=== PATIENT | male | born 1965 | race Caucasian/White ===

== ENCOUNTER 2020-05-01 07:24 | Outpatient (REF) | payer BC, SELFPAY ==
--- NOTE | 2020-05-01 07:31 | XR_ITS ---
EXAMINATION: XR LUMBOSACRAL SPINE CLINICAL INFORMATION: Low back pain. COMPARISON: None TECHNIQUE: Three views of the lumbosacral spine. FINDINGS: There is normal lumbar lordosis. The vertebral heights and alignment is normal. There is loss of L3-L4, L4-L5 and L5-S1 disc heights with moderate ventral spondylosis. No lytic process seen. The soft tissues are normal. The paravertebral soft tissues are normal. The SI joints are symmetrical and normal. XR/XR lumbar spine 2-3V IMPRESSION: Degenerative disc changes L3-L4, L4-L5 and L5-S1 disc levels with ventral spondylosis. No visible acute fracture, lytic or sclerotic process seen.
== END 2020-05-01 07:25 | disposition home or self-care (01) ==
LOC: HO.XRAY 07:24
PROVIDERS: PCP Internal Medicine; Visit Provider Internal Medicine
DX: M51.36 Other intervertebral disc degeneration, lumbar region (principal)
CPT/HCPCS: 72100

== ENCOUNTER → 2020-05-20 10:00 | Outpatient (BNVA) | payer BC, SELFPAY | PROVIDERS: PCP Internal Medicine; Visit Provider Surgery | DX: Z76.89 Persons encountering health services in other specified circumstances (principal) ==

== ENCOUNTER 2020-05-25 06:39 | Outpatient (REF) | payer BC, SELFPAY | END 2020-05-25 06:40 | disposition home or self-care (01) | LOC: HO.LAB 06:39 | PROVIDERS: PCP Internal Medicine; Visit Provider Internal Medicine | DX: Z20.828 Contact with and (suspected) exposure to other viral communicable diseases (principal) | CPT/HCPCS: 36415; C9803; U0003 ==

== ENCOUNTER 2020-06-08 06:08 | Day surgery (SDC) | payer OTHER, BC, SELFPAY ==
--- NOTE | 2020-06-07 09:39 | HO.ANESPROP2 ---
Documented by User: Ama Day 06/07/20 09:43 HPI - Anesthesia Eval Consult details Narrative: 54yo M for Repair of Inguinal Hernias, Bilateral Family Hx MH (sister, nephew), pt never received GA, never tested [facility] Past Medical History Medical History DDD (degenerative disc disease), lumbar Family history of malignant hyperthermia Fatty liver Hypercholesterolemia Hypertension Impaired glucose tolerance Nocturnal hypoxemia Obesity (BMI 30-39.9) Obstructive sleep apnea Vitamin D deficiency Family History Family History Father Lung cancer Mother Lung cancer Maternal Grandmother No problems noted. Maternal Grandfather Lung cancer Paternal Grandmother No problems noted. Paternal Grandfather No problems noted. Daughter Bipolar disorder Maternal Aunt Bipolar disorder Surgical History Surgical History (Updated 06/08/20 @ 08:15 by Cecilia Souza) H/O colonoscopy History of ear surgery History of selective injection of anesthetic agent around lumbar nerve root Social History Social History Alcohol intake: current Smoking Status: Former smoker Years Smoked: 1987 Second Hand Smoke Exposure: No Use of substances other than those prescribed or required for medical reasons: No Advance Directives: No Advance Directives Information Provided: No Advance Directives on File: No Meds Allergies Allergy/AdvReac Type Severity Reaction Status Date / Time chlorthalidone AdvReac Intermediate gout, Verified 05/31/20 10:49 hypokalemia ezetimibe [Zetia] AdvReac Intermediate ^ LFTS Verified 05/31/20 10:49 lisinopril AdvReac Intermediate cough Verified 05/31/20 10:49 Home Medications Medication Instructions Recorded Confirmed Type CPAP #1 ea 04/29/20 04/29/20 History fenofibrate nanocrystallized 145 145 mg PO DAILY 04/29/20 05/31/20 History mg tablet losartan 50 mg tablet 50 mg PO DAILY 04/29/20 05/31/20 History amlodipine 1 tab PO DAILY 05/31/20 05/31/20 History Exam Exam Date and Time: June 07, 2020 0939 Height,Weight and Vital Signs: Height 5 ft 10 in Weight 95 kg Pertinent Lab Results Pertinent Lab Results: Laboratory Tests 02/02/20 02/02/20 06:41 06:41 WBC 6.8 Hgb 14.3 Hct 40.9 L Plt Count 369 Sodium 140 Potassium 4.1 Chloride 107 BUN 25 H Creatinine 1.14 Assessment and Plan Assessment Anesthesia Assessment: Chart Reviewed Documented by User: Cecilia Souza 06/08/20 08:19 [facility] Past Medical History Medical History DDD (degenerative disc disease), lumbar Family history of malignant hyperthermia Fatty liver Hypercholesterolemia Hypertension Impaired glucose tolerance Nocturnal hypoxemia Obesity (BMI 30-39.9) Obstructive sleep apnea Vitamin D deficiency Family History Family History Father Lung cancer Mother Lung cancer Maternal Grandmother No problems noted. Maternal Grandfather Lung cancer Paternal Grandmother No problems noted. Paternal Grandfather No problems noted. Daughter Bipolar disorder Maternal Aunt Bipolar disorder Family history of problems with anesthesia: Yes (Malignant hypertension history in sister and nephew) Surgical History Surgical History (Updated 06/08/20 @ 08:15 by Cecilia Souza) H/O colonoscopy History of ear surgery History of selective injection of anesthetic agent around lumbar nerve root History of Problems with Anesthesia: No (No history of problems with anesthesia in patient but FH of MH. Patient never tested.) Social History Social History Alcohol intake: current Smoking Status: Former smoker Years Smoked: 1987 Second Hand Smoke Exposure: No Use of substances other than those prescribed or required for medical reasons: No Advance Directives: No Advance Directives Information Provided: No Advance Directives on File: No Meds Allergies Allergy/AdvReac Type Severity Reaction Status Date / Time chlorthalidone AdvReac Intermediate gout, Verified 05/31/20 10:49 hypokalemia ezetimibe [Zetia] AdvReac Intermediate ^ LFTS Verified 05/31/20 10:49 lisinopril AdvReac Intermediate cough Verified 05/31/20 10:49 Home Medications Medication Instructions Recorded Confirmed Type CPAP #1 ea 04/29/20 04/29/20 History fenofibrate nanocrystallized 145 145 mg PO DAILY 04/29/20 05/31/20 History mg tablet losartan 50 mg tablet 50 mg PO DAILY 04/29/20 05/31/20 History amlodipine 1 tab PO DAILY 05/31/20 05/31/20 History Exam Height,Weight and Vital Signs: Vital Signs Temp Pulse Resp BP Pulse Ox 06/08/20 06:23 97 F 64 18 165/95 H 98 Airway Mallampati Class: III TM Dist: >3cm Neck ROM: Full Loose/Missing/Broken Teeth: No Heart: RRR Lungs: CTAB Assessment and Plan Assessment Anesthesia Assessment: Anesthesia Plan Discussed and Chart Reviewed Final Anesthetic Review NPO: Yes ASA Class: III Final Preanesthetic Review: No Changes in Pt Med Stat, Meds/Allgs Chart Reviewed, Consent Obtained/Reviewed and Anes Risks/Benef Reviewed Patient Risk: Intermediate Procedure Risk: Low Assessment/Block/Sedation in SS: Assess/Block/Sedation-SS Anesthetic Plan Anesthetic Plan: GA (TIVA) Disposition: Extended PACU
[2020-06-08] VITALS (10 sets, daily range): BP systolic 103–165; BP diastolic 62–95; PULSE 60–79; RESP 11–18; TEMP 36.1–36.6; O2SAT 94–98
[2020-06-08] MEDS: ceFAZolin Sodium/Dextrose,Iso 2 GM/50 ML PIGGYBACK IV (07:11)
[2020-06-08] MEDS: Lactated Ringers 1,000 ML 100 ML IVCONT (07:11)
--- NOTE | 2020-06-08 07:25 | MHC.SHP ---
Pre-Procedural Eval Section B Chief Complaint: Bilateral Inguinal Hernias Allergies: Allergies Allergy/AdvReac Type Severity Reaction Status Date / Time chlorthalidone AdvReac Intermediate gout, Verified 05/31/20 10:49 hypokalemia ezetimibe [Zetia] AdvReac Intermediate ^ LFTS Verified 05/31/20 10:49 lisinopril AdvReac Intermediate cough Verified 05/31/20 10:49 Plan I have reviewed the history and physical and performed a pertinent physical examination on my patient. No changes have occurred unless specified.
--- NOTE | 2020-06-08 08:58 | P.BOP_ITS ---
Brief Operative Note Date of Service: 06/08/20 Pre-op diagnosis: bilateral inguinal hernias Post-op diagnosis: same Procedure: Repair of bilateral inguinal hernias with mesh Implants: BARD mesh PERfix plug, medium (bilateral) Surgeon: Leoal BANEGAS MD Anesthesia: GLMA Pressure Test Operator: Jaja Seay Estimated blood loss (mL): 10 Pathology: none sent Condition: stable Disposition: PACU
[2020-06-08] MEDS: Ketorolac Tromethamine 15 MG/ML VIAL IVPUSH (09:27)
[2020-06-08] MEDS: ondansetron HCL 4 MG/2 ML VIAL IVPUSH (09:55)
[2020-06-08] MEDS: oxyCODONE HCl Immed Release 5 MG TABLET PO (09:57)
--- NOTE | 2020-06-08 10:36 | OP_ITS ---
SURGEON: Yfn Arnold MD INDICATIONS: The patient is a 54-year-old male, who was seen in the office because of bilateral inguinal hernias, both reducible. In view of symptoms, he wanted to proceed with repair. He understood the technique of repair with mesh. He was aware of the risks, benefits, and alternatives. PREOPERATIVE DIAGNOSIS: Bilateral inguinal hernia. POSTOPERATIVE DIAGNOSIS: Bilateral inguinal hernia, both direct. PROCEDURE PERFORMED: Repair of bilateral inguinal hernia with mesh. ESTIMATED BLOOD LOSS: COMPLICATIONS: ANESTHESIA: ASSISTANTS: SPECIMENS: STAMPING PRESS OPERATOR: Jaja Seay PA-C DESCRIPTION OF PROCEDURE: He was brought to the operating room and placed supine on the table under general anesthesia via laryngeal mask airway. The both inguinal areas were prepped and draped in usual sterile fashion . A surgical time-out was done. The patient received cefazolin. It was also mentioned that the patient had a family history of malignant hyperthermia. Precautions were therefore taken in view of this history. I marked the planned line of incision on the left groin. I then infiltrated this area with lidocaine 1%. I made a short incision using blade #15 along an imaginary line from the anterior superior iliac spine to the pubic ramus. This was carried down through full-thickness skin and subcutaneous fat until the external oblique aponeurosis was exposed. We bluntly dissected the external oblique aponeurosis to define the external ring. The external oblique aponeurosis overlying this canal was incised using electrocautery. Hemostats were applied on both edges. I bluntly dissected the underside of the external oblique aponeurosis to create a pocket for the mesh. I then proceeded to gently dissect the spermatic cord and its contents using index finger until I was able to pass a Phi drain around this. I was able to identify the vas deferens along with its accompanying vessels. By doing so, I was able to identify direct hernia. We gently dissected this off the rest of the cord. We defined the defect on the floor of the canal. This was completely reduce and I positioned a medium-sized plug on the floor to reinforce the direct hernia. I secured this plug with Prolene 2-0 suture using the inner leaves of the plug to the shelving edge of the inguinal ligament laterally and the internal oblique superiorly and medially. I then reinforced the floor of the canal with keyhole mesh. The tails of the mesh were passed around the cord at the level of internal ring. I secured the mesh with Prolene 2-0 suture to shelving edge of the inguinal ligament laterally, and internal oblique superiorly and medially as well as the pubic ramus inferomedially. The above was irrigated. We observed for hemostasis. Once hemostasis was ensured, proceeded to remove the [place] drain. I closed the external oblique aponeurosis in a running Dexon 2-0 stitch to re-create the external ring. At this point, we proceeded to do the contralateral hernia on the right. Again, I marked the planned incision. I infiltrated this area with lidocaine 1%. I made a short incision using blade #15. I carried down the incision to the full-thickness skin and subcutaneous fat down to the external oblique aponeurosis using electrocautery and blunt dissection. We defined the external oblique aponeurosis bluntly to identify the external ring. I opened the external ring by dividing the external oblique aponeurosis overlying the canal. I grasped with hemostats on the edges of the divided external oblique aponeurosis and did blunt dissection of the underside to create a pocket for the mesh. I then did blunt dissection of the spermatic cord using my index finger until I was able to pass a Phi drain around this, and then I was able to identify the vas deferens and accompanying vessels. By doing so, I was able to identify the direct hernia. We proceeded to dissect the sac off the rest of the cord contents and this was reduced to the floor of the canal. I reinforced this direct hernia with a medium-sized plug, and the plug was secured with Prolene 2-0 sutures using its inner leaves to the internal oblique medially and superiorly as well as the shelving edge of the inguinal ligament laterally. I reinforced the floor of the canal with keyhole mesh. The tails of the mesh were passed around the cord at the level of internal ring and was secured together with prolene 2-0 sutures. The mesh was flattened on the floor of the canal and was secured with Prolene 2-0 suture to shelving edge of the inguinal and laterally and the internal oblique superiorly medially, and the pubic ramus inferomedially. The above was irrigated. We observed for hemostasis. Once hemostasis was ensured, we proceeded to then remove the Phi drain and closed the external oblique aponeurosis in a running Dexon 2-0 stitch to re-create the external ring. We then proceeded to close both incisions by re-apposing the subcutaneous layer with Dexon 3-0 sutures. Skin closure achieved on both incisions using Dexon 4-0 subcuticular runningstitch. We infiltrated the area with Marcaine 0.5% for postoperative analgesia. Dressings were applied. The patient tolerated the procedure well, and there were no complications noted. Initial and final counts of sponge and instruments were correct. Estimated blood loss about 5 mL. The patient was extubated without difficulty and transferred to recovery room with stable vital signs. MD LYUDMILA Sprague/ROSHNI / [id number] MTDD
--- NOTE | 2020-06-08 11:47 | HO.POSTANES ---
Post Anesthesia Evaluation Post Anesthesia Evaluation Vital Signs: Vital Signs Temp Pulse Resp BP Pulse Ox 06/08/20 10:55 96.9 F 60 18 131/81 97 06/08/20 10:30 96.9 F 61 18 141/87 H 96 06/08/20 10:00 97.1 F 60 16 133/81 96 06/08/20 09:45 97.2 F 74 14 126/76 97 06/08/20 09:30 97.7 F 68 16 128/83 96 06/08/20 09:15 97.9 F 79 12 110/70 94 06/08/20 09:10 64 11 L 103/63 97 06/08/20 09:05 63 12 106/62 97 06/08/20 09:00 97.0 F 76 14 105/64 95 06/08/20 06:23 97 F 64 18 165/95 H 98 Anesthesia: General Mental Status: Awake Pain Control: Satisfactory Nausea/Vomiting: None Hydration: Adequate Anesthesia-Related Issues: No Anes. Related Issues
== END 2020-06-08 11:40 | disposition home or self-care (01) ==
PROVIDERS: PCP Internal Medicine; Visit Provider Surgery
PROC: (CPT 49505; principal; 2020-06-08 07:30)
DX: K40.20 Bilateral inguinal hernia, without obstruction or gangrene, not specified as recurrent (principal); I10 Essential (primary) hypertension; G47.33 Obstructive sleep apnea (adult) (pediatric); Z79.899 Other long term (current) drug therapy; Z88.8 Allergy status to other drugs, medicaments and biological substances; Z84.89 Family history of other specified conditions; Z87.891 Personal history of nicotine dependence
CPT/HCPCS: 49505; J0690; J1170; J1885; J2250; J2405; J3010

== ENCOUNTER → 2020-06-21 13:48 | Outpatient (BNVA) | payer BC, SELFPAY | PROVIDERS: PCP Internal Medicine; Visit Provider Surgery | DX: K40.20 Bilateral inguinal hernia, without obstruction or gangrene, not specified as recurrent (principal) | CPT/HCPCS: 99212 ==

== ENCOUNTER → 2020-08-09 13:02 | Outpatient (BNVA) | payer BC, OTHER, SELFPAY | PROVIDERS: PCP Internal Medicine; Visit Provider Anesthesiology ==

== ENCOUNTER 2020-08-18 06:11 | Outpatient (REF) | payer BC, SELFPAY ==
[2020-08-18 07:34] LABS: Alanine Aminotransferase 47 U/L (0-40); Albumin Level 4.5 g/dL (3.5-5.0); Alkaline Phosphatase 38 U/L (39-117); Anion Gap 15 (12-20); Aspartate Amino Transferase 23 U/L (5-37); Bilirubin Total 0.3 mg/dL (0.0-1.0); Blood Urea Nitrogen 22 mg/dL (9-16); Calcium 8.5 mg/dL (8.4-10.2); Carbon Dioxide 23 mmol/L (22-29); Chloride 107 mmol/L (96-108); Cholesterol 191 mg/dL; Estimated Glomerular Filt Rate > 60; Glucose Random 115 mg/dL (60-115); HDL Cholesterol 37 mg/dL; LDL Cholesterol Calculated 133 mg/dl; Potassium 4.2 mmol/L (3.3-5.1); Sodium 141 mmol/L (135-145); Total Protein 6.7 g/dL (6.5-8.0); Triglycerides 106 mg/dL
[2020-08-18 08:05] LABS: Estimated Average Glucose 114 mg/dL; Hemoglobin A1C 130.2655 umol/L; Hemoglobin A1c % 5.6 %
== END 2020-08-18 06:12 | disposition home or self-care (01) ==
LOC: HO.LAB 06:11
PROVIDERS: PCP Internal Medicine; Visit Provider Internal Medicine
DX: I10 Essential (primary) hypertension (principal); E78.00 Pure hypercholesterolemia, unspecified; R73.02 Impaired glucose tolerance (oral)
CPT/HCPCS: 36415; 80053; 80061; 83036

== ENCOUNTER 2020-09-28 06:21 | Outpatient (REF) | payer BC, OTHER, SELFPAY ==
--- NOTE | ~2020-09-28 | FL_ITS ---
EXAMINATION: XR FLUOROSCOPY WITH IMAGES CLINICAL INFORMATION: M51.37 - Other intervertebral disc degeneration, lumbosacral COMPARISON: Lumbar radiographs 05/01/2020. TECHNIQUE: Fluoroscopy performed by Lu Patriica NP. Fluoroscopy time: 0.7 minutes DAP: 9.4 Gycm2 Images: 4 FINDINGS: There is spinal needle overlying the outer right L5 neural foramen with contrast in the nerve sheath and some transforaminal epidural extension. There is also a left-sided spinal needle near the lumbosacral junction with contrast overlying the L5-S1 disc space. There are degenerative changes lumbar spine with variable disc narrowing and vertebral spurring as noted on prior imaging. FL/FL guidance in treatment room IMPRESSION: Fluoroscopy for pain management procedures.
== END 2020-09-28 06:22 | disposition home or self-care (01) ==
LOC: HO.RADIR 06:21
PROVIDERS: Visit Provider Anesthesiology
DX: M51.37 Other intervertebral disc degeneration, lumbosacral region (principal); M51.36 Other intervertebral disc degeneration, lumbar region
CPT/HCPCS: 64483; J3300; Q9967

== ENCOUNTER → 2020-11-03 11:01 | Outpatient (BNVA) | payer BC, OTHER, SELFPAY | PROVIDERS: PCP Internal Medicine; Visit Provider Anesthesiology ==

== ENCOUNTER 2021-10-27 05:59 | Outpatient (REF) | payer BC, SELFPAY ==
[2021-10-27 06:09] LABS: MANUAL DIFF FLAG NO
[2021-10-27 07:23] LABS: Basophils Percent Auto 0.5 % (0-2); Eosinophils Absolute Auto 0.4 X10*3/uL (0.0-0.4); Eosinophils Percent Auto 4.8 % (0-4); Hematocrit 40.9 % (42.0-52.0); Hemoglobin 13.8 g/dl (14.0-18.0); Imm Gran Abs Auto 0.03 X10*3/uL (0.00-0.03); Imm Gran Pct Auto 0.4 % (0.0-0.4); Lymphocytes Absolute Auto 2.2 X10*3/uL (1.2-4.9); Lymphocytes Percent Auto 29.6 % (20-40); Mean Corpuscular HGB Conc 33.7 g/dl (31.0-36.0); Mean Corpuscular Hemoglobin 29.8 pg (27.0-33.0); Mean Corpuscular Volume 88.3 fL (80.0-98.0); Mean Platelet Volume 9.8 fL (9.4-12.4); Monocytes Absolute Auto 0.8 X10*3/uL (0.1-1.2); Monocytes Percent Auto 10.6 % (2-11); Neutrophils Percent Auto 54.1 % (45-73); Platelet Count 363 X10*3/uL (160-400); Red Blood Count 4.63 X10*6/uL (4.60-5.80); Red Cell Distribution Width 12.5 % (11.0-16.0); White Blood Count 7.4 X10*3/uL (4.8-10.8)
[2021-10-27 07:32] LABS: Estimated Average Glucose 120 mg/dL; Hemoglobin A1c % 5.8 %
[2021-10-27 07:47] LABS: Alanine Aminotransferase 44 U/L (0-40); Albumin Level 4.6 g/dL (3.5-5.0); Alkaline Phosphatase 36 U/L (39-117); Anion Gap 12 (12-20); Aspartate Amino Transferase 20 U/L (5-37); Bilirubin Total 0.5 mg/dL (0.0-1.0); Blood Urea Nitrogen 30 mg/dL (9-16); Calcium 9.2 mg/dL (8.4-10.2); Carbon Dioxide 25 mmol/L (22-29); Chloride 107 mmol/L (96-108); Cholesterol 217 mg/dL; Estimated Glomerular Filt Rate 56; Glucose Random 113 mg/dL (60-115); HDL Cholesterol 32 mg/dL; LDL Cholesterol Calculated 154 mg/dl; Potassium 4.1 mmol/L (3.3-5.1); Sodium 140 mmol/L (135-145); Triglycerides 156 mg/dL
[2021-10-27 08:09] LABS: Free T4 (Free Thyroxine) 0.92 ng/dL (0.71-1.85); Prostate Specific Antigen Scr 2.15 ng/mL (<0.05-4.0); Thyroid Stimulating Hormone 1.53 uIU/mL (0.32-4.0)
[2021-10-27 08:37] LABS: Folate 11.5 ng/mL (> or = 4.0); Vitamin B12 348 pg/mL (200-900)
== END 2021-10-27 06:00 | disposition home or self-care (01) ==
LOC: HO.LAB 05:59
PROVIDERS: PCP Internal Medicine; Visit Provider Internal Medicine
DX: Z12.5 Encounter for screening for malignant neoplasm of prostate (principal); E78.00 Pure hypercholesterolemia, unspecified; R73.02 Impaired glucose tolerance (oral)
CPT/HCPCS: 36415; 80053; 80061; 82607; 82746; 83036; 84153; 84439; 84443; 85025

== ENCOUNTER 2022-02-09 06:07 | Outpatient (REF) | payer BC, SELFPAY ==
[2022-02-09 06:13] LABS: MANUAL DIFF FLAG NO
[2022-02-09 07:51] LABS: Basophils Absolute Auto 0.1 X10*3/uL (0.0-0.2); Basophils Percent Auto 0.6 % (0-2); Eosinophils Absolute Auto 0.4 X10*3/uL (0.0-0.4); Eosinophils Percent Auto 4.8 % (0-4); Hematocrit 40.9 % (42.0-52.0); Hemoglobin 13.7 g/dl (14.0-18.0); Imm Gran Abs Auto 0.03 X10*3/uL (0.00-0.03); Imm Gran Pct Auto 0.4 % (0.0-0.4); Immature Retic Fraction 13.2 % (2.3-13.4); Lymphocytes Absolute Auto 2.3 X10*3/uL (1.2-4.9); Lymphocytes Percent Auto 28.3 % (20-40); Mean Corpuscular HGB Conc 33.5 g/dl (31.0-36.0); Mean Corpuscular Hemoglobin 29.5 pg (27.0-33.0); Mean Corpuscular Volume 88.1 fL (80.0-98.0); Mean Platelet Volume 9.7 fL (9.4-12.4); Monocytes Absolute Auto 0.9 X10*3/uL (0.1-1.2); Neutrophils Absolute Auto 4.4 x10*3/uL (2.0-8.3); Neutrophils Percent Auto 54.9 % (45-73); Platelet Count 362 X10*3/uL (160-400); Red Blood Count 4.64 X10*6/uL (4.60-5.80); Red Cell Distribution Width 12.8 % (11.0-16.0); Retic HGB Equivalent 35.9 pg (30.0-35.0); Reticulocyte Percent 2.4 % (0.5-1.8); Reticulocytes Absolute 0.112 X10*6/uL (0.026-0.095)
[2022-02-09 08:00] LABS: Estimated Average Glucose 117 mg/dL; Hemoglobin A1c % 5.7 %
[2022-02-09 08:26] LABS: Alanine Aminotransferase 46 U/L (0-40); Albumin Level 4.4 g/dL (3.5-5.0); Alkaline Phosphatase 39 U/L (39-117); Anion Gap 16 (12-20); Aspartate Amino Transferase 23 U/L (5-37); Bilirubin Total 0.5 mg/dL (0.0-1.0); Blood Urea Nitrogen 23 mg/dL (9-16); Calcium 8.9 mg/dL (8.4-10.2); Carbon Dioxide 24 mmol/L (22-29); Chloride 107 mmol/L (96-108); Cholesterol 223 mg/dL; Estimated Glomerular Filt Rate > 60; Glucose Random 99 mg/dL (60-115); HDL Cholesterol 38 mg/dL; Iron 94 mcg/dL (45-160); LDL Cholesterol Calculated 153 mg/dl; Percent Iron Saturation 23 % (15-50); Potassium 4.2 mmol/L (3.3-5.1); Sodium 143 mmol/L (135-145); Total Iron Binding Capacity 402 mcg/dL (228-428); Total Protein 6.8 g/dL (6.5-8.0); Triglycerides 164 mg/dL; Unsaturated Iron Binding 308 ug/dL
[2022-02-09 08:48] LABS: Ferritin 232 ng/mL (20-250)
== END 2022-02-09 06:08 | disposition home or self-care (01) ==
LOC: HO.LAB 06:07
PROVIDERS: PCP Internal Medicine; Visit Provider Internal Medicine
DX: R73.02 Impaired glucose tolerance (oral) (principal); E78.00 Pure hypercholesterolemia, unspecified
CPT/HCPCS: 36415; 80053; 80061; 82728; 83036; 83540; 85025; 85045

== ENCOUNTER 2022-05-30 06:05 | Outpatient (REF) | payer BC, SELFPAY ==
[2022-05-30 06:09] LABS: MANUAL DIFF FLAG NO
[2022-05-30 07:35] LABS: Basophils Percent Auto 0.5 % (0-2); Eosinophils Absolute Auto 0.3 X10*3/uL (0.0-0.4); Eosinophils Percent Auto 3.8 % (0-4); Hematocrit 43.9 % (42.0-52.0); Hemoglobin 14.6 g/dl (14.0-18.0); Imm Gran Abs Auto 0.02 X10*3/uL (0.00-0.03); Imm Gran Pct Auto 0.3 % (0.0-0.4); Lymphocytes Percent Auto 26.9 % (20-40); Mean Corpuscular HGB Conc 33.3 g/dl (31.0-36.0); Mean Corpuscular Hemoglobin 29.6 pg (27.0-33.0); Monocytes Absolute Auto 0.8 X10*3/uL (0.1-1.2); Monocytes Percent Auto 10.1 % (2-11); Neutrophils Absolute Auto 4.4 x10*3/uL (2.0-8.3); Neutrophils Percent Auto 58.4 % (45-73); Platelet Count 401 X10*3/uL (160-400); Red Blood Count 4.93 X10*6/uL (4.60-5.80); Red Cell Distribution Width 12.7 % (11.0-16.0); White Blood Count 7.6 X10*3/uL (4.8-10.8)
[2022-05-30 08:01] LABS: Estimated Average Glucose 123 mg/dL; Hemoglobin A1c % 5.9 %
[2022-05-30 08:08] LABS: Alanine Aminotransferase 43 U/L (0-40); Albumin Level 4.6 g/dL (3.5-5.0); Alkaline Phosphatase 41 U/L (39-117); Anion Gap 14 (12-20); Aspartate Amino Transferase 24 U/L (5-37); Bilirubin Total 0.6 mg/dL (0.0-1.0); Blood Urea Nitrogen 25 mg/dL (9-16); Calcium 9.2 mg/dL (8.4-10.2); Carbon Dioxide 24 mmol/L (22-29); Chloride 109 mmol/L (96-108); Cholesterol 217 mg/dL; Estimated Glomerular Filt Rate > 60; Glucose Random 111 mg/dL (60-115); HDL Cholesterol 41 mg/dL; LDL Cholesterol Calculated 154 mg/dl; Potassium 4.1 mmol/L (3.3-5.1); Sodium 143 mmol/L (135-145); Total Protein 6.9 g/dL (6.5-8.0); Triglycerides 112 mg/dL
[2022-05-30 08:27] LABS: Free T4 (Free Thyroxine) 1.09 ng/dL (0.71-1.85); Prostate Specific Antigen Scr 2.11 ng/mL (<0.05-4.0); Thyroid Stimulating Hormone 1.48 uIU/mL (0.32-4.0)
[2022-05-30 08:40] LABS: Folate 11.6 ng/mL (> or = 4.0); Vitamin B12 378 pg/mL (200-900)
== END 2022-05-30 06:06 | disposition home or self-care (01) ==
LOC: HO.LAB 06:05
PROVIDERS: PCP Internal Medicine; Visit Provider Internal Medicine
DX: Z12.5 Encounter for screening for malignant neoplasm of prostate (principal); I10 Essential (primary) hypertension; E78.00 Pure hypercholesterolemia, unspecified
CPT/HCPCS: 36415; 80053; 80061; 82607; 82746; 83036; 84153; 84439; 84443; 85025

== ENCOUNTER 2022-09-08 06:25 | Outpatient (REF) | payer BC, SELFPAY ==
[2022-09-08 08:56] LABS: Alanine Aminotransferase 44 U/L (0-40); Albumin Level 4.6 g/dL (3.5-5.0); Alkaline Phosphatase 45 U/L (39-117); Anion Gap 15 (12-20); Aspartate Amino Transferase 22 U/L (5-37); Bilirubin Total 0.6 mg/dL (0.0-1.0); Blood Urea Nitrogen 25 mg/dL (9-16); Calcium 9.3 mg/dL (8.4-10.2); Carbon Dioxide 25 mmol/L (22-29); Chloride 108 mmol/L (96-108); Cholesterol 233 mg/dL; Estimated Glomerular Filt Rate 55; Glucose Random 112 mg/dL (60-115); HDL Cholesterol 36 mg/dL; LDL Cholesterol Calculated 169 mg/dl; Potassium 3.9 mmol/L (3.3-5.1); Sodium 144 mmol/L (135-145); Total Protein 6.8 g/dL (6.5-8.0); Triglycerides 142 mg/dL
[2022-09-08 09:14] LABS: Estimated Average Glucose 120 mg/dL; Hemoglobin A1c % 5.8 %
== END 2022-09-08 06:26 | disposition home or self-care (01) ==
LOC: HO.LAB 06:25
PROVIDERS: PCP Internal Medicine; Visit Provider Internal Medicine
DX: R73.02 Impaired glucose tolerance (oral) (principal); E78.00 Pure hypercholesterolemia, unspecified
CPT/HCPCS: 36415; 80053; 80061; 83036

== ENCOUNTER 2022-12-18 06:02 | Outpatient (REF) | payer BC, SELFPAY ==
[2022-12-18 07:22] LABS: Estimated Average Glucose 114 mg/dL; Hemoglobin A1c % 5.6 %
[2022-12-18 07:43] LABS: Alanine Aminotransferase 46 U/L (0-40); Albumin Level 4.5 g/dL (3.5-5.0); Alkaline Phosphatase 33 U/L (39-117); Anion Gap 18 (12-20); Aspartate Amino Transferase 24 U/L (5-37); Bilirubin Total 0.4 mg/dL (0.0-1.0); Blood Urea Nitrogen 30 mg/dL (9-16); Calcium 9.3 mg/dL (8.4-10.2); Carbon Dioxide 22 mmol/L (22-29); Chloride 108 mmol/L (96-108); Cholesterol 180 mg/dL; Estimated Glomerular Filt Rate 59; Glucose Random 116 mg/dL (60-115); HDL Cholesterol 36 mg/dL; LDL Cholesterol Calculated 116 mg/dl; Potassium 3.6 mmol/L (3.3-5.1); Sodium 144 mmol/L (135-145); Total Protein 7.1 g/dL (6.5-8.0); Triglycerides 144 mg/dL
== END 2022-12-18 06:03 | disposition home or self-care (01) ==
LOC: HO.LAB 06:02
PROVIDERS: PCP Internal Medicine; Visit Provider Internal Medicine
DX: E78.00 Pure hypercholesterolemia, unspecified (principal); R73.02 Impaired glucose tolerance (oral)
CPT/HCPCS: 36415; 80053; 80061; 83036

== ENCOUNTER 2022-12-21 09:45 | Outpatient (AMB) | payer BC, SELFPAY ==
--- NOTE | 2022-12-21 10:11 | A.OFFPC_ITS ---
Vital Signs 12/21/22 10:13 Height 5 ft 10 in Weight 215 lb BMI 30.8 BP 130/68 Blood Pressure Location Lt brachial Position Sitting Pulse 58 Pulse Source Pulse Oximeter Pulse Oximetry (%) 94 Oxygen Delivery Method Room Air Intake Visit Reasons: hypercholesterol , HTN Allergies amlodipine Adverse Reaction (Intermediate, Verified 12/21/22 10:14) leg swelling chlorthalidone Adverse Reaction (Intermediate, Verified 12/21/22 10:14) gout, hypokalemia ezetimibe [Zetia] Adverse Reaction (Intermediate, Verified 12/21/22 10:14) ^ LFTS lisinopril Adverse Reaction (Intermediate, Verified 12/21/22 10:14) cough Tobacco use date assessed: 06/01/22 Dental Screening Dental Screen Date: 12/21/22 Did you have a dental visit in the last 12 months?: No Did you have a dental problem in the last 6 months where you did not have access to dental care?: No Was dental information given to patient?: Patient has dentist HPI hypercholesterol , HTN HPI Details 57-year-old obese male with hypertension hypercholesterolemia impaired glucose tolerance obstructive sleep apnea coming in for follow-up. Last seen in August. Blood work recently done patient brought in a paper from the [place] diagnosis of asthma and chronic sinusitis patient states has been told of nasal polyps. Because of cost of Flonase patient is asking for alternative/prescription. Discussed about Nasonex which we can prescribe which helps the nasal polyps also. Patient complains also of right para thoracic back pain deny any fall or trauma and denies any radiation to the abdomen. Denies any dysuria or bowel bladder symptoms this has been going on for about 6 months . As for the sleep apnea patient does use the CPAP regularly every night but with him having problems of tiredness and takes afternoon naps patient was advised to follow-up with sleep management clinic [facility] Medical History (Updated 12/21/22 @ 11:13 by Lorraine Fields MD) DDD (degenerative disc disease), lumbar Disc degeneration, lumbosacral Family history of malignant hyperthermia Fatty liver Hypercholesterolemia Hypertension Impaired glucose tolerance Nocturnal hypoxemia Obesity (BMI 30-39.9) Obstructive sleep apnea Vitamin D deficiency Surgical History H/O colonoscopy History of ear surgery History of selective injection of anesthetic agent around lumbar nerve root S/P bilateral inguinal hernia repair Family History (Updated 09/12/22 @ 09:50 by Jasmyn Burch CMA) Father Lung cancer Mother Lung cancer Maternal Grandmother No problems noted. Maternal Grandfather Lung cancer Paternal Grandmother No problems noted. Paternal Grandfather No problems noted. Daughter Bipolar disorder Maternal Aunt Bipolar disorder Other Mental health disorder Social History (Updated 06/01/22 @ 09:54 by Lorraine Fields MD) Housing: House Alcohol intake: current Patient Tobacco Use Status: Former Tobacco user Tobacco use type: Cigarette Years Smoked: 1987 e-Cigarette/Vaping Use: Never Used Second Hand Smoke Exposure: No service: Yes Current occupational status: employed Current occupational exposures/hazards: No Cognitive needs: No Hearing needs: No Vision needs: Yes Questionnaire PHQ-9 Over the last 2 weeks, how often have you been bothered by any of the following problems? 1. Little interest or pleasure in doing things: not at all 2. Feeling down, depressed, or hopeless: not at all 3. Trouble falling or staying asleep, or sleeping too much: not at all 4. Feeling tired or having little energy: not at all 5. Poor appetite or overeating: not at all 6. Feeling bad about yourself - or that you are a failure or have let yourself or your family down: not at all 7. Trouble concentrating on things, such as reading the newspaper or watching television: not at all 8. Moving or speaking so slowly that other people could have noticed. Or the opposite - being so fidgety or restless that you have been moving around a lot more than usual: not at all 9. Thoughts that you would be better off or of hurting yourself in some way: not at all Total score: 0 Depression Screening Interpretation: Negative Source: Developed by Drs. Tuan Schwarz, Claudia Burdick, Fabricio Salinas and colleagues, with an educational piper from [employer]. Thrive Questionnaire Date Thrive assessed: 06/01/22 AUDIT C Alcohol Use Questionnaire (AUDIT-C) 1. How often do you have a drink containing alcohol?: 2-3 times a week 2. How many drinks containing alcohol do you have on a typical day when you are drinking?: 3 or 4 3. How often do you have six or more drinks on one occasion?: Never Total Score: 4 AVIVA-7 AMB Questionnaire AVIVA-7 Date AVIVA - 7 assessed: 06/01/22 Source: Developed by Drs. Tuan Schwarz, Claudia Burdick, Fabricio Salinas and colleagues, with an educational piper from [employer]. Physical exam (Primary Care) Vital Signs: Last Vital Signs Pulse 58 12/21/22 10:13 BP 130/68 12/21/22 10:13 Pulse Ox 94 12/21/22 10:13 Oxygen Delivery Method Room Air 12/21/22 10:13 BMI result Body Mass Index 30.8 Tobacco/Smoking Status: Tobacco use Status Tobacco use date assessed 06/01/22 12/21/22 10:11 Patient Tobacco Use Status Former Tobacco user 12/21/22 10:11 Tobacco use type Cigarette 12/21/22 10:11 e-Cigarette/Vaping Use Never Used 12/21/22 10:11 PHQ-9: PHQ-9 Score PHQ-9: Total score 0 12/21/22 11:05 Depression Screening Interpretation: Negative Thrive Assessment: Date of Thrive Assessment Date Thrive assessed 06/01/22 12/21/22 10:11 Results AMB Urinalysis, Automated UA Leukoctes 0 [place]/uL Last Edit by Jasmyn Burch CMA on 12/21/22 11:13 UA Nitrite Negative Last Edit by Jasmyn Burch CMA on 12/21/22 11:13 UA Urobilinogen 0.2 mg/dL Last Edit by Jasmyn Burch CMA on 12/21/22 11:13 UA Protein 0 mg/dL Last Edit by Jasmyn Burhc CMA on 12/21/22 11:13 UA pH 6.0 Last Edit by Jasmyn Burch CMA on 12/21/22 11:13 UA Blood 0 [place]/uL Last Edit by Jasmyn Burch CMA on 12/21/22 11:13 UA Specific [place] 1.025 Last Edit by Jasmyn Burch CMA on 12/21/22 11:13 UA Ketone Negative Last Edit by Jasmyn Burch CMA on 12/21/22 11:13 UA Bilirubin 0 mg/dL Last Edit by Jasmyn Burch CMA on 12/21/22 11:13 UA Glucose 0 mg/dL Last Edit by Jasmyn Burch CMA on 12/21/22 11:13 Assessment and Plan Assessment & Plan (1) Vision changes: Code(s): H53.9 - Unspecified visual disturbance Plan: Referral to Ophthalmology (2) Hypertension: Code(s): I10 - Essential (primary) hypertension Qualifiers: Hypertension type: essential hypertension Qualified Code(s): I10 - Essential (primary) hypertension Plan: Continue with blood pressure medication. Decrease salt intake and exercise continue with losartan hydrochlorothiazide and metoprolol 100 mg once a day. Discussed about taking out the hydrochlorothiazide due to the dehydration/elevated BUN and blood work patient would like to hold off (3) Hypercholesterolemia: Code(s): E78.00 - Pure hypercholesterolemia, unspecified Plan: Avoid fried foods, chicken skin, eggs, butter margarine, pastries and meat. Be it pork or beef they have a lot of cholesterol LDL goal of less than 130 on simvastatin 5 mg once a day blood work this November at goal (4) Impaired glucose tolerance: Code(s): R73.02 - Impaired glucose tolerance (oral) Plan: Decrease the amount of carbohydrate intake, pasta, bread, rice and potatoes are all sugar and that is aside from all the sweet stuff, remember that fruits are good but they are Sweet also. This has gotten better also (5) Obstructive sleep apnea: Comment: Sleep study February 2018 on CPAP Code(s): G47.33 - Obstructive sleep apnea (adult) (pediatric) Plan: Continue with the CPAP more than 4 hours a night and patient this time states has not been feeling better. Patient is advised referral to sleep medicine Clinic (6) Obesity (BMI 30-39.9): Code(s): E66.9 - Obesity, unspecified Plan: Diet and exercise (7) Pain of left heel: Code(s): M79.672 - Pain in left foot Plan: Resolved (8) Allergic rhinitis: Code(s): J30.9 - Allergic rhinitis, unspecified Plan: Sent in Nasonex to help with nasal polyps also (9) Thoracic back pain: Code(s): M54.6 - Pain in thoracic spine Plan: Discussed that this most likely is more musculoskeletal pain. Urinalysis is negative Orders: Orders XR thoracic spine 2V Today M54.6 - Pain in thoracic spine AMB Urinalysis Automated Today Z13.9 - Encounter for screening, unspecified Referrals Ophthalmology Referral H53.9 - Unspecified visual disturbance Sleep Medicine Referral G47.33 - Obstructive sleep apnea (adult) (pediatric) Medications: New mometasone 50 mcg/actuation (Nasonex 24hr Allergy) administer into each nostril 2 sprays intranasal DAILY 17 grams 3RF J30.9 - Allergic rhinitis, unspecified Coding Level of Care Code Est Pt Level 4 (99891) Diagnoses Vision changes H53.9 Hypertension I10 Hypertension type: essential hypertension Hypercholesterolemia E78.00 Impaired glucose tolerance R73.02 Obstructive sleep apnea G47.33 Obesity (BMI 30-39.9) E66.9 Pain of left heel M79.672 Allergic rhinitis J30.9 Thoracic back pain M54.6
[2022-12-21 10:13] VITALS: BP 130/68; PULSE 58; O2SAT 94; BMI 30.8
== END 2022-12-21 11:19 | disposition home or self-care (01) ==
PROVIDERS: PCP Internal Medicine; Visit Provider Internal Medicine
DX: H53.9 Unspecified visual disturbance (principal); I10 Essential (primary) hypertension; E78.00 Pure hypercholesterolemia, unspecified; R73.02 Impaired glucose tolerance (oral); G47.33 Obstructive sleep apnea (adult) (pediatric); E66.9 Obesity, unspecified; M79.672 Pain in left foot; J30.9 Allergic rhinitis, unspecified; M54.6 Pain in thoracic spine; Z13.9 Encounter for screening, unspecified
CPT/HCPCS: 81003; 99214

== ENCOUNTER 2022-12-29 10:40 | Outpatient (REF) | payer BC, SELFPAY ==
--- NOTE | ~2022-12-29 | XR_ITS ---
EXAMINATION: XR THORACOLUMBAR SPINE CLINICAL INFORMATION: Thoracic spine pain COMPARISON: None available. TECHNIQUE: 3 views of the right FINDINGS: There are mild multilevel degenerative changes of thoracic spine with marginal spurring but no evidence of compression deformities or significant narrowing of the is unremarkable. XR/XR thoracic spine 2V IMPRESSION: Mild degenerative changes of thoracic spine
== END 2022-12-29 10:41 | disposition home or self-care (01) ==
LOC: HO.HMGCX 10:40
PROVIDERS: PCP Internal Medicine; Visit Provider Internal Medicine
DX: M54.6 Pain in thoracic spine (principal)
CPT/HCPCS: 72070

== ENCOUNTER 2023-02-27 10:59 | Outpatient (AMB) | payer BC, SELFPAY ==
--- NOTE | 2023-02-27 11:02 | MHC.OFFVIS ---
Intake Vital Signs 02/27/23 11:05 Height 5 ft 10 in Weight 212 lb BMI 30.4 BP 138/92 H Blood Pressure Location Rt brachial Position Sitting Pulse 64 Pulse Source Pulse Oximeter Pulse Oximetry (%) 95 Oxygen Delivery Method Room Air Intake Visit Reasons: INP- WAI-Confirmed Intake Note: Patient presents for WAI. Patient states in have a machine at home but im always feeling tired and fatigue, i dont believe I go into a solid deep sleep. Allergies amlodipine Adverse Reaction (Intermediate, Verified 12/21/22 10:14) leg swelling chlorthalidone Adverse Reaction (Intermediate, Verified 12/21/22 10:14) gout, hypokalemia ezetimibe [Zetia] Adverse Reaction (Intermediate, Verified 12/21/22 10:14) ^ LFTS lisinopril Adverse Reaction (Intermediate, Verified 12/21/22 10:14) cough HPI HPI Comments History of Present Illness Details 57 y/o male patient presents for new in-person visit for WAI on CPAP and fatigue. Pt reports was diagnosed with WAI in 2019, has been using CPAP since then. He feels whole a lot better after using CPAP, but still feels fatigue and sleepy during daytime. The CPAP compliance and therapy response (01/29/23-02/27/23) reviewed. He is on APAP [id number]. The usage days 100% and the average usage hours 7 hrs and 30 min. The max pressure was 14.3 and the AHI was 1.9/hr. He gets tired and fall asleep easily in the late afternoon, and tries not to sit down to stay awake. Pt usually can sleep 7-8 hrs at night. Sleep questionnaire: Have you ever been diagnosed with a sleep disorder? Yes. WAI. Have you ever had a sleep study in the past? Yes. Have you ever been treated for a sleep disorder? Yes, CPAP. Do you take medications for a sleep disorder? No. Do you snore? Yes. Do you wake up gasping at night? No. Do you have episodes of apneas? Yes. If yes, are they witnessed? Yes. Do you have episodes of nocturnal chest pain or dyspnea? No. Do you have difficulty initiating sleep? No. Do you have difficulty maintaining sleep? Yes, sometimes. Do you wake up tired? sometimes. Do you have headaches upon awakening? sometimes. Do you wake up with dry mouth or throat? sometimes. Do you have GERD? Sometimes. Do you have nocturia? No. Do you have nocturnal leg cramps? Yes. Do you have symptoms of restless legs? Yes. Do you act out your dreams? No. Sleep hygiene questionnaire: What is your usual sleep routine? Usual bedtime is at 8 pm; Usual wake up time is at 5 am. Do you take naps? Yes, try not to. but easily fall asleep in the last afternoon. Is your sleep environment cool, dark, and quiet? Yes. Do you exercise? walking all day. Do you take caffeine or other stimulants? coffee up until 10 am Do you use electronics in bed? Yes, using TV sound to compensate tinnitus. 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 Hypersomnolence questionnaire: Do you have daytime tiredness or fatigue? Yes. Do you easily fall asleep when inactive? Yes. Have you ever had episodes of sudden weakness? No. Have you ever had episodes of sudden weakness associated with strong emotions? No. [facility] Medical History (Updated 02/28/23 @ 09:30 by Betsy Sandra CNP) Disc degeneration, lumbosacral Family history of malignant hyperthermia DDD (degenerative disc disease), lumbar Obesity (BMI 30-39.9) Nocturnal hypoxemia Obstructive sleep apnea Vitamin D deficiency Impaired glucose tolerance Fatty liver Hypercholesterolemia Hypertension Surgical History H/O colonoscopy History of ear surgery History of selective injection of anesthetic agent around lumbar nerve root S/P bilateral inguinal hernia repair Family History Father Lung cancer Mother Lung cancer Maternal Grandmother No problems noted. Maternal Grandfather Lung cancer Paternal Grandmother No problems noted. Paternal Grandfather No problems noted. Daughter Bipolar disorder Maternal Aunt Bipolar disorder Other Mental health disorder Social History Housing: House Alcohol intake: current Patient Tobacco Use Status: Former Tobacco user Tobacco use type: Cigarette Years Smoked: 1987 e-Cigarette/Vaping Use: Never Used Second Hand Smoke Exposure: No service: Yes Current occupational status: employed Current occupational exposures/hazards: No Cognitive needs: No Hearing needs: No Vision needs: Yes Questionnaire [place] Sleepiness Scale Questions Sitting and reading: high chance of dozing Watching TV: moderate chance of dozing Sitting inactive in a theater, movie etc.: slight chance of dozing As a passenger in a car for an hour without break: moderate chance of dozing Lying down in the afternoon when circumstances permit: high chance of dozing Sitting and talking to someone: would never doze Sitting quietly after lunch without alcohol: moderate chance of dozing In a car, while stopped for a few minutes in the traffic: would never doze ESS < 10: normal, ESS > 12: pathologic: 13 Review of Systems ENT Reports Normal hearing present Neuro Reports Normal hearing present Physical Exam Vital Signs: Last Vital Signs Pulse 64 02/27/23 11:05 BP 138/92 H 02/27/23 11:05 Pulse Ox 95 02/27/23 11:05 Oxygen Delivery Method Room Air 02/27/23 11:05 BMI result Body Mass Index 30.4 Const General: cooperative and tired appearing Nutritional Appearance: obese Orientation/consciousness: patient oriented x3 Neck Neck: Yes full ROM and Yes supple Resp Effort & Inspection: normal respiratory effort and able to speak in complete sentences Neuro General: patient oriented x3, gait normal and moves all extremities Cranial nerves: Yes Bilaterally intact EOM present, Yes Normal facial strength present, Yes Midline tongue present, Yes Normal hearing present, Yes Ability to bilaterally rotate head present and Yes Ability to bilaterally elevate shoulders present Cognition (Neuro): normal cognition Gait exam (Neuro): Normal gait present Motor exam (neuro): 5/5 motor strength present throughout, Pronator motor function not present and no tremor noted Psych Appearance: grossly normal Mental Status: mental status grossly normal Speech and movement: Normal speech and movement present Affect: normal affect Attitude: cooperative Assessment & Plan Assessment & Plan (1) Obstructive sleep apnea: Comment: Sleep study February 2018 on CPAP Code(s): G47.33 - Obstructive sleep apnea (adult) (pediatric) (2) Daytime sleepiness: Comment: ESS score 13 today Code(s): R40.0 - Somnolence (3) Fatigue: Code(s): R53.83 - Other fatigue Plan Advised patient to continue to use APAP [id number] as patient experiences good clinical effects. Stressed compliance, use CPAP nightly and more than 4hrs. Advised patient to try modafinil 100 mg daily. Encouraged patient to gentle daily exercise, 30 min walking daily. Medications: New modafinil 100 mg PO DAILY 30 days 30 tabs 3RF Coding Level of Care Code New Pt Level 4 (94002) Diagnoses Obstructive sleep apnea G47.33 Daytime sleepiness R40.0 Fatigue R53.83
[2023-02-27 11:05] VITALS: BP 138/92; PULSE 64; O2SAT 95; BMI 30.4
== END 2023-02-27 11:51 | disposition home or self-care (01) ==
PROVIDERS: PCP Internal Medicine; Visit Provider Nurse Practitioner Family
DX: G47.33 Obstructive sleep apnea (adult) (pediatric) (principal); R40.0 Somnolence; R53.83 Other fatigue
CPT/HCPCS: 99204

== ENCOUNTER → 2023-02-27 10:59 | Outpatient (BNVA) | payer BC, SELFPAY | PROVIDERS: PCP Internal Medicine; Visit Provider Nurse Practitioner Family ==

== ENCOUNTER 2023-05-04 11:02 | Outpatient (AMB) | payer BC, SELFPAY ==
--- NOTE | 2023-05-04 11:05 | MHC.OFFVIS ---
Intake Vital Signs 05/04/23 11:09 Height 5 ft 10 in Weight 218 lb 6 oz BMI 31.3 BP 106/72 Blood Pressure Location Lt brachial Position Sitting Respiration 16 Pulse 68 Pulse Source Pulse Oximeter Pulse Oximetry (%) 96 Oxygen Delivery Method Room Air Intake Visit Reasons: 2 mo f/u -WAI - Confirmed Intake Note: Pt presents for a 2 month follow up for WAI. [place] Required: No Allergies amlodipine Adverse Reaction (Intermediate, Verified 05/04/23 11:08) leg swelling chlorthalidone Adverse Reaction (Intermediate, Verified 05/04/23 11:08) gout, hypokalemia ezetimibe [Zetia] Adverse Reaction (Intermediate, Verified 05/04/23 11:08) ^ LFTS lisinopril Adverse Reaction (Intermediate, Verified 05/04/23 11:08) cough HPI HPI Comments History of Present Illness Details 57 y/o male patient presents for follow up of WAI on CPAP and hypersomnia. The CPAP compliance and therapy response (04/04/23-05/03/23) reviewed. He is on APAP [id number]. The usage days 100% and the average usage hours 7 hrs. The max pressure was 15.2 and the AHI was 1.1/hr. Pt reports he sleeps well, 7-8 hrs. He started modafinil 100 mg qAM for hypersomnia. Pt states that he is more alert and can focus on work, not falling asleep during work hours. Denies side effects. [facility] Medical History (Updated 02/28/23 @ 09:30 by Betsy Sandra CNP) Disc degeneration, lumbosacral Family history of malignant hyperthermia DDD (degenerative disc disease), lumbar Obesity (BMI 30-39.9) Nocturnal hypoxemia Obstructive sleep apnea Vitamin D deficiency Impaired glucose tolerance Fatty liver Hypercholesterolemia Hypertension Surgical History S/P bilateral inguinal hernia repair History of ear surgery H/O colonoscopy History of selective injection of anesthetic agent around lumbar nerve root Family History Father Lung cancer Mother Lung cancer Maternal Grandmother No problems noted. Maternal Grandfather Lung cancer Paternal Grandmother No problems noted. Paternal Grandfather No problems noted. Daughter Bipolar disorder Maternal Aunt Bipolar disorder Other Mental health disorder Social History Housing: House Alcohol intake: current Patient Tobacco Use Status: Former Tobacco user Tobacco use type: Cigarette Years Smoked: 1987 e-Cigarette/Vaping Use: Never Used Second Hand Smoke Exposure: No service: Yes Current occupational status: employed Current occupational exposures/hazards: No Cognitive needs: No Hearing needs: No Vision needs: Yes Review of Systems Const All systems reviewed & are unremarkable except as noted in HPI and below ENT Reports Normal hearing present Neuro Reports Normal hearing present Physical Exam Vital Signs: Last Vital Signs Pulse 68 05/04/23 11:09 Resp 16 05/04/23 11:09 BP 106/72 05/04/23 11:09 Pulse Ox 96 05/04/23 11:09 Oxygen Delivery Method Room Air 05/04/23 11:09 BMI result Body Mass Index 31.3 Const General: cooperative Nutritional Appearance: obese Orientation/consciousness: patient oriented x3 Neck Neck: Yes full ROM and Yes supple Resp Effort & Inspection: normal respiratory effort and able to speak in complete sentences Neuro General: patient oriented x3, gait normal and moves all extremities Cranial nerves: Yes Bilaterally intact EOM present, Yes Normal facial strength present, Yes Midline tongue present, Yes Normal hearing present, Yes Ability to bilaterally rotate head present and Yes Ability to bilaterally elevate shoulders present Cognition (Neuro): normal cognition Gait exam (Neuro): Normal gait present Motor exam (neuro): 5/5 motor strength present throughout, Pronator motor function not present and no tremor noted Psych Appearance: grossly normal Mental Status: mental status grossly normal Speech and movement: Normal speech and movement present Affect: normal affect Attitude: cooperative Assessment & Plan Assessment & Plan (1) Obstructive sleep apnea: Comment: Sleep study February 2018 on CPAP Code(s): G47.33 - Obstructive sleep apnea (adult) (pediatric) (2) Daytime sleepiness: Comment: ESS score 13 today Code(s): R40.0 - Somnolence (3) Fatigue: Code(s): R53.83 - Other fatigue Plan Advised patient to continue to use APAP [id number] as patient experiences good clinical effects. Stressed compliance, use CPAP nightly and more than 4hrs. Advised patient to continue to take modafinil 100 mg daily. Encouraged patient to gentle daily exercise, 30 min walking daily. Coding Level of Care Code Est Pt Level 3 (21651) Diagnoses Obstructive sleep apnea G47.33 Daytime sleepiness R40.0 Fatigue R53.83
[2023-05-04 11:09] VITALS: BP 106/72; PULSE 68; RESP 16; O2SAT 96; BMI 31.3
== END 2023-05-04 11:30 | disposition home or self-care (01) ==
PROVIDERS: PCP Internal Medicine; Referring Provider Internal Medicine; Visit Provider Nurse Practitioner Family
DX: G47.33 Obstructive sleep apnea (adult) (pediatric) (principal); R40.0 Somnolence; R53.83 Other fatigue
CPT/HCPCS: 99213

== ENCOUNTER → 2023-05-04 11:02 | Outpatient (BNVA) | payer BC, SELFPAY | PROVIDERS: PCP Internal Medicine; Visit Provider Nurse Practitioner Family ==

== ENCOUNTER 2023-06-08 10:04 | Outpatient (AMB) | payer BC, SELFPAY ==
[2023-06-08 10:27] VITALS: BP 118/86; PULSE 55; O2SAT 99; BMI 31.2
--- NOTE | 2023-06-08 10:27 | MHC.PC.OV ---
Vital Signs 06/08/23 10:27 Height 5 ft 10 in Weight 217 lb 8 oz BMI 31.2 BP 118/86 Blood Pressure Location Lt brachial Position Sitting Pulse 55 Pulse Source Pulse Oximeter Pulse Oximetry (%) 99 Oxygen Delivery Method Room Air Intake Visit Reasons: Annual Exam Intake Note: Patient is here today for a physical. 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 Required: No Accompanied by: Self / Same As Patient Allergies amlodipine Adverse Reaction (Intermediate, Verified 06/08/23 10:28) leg swelling chlorthalidone Adverse Reaction (Intermediate, Verified 06/08/23 10:28) gout, hypokalemia ezetimibe [Zetia] Adverse Reaction (Intermediate, Verified 06/08/23 10:28) ^ LFTS lisinopril Adverse Reaction (Intermediate, Verified 06/08/23 10:28) cough Medication List - Last Reconciled 06/08/23 by Lorraine Fields MD cholecalciferol (vitamin D3) 50 mcg PO DAILY [CPAP ] fenofibrate nanocrystallized 145 mg PO DAILY losartan-hydrochlorothiazide 100-25 mg 1 tab PO DAILY 30 days metoprolol succinate ER 100 mg PO DAILY 90 days modafinil 100 mg PO DAILY 30 days mometasone 50 mcg/actuation (Nasonex 24hr Allergy) 2 sprays intranasal DAILY simvastatin 5 mg PO BEDTIME Tobacco use date assessed: 06/08/23 Dental Screening Dental Screen Date: 06/08/23 Did you have a dental visit in the last 12 months?: Yes Did you have a dental problem in the last 6 months where you did not have access to dental care?: No Was dental information given to patient?: Patient has dentist HPI Annual Exam HPI Details 57-year-old obese male with hypertension hypercholesterolemia impaired glucose tolerance and obstructive sleep apnea coming in for physical exam last seen in December 2022. Patient's colonoscopy was done in November 2016. Review of the notes has seen Neurology for the obstructive sleep apnea diagnosed in 2018. CPAP use stress compliance more than 4 hours and benefits from this. 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 [facility] Medical History (Updated 06/08/23 @ 11:25 by Lorraine Fields MD) Disc degeneration, lumbosacral Family history of malignant hyperthermia DDD (degenerative disc disease), lumbar Obesity (BMI 30-39.9) Nocturnal hypoxemia Obstructive sleep apnea Vitamin D deficiency Impaired glucose tolerance Fatty liver Hypercholesterolemia Hypertension Surgical History S/P bilateral inguinal hernia repair History of ear surgery H/O colonoscopy History of selective injection of anesthetic agent around lumbar nerve root Family History Father Lung cancer Mother Lung cancer Maternal Grandmother No problems noted. Maternal Grandfather Lung cancer Paternal Grandmother No problems noted. Paternal Grandfather No problems noted. Daughter Bipolar disorder Maternal Aunt Bipolar disorder Other Mental health disorder Social History (Updated 06/08/23 @ 11:08 by Lorraine Fields MD) Housing: House Alcohol intake: current Comment: 2 a month 4 beers Patient Tobacco Use Status: Former Tobacco user Tobacco use type: Cigarette Years Smoked: 1987 e-Cigarette/Vaping Use: Never Used Second Hand Smoke Exposure: No service: Yes Current occupational status: employed Current occupational exposures/hazards: No Cognitive needs: No Hearing needs: No Vision needs: Yes Questionnaire PHQ-9 Over the last 2 weeks, how often have you been bothered by any of the following problems? 1. Little interest or pleasure in doing things: not at all 2. Feeling down, depressed, or hopeless: not at all 3. Trouble falling or staying asleep, or sleeping too much: not at all 4. Feeling tired or having little energy: not at all 5. Poor appetite or overeating: not at all 6. Feeling bad about yourself - or that you are a failure or have let yourself or your family down: not at all 7. Trouble concentrating on things, such as reading the newspaper or watching television: not at all 8. Moving or speaking so slowly that other people could have noticed. Or the opposite - being so fidgety or restless that you have been moving around a lot more than usual: not at all 9. Thoughts that you would be better off or of hurting yourself in some way: not at all Total score: 0 Depression Screening Interpretation: Negative Depression Screening Done: Yes 11633 - PHQ-9 Billing: Yes Source: Developed by Drs. Tuan Schwarz, Claudia Burdick, Fabricio Salinas and colleagues, with an educational piper from [employer]. Thrive Questionnaire Date Thrive assessed: 06/08/23 I am a: Patient What is your living situation today?: I have a steady place to live Within the past 12 months, did the food you bought not last and you didn't have the money to get more?: Never true Within the past 12 months, did you worry whether your food would run out before you got money to buy more?: Never true Do you have trouble paying for medicines?: No Do you have trouble getting transportation to medical appointments?: No Do you have trouble paying your heating and electricity bill?: No Do you have trouble taking care of your child, family member or friend?: No Do you have trouble with day-to-day activities such as bathing, preparing meals, shopping, managing finances, etc.?: No Are you currently unemployed and looking for a job?: No Are you interested in more education?: No Please select the resources that you would like help with: None Currently or been in a relationship where the following occur: no concerns reported THRIVE Score: 0 AUDIT C Alcohol Use Questionnaire (AUDIT-C) 1. How often do you have a drink containing alcohol?: 2-3 times a week 2. How many drinks containing alcohol do you have on a typical day when you are drinking?: 1 or 2 3. How often do you have six or more drinks on one occasion?: Never Total Score: 3 AVIVA-7 AMB Questionnaire AVIVA-7 Date AVIVA - 7 assessed: 06/08/23 Feeling nervous, anxious, or on edge: 0 = Not at all Not being able to stop or control worryin = Not at all Worrying too much about different things: 0 = Not at all Trouble relaxin = Not at all Being so restless that it is hard to sit still: 0 = Not at all Becoming easily annoyed or irritable: 0 = Not at all Feeling afraid as if something awful might happen: 0 = Not at all Total AVIVA-7 score (0-4 normal; 5-9 mild; 10-14 moderate; 15-21 severe): 0 Source: Developed by Drs. Tuan Schwarz, Claudia Burdick, Fabricio Salinas and colleagues, with an educational piper from [employer]. AVIVA-7 Assessment Billing AVIVA-7 Assessment Tool: AVIVA-7 Assessment 20609 Review of Systems Const Denies poor appetite and Denies weakness Eyes Denies no additional complaints ENT Reports Normal hearing present, Denies dizziness, Denies nasal congestion, Denies tinnitus and Denies sore throat Card Denies chest pain, Denies syncope, Denies rapid heart rate and Denies dyspnea Resp Denies cough and Denies dyspnea GI Denies change in stool character, Reports constipation, Denies diarrhea, Denies nausea and Denies vomiting Denies dysuria and Denies urinary frequency Neuro Reports Normal hearing present, Denies confusion, Denies dizziness, Denies syncope and Denies weakness Psych Denies confusion Physical exam (Primary Care) Vital Signs: Last Vital Signs Pulse 55 06/08/23 10:27 BP 118/86 06/08/23 10:27 Pulse Ox 99 06/08/23 10:27 Oxygen Delivery Method Room Air 06/08/23 10:27 BMI result Body Mass Index 31.2 Tobacco/Smoking Status: Tobacco use Status Tobacco use date assessed 06/08/23 06/08/23 10:32 Patient Tobacco Use Status Former Tobacco user 06/08/23 11:08 Tobacco use type Cigarette 06/08/23 11:08 e-Cigarette/Vaping Use Never Used 06/08/23 11:08 PHQ-9: PHQ-9 Score PHQ-9: Total score 0 06/08/23 11:04 Depression Screening Interpretation: Negative Thrive Assessment: Date of Thrive Assessment Date Thrive assessed 06/08/23 06/08/23 10:35 Currently or been in a relationship where the following occur: no concerns reported Const General: No confusion Orientation/consciousness: No confusion HENMT Head: Yes normocephalic Ears: external ears normal and TM's normal bilaterally Face and sinus: Yes normal facial exam Mouth: moist mucous membranes Throat: Yes tonsils normal Eyes Conjunctivae: conjunctivae normal Pupils: Equal, round and reactive pupils present and Pupil accommodation reflex normal Direct Ophthalmoscopy: normal light reflex Neck Neck: No lymphadenopathy Thyroid: Thyroid normal Chest Chest palpation & inspection: normal inspection of the chest Resp Effort & Inspection: normal respiratory effort and no audible wheezes Auscultation: clear to auscultation bilaterally, no crackles, no wheezes and lung sounds not diminished Cardio Rate: regular rate Rhythm: regular rhythm Peripheral pulses: radial pulses present and dorsalis pedis present GI Other: guaiac negative prostate N, tender on the R parathoracic vertebral area, no swelling Palpation (GI): no masses Auscultation: normal bowel sounds and normoactive bowel sounds Rectal Exam - Male: Yes deferred Skin General skin exam: no rashes or lesions noted Rashes: no rashes Neuro General: No confusion Cranial nerves: Yes Equal, round and reactive pupils present and Yes Normal hearing present Cognition (Neuro): normal cognition Gait exam (Neuro): Normal gait present Motor exam (neuro): 5/5 motor strength present throughout Deep tendon reflexes (DTR's): Right brachioradialis reflex intensity grade: 2+, Left brachioradialis reflex intensity grade: 2+, Right patellar reflex intensity grade: 2+ and Left patellar reflex intensity grade: 2+ Extrem General: No edema Assessment and Plan Assessment & Plan (1) Annual physical exam: Code(s): Z00.00 - Encounter for general adult medical examination without abnormal findings (2) Obstructive sleep apnea: Comment: Sleep study February 2018 on CPAP Code(s): G47.33 - Obstructive sleep apnea (adult) (pediatric) Plan: Patient follows up with Neurology and continue to use the CPAP more than 4 hours a night and benefits from this (3) Impaired glucose tolerance: Code(s): R73.02 - Impaired glucose tolerance (oral) Plan: Decrease the amount of carbohydrate intake, pasta, bread, rice and potatoes are all sugar and that is aside from all the sweet stuff, remember that fruits are good but they are Sweet also. (4) Hypertension: Code(s): I10 - Essential (primary) hypertension Qualifiers: Hypertension type: essential hypertension Qualified Code(s): I10 - Essential (primary) hypertension Plan: Continue with blood pressure medication. Decrease salt intake and exercise takes losartan hydrochlorothiazide 100/25, metoprolol 100 mg once a day (5) Hypercholesterolemia: Code(s): E78.00 - Pure hypercholesterolemia, unspecified Plan: Avoid fried foods, chicken skin, eggs, butter margarine, pastries and meat. Be it pork or beef they have a lot of cholesterol LDL goal of less than 130 and triglyceride of less than 150 on simvastatin 5 mg once (6) DDD (degenerative disc disease), lumbar: Comment: MRI done in 2018 showing multiple degenerative disc problems with spinal stenosis and mass effect on the exiting nerve right more than the left Code(s): M51.36 - Other intervertebral disc degeneration, lumbar region (7) Foot pain, bilateral: Code(s): M79.671 - Pain in right foot; M79.672 - Pain in left foot Orders: Orders Complete Blood Count Auto Diff 6 Months E78.00 - Pure hypercholesterolemia, unspecified Free T4 (Free Thyroxine) 6 Months E78.00 - Pure hypercholesterolemia, unspecified Vitamin B12 and Folate 6 Months E78.00 - Pure hypercholesterolemia, unspecified Comprehensive Met. Panel 6 Months E78.00 - Pure hypercholesterolemia, unspecified Thyroid Stimulating Hormone 6 Months E78.00 - Pure hypercholesterolemia, unspecified Lipid Panel 6 Months E78.00 - Pure hypercholesterolemia, unspecified Prostate Specific Antigen Scr 6 Months E78.00 - Pure hypercholesterolemia, unspecified Hemoglobin A1c 6 Months R73.02 - Impaired glucose tolerance (oral) XR chest 2V Today M54.6 - Pain in thoracic spine Referrals Podiatry Referral M79.671 - Pain in right foot, M79.672 - Pain in left foot Coding Level of Care Code Est Pt Prev Care 40-64y(89561) Diagnoses Annual physical exam Z00.00 Obstructive sleep apnea G47.33 Impaired glucose tolerance R73.02 Essential hypertension I10 Hypertension type: essential hypertension Hypercholesterolemia E78.00 DDD (degenerative disc disease), lumbar M51.36 Foot pain, bilateral M79.671; M79.672 Additional Codes AVIVA-7 Assessment Billing - AVIVA-7 Assessment Tool: AVIVA-7 Assessment [id number] ([id number])
== END 2023-06-08 11:31 | disposition home or self-care (01) ==
PROVIDERS: Visit Provider Internal Medicine
DX: Z00.00 Encounter for general adult medical examination without abnormal findings (principal); G47.33 Obstructive sleep apnea (adult) (pediatric); R73.02 Impaired glucose tolerance (oral); I10 Essential (primary) hypertension; E78.00 Pure hypercholesterolemia, unspecified; M51.36 Other intervertebral disc degeneration, lumbar region; M79.671 Pain in right foot; M79.672 Pain in left foot
CPT/HCPCS: 99396

== ENCOUNTER 2023-09-18 09:50 | Outpatient (AMB) | payer BC, SELFPAY ==
[2023-09-18 09:51] VITALS: BMI 31.1
--- NOTE | 2023-09-18 09:51 | MHC.OFFVIS ---
Vital Signs 09/18/23 09:51 Height 5 ft 10 in Weight 217 lb BMI 31.1 Intake Visit Reasons: 4 mo f/u- [facility] - [facility] [place] address Intake Note: Patient presents for 4 month follow up [facility]. Allergies amlodipine Adverse Reaction (Intermediate, Verified 09/18/23 09:53) leg swelling chlorthalidone Adverse Reaction (Intermediate, Verified 09/18/23 09:53) gout, hypokalemia ezetimibe [Zetia] Adverse Reaction (Intermediate, Verified 09/18/23 09:53) ^ LFTS lisinopril Adverse Reaction (Intermediate, Verified 09/18/23 09:53) cough HPI Comments Details: 57 y/o male patient presents for follow up of [facility] on CPAP and hypersomnia. The CPAP compliance and therapy response (06/20/23-09/17/23) reviewed. He is on APAP [id number]. The usage days 100% and the average usage hours 7 hrs 30 min. The max pressure was 15.2 and the AHI was 1.4/hr. Pt reports he sleeps well, 7-8 hrs. He is on modafinil 100 mg qAM for hypersomnia. Pt states that he is more alert and can focus on work, not falling asleep during work hours. He does not need to take modafinil on weekends. Denies side effects. [facility], LAT[facility] Medical History (Updated 06/11/23 @ 18:48 by Lorraine Fields MD) Disc degeneration, lumbosacral Family history of malignant hyperthermia DDD (degenerative disc disease), lumbar Obesity (BMI 30-39.9) Nocturnal hypoxemia Obstructive sleep apnea Vitamin D deficiency Impaired glucose tolerance Fatty liver Hypercholesterolemia Hypertension Surgical History S/P bilateral inguinal hernia repair History of ear surgery H/O colonoscopy History of selective injection of anesthetic agent around lumbar nerve root Family History Father Lung cancer Mother Lung cancer Maternal Grandmother No problems noted. Maternal Grandfather Lung cancer Paternal Grandmother No problems noted. Paternal Grandfather No problems noted. Daughter Bipolar disorder Maternal Aunt Bipolar disorder Other Mental health disorder Social History (Updated 06/08/23 @ 11:08 by Lorraine Fields MD) Housing: House Alcohol intake: current Comment: 2 a month 4 beers Patient Tobacco Use Status: Former Tobacco user Tobacco use type: Cigarette Years Smoked: 1987 e-Cigarette/Vaping Use: Never Used Second Hand Smoke Exposure: No service: Yes Current occupational status: employed Current occupational exposures/hazards: No Cognitive needs: No Hearing needs: No Vision needs: Yes Review of Systems Const All systems reviewed & are unremarkable except as noted in HPI and below ENT Reports Normal hearing present Neuro Reports Normal hearing present Physical Exam Const General: cooperative Nutritional Appearance: obese Orientation/consciousness: patient oriented x3 Neck Neck: Yes full ROM and Yes supple Resp Effort & Inspection: normal respiratory effort and able to speak in complete sentences Neuro General: patient oriented x3, gait normal and moves all extremities Cranial nerves: Yes Bilaterally intact EOM present, Yes Normal facial strength present, Yes Midline tongue present, Yes Normal hearing present, Yes Ability to bilaterally rotate head present and Yes Ability to bilaterally elevate shoulders present Cognition (Neuro): normal cognition Gait exam (Neuro): Normal gait present Motor exam (neuro): 5/5 motor strength present throughout, Pronator motor function not present and no tremor noted Psych Appearance: grossly normal Mental Status: mental status grossly normal Speech and movement: Normal speech and movement present Affect: normal affect Attitude: cooperative Assessment & Plan Assessment & Plan (1) Obstructive sleep apnea: Comment: Sleep study February 2018 on CPAP Code(s): G47.33 - Obstructive sleep apnea (adult) (pediatric) Category: Medical (2) Daytime sleepiness: Comment: ESS score 13 today Code(s): R40.0 - Somnolence Category: Medical (3) Fatigue: Code(s): R53.83 - Other fatigue Category: Medical Plan Advised patient to continue to use APAP [id number] as patient experiences good clinical effects. Stressed compliance, use CPAP nightly and more than 4hrs. Advised patient to continue to take modafinil 100 mg daily. Encouraged patient to gentle daily exercise, 30 min walking daily. His CPAP is 5 years old, he will call [facility] to check if he is eligible for new CPAP. Medications: Refilled modafinil 100 mg PO DAILY 30 days 30 tabs 3RF Coding Level of Care Code Est Pt Level 3 (53848) Diagnoses Obstructive sleep apnea G47.33 Daytime sleepiness R40.0 Fatigue R53.83
== END 2023-09-18 10:00 | disposition home or self-care (01) ==
PROVIDERS: PCP Internal Medicine; Visit Provider Nurse Practitioner Family
DX: G47.33 Obstructive sleep apnea (adult) (pediatric) (principal); R40.0 Somnolence; R53.83 Other fatigue
CPT/HCPCS: 99213

== ENCOUNTER → 2023-09-18 09:50 | Outpatient (BNVA) | payer BC, SELFPAY | PROVIDERS: PCP Internal Medicine; Visit Provider Nurse Practitioner Family ==

== ENCOUNTER 2023-11-10 07:03 | Outpatient (REF) | payer OTHER, BC, SELFPAY ==
[2023-11-10 07:12] LABS: MANUAL DIFF FLAG NO
[2023-11-10 07:50] LABS: Basophils Absolute Auto 0.1 X10*3/uL (0.0-0.2); Basophils Percent Auto 0.8 % (0-2); Eosinophils Absolute Auto 0.3 X10*3/uL (0.0-0.4); Eosinophils Percent Auto 4.2 % (0-4); Hematocrit 42.2 % (42.0-52.0); Hemoglobin 14.6 g/dl (14.0-18.0); Imm Gran Abs Auto 0.02 X10*3/uL (0.00-0.03); Imm Gran Pct Auto 0.3 % (0.0-0.4); Lymphocytes Absolute Auto 2.1 X10*3/uL (1.2-4.9); Lymphocytes Percent Auto 26.6 % (20-40); Mean Corpuscular HGB Conc 34.6 g/dl (31.0-36.0); Mean Corpuscular Hemoglobin 30.5 pg (27.0-33.0); Mean Corpuscular Volume 88.3 fL (80.0-98.0); Mean Platelet Volume 10.2 fL (9.4-12.4); Monocytes Absolute Auto 0.8 X10*3/uL (0.1-1.2); Neutrophils Absolute Auto 4.6 x10*3/uL (2.0-8.3); Neutrophils Percent Auto 58.1 % (45-73); Platelet Count 342 X10*3/uL (160-400); Red Blood Count 4.78 X10*6/uL (4.60-5.80); Red Cell Distribution Width 12.8 % (11.0-16.0); White Blood Count 7.9 X10*3/uL (4.8-10.8)
[2023-11-10 08:00] LABS: Estimated Average Glucose 126 mg/dL
[2023-11-10 08:27] LABS: Alanine Aminotransferase 44 U/L (0-40); Albumin Level 4.6 g/dL (3.5-5.0); Alkaline Phosphatase 36 U/L (39-117); Anion Gap 14 (12-20); Aspartate Amino Transferase 25 U/L (5-37); Bilirubin Total 0.5 mg/dL (0.0-1.0); Blood Urea Nitrogen 32 mg/dL (9-16); Calcium 9.3 mg/dL (8.4-10.2); Carbon Dioxide 25 mmol/L (22-29); Chloride 107 mmol/L (96-108); Cholesterol 175 mg/dL (<200); Estimated Glomerular Filt Rate 49; Glucose Random 114 mg/dL (60-115); HDL Cholesterol 35 mg/dL (>40); LDL Cholesterol Calculated 107 mg/dL (<100); Potassium 3.8 mmol/L (3.3-5.1); Sodium 142 mmol/L (135-145); Total Protein 7.2 g/dL (6.5-8.0); Triglycerides 167 mg/dL (<150)
[2023-11-10 08:45] LABS: Free T4 (Free Thyroxine) 0.83 ng/dL (0.71-1.85)
[2023-11-10 08:58] LABS: Folate 8.2 ng/mL (> or = 4.0); Prostate Specific Antigen Scr 2.73 ng/mL (<0.05-4.0); Vitamin B12 411 pg/mL (200-900)
== END 2023-11-10 07:04 | disposition home or self-care (01) ==
LOC: HO.LAB 07:03
PROVIDERS: PCP Internal Medicine; Visit Provider Internal Medicine
DX: E78.00 Pure hypercholesterolemia, unspecified (principal); R73.02 Impaired glucose tolerance (oral); Z12.5 Encounter for screening for malignant neoplasm of prostate
CPT/HCPCS: 36415; 80053; 80061; 82607; 82746; 83036; 84153; 84439; 84443; 85025

== ENCOUNTER 2023-11-28 11:22 | Outpatient (REF) | payer OTHER, SELFPAY ==
--- NOTE | ~2023-11-28 | XR_ITS ---
EXAMINATION: XR CHEST CLINICAL INFORMATION: Reason for Exam M54.6 - Pain in thoracic spine COMPARISON: Chest radiograph 08/05/2013 TECHNIQUE: 2 views of the chest FINDINGS: Lines and tubes: None. Clear lungs. No pleural effusion. No pneumothorax. Normal cardiomediastinal silhouette. Mild multilevel degenerative disc disease in the thoracic spine. XR/XR chest 2V IMPRESSION: 1. Clear lungs. 2. Mild multilevel degenerative disc disease in the thoracic spine.
== END 2023-11-28 11:23 | disposition home or self-care (01) ==
LOC: HO.HMGCX 11:22
PROVIDERS: PCP Internal Medicine; Visit Provider Internal Medicine
DX: M54.6 Pain in thoracic spine (principal)
CPT/HCPCS: 71046

== ENCOUNTER 2023-12-07 09:41 | Outpatient (AMB) | payer OTHER, SELFPAY ==
[2023-12-07 09:44] VITALS: BP 136/82; PULSE 56; O2SAT 98; BMI 31.6
--- NOTE | 2023-12-07 09:44 | A.OFFPC_ITS ---
Vital Signs 12/07/23 09:44 Height 5 ft 10 in Weight 220 lb BMI 31.6 BP 136/82 Blood Pressure Location Lt brachial Position Sitting Pulse 56 Pulse Source Pulse Oximeter Pulse Oximetry (%) 98 Oxygen Delivery Method Room Air Intake Visit Reasons: Hypertension Allergies amlodipine Adverse Reaction (Intermediate, Verified 12/07/23 09:44) leg swelling chlorthalidone Adverse Reaction (Intermediate, Verified 12/07/23 09:44) gout, hypokalemia ezetimibe [Zetia] Adverse Reaction (Intermediate, Verified 12/07/23 09:44) ^ LFTS lisinopril Adverse Reaction (Intermediate, Verified 12/07/23 09:44) cough Medication List - Last Reconciled 12/07/23 by Lorraine Fields MD cholecalciferol (vitamin D3) 50 mcg PO DAILY [CPAP ] fenofibrate nanocrystallized 145 mg PO DAILY losartan-hydrochlorothiazide 100-25 mg 1 tab PO DAILY 30 days metoprolol succinate ER 100 mg PO DAILY 90 days modafinil 100 mg PO DAILY 30 days mometasone 50 mcg/actuation (Nasonex 24hr Allergy) 2 sprays intranasal DAILY semaglutide (weight loss) (Wegovy) 0.25 mg (0.5 mL) subcut QWEEK simvastatin 5 mg PO BEDTIME Tobacco use date assessed: 06/08/23 Dental Screening Dental Screen Date: 06/08/23 HPI Hypertension HPI Details 58-year-old obese male with obstructive sleep apnea impaired glucose tolerance hypertension hypercholesterolemia with lumbar degenerative disc disease last seen in 06/09/2023. Patient's colonoscopy last done in November 2016. Review of the notes has been follow-up with the Neurology for the obstructive sleep apnea continue to use the APAP 6-16 cm water with benefit. [facility] Medical History (Updated 12/07/23 @ 10:10 by Lorraine Fields MD) Daytime sleepiness Disc degeneration, lumbosacral Family history of malignant hyperthermia DDD (degenerative disc disease), lumbar Obesity (BMI 30-39.9) Nocturnal hypoxemia Obstructive sleep apnea Vitamin D deficiency Impaired glucose tolerance Fatty liver Hypercholesterolemia Hypertension Surgical History S/P bilateral inguinal hernia repair History of ear surgery H/O colonoscopy History of selective injection of anesthetic agent around lumbar nerve root Family History Father Lung cancer Mother Lung cancer Maternal Grandmother No problems noted. Maternal Grandfather Lung cancer Paternal Grandmother No problems noted. Paternal Grandfather No problems noted. Daughter Bipolar disorder Maternal Aunt Bipolar disorder Other Mental health disorder Social History Housing: House Alcohol intake: current Comment: 2 a month 4 beers Patient Tobacco Use Status: Former Tobacco user Tobacco use type: Cigarette Years Smoked: 1987 e-Cigarette/Vaping Use: Never Used Second Hand Smoke Exposure: No service: Yes Current occupational status: employed Current occupational exposures/hazards: No Cognitive needs: No Hearing needs: No Vision needs: Yes Questionnaire Thrive Questionnaire Date Thrive assessed: 06/08/23 AUDIT C Alcohol Use Questionnaire (AUDIT-C) 1. How often do you have a drink containing alcohol?: 2-3 times a week 2. How many drinks containing alcohol do you have on a typical day when you are drinking?: 1 or 2 3. How often do you have six or more drinks on one occasion?: Never Total Score: 3 AVIVA-7 AMB Questionnaire AVIVA-7 Date AVIVA - 7 assessed: 06/08/23 Source: Developed by Drs. Tuan Schwarz, Claudia Burdick, Fabricio Salinas and colleagues, with an educational piper from [employer]. Physical exam (Primary Care) Vital Signs: Last Vital Signs Pulse 56 12/07/23 09:44 BP 136/82 12/07/23 09:44 Pulse Ox 98 12/07/23 09:44 Oxygen Delivery Method Room Air 12/07/23 09:44 BMI result Body Mass Index 31.6 Tobacco/Smoking Status: Tobacco use Status Tobacco use date assessed 06/08/23 12/07/23 09:45 Patient Tobacco Use Status Former Tobacco user 12/07/23 09:45 Tobacco use type Cigarette 12/07/23 09:45 e-Cigarette/Vaping Use Never Used 12/07/23 09:45 Thrive Assessment: Date of Thrive Assessment Date Thrive assessed 06/08/23 12/07/23 09:45 Const General: alert; No acute distress Eyes Conjunctivae: conjunctivae normal Resp Auscultation: clear to auscultation bilaterally Cardio Rate: regular rate Rhythm: regular rhythm GI Inspection: Yes normal to inspection Extrem General: Yes normal to inspection and No edema Assessment and Plan Assessment & Plan (1) Obstructive sleep apnea: Comment: Sleep study February 2018 on CPAP Code(s): G47.33 - Obstructive sleep apnea (adult) (pediatric) Plan: Patient follows up with Neurology and has been using the APAP with good results (2) Impaired glucose tolerance: Code(s): R73.02 - Impaired glucose tolerance (oral) Plan: Decrease the amount of carbohydrate intake, pasta, bread, rice and potatoes are all sugar and that is aside from all the sweet stuff, remember that fruits are good but they are Sweet also. (3) Hypercholesterolemia: Code(s): E78.00 - Pure hypercholesterolemia, unspecified Plan: Avoid fried foods, chicken skin, eggs, butter margarine, pastries and meat. Be it pork or beef they have a lot of cholesterol LDL goal of less than 130 and triglyceride of less than 150. 11/08/2023 107 on simvastatin 5 mg once a (4) Hypertension: Code(s): I10 - Essential (primary) hypertension Qualifiers: Hypertension type: essential hypertension Qualified Code(s): I10 - Essential (primary) hypertension Plan: Continue with blood pressure medication. Decrease salt intake and exercise on metoprolol 100 mg once a day losartan/hydrochlorothiazide 100/25 mg once a day (5) Fatty liver: Comment: Ultrasound done in 2016 Code(s): K76.0 - Fatty (change of) liver, not elsewhere classified (6) Renal insufficiency: Code(s): N28.9 - Disorder of kidney and ureter, unspecified Orders: Orders Basic Metabolic Panel 2 Weeks N28.9 - Disorder of kidney and ureter, unspecified Medications: New semaglutide (weight loss) (Wegovy) administer weeks 1 through 4 of therapy 0.25 mg (0.5 mL) subcut QWEEK 2 mL 1RF E66.9 - Obesity, unspecified Discontinued nirmatrelvir-ritonavir 150-100 mg (Paxlovid) Discontinued Reason: Doctor's Order PO PER PKG DIR nirmatrelvit 150 mg with Ritonavir 100 mg BID 5 days 20 tabs 0RF U07.1 - COVID-19 Coding Level of Care Code Est Pt Level 4 (39279) Diagnoses Obstructive sleep apnea G47.33 Impaired glucose tolerance R73.02 Hypercholesterolemia E78.00 Essential hypertension I10 Hypertension type: essential hypertension Fatty liver K76.0 Renal insufficiency N28.9
== END 2023-12-07 10:21 | disposition home or self-care (01) ==
PROVIDERS: PCP Internal Medicine; Visit Provider Internal Medicine
DX: G47.33 Obstructive sleep apnea (adult) (pediatric) (principal); R73.02 Impaired glucose tolerance (oral); E78.00 Pure hypercholesterolemia, unspecified; I10 Essential (primary) hypertension; K76.0 Fatty (change of) liver, not elsewhere classified; N28.9 Disorder of kidney and ureter, unspecified
CPT/HCPCS: 99214

== ENCOUNTER 2024-01-02 07:58 | Outpatient (REF) | payer OTHER, SELFPAY ==
[2024-01-02 10:57] LABS: Anion Gap 18 (12-20); Blood Urea Nitrogen 21 mg/dL (9-16); Calcium 9.7 mg/dL (8.4-10.2); Carbon Dioxide 21 mmol/L (22-29); Chloride 105 mmol/L (96-108); Estimated Glomerular Filt Rate > 60; Glucose Random 135 mg/dL (60-115); Potassium 3.7 mmol/L (3.3-5.1); Sodium 140 mmol/L (135-145)
== END 2024-01-02 07:59 | disposition home or self-care (01) ==
LOC: HO.HMGCLDS 07:58
PROVIDERS: PCP Internal Medicine; Visit Provider Internal Medicine
DX: N28.9 Disorder of kidney and ureter, unspecified (principal)
CPT/HCPCS: 36415; 80048

== ENCOUNTER 2024-04-08 09:15 | Outpatient (AMB) | payer OTHER, SELFPAY ==
[2024-04-08 09:23] VITALS: BP 122/88; BMI 30.1
--- NOTE | 2024-04-08 09:23 | MHC.OFFVIS ---
Vital Signs 04/08/24 09:23 Height 5 ft 10 in Weight 210 lb BMI 30.1 BP 122/88 Blood Pressure Location Rt brachial Position Sitting Intake Visit Reasons: 6 mnts f/u appt Intake Note: Patient presents for 6 month follow up. Allergies amlodipine Adverse Reaction (Intermediate, Verified 04/08/24 09:26) leg swelling chlorthalidone Adverse Reaction (Intermediate, Verified 04/08/24 09:26) gout, hypokalemia ezetimibe [Zetia] Adverse Reaction (Intermediate, Verified 04/08/24 09:26) ^ LFTS lisinopril Adverse Reaction (Intermediate, Verified 04/08/24 09:26) cough Medication List - Last Reconciled 04/08/24 by Holger Sharma PA-C cholecalciferol (vitamin D3) 50 mcg PO DAILY [CPAP ] fenofibrate nanocrystallized 145 mg PO DAILY losartan-hydrochlorothiazide 100-25 mg 1 tab PO DAILY 30 days magnesium oxide 400 mg PO DAILY metoprolol succinate ER 100 mg PO DAILY 90 days modafinil 100 mg PO DAILY 30 days mometasone 50 mcg/actuation (Nasonex 24hr Allergy) 2 sprays intranasal DAILY semaglutide (weight loss) (Wegovy) 0.25 mg (0.5 mL) subcut QWEEK simvastatin 5 mg PO BEDTIME topiramate (Topamax) 50 mg PO DAILY HPI Comments Details: 57 y/o male patient presents for follow up of [facility] on CPAP and hypersomnia. The CPAP compliance and therapy response (12/20/23-04/04/24) reviewed. He is on APAP [id number]. The usage days 100% and the average usage hours 7 hrs 30 min. The max pressure was 15.2 and the AHI was 0.69/hr. Pt reports he sleeps well, 7-8 hrs. He is on modafinil 100 mg qAM for hypersomnia. Pt states that he is more alert and can focus on work, not falling asleep during work hours. He does not need to take modafinil on weekends. Denies side effects. He does move his legs at night and wiggles his toes, because he gets painful cramps in feet bilaterally. Pt feels he needs a new prescription for a new CPAP machine, as his machine is starting to make some noise and he is worried it may stop working. . [facility] Medical History Daytime sleepiness Disc degeneration, lumbosacral Family history of malignant hyperthermia DDD (degenerative disc disease), lumbar Obesity (BMI 30-39.9) Nocturnal hypoxemia Obstructive sleep apnea Vitamin D deficiency Impaired glucose tolerance Fatty liver Hypercholesterolemia Hypertension Surgical History S/P bilateral inguinal hernia repair History of ear surgery H/O colonoscopy History of selective injection of anesthetic agent around lumbar nerve root Family History Father Lung cancer Mother Lung cancer Maternal Grandmother No problems noted. Maternal Grandfather Lung cancer Paternal Grandmother No problems noted. Paternal Grandfather No problems noted. Daughter Bipolar disorder Maternal Aunt Bipolar disorder Other Mental health disorder Social History Housing: House Alcohol intake: current Comment: 2 a month 4 beers Patient Tobacco Use Status: Former Tobacco user Tobacco use type: Cigarette Years Smoked: 1987 e-Cigarette/Vaping Use: Never Used Second Hand Smoke Exposure: No service: Yes Current occupational status: employed Current occupational exposures/hazards: No Cognitive needs: No Hearing needs: No Vision needs: Yes Review of Systems Const All systems reviewed & are unremarkable except as noted in HPI and below Physical Exam Vital Signs: Last Vital Signs BP 122/88 04/08/24 09:23 BMI result Body Mass Index 30.1 Const General: cooperative, comfortable and no acute distress Nutritional Appearance: average body habitus Orientation/consciousness: patient oriented x3 HEENT Head: Yes normal to inspection Face and sinus: Yes normal facial exam and Yes face symmetric Mouth: tongue normal Eyes Pupils: Equal, round and reactive pupils present Neck Neck: Yes full ROM and Yes supple Resp Effort & Inspection: normal respiratory effort and able to speak in complete sentences Neuro General: patient oriented x3 and moves all extremities Cranial nerves: Yes CN's II-XII intact bilaterally, Yes Facial sensation intact/muscles of mastication intact, Yes Equal, round and reactive pupils present, Yes Normal accommodation reflex present, Yes Normal facial strength present, Yes Midline tongue present, Yes Symmetric palate elevation present, Yes Ability to bilaterally rotate head present and Yes Ability to bilaterally elevate shoulders present Gait exam (Neuro): Normal gait present Motor exam (neuro): 5/5 motor strength present throughout and Normal motor muscle tone present throughout Deep tendon reflexes (DTR's): Right triceps reflex intensity grade: 2+, Left triceps reflex intensity grade: 2+, Rt Biceps (C5, C6): 2+, Left biceps reflex intensity grade: 2+, Right brachioradialis reflex intensity grade: 2+, Left brachioradialis reflex intensity grade: 2+, Right patellar reflex intensity grade: 2+, Left patellar reflex intensity grade: 2+, Right ankle reflex intensity grade: 2+ and Left ankle reflex intensity grade: 2+ Coordination: [id number] test normal Results Reviewed Results Reviewed: CPAP Compliance on Demar Assessment & Plan Assessment & Plan (1) Obstructive sleep apnea: Comment: Sleep study February 2018 on CPAP Code(s): G47.33 - Obstructive sleep apnea (adult) (pediatric) Category: Medical (2) Hypersomnia with sleep apnea: Code(s): G47.10 - Hypersomnia, unspecified; G47.30 - Sleep apnea, unspecified Category: Medical (3) Leg cramps: Code(s): R25.2 - Cramp and spasm Category: Medical Plan Continue to use APAP [id number] nightly > 4 hrs, as patient is experiencing good clinical effects. Prescription written for new CPAP machine and equipment, patient is concerned his old one will stop working soon, making some noises. Clean and change PAP supplies routinely Continue on Modafinil 100mg po daily for hypersomnia. Start Magnesium 400mg at bedtime for BLE foot cramps. Pt seen by Holger ROMO in coordination w/ myself CORNELIUS Don-, I agree with the above documentation and plan. Pt to follow-up in 6 months or sooner prn. Medications: New magnesium oxide 400 mg PO DAILY 60 tabs 1RF CLARISSA Shepherd-C M79.671 - Pain in right foot, M79.672 - Pain in left foot modafinil 100 mg PO QAM 30 days 30 tabs 4RF CORNELIUS Don Coding Level of Care Code Est Pt Level 4 (90058) Diagnoses Obstructive sleep apnea G47.33 Hypersomnia with sleep apnea G47.10; G47.30 Leg cramps R25.2
== END 2024-04-08 10:07 | disposition home or self-care (01) ==
PROVIDERS: PCP Internal Medicine; Visit Provider Nurse Practitioner Family
DX: G47.33 Obstructive sleep apnea (adult) (pediatric) (principal); G47.10 Hypersomnia, unspecified; G47.30 Sleep apnea, unspecified; R25.2 Cramp and spasm
CPT/HCPCS: 99214

== ENCOUNTER → 2024-04-08 09:15 | Outpatient (BNVA) | payer OTHER, SELFPAY | PROVIDERS: PCP Internal Medicine; Visit Provider Nurse Practitioner Family | DX: G47.33 Obstructive sleep apnea (adult) (pediatric) (principal); G47.10 Hypersomnia, unspecified; G47.30 Sleep apnea, unspecified; R25.2 Cramp and spasm | CPT/HCPCS: 99212 ==

== ENCOUNTER 2024-04-12 07:24 | Outpatient (REF) | payer OTHER, SELFPAY ==
[2024-04-12 07:35] LABS: MANUAL DIFF FLAG NO
[2024-04-12 07:43] LABS: Basophils Absolute Auto 0.1 X10*3/uL (0.0-0.2); Basophils Percent Auto 0.7 % (0-2); Eosinophils Absolute Auto 0.3 X10*3/uL (0.0-0.4); Eosinophils Percent Auto 4.4 % (0-4); Hematocrit 40.1 % (42.0-52.0); Hemoglobin 13.7 g/dl (14.0-18.0); Imm Gran Abs Auto 0.04 X10*3/uL (0.00-0.03); Imm Gran Pct Auto 0.5 % (0.0-0.4); Lymphocytes Absolute Auto 1.7 X10*3/uL (1.2-4.9); Lymphocytes Percent Auto 22.1 % (20-40); Mean Corpuscular HGB Conc 34.2 g/dl (31.0-36.0); Mean Corpuscular Hemoglobin 30.1 pg (27.0-33.0); Mean Corpuscular Volume 88.1 fL (80.0-98.0); Mean Platelet Volume 9.2 fL (9.4-12.4); Monocytes Absolute Auto 0.8 X10*3/uL (0.1-1.2); Monocytes Percent Auto 10.1 % (2-11); Neutrophils Absolute Auto 4.8 x10*3/uL (2.0-8.3); Neutrophils Percent Auto 62.2 % (45-73); Platelet Count 340 X10*3/uL (160-400); Red Blood Count 4.55 X10*6/uL (4.60-5.80); White Blood Count 7.7 X10*3/uL (4.8-10.8)
[2024-04-12 07:54] LABS: Estimated Average Glucose 120 mg/dL; Hemoglobin A1C 140.4446 umol/L; Hemoglobin A1c % 5.8 % (<6.0); Total Hemoglobin (HGBA1C) 3500.5043 umol/L
[2024-04-12 08:35] LABS: Alanine Aminotransferase 57 U/L (0-40); Albumin Level 4.4 g/dL (3.5-5.0); Alkaline Phosphatase 37 U/L (39-117); Anion Gap 15 (12-20); Aspartate Amino Transferase 30 U/L (5-37); Bilirubin Total 0.4 mg/dL (0.0-1.0); Blood Urea Nitrogen 26 mg/dL (9-16); Calcium 9.3 mg/dL (8.4-10.2); Carbon Dioxide 22 mmol/L (22-29); Chloride 110 mmol/L (96-108); Cholesterol 181 mg/dL (<200); Estimated Glomerular Filt Rate 57; Glucose Random 114 mg/dL (60-115); HDL Cholesterol 37 mg/dL (>40); LDL Cholesterol Calculated 118 mg/dL (<100); Sodium 143 mmol/L (135-145); Total Protein 6.8 g/dL (6.5-8.0); Triglycerides 130 mg/dL (<150)
[2024-04-12 08:46] LABS: Free T4 (Free Thyroxine) 0.95 ng/dL (0.71-1.85); Thyroid Stimulating Hormone 1.64 uIU/mL (0.32-4.0)
== END 2024-04-12 07:25 | disposition home or self-care (01) ==
LOC: HO.LAB 07:24
PROVIDERS: PCP Internal Medicine; Visit Provider Internal Medicine
DX: E78.00 Pure hypercholesterolemia, unspecified (principal); Z13.1 Encounter for screening for diabetes mellitus
CPT/HCPCS: 36415; 80053; 80061; 83036; 84439; 84443; 85025

== ENCOUNTER 2024-04-14 14:47 | Outpatient (AMB) | payer OTHER, SELFPAY ==
[2024-04-14 15:09] VITALS: BP 110/74; PULSE 59; O2SAT 95; BMI 30.1
--- NOTE | 2024-04-14 15:09 | A.OFFPC_ITS ---
Vital Signs 04/14/24 15:09 Height 5 ft 10 in Weight 210 lb BMI 30.1 BP 110/74 Blood Pressure Location Lt brachial Position Sitting Pulse 59 Pulse Source Pulse Oximeter Pulse Oximetry (%) 95 Oxygen Delivery Method Room Air Intake Visit Reasons: renal insuf, WAI, IGT, HTN Day Treatment Clinician/Art Therapist Required: No Accompanied by: Self / Same As Patient Allergies amlodipine Adverse Reaction (Intermediate, Verified 04/14/24 15:10) leg swelling chlorthalidone Adverse Reaction (Intermediate, Verified 04/14/24 15:10) gout, hypokalemia ezetimibe [Zetia] Adverse Reaction (Intermediate, Verified 04/14/24 15:10) ^ LFTS lisinopril Adverse Reaction (Intermediate, Verified 04/14/24 15:10) cough topiramate [From Topamax] Adverse Reaction (Intermediate, Unverified 04/14/24 15:43) agitation Tobacco use date assessed: 04/14/24 Dental Screening Dental Screen Date: 04/14/24 Did you have a dental visit in the last 12 months?: No Did you have a dental problem in the last 6 months where you did not have access to dental care?: No Was dental information given to patient?: Patient has dentist HPI renal insuf, WAI, IGT, HTN HPI Details 58-year-old obese male with obstructive sleep apnea impaired glucose tolerance hypercholesterolemia hypertension fatty liver coming in for follow-up. Last seen in November. Patient's last colon test was in 2016. Patient is being followed up by Neurology April 08 for the CPAP. Advised to take magnesium and also on modafinil. complains of dizzy vertigo, benign positional vertigo- states changes in position [facility] Medical History Daytime sleepiness Disc degeneration, lumbosacral Family history of malignant hyperthermia DDD (degenerative disc disease), lumbar Obesity (BMI 30-39.9) Nocturnal hypoxemia Obstructive sleep apnea Vitamin D deficiency Impaired glucose tolerance Fatty liver Hypercholesterolemia Hypertension Surgical History S/P bilateral inguinal hernia repair History of ear surgery H/O colonoscopy History of selective injection of anesthetic agent around lumbar nerve root Family History Father Lung cancer Mother Lung cancer Maternal Grandmother No problems noted. Maternal Grandfather Lung cancer Paternal Grandmother No problems noted. Paternal Grandfather No problems noted. Daughter Bipolar disorder Maternal Aunt Bipolar disorder Other Mental health disorder Social History Housing: House Alcohol intake: current Comment: 2 a month 4 beers Patient Tobacco Use Status: Former Tobacco user Tobacco use type: Cigarette Years Smoked: 1987 e-Cigarette/Vaping Use: Never Used Second Hand Smoke Exposure: No service: Yes Current occupational status: employed Current occupational exposures/hazards: No Cognitive needs: No Hearing needs: No Vision needs: Yes Questionnaire PHQ-9 Over the last 2 weeks, how often have you been bothered by any of the following problems? 1. Little interest or pleasure in doing things: not at all 2. Feeling down, depressed, or hopeless: not at all 3. Trouble falling or staying asleep, or sleeping too much: not at all 4. Feeling tired or having little energy: not at all 5. Poor appetite or overeating: not at all 6. Feeling bad about yourself - or that you are a failure or have let yourself or your family down: not at all 7. Trouble concentrating on things, such as reading the newspaper or watching television: not at all 8. Moving or speaking so slowly that other people could have noticed. Or the opposite - being so fidgety or restless that you have been moving around a lot more than usual: not at all 9. Thoughts that you would be better off or of hurting yourself in some way: not at all Total score: 0 Depression Screening Interpretation: Negative Depression Screening Done: Yes 39629 - PHQ-9 Billing: Yes Source: Developed by Drs. Tuan Schwarz, Claudia Burdick, Fabricio Salinas and colleagues, with an educational ppier from [employer]. Thrive Questionnaire Date Thrive assessed: 04/14/24 I am a: Patient What is your living situation today?: I have a steady place to live Within the past 12 months, did the food you bought not last and you didn't have the money to get more?: Never true Within the past 12 months, did you worry whether your food would run out before you got money to buy more?: Never true Do you have trouble paying for medicines?: No Do you have trouble getting transportation to medical appointments?: No Do you have trouble paying your heating and electricity bill?: No Do you have trouble taking care of your child, family member or friend?: No Do you have trouble with day-to-day activities such as bathing, preparing meals, shopping, managing finances, etc.?: No Are you currently unemployed and looking for a job?: No Are you interested in more education?: No Please select the resources that you would like help with: None Currently or been in a relationship where the following occur: No concerns reported THRIVE Score: 0 AUDIT C Alcohol Use Questionnaire (AUDIT-C) 2. How many drinks containing alcohol do you have on a typical day when you are drinking?: 3 or 4 3. How often do you have six or more drinks on one occasion?: Less than monthly Total Score: 2 AVIVA-7 AMB Questionnaire AVIVA-7 Date AVIVA - 7 assessed: 04/14/24 Feeling nervous, anxious, or on edge: 0 = Not at all Not being able to stop or control worryin = Not at all Worrying too much about different things: 0 = Not at all Trouble relaxin = Not at all Being so restless that it is hard to sit still: 0 = Not at all Becoming easily annoyed or irritable: 0 = Not at all Feeling afraid as if something awful might happen: 0 = Not at all Total AVIVA-7 score (0-4 normal; 5-9 mild; 10-14 moderate; 15-21 severe): 0 Source: Developed by Drs. Tuan Schwarz, Claudia Burdick, Fabricio Salinas and colleagues, with an educational piper from [employer]. Physical exam (Primary Care) Vital Signs: Last Vital Signs Pulse 59 04/14/24 15:09 BP 110/74 04/14/24 15:09 Pulse Ox 95 04/14/24 15:09 Oxygen Delivery Method Room Air 04/14/24 15:09 BMI result Body Mass Index 30.1 Tobacco/Smoking Status: Tobacco use Status Tobacco use date assessed 04/14/24 04/14/24 15:11 Patient Tobacco Use Status Former Tobacco user 04/14/24 15:11 Tobacco use type Cigarette 04/14/24 15:11 e-Cigarette/Vaping Use Never Used 04/14/24 15:11 PHQ-9: PHQ-9 Score PHQ-9: Total score 0 04/14/24 15:37 Depression Screening Interpretation: Negative Thrive Assessment: Date of Thrive Assessment Date Thrive assessed 04/14/24 04/14/24 15:11 Currently or been in a relationship where the following occur: No concerns reported Coding Level of Care Code Est Pt Level 4 (36090) Diagnoses Obstructive sleep apnea G47.33 Essential hypertension I10 Hypertension type: essential hypertension Hypercholesterolemia E78.00 Impaired glucose tolerance R73.02 Degeneration of intervertebral disc of lumbar region with discogenic back pain M51.360 Disc-related pain type: discogenic back pain only Renal insufficiency N28.9 Gastroesophageal reflux disease without esophagitis K21.9 Esophagitis presence: without esophagitis Mild intermittent asthma without complication J45.20 Asthma severity: mild Asthma persistence: intermittent Asthma complication type: uncomplicated Benign paroxysmal positional vertigo due to bilateral vestibular disorder H81.13 Laterality: bilateral Additional Codes PHQ-9 - 64279 - PHQ-9 Billing: Yes ([id number]) Assessment & Plan Assessment & Plan (1) Obstructive sleep apnea: Comment: Sleep study February 2018 on CPAP Code(s): G47.33 - Obstructive sleep apnea (adult) (pediatric) Category: Medical Plan: Continue to use the CPAP more than 4 hours a night and benefits from this . patient follows up in Neurology (2) Hypertension: Code(s): I10 - Essential (primary) hypertension Category: Medical Qualifiers: Hypertension type: essential hypertension Qualified Code(s): I10 - Essential (primary) hypertension Plan: Continue with blood pressure medication. Decrease salt intake and exercise on losartan hydrochlorothiazide 100 last 25, metoprolol 100 mg once a day (3) Hypercholesterolemia: Code(s): E78.00 - Pure hypercholesterolemia, unspecified Category: Medical Plan: Avoid fried foods, chicken skin, eggs, butter margarine, pastries and meat. Be it pork or beef they have a lot of cholesterol LDL goal of less than 130 and triglyceride of less than 150 (4) Impaired glucose tolerance: Code(s): R73.02 - Impaired glucose tolerance (oral) Category: Medical Plan: Decrease the amount of carbohydrate intake, pasta, bread, rice and potatoes are all sugar and that is aside from all the sweet stuff, remember that fruits are good but they are Sweet also. (5) DDD (degenerative disc disease), lumbar: Comment: MRI done in 2018 showing multiple degenerative disc problems with spinal stenosis and mass effect on the exiting nerve right more than the left Code(s): M51.36 - Other intervertebral disc degeneration, lumbar region Category: Medical Qualifiers: Disc-related pain type: discogenic back pain only Qualified Code(s): M51.360 - Other intervertebral disc degeneration, lumbar region with discogenic back pain only Plan: Continue to lose the weight and keep active (6) Renal insufficiency: Code(s): N28.9 - Disorder of kidney and ureter, unspecified Category: Medical Plan: Continuing to monitor. Avoid NSAIDs keep well hydrated (7) GERD (gastroesophageal reflux disease): Code(s): K21.9 - Gastro-esophageal reflux disease without esophagitis Category: Medical Qualifiers: Esophagitis presence: without esophagitis Qualified Code(s): K21.9 - Gastro-esophageal reflux disease without esophagitis Plan: Avoid the foods that causes that usually spicy foods, tomato products, juices, coffee, soda and foods that your sensitive to. After eating do not lie down, allow 3-4 hours before in lie down. And keep the head of bed above 30 degrees to avoid the acid from going up. (8) Asthma: Comment: OK 2021 Code(s): J45.909 - Unspecified asthma, uncomplicated Category: Medical Qualifiers: Asthma severity: mild Asthma persistence: intermittent Asthma complication type: uncomplicated Qualified Code(s): J45.20 - Mild intermittent asthma, uncomplicated Plan: Continue with albuterol inhaler (9) Benign positional vertigo: Code(s): H81.10 - Benign paroxysmal vertigo, unspecified ear Category: Medical Qualifiers: Laterality: bilateral Qualified Code(s): H81.13 - Benign paroxysmal vertigo, bilateral Plan: keep well hydrated, slow down on standing. And to call if it persist. Orders: Orders PFT pulmonary function test Today J45.909 - Unspecified asthma, uncomplicated Ferritin 3 Months K21.9 - Gastro-esophageal reflux disease without esophagitis IRON PROFILE 3 Months K21.9 - Gastro-esophageal reflux disease without esophagitis Free T4 (Free Thyroxine) 3 Months K21.9 - Gastro-esophageal reflux disease without esophagitis Vitamin B12 and Folate 3 Months K21.9 - Gastro-esophageal reflux disease without esophagitis Prostate Specific Antigen Scr 3 Months K21.9 - Gastro-esophageal reflux disease without esophagitis Lipid Panel 3 Months E78.00 - Pure hypercholesterolemia, unspecified, K21.9 - Gastro-esophageal reflux disease without esophagitis Comprehensive Met. Panel 3 Months K21.9 - Gastro-esophageal reflux disease without esophagitis Complete Blood Count Auto Diff 3 Months K21.9 - Gastro-esophageal reflux disease without esophagitis Reticulocyte Count 3 Months K21.9 - Gastro-esophageal reflux disease without esophagitis Thyroid Stimulating Hormone 3 Months K21.9 - Gastro-esophageal reflux disease without esophagitis Hemoglobin A1c 3 Months K21.9 - Gastro-esophageal reflux disease without esophagitis Medications: New albuterol sulfate 90 mcg/actuation (Ventolin HFA) 2 puffs inhalation Q6H PRN 8.5 grams 0RF shortness of breath or wheezing J45.909 - Unspecified asthma, uncomplicated Refilled semaglutide (weight loss) (Corin) administer weeks 1 through 4 of therapy 0.25 mg (0.5 mL) subcut QWEEK 2 mL 1RF E66.9 - Obesity, unspecified Discontinued topiramate (Topamax) Discontinued Reason: Patient Refused 50 mg PO DAILY 30 tabs 0RF
== END 2024-04-14 16:03 | disposition home or self-care (01) ==
PROVIDERS: PCP Internal Medicine; Visit Provider Internal Medicine
DX: G47.33 Obstructive sleep apnea (adult) (pediatric) (principal); I10 Essential (primary) hypertension; E78.00 Pure hypercholesterolemia, unspecified; R73.02 Impaired glucose tolerance (oral); M51.360 Other intervertebral disc degeneration, lumbar region with discogenic back pain only; N28.9 Disorder of kidney and ureter, unspecified; K21.9 Gastro-esophageal reflux disease without esophagitis; J45.20 Mild intermittent asthma, uncomplicated; H81.13 Benign paroxysmal vertigo, bilateral

== ENCOUNTER → 2024-04-14 14:47 | Outpatient (BNVA) | payer OTHER, SELFPAY | PROVIDERS: PCP Internal Medicine; Visit Provider Internal Medicine | DX: G47.33 Obstructive sleep apnea (adult) (pediatric) (principal); I10 Essential (primary) hypertension; E78.00 Pure hypercholesterolemia, unspecified; R73.02 Impaired glucose tolerance (oral); M51.360 Other intervertebral disc degeneration, lumbar region with discogenic back pain only; N28.9 Disorder of kidney and ureter, unspecified; K21.9 Gastro-esophageal reflux disease without esophagitis; J45.20 Mild intermittent asthma, uncomplicated; H81.13 Benign paroxysmal vertigo, bilateral | CPT/HCPCS: 96127; 99212 ==

== ENCOUNTER 2024-05-29 10:39 | Outpatient (REF) | payer OTHER, SELFPAY ==
--- NOTE | 2024-05-29 10:42 | PFT_ITS ---
Flows: FEV1: 90 % of predicted at 3.19 L FVC: 84 % of predicted at 3.85 L FEV1/FVC: 83 % Bronchodilator response: Absent Volumes: Total lung capacity: 70 % of predicted at 5.07 L Residual volume: 61 % of predicted at 1.35 L Slow vital capacity: 74 % of predicted at 3.72 L Expiratory reserve volume: 28 % of predicted at 0.37 L Diffusion capacity: Mildly decreased, corrects to normal after adjustment for alveolar ventilation. Impression: Mild restrictive ventilatory defect with no bronchodilator response. Decreased expiratory reserve volume suggests extrathoracic restriction likely secondary to abdominal obesity. MTDD
--- OUTSIDE RECORDS SUMMARY | 2024-05-29 11:19 | XMS_ITS ---
Author Name [facility] [place] [facility] [place] Organization [facility] [place] Address [address] [place] [address] Care Team Providers Care Double Surface Operator Name Role Phone NENA CORTEZ Primary Care Provider Unavail able Selected Encounter This section includes the information on record at [place] for the Encounter. Date/Time Encounter Type Encounter Description Reason Provider Source Aug 20, 2023 08:30 AM OFFICE O/P EST LOW 20 MIN PRIMARY CARE/MEDICINE ICD-10-CM H91.90 Unspecified hearing loss, unspecified ear RICCARDO CORTEZ KEDAR F IHE Encounter Template Text not used by [place] Assessments - Encounter Diagnoses This section includes the primary and secondary diagnoses documented for the Encounter. Date/Time Primary/Secondary Diagnosis Diagnosis Name Provider Source Aug 20, 2023 09:05 AM PRIMARY Unspecified hearing loss, unspecified ear [facility] [place] [facility] Aug 20, 2023 09:05 AM SECONDARY Encounter for immunization [facility]AT MEADOWS [facility] [place] [facility] Aug 20, 2023 09:05 AM SECONDARY Essential (primary) hypertension [facility] Plan of Treatment: Future Appointments (+ 6 months) and Future Tests (+/- 45 days) The Plan of Treatment section includes future care activities for the patient from all [place] treatmentfacilities. This section includes future appointments and future orders which are active, pending or scheduled. Future Appointments This section includes appointments that were scheduled to occur 6 months from the date of the Encounter, up to a maximum of 20 appointments. The data comes from all [place] treatment facilities. Appointment Date/Time Appointment Type Appointme nt Facility Name October 16, 2023 08:30 AM AMBULATORY - MEDICINE [facility] Lab Results: +/- 30 days of the encounter This section includes the Chemistry and Hematology Lab Results on record with [place] for the patient. Radiology Reports and Pathology Reports are provided separately, in subsequent sections. Lab Results This section contains the Chemistry/Hematology Results that were resulted 30 days before or 30 daysafter the date of the Encounter. Date/Time Source Result Type Result - Unit Interpretation Reference Range Comment Aug 20, 2023 09:22 AM [facility] CBC Specimen Type: BLOOD No comment entered. Ordering Provider: EUGENE CORTEZ Report Released Date/Time: Aug 20, 2023 08:52 AM Reporting Lab: [address] [address] Performing Lab: [address] [address] WBC 7.39 10*3/uL 4.50-11.00 RBC 4.65 10*6/uL 4.23-5.66 HGB 13.9 g/dL 12.8-17 HCT 40.7 39.2-50.4 MCV 87.5 fL 82-99 MCHC 34.2 g/dL 30.8-35.1 PLT 341 10*3/uL 140-360 RDW-CV 12.4 12.0-16.0 MCH 29.9 pg 26.2-32.6 Aug 20, 2023 09:22 AM [facility] BASIC METABOLIC PANEL (fasting) Specimen Type: SERUM No comment entered. Ordering Provider: EUGENE CORTEZ Report Released Date/Time: Aug 20, 2023 08:52 AM Reporting Lab: [address] [address] Performing Lab: [address] [address] UREA NITROGEN 23 mg/dL 7-25 GLUCOSE 110 mg/dL H 65-100 SODIUM 139 mmol/L 135-145 POTASSIUM 3.9 mmol/L 3.5-5.0 CHLORIDE 106 mmol/L 100-110 CO2 22 meq/L 20-30 CREATININE, Serum 1.07 mg/dL 0.50-1.40 eGFR(CKD-EPI 2020) 79 mL/min >60 Aug 20, 2023 09:22 AM [facility] LIVER FUNCTION Specimen Type: SERUM No comment entered. Ordering Provider: EUGENE CORTEZ Report Released Date/Time: Aug 20, 2023 08:52 AM Reporting Lab: [address] [address] Performing Lab: [address] [address] PROTEIN,TOTAL 6.9 g/dL 6.0-8.3 ALBUMIN 4.4 g/dL 3.5-5.0 ALKALINE PHOSPHATASE 37 U/L L 40-150 AST 30 U/L 5-34 ALT 58 U/L H BILIRUBIN, TOTAL 0.5 mg/dL 0.2-1.2 Aug 20, 2023 09:22 AM [facility] LIPID PANEL FASTING Specimen Type: SERUM No comment entered. Ordering Provider: EUGENE CORTEZ Report Released Date/Time: Aug 20, 2023 08:52 AM Reporting Lab: [address] [address] Performing Lab: [address] [address] CHOLESTEROL 200 mg/dL H TRIGLYCERIDE 191 mg/dL H 0-150 LDL calculated 121 mg/dL 0-129 CHOL/HDL 4.9 HDL CHOLESTEROL 41 mg/dL 40-60 Aug 20, 2023 09:22 AM [facility] TSH Specimen Type: SERUM No comment entered. Ordering Provider: EUGENE CORTEZ Report Released Date/Time: Aug 20, 2023 08:52 AM Reporting Lab: [address] [address] Performing Lab: [address] [address] TSH 1.59 u[IU]/mL 0.35-5.00 Aug 20, 2023 09:22 AM [facility] URINALYSIS Specimen Type: URINE Comment: If Glucose = >500 and Ketones are positive, please alert the Physician. Ordering Provider: EUGENE CORTEZ Report Released Date/Time: Aug 20, 2023 08:52 AM Reporting Lab: [address] [address] Performing Lab: [address] [address] UA COLOR Light-Yellow Yellow UA APPEARANCE Clear Clear UA GLUCOSE NEGATIVE mg/dL Negative UA KETONES NEGATIVE mg/dL Negative UA BLOOD NEGATIVE mg/dL Negative UA PROTEIN NEGATIVE mg/dL Negative UA NITRITE NEGATIVE mg/dL Negative UA BILIRUBIN NEGATIVE mg/dL Negative UA SPECIFIC GRAVITY 1.012 L 1.016-1.022 UA pH 6.0 5.0-9.0 UA UROBILINOGEN <2.0 mg/dL <2.0 UA LEUKOCYTE NEGATIVE Negative Aug 20, 2023 09:22 AM [facility] VITAMIN D (25-OH) Specimen Type: SERUM No comment entered. Ordering Provider: EUGENE CORTEZ Report Released Date/Time: Aug 20, 2023 08:52 AM Reporting Lab: [address] [address] Performing Lab: [address] [address] VITAMIN D (25-OH) 29 ng/mL 20-50 Aug 20, 2023 09:22 AM [facility] HIV 1&2 Ag/Ab SCREEN Specimen Type: SERUM No comment entered. Ordering Provider: EUGENE CORTEZ Report Released Date/Time: Aug 20, 2023 08:52 AM Reporting Lab: [address] [address] Performing Lab: [address] [address] HIV 1&2 Ag/Ab SCREEN NON-REACTIVE Nonreactive Aug 20, 2023 09:22 AM [facility] HEPATITIS C ANTIBODY (HCV)-ARC Specimen Type: SERUM Comment: Hep C Ab: No HCV antibody detected. If recent infection is suspected or other evidence suggests HCV infection, consider HCV nucleic acid testing Ordering Provider: EUGENE CORTEZ Report Released Date/Time: Aug 20, 2023 08:52 AM Reporting Lab: [facility] [address] [facility] [address] Performing Lab: [facility] [address] [facility] [address] HEPATITIS C ANTIBODY NON-REACTIVE NON-REACTIVE Vital Signs: All taken on the encounter date This section contains inpatient and outpatient Vital Signs collected on the date of the Encounter. Date/Time Temperature Pulse Blood Pressure Respiratory Rate SP02 Pain Height Weight Body Mass Index Source Aug 20, 2023 08:55 AM 71 [facility] Aug 20, 2023 08:28 AM 98.2 63 120/80 16 94 0 221 [facility] Immunizations: All administered on the encounter date This section contains immunizations associated to the Encounter. Immunization Series Date Issued Reaction Comments PNEUMOCOCCAL CONJUGATE PCV20 , POLYSACCHARIDE [id number] CONJUGATE, ADJUVANT, PF Aug 20, 2023 ZOSTER RECOMBINANT Aug 20, 2023 Social History: Smoking Status (Most current) and Tobacco Use (All prior to encounter date) This section includes the most current, and the historical, smoking and tobacco- related health factors from the [place] facility where the Encounter took place. Current Smoking Status This section includes the most current smoking, or tobacco-related health factor, from the [place] facility where the Encounter took place. Date/Time Current Smoking Status Comment Pina villar Aug 20, 2023 08:30 AM VA-TOBACCO FORMER USER [facility] Tobacco Use History This section includes a history of the smoking, or tobacco-related health factors, that were collected on or before the date of the Encounter. The data comes from the [place] facility where the Encounter took place. Date/Time Smoking Status/Tobacco Use Comment F fabián Aug 20, 2023 08:30 AM VA-TOBACCO QUIT 15 YRS OR MORE [facility] Aug 18, 2022 09:00 AM VA-TOBACCO FORMER USER [facility] Aug 18, 2022 09:00 AM VA-TOBACCO QUIT 15 YRS OR MORE [facility] [place] [facility] Jul 28, 2022 08:00 AM AH-BPR SMOKING DEPLOYMENT NO [facility] [place] [facility] Jul 28, 2022 08:00 AM PREVIOUS SMOKER [facility] [place] [facility] Feb 10, 2020 03:00 PM VA-TOBACCO FORMER USER [facility] [place] [facility] Feb 10, 2020 03:00 PM VA-TOBACCO QUIT 15 YRS OR MORE [facility] [place] [facility] Encounter Notes: All associated encounter notes This section contains the clinical notes associated to the Encounter. Date/Time Encounter Note(s) Provider Source Aug 20, 2023 01:12 PM LETTERS: LOCAL TITLE: PATIENT LETTER (B) STANDARD TITLE: LETTERS DATE OF NOTE: AUG 20, 2023@13:12 ENTRY DATE: AUG 20, 2023@13:12:41 AUTHOR: NENA CORTEZ EXP COSIGNER: URGENCY: STATUS: COMPLETED The following letter was mailed to RAGHAV FITZPATRICK on AUG 20, 2023 RAGHAV FITZPATRICK [address], [place] [address] AUG 20, 2023 Dear RAGHAV FITZPATRICK, : Jul Your recent labs find your lipids a bit elevated. A low fat diet, some exercise daily and maintaining a healthy body weight can improve this. Other labs were fine. Please share with any NONVA providers. [facility]. Below are your pending appointments at the [facility]: 09/18/2023 08:30 CWM/NO/PACT 3 NURSE 08/18/2024 08:30 CWM/NO/PACT 3 If you have questions, please contact me through our Telephone Advice Program at: [phone] extension [phone] or [phone] extension [phone] (toll free in this region only). Sincerely, Nena Cortez PA-C [facility] [address] [place] [address] Ex NENA CORTEZ [place] [facility] [place] [facility] Aug 20, 2023 08:42 AM PHYSICIAN AUTO TOP MECHANIC NOTE: LOCAL TITLE: PA NOTE STANDARD TITLE: PHYSICIAN AUTO TOP MECHANIC NOTE DATE OF NOTE: AUG 20, 2023@08:42 ENTRY DATE: AUG 20, 2023@08:43 AUTHOR: NENA CORTEZ EXP COSIGNER: URGENCY: STATUS: COMPLETED CC/HPI/A/P: 58 year old MALE here in follow-up for; Can I get the weight loss pill We discuss availability, Doubtful at this time, but we plan labs. hearing loss, to audio. consider eye exam and glasses as well. Review of systems: Patient reports no changes from [place]ual [place] [facility] Health/[place], in meds or any admissions. Active problems - Computerized Problem List is the source for the followin. Exposure to potentially hazardous substance 2. Obstructive Sleep Apnea of Adult ([facility] [id number]) 3. HTN - Hypertension ([facility] [id number]) 4. Hypercholesterolemia ([facility] [id number]) 5. Hearing Loss ([facility] [id number]) 6. Low Back Pain ([facility] [id number]) SERVICE CONNECTED % - 50 VA and Non VA meds were reconciled with the patient who left with a corrected copy. See medication page for details. Active and Recently Outpatient Medications (excluding Supplies): Active Non-VA Medications Status 1) Non-VA CHOLECALCIF 50MCG (D3-2,000UNIT) TAB 50MCG BY ACTIVE MOUTH ONCE DAILY 2) Non-VA FENOFIBRATE 145MG TAB 145MG BY MOUTH ONCE ACTIVE DAILY 3) Non-VA HYDROCHLOROTHIAZIDE/LOSARTAN TAB BY MOUTH ACTIVE 4) Non-VA METOPROLOL SUCCINATE 100MG SA TAB 100MG BY ACTIVE MOUTH ONCE DAILY 98.2 F [36.8 C] (08/20/2023 08:28) 63 (08/20/2023 08:28) 16 (08/20/2023 08:28) 120/80 (08/20/2023 08:28) 0 (08/20/2023 08:28) 221 lb [100.24 kg] (08/20/2023 08:28) BMI: Neuro: Alert and oriented times three, grossly nonfocal, nasolabial folds intact. Pfizer covid April 02, 2023. Crc: NO FH of CRC, one colonoscopy at [facility] 4-5 years ago, he thinks a 10 year recall. BMI>30/>24.99 High Risk: At this visit, the health risks of obesity were reviewed and discussed with the [facility], and the benefits of a weight management treatment program, such as [facility]! was discussed and offered to the . After discussing the health risks of being overweight or obese and providing information about available weight management treatment, and offering a referral to [facility] or another weight management treatment program outside the [facility], the patient DECLINES REFERRAL to [facility] or any other weight management treatment program at this time. RHS Screen: RHS Screen Environmental Check Upon inquiry, the individual reports that the environment is safe to proceed. Informed Consent to Screen and Document The individual consents to proceed with screening. The individual consents to documentation of responses. PRIMARY SCREEN: In the past 12 months, how often did a current or former intimate partner (e.g., boyfriend, girlfriend, , , sexual partner): 1. Scream or curse at you Never 2. Insult or talk down to you Never 3. Threaten you with harm Never 4. Physically hurt you Never 5. Force or pressure you to have sexual contact against your will, or when you were unable to say no Never ?? The HITS tool (items 1-4 above) is [place] copyright protected by Dionisio Hernandez MD, and the user has full rights to use it throughout the [place] system. PRIMARY SCREEN RESULT: The Primary Screen is NEGATIVE. The individual answered never to all forms of IPV above (i.e., answered never to all 5 items) The individual accepts education and/or resources: Other: EDUCATION: Other: Pfizer covid April 02, 2023. please enter thru reminder. Crc: NO FH of CRC, one colonoscopy at [facility] 4-5 years ago, he thinks a 10 year recall. Please obtain. /es/ Nena Cortez PA-C STAFF PHYSICIAN AUTO TOP MECHANIC Signed: 08/20/2023 09:05 Receipt Acknowledged By: 08/20/2023 15:30 /es/ MICHELLE MEADOWS ENGINE LATHE SET UP OPERATORNENA LEYVA [place] [facility] [place] [facility] Aug 20, 2023 08:30 AM PREVENTIVE MEDICINE NURSING NOTE: LOCAL TITLE: CLINICAL REMINDERS/NURSING STANDARD TITLE: PREVENTIVE MEDICINE NURSING NOTE DATE OF NOTE: AUG 20, 2023@08:30 ENTRY DATE: AUG 20, 2023@08:31:01 AUTHOR: MICHELLE MEADOWS EXP COSIGNER: URGENCY: STATUS: COMPLETED CLINICAL REMINDERS/NURSING Has ADDENDA Suicide Screen: C-SSRS Screening [place] Suicide Severity Rating Scale (C-SSRS) screener 1. Over the past month, have you wished you were or wished you could go to sleep and not wake up? No 2. Over the past month, have you had any actual thoughts of killing yourself? No 3. Over the past month, have you been thinking about how you might do this? Response not required due to responses to other questions. 4. Over the past month, have you had these thoughts and had some intention of acting on them? Response not required due to responses to other questions. 5. Over the past month, have you started to work out or worked out the details of how to kill yourself? Response not required due to responses to other questions. 6. If yes, at any time in the past month did you intend to carry out this plan? Response not required due to responses to other questions. 7. In your lifetime, have you ever done anything, started to do anything, or prepared to do anything to end your life (for example, collected pills, obtained a gun, gave away valuables, went to the roof but didn't jump)? No 8. If YES, was this within the past 3 months? Response not required due to responses to other questions. Homelessness/Food Insecurity Screen: In the past 2 months, have you been living in stable housing that you own, rent, or stay in as part of a household? Yes - Living in stable housing. Are you worried or concerned that in the next 2 months you may NOT have stable housing that you own, rent, or stay in as part of a household? No - Not worried about housing near future [facility] reports the following: Within the past 12 months, you worried whether your food would run out before you got money to buy more. Never true Within the past 12 months, the food you bought just didn't last and you didn't have money to get more. Never true Depression Screening: Perform PHQ-2 A PHQ-2 screen was performed. The score was 0 which is a negative screen for depression. Over the past two weeks, how often have you been bothered by the following problems? 1. Little interest or pleasure in doing things Not at all 2. Feeling down, depressed, or hopeless Not at all Tobacco Use Screening: The patient is a former tobacco user. The patient quit fifteen or more years ago. Alcohol Use Screen (AUDIT-C): Alcohol Screen: SCREEN FOR ALCOHOL (AUDIT-C) An alcohol screening test (AUDIT-C) was negative (score=3). 1. How often did you have a drink containing alcohol in the past year? Consider a drink to be a 12 ounce can or bottle of regular beer, 8 ounces of malt liquor, a 5 ounce glass of table wine, or a 1.5 ounce shot of liquor (like scotch, gin, or vodka). Two to three times per week 2. How many drinks containing alcohol did you have on a typical day when you were drinking in the past year? One or two drinks 3. How often did you have six or more drinks on one occasion in the past year? Never /es/ MICHELLE MEADOWS LPN Signed: 08/20/2023 08:34 08/20/2023 ADDENDUM STATUS: COMPLETED Pneumococcal Conjugate Vaccine (PCV15/PCV20): PCV20 (Prevnar 20) Administered: PNEUMOCOCCAL CONJUGATE PCV20, POLYSACCHARIDE [id number] CONJUGATE, ADJUVANT, PF Date Administered: Aug 20, 2023 08:30 Series: Booster Digital Archivist: [employer] Lot: [id number] Exp Date: Sep 17, 2024 ND: [id number] Admin Route/Site: INTRAMUSCULAR/LEFT DELTOID Dosage: 0.5mL Vaccine Information Statement(s): PNEUMOCOCCAL CONJUGATE ([id number]) VIS September 29, 2022 (ROMANIAN) Order By: Policy Administered By: Michelle Meadows Vaccine Information Sheet (VIS) was given to the patient/caregiver, education regarding adverse reactions was discussed, as well as barriers to learning, if any, were acknowledged. Herpes Zoster (Shingles) Vaccine: Administered: ZOSTER RECOMBINANT Date Administered: Aug 20, 2023 08:30 Series: Booster Digital Archivist: [employer] Lot: [id number] Exp Date: Feb 02, 2025 [facility]: [phone] Admin Route/Site: INTRAMUSCULAR/LEFT DELTOID Dosage: 0.5mL Vaccine Information Statement(s): RECOMBINANT ZOSTER VACCINE VIS Jun 24, 2021 (ROMANIAN) Order By: Policy Administered By: Michelle Meadows Vaccine Information Sheet (VIS) was given to the patient/caregiver, education regarding adverse reactions was discussed, as well as barriers to learning, if any, were acknowledged. /alka/ MICHELLE MEADOWS LPN Signed: 08/20/2023 09:08 [facility]
--- OUTSIDE RECORDS SUMMARY | 2024-05-29 11:20 | XMS_ITS | Encounter Summary ---
Author Name [facility] Organization [facility] ([place]) Address [address] [place] [address] Care Team Providers Care Taker Out Name Role Phone NENA INMAN Primary Care Provider Unavail able Selected Encounter This section includes the information on record at [place] for the Encounter. Date/Time Encounter Type Encounter Description Reason Provider Source Feb 07, 2024 09:07 AM Outpatient Encounter PRIMARY CARE/MEDICINE HEATHER SANCHEZ Michelle Encounter Template Text not used by [place] Plan of Treatment: Future Appointments (+ 6 months) and Future Tests (+/- 45 days) The Plan of Treatment section includes future care activities for the patient from all [place] treatmentfacilities. This section includes future appointments and future orders which are active, pending or scheduled. Future Appointments This section includes appointments that were scheduled to occur 6 months from the date of the Encounter, up to a maximum of 20 appointments. The data comes from all [place] treatment facilities. Appointment Date/Time Appointment Type Appointme nt Facility Name Apr 21, 2024 09:00 AM AMBULATORY - MEDICINE [facility] Social History: Smoking Status (Most current) and Tobacco Use (All prior to encounter date) This section includes the most current, and the historical, smoking and tobacco- related health factors from the [place] facility where the [place]counter took place. Current Smoking Status This section includes the most current smoking, or tobacco-related health factor, from the [place] facility where the Encounter took place. Date/Time Current Smoking Status Comment Pina villar Aug 20, 2023 08:30 AM VA-TOBACCO FORMER USER [facility] Tobacco Use History This section includes a history of the smoking, or tobacco-related health factors, that were collected on or before the date of the Encounter. The data comes from the [place] facility where the Encounter took place. Date/Time Smoking Status/Tobacco Use Comment F acility Aug 20, 2023 08:30 AM VA-TOBACCO QUIT 15 YRS OR MORE [facility] [place] [facility] Aug 18, 2022 09:00 AM VA-TOBACCO FORMER USER [facility] [place] [facility] Aug 18, 2022 09:00 AM VA-TOBACCO QUIT 15 YRS OR MORE [facility] [place] [facility] Jul 28, 2022 08:00 AM AH-BPR SMOKING DEPLOYMENT NO [facility] [place] [facility] Jul 28, 2022 08:00 AM PREVIOUS SMOKER [facility] [place] [facility] Feb 10, 2020 03:00 PM VA-TOBACCO FORMER USER [facility] [place] [facility] Feb 10, 2020 03:00 PM VA-TOBACCO QUIT 15 YRS OR MORE [place] [facility] [place] [facility] Encounter Notes: All associated encounter notes This section contains the clinical notes associated to the Encounter. Date/Time Encounter Note(s) Provider Source Feb 07, 2024 09:07 AM PRIMARY CARE [employer] E MESSAGING: LOCAL TITLE: PRIMARY CARE SECURE MESSAGING STANDARD TITLE: PRIMARY CARE SECURE MESSAGING DATE OF NOTE: FEB 07, 2024@09:07 ENTRY DATE: FEB 07, 2024@09:07:20 AUTHOR: HEATHER SANCHEZ EXP COSIGNER: URGENCY: STATUS: COMPLETED ------Original Message -------- Sent: 02/07/2024 08:39 AM ET From: RAGHAV FITZPATRICK To: Rei INMAN_PRIMARY CARE_[facility] Subject: General:shots covid 19 and flu shots Hi Do I need to make an appointment to get my covid 19 and flu shots. Vitor ------Original Message -------- Sent: 02/07/2024 09:07 AM ET From: HEATHER SANCHEZ To: RAGHAV FITZPATRICK Subject: General:shots covid 19 and flu shots Good morning, Currently these are the list of walk-in clinics: [place]: walk-in clinic Sunday and [phone] [place] : Walk in clinic [id number] [place]: Walk in clinic clinic [id number] and [phone] [place]: Walk in clinic Sunday-1130 and [phone] If none of these location and times work for you we can set you up with a RN appointment. Respectfully, Haether Sanchez RN /alka/ HEATHER SANCHEZ REGISTERED NURSE Signed: 02/07/2024 09:07 HEATHER SANCHEZ [facility]
--- OUTSIDE RECORDS SUMMARY | 2024-05-29 11:20 | XMS_ITS | Encounter Summary ---
Author Name [facility] Address [address] [place] [address] Care Team Providers Care Retail Planner Name Role Phone NENA INMAN Primary Care Provider Unavail able Selected Encounter This section includes the information on record at [place] for the Encounter. Date/Time Encounter Type Encounter Description Reason Pro vider Source October 01, 2023 12:08 PM Outpatient Encounter PRIMARY CARE/MEDICINE I[facility] Encounter Template Text not used by [place] Plan of Treatment: Future Appointments (+ 6 months) and Future Tests (+/- 45 days) The Plan of Treatment section includes future care activities for the patient from all [place] treatmentfacilities. This section includes future appointments and future orders which are active, pending or scheduled. Future Appointments This section includes appointments that were scheduled to occur 6 months from the date of the Encounter, up to a maximum of 20 appointments. The data comes from all [place] treatment facilities. Appointment Date/Time Appointment Type Appointme nt Facility Name October 16, 2023 08:30 AM AMBULATORY - MEDICINE [facility] Social History: Smoking Status (Most current) and Tobacco Use (All prior to encounter date) This section includes the most current, and the historical, smoking and tobacco- related health factors from the [facility] facility where the Encounter took place. Current Smoking Status This section includes the most current smoking, or tobacco-related health factor, from the [facility] facility where the Encounter took place. Date/Time Current Smoking Status Comment Pina villar Aug 20, 2023 08:30 AM VA-TOBACCO FORMER USER [facility] Tobacco Use History This section includes a history of the smoking, or tobacco-related health factors, that were collected on or before the date of the Encounter. The data comes from the [place] facility where the Encounter took place. Date/Time Smoking Status/Tobacco Use Comment F acility Aug 20, 2023 08:30 AM VA-TOBACCO QUIT 15 YRS OR MORE [facility] [place] [facility] Aug 18, 2022 09:00 AM VA-TOBACCO FORMER USER [facility] [place] [facility] Aug 18, 2022 09:00 AM VA-TOBACCO QUIT 15 YRS OR MORE [facility] [place] [facility] Jul 28, 2022 08:00 AM AH-BPR SMOKING DEPLOYMENT NO ID [facility] [place] [facility] Jul 28, 2022 08:00 AM PREVIOUS SMOKER [facility] [place] [facility] Feb 10, 2020 03:00 PM VA-TOBACCO FORMER USER [facility] [place] [facility] Feb 10, 2020 03:00 PM VA-TOBACCO QUIT 15 YRS OR MORE [facility] [place] [facility] Encounter Notes: All associated encounter notes This section contains the clinical notes associated to the Encounter. Date/Time Encounter Note(s) Provider Source October 01, 2023 12:08 PM PRIMARY CARE TELEP DONAL ENCOUNTER NOTE: LOCAL TITLE: TELEPHONE NOTE/PRIMARY CARE STANDARD TITLE: PRIMARY CARE TELEPHONE ENCOUNTER NOTE DATE OF NOTE: OCTOBER 01, 2023@12:08 ENTRY DATE: OCTOBER 01, 2023@12:08:31 AUTHOR: MICHELLE MEADOWS EXP COSIGNER: URGENCY: STATUS: COMPLETED Call placed to for Colonoscopy reminder, left voice mail /alka/ MICHELLE MEADOWS LPN Signed: 10/01/2023 12:09 Receipt Acknowledged By: 10/01/2023 13:05 /alka/ PRASANTH MALDONADO, RN REGISTERED NURSE MICHELLE MEADOWS [facility]
--- OUTSIDE RECORDS SUMMARY | 2024-05-29 11:20 | XMS_ITS | Encounter Summary ---
Author Name [facility] [facility] Address [address] [place] [address] Care Team Providers Care Manager Laboratory Name Role Phone NENA INMAN Primary Care Provider Unavail able Selected Encounter This section includes the information on record at [place] for the Encounter. Date/Time Encounter Type Encounter Description Reason Provider Source October 16, 2023 08:30 AM OFF/OP EST SEPTEMBER X REQ Y/Q PRIMARY CARE/MEDICINE ICD-10-CM Z23 Encounter for immunization ETHAN CALVERT E Encounter Template Text not used by [place] Assessments - Encounter Diagnoses This section includes the primary and secondary diagnoses documented for the Encounter. Date/Time Primary/Secondary Diagnosis Diagnosis Name Provider Source October 16, 2023 08:28 AM PRIMARY Encounter for immunization ETHAN CALVERT [facility] Immunizations: All administered on the encounter date This section contains immunizations associated to the Encounter. Immunization Series Date Issued Reaction Comments TDAP October 16, 2023 ZOSTER RECOMBINANT 2 October 16, 2023 Social History: Smoking Status (Most current) and Tobacco Use (All prior to encounter date) This section includes the most current, and the historical, smoking and tobacco- related health factors from the [place] facility where the Encounter took place. Current Smoking Status This section includes the most current smoking, or tobacco-related health factor, from the [place] facility where the Encounter took place. Date/Time Current Smoking Status Comment Facil ity Aug 20, 2023 08:30 AM VA-TOBACCO FORMER USER [facility] Tobacco Use History This section includes a history of the smoking, or tobacco-related health factors, that were collected on or before the date of the Encounter. The data comes from the [place] facility where the Encounter took place. Date/Time Smoking Status/Tobacco Use Comment F acility Aug 20, 2023 08:30 AM VA-TOBACCO QUIT 15 YRS OR MORE [facility] [place] [facility] Aug 18, 2022 09:00 AM VA-TOBACCO FORMER USER [facility] [place] [facility] Aug 18, 2022 09:00 AM VA-TOBACCO QUIT 15 YRS OR MORE [facility] [place] [facility] Jul 28, 2022 08:00 AM AH-BPR SMOKING DEPLOYMENT NO [facility] [place] [facility] Jul 28, 2022 08:00 AM PREVIOUS SMOKER [facility] [place] [facility] Feb 10, 2020 03:00 PM VA-TOBACCO FORMER USER [facility] [place] [facility] Feb 10, 2020 03:00 PM VA-TOBACCO QUIT 15 YRS OR MORE [place] [facility] [place] [facility] Encounter Notes: All associated encounter notes This section contains the clinical notes associated to the Encounter. Date/Time Encounter Note(s) Provider Source October 16, 2023 08:26 AM PREVENTIVE MEDICINE NURSING NOTE: LOCAL TITLE: CLINICAL REMINDERS/NURSING STANDARD TITLE: PREVENTIVE MEDICINE NURSING NOTE DATE OF NOTE: OCTOBER 16, 2023@08:26 ENTRY DATE: OCTOBER 16, 2023@08:26:57 AUTHOR: PRASANTH CALVERT EXP COSIGNER: URGENCY: STATUS: COMPLETED Tdap Immunization: Administered: TDAP Date Administered: October 16, 2023 08:27 Edi Manager: ROBAUTO Lot: [id number] Exp Date: Dec 26, 2025 ND: [id number] Admin Route/Site: INTRAMUSCULAR/RIGHT DELTOID Dosage: 0.5mL Vaccine Information Statement(s): TDAP (TETANUS, DIPHTHERIA, PERTUSSIS) VACCINE VIS Dec 24, 2020 ([place]) Order By: Policy Administered By: Prasanth Calvert Vaccine Information Sheet (VIS) was given to the patient/caregiver, education regarding adverse reactions was discussed, as well as barriers to learning, if any, were acknowledged. Herpes Zoster (Shingles) Vaccine: Administered: ZOSTER RECOMBINANT Date Administered: October 16, 2023 08:27 Series: Series 2 Edi Manager: ROBAUTO Lot: [id number] Exp Date: Jun 14, 2025 NDC: [phone] Admin Route/Site: INTRAMUSCULAR/LEFT DELTOID Dosage: 0.5mL Vaccine Information Statement(s): RECOMBINANT ZOSTER VACCINE VIS Jun 24, 2021 ([place]) Order By: Policy Administered By: Prasanth Calvert Vaccine Information Sheet (VIS) was given to the patient/caregiver, education regarding adverse reactions was discussed, as well as barriers to learning, if any, were acknowledged. /alka/ PRASANTH CALVERT RN REGISTERED NURSE Signed: 10/16/2023 08:28 PRASANTH CALEVRT [facility]
--- OUTSIDE RECORDS SUMMARY | 2024-05-29 11:20 | XMS_ITS | Encounter Summary ---
Author Name [facility] ([place] Address [address] [place] [address] Care Team Providers Care Appeals Analyst Name Role Phone NENA INMAN Primary Care Provider Unavail able Selected Encounter This section includes the information on record at OR for the Encounter. Date/Time Encounter Type Encounter Description Reason Provider Source Apr 21, 2024 09:00 AM Outpatient Encounter GENERAL INTERNAL MEDICINE ICD-10-CM Z02.89 Encounter for other administrative examinations ANGELINA GOMEZ [facility] Encounter Template Text not used by [place] Assessments - Encounter Diagnoses This section includes the primary and secondary diagnoses documented for the Encounter. Date/Time Primary/Secondary Diagnosis Diagnosis Name Provider Source Apr 21, 2024 04:27 PM PRIMARY Encounter for other administrative examinations ANGELINA GOMEZ [facility] Plan of Treatment: Future Appointments (+ 6 months) and Future Tests (+/- 45 days) The Plan of Treatment section includes future care activities for the patient from all [place] treatmentfacilities. This section includes future appointments and future orders which are active, pending or scheduled. Future Appointments This section includes appointments that were scheduled to occur 6 months from the date of the Encounter, up to a maximum of 20 appointments. The data comes from all [place] treatment facilities. Appointment Date/Time Appointment Type Appointme nt Facility Name Aug 18, 2024 08:30 AM AMBULATORY - MEDICINE [facility] Social History: Smoking Status (Most current) and Tobacco Use (All prior to encounter date) This section includes the most current, and the historical, smoking and tobacco- related health factors from the [place] facility where the Encounter took place. Current Smoking Status This section includes the most current smoking, or tobacco-related health factor, from the [place] facility where the Encounter took place. Date/Time Current Smoking Status Comment Pina ity Aug 20, 2023 08:30 AM [facility] Tobacco Use History This section includes a history of the smoking, or tobacco-related health factors, that were collected on or before the date of the Encounter. The data comes from the [place] facility where the Encounter took place. Date/Time Smoking Status/Tobacco Use Comment F acility Aug 20, 2023 08:30 AM VA-TOBACCO QUIT 15 YRS OR MORE OR [facility] [place] [facility] Aug 18, 2022 09:00 AM VA-TOBACCO FORMER USER [place] [facility] [place] [facility] Aug 18, 2022 09:00 AM VA-TOBACCO QUIT 15 YRS OR MORE OR [facility] [place] [facility] Jul 28, 2022 08:00 AM AH-BPR SMOKING DEPLOYMENT NO [facility] Jul 28, 2022 08:00 AM PREVIOUS SMOKER OR [facility] [place] [facility] Feb 10, 2020 03:00 PM VA-TOBACCO FORMER USER [place] [facility] [place] [facility] Feb 10, 2020 03:00 PM VA-TOBACCO QUIT 15 YRS OR MORE [facility] Encounter Notes: All associated encounter notes This section contains the clinical notes associated to the Encounter. Date/Time Encounter Note(s) Provider Source Apr 21, 2024 09:00 AM C & P EXAMINATION NOTE: LOCAL TITLE: COMPENSATION AND PENSION EXAM STANDARD TITLE: C & P EXAMINATION NOTE DATE OF NOTE: APR 21, 2024@09:00 ENTRY DATE: APR 21, 2024@16:26:25 AUTHOR: BHAVNA GOMEZ EXP COSIGNER: URGENCY: STATUS: COMPLETED Sleep Apnea Disability Benefits Questionnaire Name of patient/: RAGHAV FITZPATRICK ([id number]) Is this DBQ being completed in conjunction with a OR [id number], C&P Examination Request? [X] Yes [ ] No How was the examination completed? (check all that apply) [ ] In-person examination [X] Records reviewed [ ] Examination via approved video telehealth [ ] Other, please specify in comments box Comments: * 01/03/2024 'S CLAIM: SLEEP APNEA JOAN and Evidence Review Indicate method used to obtain medical information to complete this document: [X] Review of available records (without in-person or video telehealth examination) using the Acceptable Clinical Evidence (JOAN) process because the existing medical evidence provided sufficient information on which to prepare the questionnaire and such an examination will likely provide no additional relevant evidence. Evidence Review Evidence reviewed (check all that apply): [X] [facility] e-folder [X] [place] electronic health record [X] Other, please identify other evidence reviewed. VBMS, JLV, VISTAIMAGING, CPRS Evidence Comments: * 07/16/2023 VBA RATING DECISION: Service connection for sleep apnea is denied. * 04/27/2021 VBA RATING DECISION: - Service connection for intervertebral disc syndrome with degenerative disc disease is granted. - The previous denial of service connection for sleep apnea is confirmed and continued. 1. Diagnosis Does the have or has he/she ever had sleep apnea? [X] Yes [ ] No [X] Obstructive Date of diagnosis: 02/21/2018 per private records 2. Medical history a. Describe the history (including onset and course) of the [place]'s sleep disorder condition (brief summary): LAST C&P EXAM 03/02/2022 BY THIS INSTRUMENTAL MUSICIAN: REVIEW OF AVAILABLE MEDICAL EVIDENCE: DD214 ACTIVE DUTY: - 04/22/1990 - 12/18/1990 - 01/08/1984 - 08/02/1987 * 08/20/2023 PRIMARY CARE NOTE: WEIGHT = 221 LBS. * 08/18/2022 PRIMARY CARE NOTE: sleep apnea, managed outside. Its great wnen I ask about effectiveness of his machine. WEIGHT = 215 LBS * 11/03/2020 PRIMARY CARE NOTE: weight 214 lbs. obese male with ...obstructive sleep apnea. Patient does use CPAP every night more than 4 hours and benefits from this. Sleep study 02/2018 moderate-severe WAI patient should be started on CPAP therapy . * 02/18/2019 Primary Care Note: weight 209.6 * 03/21/2018 Diagnosed with degenerative disc disease via MRI. * 02/27/2018 DIAGNOSED WITH OBSTRUCTIVE SLEEP APNEA * 2011 weight 189 lbs. * 2010 weight 183 lbs. * 2008 weight 188 lbs * 07/23/1999 STR Report of Medical Examination: height 71 inches, weight 177 lbs. * 08/06/1995 STR Occupational Physical Exam: height 5'11 , weight 178 lbs. * 10/21/1994 STR: Periodic Non Flying Medical Examination: Medical: normal mouth and throat. Weight 168 lbs, height 70 1/ . Self Assessment: NO frequent trouble sleeping. * 09/03/1990 STR Self Assessment: No frequent trouble sleeping. * 02/23/1990 STR: Non Flying Report of Medical Examination: Medical: normal mouth and throad. weight 150 lbs, height 70 . Self Assessment: no frequent trouble sleeping. * 07/05/1983 ENLISTMENT: Medical: normal mouth and throat. Weight 126 lbs, height 68 05/24 Self Assessment: NO frequent trouble sleeping. b. Is continuous medication required for control of a sleep disorder condition? [ ] Yes [X] No c. Does the [place] require the use of a breathing assistance device? [ ] Yes [X] No d. Does the require the use of a continuous positive airway pressure (CPAP) machine? [X] Yes [ ] No 3. Findings, signs and symptoms ------ Does the [place] currently have any findings, signs or symptoms attributable to sleep apnea? [ ] Yes [X] No 4. Other pertinent physical findings, complications, conditions, signs, symptoms and scars a. Does the have any other pertinent physical findings, complications, conditions, signs or symptoms related to any conditions listed in the Diagnosis Section above? [X] Yes [ ] No If yes, describe (brief summary): BMI GREATER THAN 30 b. Does the [place] have any scars (surgical or otherwise) related to any conditions or to the treatment of any conditions listed in the Diagnosis Section above? [ ] Yes [X] No c. Comments, if any: n/a 5. Diagnostic testing a. Has a sleep study been performed? [X] Yes [ ] No If yes, does the [place] have documented sleep disorder breathing? [X] Yes [ ] No Date of sleep study: 02/21/2018 Facility where sleep study performed, if known: ambulatory polysomnogram Results: moderately severe obstructive sleep apnea/hypopnea with AHI of 35. b. Are there any other significant diagnostic test findings and/or results? [ ] Yes [X] No 6. Functional impact Does the 's sleep apnea impact his or her ability to work? [ ] Yes [X] No 7. Remarks, if any: NO ADDITIONAL COMMENTS * Medical Opinion Disability Benefits Questionnaire Name of patient/[place]: RAGHAV RIGO AMARI ([id number]) JOAN and Evidence Review Indicate method used to obtain medical information to complete this document: [X] Review of available records (without in-person or video telehealth examination) using the Acceptable Clinical Evidence (JOAN) process because the existing medical evidence provided sufficient information on which to prepare the questionnaire and such an examination will likely provide no additional relevant evidence. Evidence Review Evidence reviewed (check all that apply): [X] VA e-folder [X] VA electronic health record [X] Other (please identify other evidence reviewed): ADELA, BENSON, MARGY[place]FEDER[place], CPRS Evidence Comments: * 07/16/2023 VBA RATING DECISION: Service connection for sleep apnea is denied. * 04/27/2021 VBA RATING DECISION: - Service connection for intervertebral disc syndrome with degenerative disc disease is granted. - The previous denial of service connection for sleep apnea is confirmed and continued. MEDICAL OPINION SUMMARY RESTATEMENT OF REQUESTED OPINION: a. Opinion from general remarks: THE 2507 DATED APRIL 15, 2024 ASKS THE FOLLOWING SECONDARY SERVICE CONNECTION MEDICAL OPINION: IS THE 'S OBSTRUCTIVE SLEEP APNEA AT LEAST LIKELY NOT (LIKELIHOOD IS AT LEAST APPROXIMATELY BALANCED OR NEARLY EQUAL, IF NOT HIGHER) PROXIMATELY DUE TO OR THE RESULT OF HIS SC LUMBAR SPINE CONDITION (INTERVERTEBRAL DISC SYNDROME WITH DEGENERATIVE DISC DISEASE)? b. Indicate type of exam for which opinion has been requested: OBSTRUCTIVE SLEEP APNEA TYPE OF MEDICAL OPINION PROVIDED: [ SECONDARY SERVICE CONNECTION ] The claimed condition is less likely than not (likelihood is less than approximately balanced or nearly equal) proximately due to or the result of the [place]'s service connected condition. c. Rationale: REVIEW OF AVAILABLE MEDICAL EVIDENCE: DD214 ACTIVE DUTY: - 04/22/1990 - 12/18/1990 - 01/08/1984 - 08/02/1987 * 08/20/2023 PRIMARY CARE NOTE: WEIGHT = 221 LBS. * 08/18/2022 PRIMARY CARE NOTE: sleep apnea, managed outside. Its great wnen I ask about effectiveness of his machine. WEIGHT = 215 LBS * 11/03/2020 PRIMARY CARE NOTE: weight 214 lbs. obese male with ...obstructive sleep apnea. Patient does use CPAP every night more than 4 hours and benefits from this. Sleep study 02/2018 moderate-severe WAI patient should be started on CPAP therapy . * 02/18/2019 Primary Care Note: weight 209.6 * 03/21/2018 Diagnosed with degenerative disc disease via MRI. * 02/21/2018 DIAGNOSED WITH OBSTRUCTIVE SLEEP APNEA Private records. Grossly obese lois with history of poor sleep at night and hypersomnia during the daytime. * 2011 weight 189 lbs. * 2010 weight 183 lbs. * 2008 weight 188 lbs * 07/23/1999 STR Report of Medical Examination: height 71 inches, weight 177 lbs. * 08/06/1995 STR Occupational Physical Exam: height 5'11 , weight 178 lbs. * 10/21/1994 STR: Periodic Non Flying Medical Examination: Medical: normal mouth and throat. Weight 168 lbs, height 70 1/2 . Self Assessment: NO frequent trouble sleeping. * 12/18/1990 DATE ACTIVE DUTY PER DD214 * 09/03/1990 STR Self Assessment: No frequent trouble sleeping. * 04/22/1990 DATE ENTERED ACTIVE DUTY PER DD214 * 02/23/1990 STR: Non Flying Report of Medical Examination: Medical: normal mouth and throad. weight 150 lbs, height 70 . Self Assessment: no frequent trouble sleeping. * 08/02/1987 DATE ACTIVE DUTY PER DD214 * 01/08/1984 DATE ENTERED ACTIVE DUTY PER DD214 * 07/05/1983 ENLISTMENT: Medical: normal mouth and throat. Weight 126 lbs, height 68 1/4 Self Assessment: NO frequent trouble sleeping. NOTE: THIS SECONDARY SERVICE MEDICAL OPINION WAS COMPLETED ON 03/02/2022 AND SEPTEMBER 17, 2022 AND IS RECOPIED BELOW FOR REFERENCE. MY MEDICAL OPINION HAS NOT CHANGED - DATE APRIL 21, 2024. SECONDARY SERVICE MEDICAL OPINION: The 's enlistment exam showed a weight of 126 pounds with a height of 68 1/4 . Ensuing records showed an increase in height. The diagnosis of degenerative disc disease was made via MRI MARCH 2018. His WAI diagnosis was made February 2018. Over a period of about 300 plus years, the 's bodyhabitus increased by 30+ pounds. The medical literature notes that the predominant reason for Obstructive Sleep Apnea is a physical factor (obesity). Additional risk factors are other physical reasons such as craniofacial anatomy, etc. The medical literature does not link or list the diagnosis of lumbar spine condition of degenerative disc disease with intervertebral disc syndrome as a risk factor for obstructive sleep apnea. The conditions of Obstructive Sleep Apnea and DDD with intervertebral disc syndrome are not medically related. The Obstructive Sleep Apnea is a separate entity entirely from the DDD with intervertebral disc syndrome and unrelated to it. A thorough review of medical literature failed to demonstrate a causal relationship. A nexus has not been established. Peer reviewed, objective, medical literature does not support a lumbar spine condition as a physiologic cause for Obstructive Sleep Apnea. Some studies have suggested an association between WAI and intervertebral disc syndrome with degenerative disc disease. However, they are cohort studies, not peer reviewed and do not show causality. Obesity is the best documented, CREDIBLE risk factor for obstructive sleep apnea. SECONDARY SERVICE CONNECTION (LUMBAR SPINE CONDITION): It is my medical opinion that the [place]'s current diagnosis of Obstructive Sleep Apnea (WAI) is less likely than not (likelihood is less than approximately or nearly equal) proximately due to or the result, or related to his service connected intervertebral disc syndrome with degenerative disc disease and bilateral lower extremity radiculopathy. OBESITY QUESTIONS ANSWERED ON 09/07/2022: The 's increasing BMI occurred PRIOR to his diagnosed back condition. It is my medical opinion that the [place]'s obesity is less likely than not (likelihood is less than approximately or nearly equal) proximately due to, caused by or the result, or related to his service connected intervertebral disc syndrome with degenerative disc disease and bilateral lower extremity radiculopathy. ADDITIONAL QUESTIONS VIA THE 5705 DATED 2023: 1. WHETHER THE SERVICE CONNECTED BACK DISABILITY CAUSED THE TO BECOME OBESE? 2. IF SO, WHETHER THE OBESITY A RESULT OF THE SERVICE CONNECTED BACK CONDITION DISABILITY WAS A SUBSTANTIAL FACTOR CAUSING SLEEP APNEA AND WHETHER SLEEP APNEA WOULD NOT HAVE OCCURRED BUT FOR OBESITY CAUSE (SIC) BY THE SERVICE CONNECTED BACK DISABILITY? ANSWER: REVIEW OF PEER-REVIEWED MEDICAL LITERATURE: [employer] and [employer] accessed April 2024 The main causation of obesity is excessive caloric intake. Certain health behaviors can contribute to excess weight gain and are risk factors for obesity: o Lack of physical activity. o Unhealthy eating patterns such as: o Too many highly processed foods or added sugars, including too many sugar-sweetened beverages. o Too little fiber and fruits and vegetables. o Too much TV, computer, video games, and other screen time. Medical conditions may lead to excess weight gain, obesity, or insulin resistance. These conditions include [place] syndrome, polycystic ovary syndrome, or underactive thyroid. Some medications may also cause weight gain by disrupting the brain's signals for hunger or through other mechanisms. These medications can include: Psychiatric medications, such as antipsychotics and antidepressants. Steroids. Certain types of hormonal control, such as progestins. Anti-seizure or mood-stabilizing drugs. Certain blood pressure and diabetes medications. In specific, rare, single-gene disorders, genes can directly cause obesity. Examples of these disorders are Bardet-Biedl syndrome and Prader-Willi syndrome. It is more common for multiple genes to be responsible for a person's feelings of hunger, sense of fullness, and metabolism. MEDICAL OPINION REGARDING OBESITY: Obesity is a complex and costly chronic disease influenced by many factors. These factors include health behaviors, stress, health conditions and medications, genes, along with a persons environment. Primarily, increasing sedentary behavior and excess caloric intake in the context of permissive genetics favor the development of ?besity. The main causation of obesity is excessive caloric intake, and while the has a SC lumbar condition that may eliminate some exercise options, there are alternative means by which to exercise available (example water sports, hand cycle etc.) As evidenced by literature review, for example, not all amputees'/disabled individuals are obese. Due to the SC lumbar spine condition, a patient no longer needs to consume as many calories as when younger/more active. Options of alternative means of exercise/fitness combined with a healthier diet will effectively decrease the obesity outcome. Additionally, there are newer medications along with non-invasive and invasive treatments of obesity. IT REMAINS MY MEDICAL OPINION: There is no nexus linking the SC back condition to obesity. It is less likely than not (likelihood is less than approximately or nearly equal) that the 's SC back condition caused the to become obese, nor was a substantial factor in causing his sleep apnea. /alka/ ANGELINA GOMEZ NURSE PRACTITIONER Signed: 04/21/2024 16:26 BHAVNA GOMEZ [facility]
--- OUTSIDE RECORDS SUMMARY | 2024-05-29 11:20 | XMS_ITS | Encounter Summary ---
Author Name [facility] ([place]) Organization [facility] Address [address] [place] [address] Care Team Providers Care Cleaner And Polisher Name Role Phone NENA INMAN Primary Care Provider Unavail able Selected Encounter This section includes the information on record at [place] for the Encounter. Date/Time Encounter Type Encounter Description Reason Pro vider Source October 11, 2023 09:01 AM Outpatient Encounter PRIMARY CARE/MEDICINE [facility] Encounter Template Text not used by [place] Plan of Treatment: Future Appointments (+ 6 months) and Future Tests (+/- 45 days) The Plan of Treatment section includes future care activities for the patient from all [place] treatmentfacilities. This section includes future appointments and future orders which are active, pending or scheduled. Future Appointments This section includes appointments that were scheduled to occur 6 months from the date of the Encounter, up to a maximum of 20 appointments. The data comes from all [place] treatment facilities. Appointment Date/Time Appointment Type Appointme nt Facility Name October 16, 2023 08:30 AM [facility]BULATORY - MEDICINE [facility] Social History: Smoking Status (Most current) [...] place. Date/Time Current Smoking Status Comment Facil [place] Aug 20, 2023 08:30 AM VA-TOBACCO FORMER USER [facility] Tobacco Use History This section includes a history of the smoking, or tobacco-related health factors, that were collected on or before the date of the Encounter. The data comes from the [place] facility where the Encounter took place. Date/Time Smoking Status/Tobacco Use Comment F acility Aug 20, 2023 08:30 AM VA-TOBACCO QUIT 15 YRS OR MORE IN [facility] [place] [facility] Aug 18, 2022 09:00 AM VA-TOBACCO FORMER USER [place] [facility] [place] [facility] Aug 18, 2022 09:00 AM VA-TOBACCO QUIT 15 YRS OR MORE [place] [facility] [place] [facility] Jul 28, 2022 08:00 AM AH-BPR SMOKING DEPLOYMENT NO [place] [facility] [place] [facility] Jul 28, 2022 08:00 AM PREVIOUS SMOKER IN [facility] [place] [facility] Feb 10, 2020 03:00 PM VA-TOBACCO FORMER USER [place] [facility] [place] [facility] Feb 10, 2020 03:00 PM VA-TOBACCO QUIT 15 YRS OR MORE IN [facility] [place] [facility] Encounter Notes: All associated encounter notes This section contains the clinical notes associated to the Encounter. Date/Time Encounter Note(s) Provider Source October 11, 2023 09:01 AM PREVENTIVE MEDICINE NURSING NOTE: LOCAL TITLE: CLINICAL REMINDERS/NURSING STANDARD TITLE: PREVENTIVE MEDICINE NURSING NOTE DATE OF NOTE: OCTOBER 11, 2023@09:01 ENTRY DATE: OCTOBER 11, 2023@09:01:27 AUTHOR: MICHELLE MEADOWS EXP COSIGNER: URGENCY: STATUS: COMPLETED Avg Risk Colorectal Cancer Screen: AVERAGE RISK colorectal cancer screening is due based on information available to this clinical reminder Patient has arranged or is choosing to arrange this care independent of and without assistance from this [place]. Comment: [place] gets colonoscopies through civilian provider, states is due next year, no fam HX of CRC, lorenza send copies of procedure as requested by PACT team /alka/ MICHELLE MEADOWS LPN Signed: 10/11/2023 09:03 MICHELLE MEADOWS [facility]
--- OUTSIDE RECORDS SUMMARY | 2024-05-29 11:20 | XMS_ITS | Encounter Summary ---
Author Name [facility] Organization [facility] ([place]) Address [address] [place] [address] Care Team Providers Care Freight Separator Name Role Phone NENA INMAN Primary Care Provider Unavail able Selected Encounter This section includes the information on record at [place] for the Encounter. Date/Time Encounter Type Encounter Description Reason Provider Source Apr 10, 2024 09:24 AM Outpatient Encounter PRIMARY CARE/MEDICINE GIO MEADOWS Michelle Encounter Template Text not used by [place] Plan of Treatment: Future Appointments (+ 6 months) and Future Tests (+/- 45 days) The Plan of Treatment section includes future care activities for the patient from all [place] treatmentfacilities. This section includes future appointments and future orders which are active, pending or scheduled. Future Appointments This section includes appointments that were scheduled to occur 6 months from the date of the Encounter, up to a maximum of 20 appointments. The data comes from all [place] treatment facilities. Appointment Date/Time Appointment Type Appointme nt Facility Name Apr 21, 2024 09:00 AM AMBULATORY - MEDICINE [facility] Aug 18, 2024 08:30 AM AMBULATORY MEDICINE [facility] Social History: Smoking Status (Most current) and Tobacco Use (All prior to encounter date) This section includes the most current, and the historical, smoking and tobacco- related health factors from the [facility] facility where the [facility] place. Current Smoking Status This section includes the most current smoking, or tobacco-related health factor, from the [place] facility where the Encounter took place. Date/Time Current Smoking Status Sarah villar Aug 20, 2023 08:30 AM VA-TOBACCO FORMER USER [facility] Tobacco Use History This section includes a history of the smoking, or tobacco-related health factors, that were collected on or before the date of the Encounter. The data comes from the [place] facility where the Encounter took place. Date/Time Smoking Status/Tobacco Use Comment F acility Aug 20, 2023 08:30 AM VA-TOBACCO QUIT 15 YRS OR MORE [place] [facility] [place] [facility] Aug 18, 2022 09:00 AM [place]-TOBAC[place] FORMER US[place] [facility] [place] [facility] Aug 18, 2022 09:00 AM VA-TOBACCO QUIT 15 YRS OR MORE [place] [facility] [place] [facility] Jul 28, 2022 08:00 AM AH-BPR SMOKING DEPLOYMENT NO [place] [facility] [place] [facility] Jul 28, 2022 08:00 AM PREVIOUS SMOKER [place] [facility] [place] [facility] Feb 10, 2020 03:00 PM VA-TOBACCO FORMER USER [place] [facility] [place] [facility] Feb 10, 2020 03:00 PM VA-TOBACCO QUIT 15 YRS OR MORE [place] [facility] [place] [facility] Encounter Notes: All associated encounter notes This section contains the clinical notes associated to the Encounter. Date/Time Encounter Note(s) Provider Source Apr 10, 2024 09:24 AM PRIMARY CARE [facility] MESSAGING: LOCAL TITLE: PRIMARY CARE SECURE MESSAGING STANDARD TITLE: PRIMARY CARE SECURE MESSAGING DATE OF NOTE: APR 10, 2024@09:24 ENTRY DATE: APR 10, 2024@09:24:44 AUTHOR: MICHELLE MEADOWS EXP COSIGNER: URGENCY: STATUS: COMPLETED ------Original Message -------- Sent: 04/10/2024 09:24 AM ET From: MICHELLE MEADOWS To: RAGHAV FITZPATRICK Subject: General:vaccines Dear [place]. Please let us know if you have received the seasonal Flu Vaccine, Covid vaccine, or the RSV vaccine. Flu and Covid Vaccines can be obtained through your local Pharmacy or scheduled through your Primary care provider. The RSV vaccine can be scheduled along with the flu or covid vaccines through your Primary Care provider as well. There is a Flu clinic in [place] [address] on Tuesdays and , from 1pm -3pm on a walk-in basis. If you have received any of these vaccines, please provide dates and locations if available. If you choose not to receive any of these vaccines, please be courteous and let us know as we are trying to track these vaccines. Thank you for your service! /alka/ MICHELLE MEADOWS LPN Signed: 04/10/2024 09:24 MICHELLE MEADOWS [facility]
--- OUTSIDE RECORDS SUMMARY | 2024-05-29 11:20 | XMS_ITS | Patient Health Record ---
Author Organization [facility] Address [address] [place] [address] Care Team Providers Care Biodiesel Engineering Manager Name Role Phone Lorraine Fields Primary Care Provider Unavailabl e Tirso Sunshine Unavailable [phone] Jessica Brennan Unavailable [phone] Allergies Allergen (clinical drug ingredient) Drug/Non Drug Allergy documented on EMR Reaction Allergy Type Onset Date Status amlodipine Amlodipine leg swelling Drug Allergy Ac tive chlorthalidone Chlorthalidone gout, hypokalemia Drug Allergy Active ezetimibe Ezetimibe elevated LFTs Drug Allergy Act vikram lisinopril Lisinopril cough Drug Allergy Activ e Reason For Referral Diagnosis 1 Primary osteoarthrit is, left ankle and foot (M19.072) Diagnosis 2 Pain in left ankle a nd joints of left foot (M25.572) Referring Provider First Name Lorraine Referring Provider [facility] Name [facility] Provider Tirso Sunshine Referred Address [address] [place], [place],[address], Referred Provider Specialty Podiatry Referral Priority Routine Medications Medication SIG (Take, Route, Frequency, Duration) Notes Start Date End Date Status Mometasone Furoate 50 MCG/ACT as directed Active Modafinil 100 MG 1 tablet in the morning Orally Once a day Active Simvastatin 5 MG 2 tablets in the evening Orally Once a day Active Fenofibrate 145 MG 1 tablet Orally Once a day for 30 day(s) Active Vitamin D3 Active Losartan Potassium-HCTZ 100-25 MG 1 tablet Orally Once a day Active Metoprolol Succinate ER 100 MG 1 tablet Orally Once a day for 30 day(s) Active hydroCHLOROthiazide 12.5 MG 1 tablet in the morning Orally Once a day for 30 day(s) Not-Taking Social History Tobacco Use: Social History Observation Description Date Details (start date - stop date) Former Smoker NA - NA Tobacco Use/Smoking Question Answer Notes Are you a: former smoker Additional Findings: Tobacco Non-User Current no n-smoker Alcohol Screen Question Answer Notes Did you have a drink contain ing alcohol in the past year? Yes How often did you have a dri nk containing alcohol in the past year? 2 to 4 times a month (2 points) Points 2 Interpretation Negative Tobacco use other than smoking: Question Answer Notes Are you an other tobacco user? No Problems Problem Type SNOMED Code ICD Code Onset Dates Problem Status W/U Status Risk Notes Problem Localized, primary osteoarthritis of the ankle and/or foot (126964442) Primary osteoarthritis, left ankle and foot (M19.072) Active confirmed Problem 449505983 Neuropathy (G62.9) Active confirmed Problem 287083518 Primary osteoarthritis of right ankle (M19.071) Active confirmed Vital Signs Height 5 ft 10 in in 07/17/2023 Weight 217 lbs 07/17/2023 BMI 31.13 kg/m2 07/17/2023 Encounters Encounter Location Date Provider Diagnosis [facility] [address] [address] 07/17/2023 Jessica Brennan Pain in right foot M79.671 ; Plantar fasciitis, bilateral M72.2 ; Calcaneal spur, right foot M77.31 ; Pain in left foot M79.672 ; Calcaneal spur, left foot M77.32 ; Neuropathy G62.9 ; Primary osteoarthritis, left ankle and foot M19.072 and Primary osteoarthritis of right ankle M19.071 Assessments Encounter Date Diagnosis (ICD Code) Assessment Notes Treatment Notes Treatment Clinical Notes Section Notes 07/17/2023 Pain in right foot (ICD-10 - M79.671) 07/17/2023 Calcaneal spur, right foot (ICD-10 - M77.31) 07/17/2023 Plantar fasciitis, bilateral (ICD-10 - M72.2) Patient Educated with: HEEL CORD STRETCHES.pdf (HEEL CORD STRETCHES.pdf ) Patient Educated with: RICE THERAPY.pdf (RICE THERAPY.pdf) 07/17/2023 Pain in left foot (ICD-10 - M79.672) 07/17/2023 Calcaneal spur, left foot (ICD-10 - M77.32) 07/17/2023 Neuropathy (ICD-10 - G62.9) 07/17/2023 Primary osteoarthritis, left ankle and foot (ICD-10 - M19.072) 07/17/2023 Primary osteoarthritis of right ankle (ICD-10 - M19.071) Plan Of Treatment Pending Test Test Name Order Date X ray : Ankle, left 3V 02/13/2022 X ray : Foot, left 3V 07/17/2023 X ray : Foot, right 3V 07/17/2023 Insurance Providers Payer Name Payer Address Payer Phone Subscriber Number Group Number Insured Name Patient Relationship to Insured Coverage Start Date Coverage End Date [facility] [address] [place] [address] [phone] [id number] Lou Walters Spouse - patient is the spouse of the insured Medical (General) History Medical History History ICD Code Fatty liver Vitamin D deficiency malignant hyperthermia nocturnal hypoxemia Sleep apnea Lumbar disc disease Hypercholesterolemia High blood pressure asthma Back,Hip,and Knee pain chronic sinusitis Measles Mumps Chicken pox Tinnitus Radiculopthy Degenerative Disc disease Disc degeneration, lumbosacral Surgical History Surgery Date(Month/Year) colonoscopy ear surgery inguinal hernia repair
--- OUTSIDE RECORDS SUMMARY | 2024-05-29 11:20 | XMS_ITS ---
Author Organization [facility] Address [address] [address] Care Team Providers Care Stacker Name Role Phone Lorraine Fields Primary Care Provider UnavailTirso Branch Unavailable [phone] Jessica Brennan Unavailable [phone] Allergies Allergen (clinical drug ingredient) Drug/Non Drug Allergy documented on EMR Reaction Allergy Type Onset Date Status amlodipine Amlodipine leg swelling Drug Allergy Ac tive chlorthalidone Chlorthalidone gout, hypokalemia Drug Allergy Active ezetimibe Ezetimibe elevated LFTs Drug Allergy Act vikram lisinopril Lisinopril cough Drug Allergy Activ e REASON FOR VISIT Pcp- 06/13, Heel pain Medications Medication SIG (Take, Route, Frequency, Duration) Notes Start Date End Date Status Fenofibrate 145 MG 1 tablet Orally Once a day for 30 day(s) Active Vitamin D3 Active Losartan Potassium-HCTZ 100-25 MG 1 tablet Orally Once a day Active Metoprolol Succinate ER 100 MG 1 tablet Orally Once a day for 30 day(s) Active hydroCHLOROthiazide 12.5 MG 1 tablet in the morning Orally Once a day for 30 day(s) Not-Taking Mometasone Furoate 50 MCG/ACT as directed Active Modafinil 100 MG 1 tablet in the morning Orally Once a day Active Simvastatin 5 MG 2 tablets in the evening Orally Once a day Active Social History Tobacco Use: Social History Observation [...] Problem Status W/U Status Risk Notes Problem [id number] Neuropathy (G62.9) Active confirmed Problem [id number] Primary osteoarthritis of right ankle (M19.071) Active confirmed Vital Signs Height 5 ft 10 in in 07/17/2023 Weight 217 lbs 07/17/2023 BMI 31.13 kg/m2 07/17/2023 Encounters Encounter Location Date Provider Diagnosis [facility] [address] [address] 07/17/2023 Jessica Perica Pain in right foot M79.671 ; Plantar [...] in right foot (ICD-10 - M79.671) 07/17/2023 Plantar fasciitis, bilateral (ICD-10 - M72.2) Patient Educated with: HEEL CORD STRETCHES.pdf (HEEL CORD STRETCHES.pdf ) Patient Educated with: RICE THERAPY.pdf (RICE THERAPY.pdf) 07/17/2023 Calcaneal spur, right foot (ICD-10 - M77.31) 07/17/2023 Pain in left foot (ICD-10 - M79.672) 07/17/2023 Calcaneal spur, left foot (ICD-10 - M77.32) 07/17/2023 Neuropathy (ICD-10 - G62.9) 07/17/2023 Primary osteoarthritis, left ankle and foot (ICD-10 - M19.072) 07/17/2023 Primary osteoarthritis of right ankle (ICD-10 - M19.071) Plan Of Treatment Treatment Notes Assessment Notes Plantar fasciitis, bilateral Patient Edu cated with: HEEL CORD STRETCHES.pdf (HEEL CORD STRETCHES.pdf) Patient Educated with: RICE THERAPY.pdf (RICE THERAPY.pdf) Pending Test Test Name Order Date X ray : Foot, left 3V 07/17/2023 X ray : Foot, right 3V 07/17/2023 Next Appt Details Follow Up: prn, Reason: Progress Notes * Ubaldo WALTERS PDOB: [birth year] (57 yo M)Acc No.[id number]:07/17/2023 Progress Note Patient:?Ubaldo Walters P Provider:?Jessica Brennan DPM :1965???Age:57 Y???Sex:Male Sang e:07/17/2023 Address:[address] [place] [address] [id number] Pcp:Lorraine Fields Subjective: * Chief Complaints: * ???Pcp- 01/24Heel pain * HPI: ???Heel pain:?Nature:?tenderness, sharp pain, stiffness.?Location:?Proximal plantar aspect of Heel , Arch, B/L.?Course:?worse.?Aggrevated:?standing, walking, walking first thing in the morning/after rest.?Treatments:?rest/alter normal daily activity.? * ROS:?General/Constitutional:?Nausea?denies.?Vomiting?denies.?Hunger Thirst?denies.?Loss appetite?denies.?Chills?denies.?Fatigue?denies.?Fever?denies.?Night Sweats?denies.?Unexplained weight loss?denies.?Unexplained weight gain?denies.?HEENTM:?Dentures?denies.?Dizziness?denies.?Glasses/contacts?admits.?Retinopathy?de nies.?Blurred/double vision?denies.?TMJ?denies.?Discharge/drainage?denies.?Implants?denies.?Sore throat?denies.?Dental implants?denies.?Hard of hearing ?denies.?Difficulty chewing/swallowing/speaking?denies.?Nose bleeds?denies.?Sore mouth?denies.?Respiratory:?On Oxygen?denies.?Pneumonia/pleurisy?denies.?Bronchitis?denies.?Emphysema?denies.?C oughing?denies.?Cough blood?denies.?Shortness of breath?denies.?Wheezing?denies.?Cardiovascular:?Pacemaker?denies.?MVP?denies.?WPW?denies.?CHF?denies.?Heart attack?denies.?Septal defect?denies.?Rapid beat?denies.?Chest pain ?denies.?Atrial Fib.?denies.?Murmur/Palpitations?denies.?Gastrointestinal:?Hemorrhoids?denies.?Stomach/Abdominal pain?denies.?Dark blood stool?denies.?Irritable bowel ?denies.?Constipation?denies.?Diarrhea?denies.?Hematology:?Swelling?denies.?Clots?denies.?Varicose Veins?denies.?Bruising?denies.?Bleeding problem?denies.?Genitourinary:?Blood urine?denies.?Frequent/Painfu/urination/bladder control?denies.?Kidney stones?denies.?Infection (UTI)?denies.?Nephropathy?denies.?sex trans dis (STD)?denies.?Prostate?denies.?Musculoskeletal:?Hammertoes?denies.?Bunions?denies.?Back Pain?admits.?Muscle Cramps/ Resting?admits.?Muscle cramps / walking?denies.?Generalized aches and pains?denies.?Weakness?denies.?Integ.:?[place]?denies.?Scars?denies.?Corns/calluses?denies.?Ingrown nails?denies.?Painful nails?denies.?Open Sores?denies.?Rashes?denies.?Neurologic:?Difficulty sleeping?denies.?Brain disorder?denies.?Numbness?denies.?Balance trouble?denies.?Confusion?denies.?Fainting/blackouts?denies.?Tingling?denies.?Tr emors?denies.? * Medical History:? * Surgical History:?colonoscop y ear surgery inguinal hernia repair * Hospitalization/Major Diagno stic Procedure:?Denies Past Hospitalization * Family History:?Mother: dece ased, diagnosed with Other malignant neoplasm of unspecified site.?Father: , diagnosed with Other malignant neoplasm of unspecified site.?Daughter(s): bipolar disorder.?Maternal aunt: bipolar disorder.? * Social History:?Tobacco Use:?Tobacco Use/Smoking?Are you a:?former smoker ?Additional Findings: Tobacco Non-User?Current non-smoker ?Tobacco use other than smoking?Are you an other tobacco user??No ???Drugs/Alcohol:?Drugs?Have you used drugs other than those for medical reasons in the past 12 months??No ?Alcohol Screen?Did you have a drink containing alcohol in the past year??Yes ?How often did you have a drink containing alcohol in the past year??2 to 4 times a month (2 points) ?Points?2 ?Interpretation?Negative ???Miscellaneous:?Caffeine: yes, frequency:, 2-3 cups per day. ?Children: yes. ?Exercise: yes, Caring for children. ?Marital status: . 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 * Medications:?TakingSimvastat in 5 MG Tablet 2 tablets in the evening Orally Once a dayMometasone Furoate 50 MCG/ACT Suspension as directed Modafinil 100 MG Tablet 1 tablet in the morning Orally Once a dayLosartan Potassium-HCTZ 100-25 MG Tablet 1 tablet Orally Once a dayMetoprolol Succinate ER 100 MG Tablet Extended Release 24 Hour 1 tablet Orally Once a dayFenofibrate 145 MG Tablet 1 tablet Orally Once a dayVitamin D3 Taking Simvastatin 5 MG Tablet 2 tablets in the evening Orally Once a dayTaking Mometasone Furoate 50 MCG/ACT Suspension as directed Taking Modafinil 100 MG Tablet 1 tablet in the morning Orally Once a dayTaking Losartan Potassium- HCTZ 100-25 MG Tablet 1 tablet Orally Once a dayTaking Metoprolol Succinate ER 100 MG Tablet Extended Release 24 Hour 1 tablet Orally Once a dayTaking Fenofibrate 145 MG Tablet 1 tablet Orally Once a dayTaking Vitamin D3 Not- Taking/PRNhydroCHLOROthiazide 12.5 MG Tablet 1 tablet in the morning Orally Once a dayMedication List reviewed and reconciled with the patientNot-Taking/PRN hydroCHLOROthiazide 12.5 MG Tablet 1 tablet in the morning Orally Once a dayMedication List reviewed and reconciled with the patient * Allergies:?Amlodipine: leg s wellingChlorthalidone: gout, hypokalemiaEzetimibe: elevated LFTsLisinopril: coughyes[Allergies Verified] Objective: * Vitals:?Ht:5 ft 10 in, Wt:21 7, BMI:31.13, Shoe size: 10.5, Ht-cm: 177.8 cm, Wt- k.43 kg. * Examination: ???General Examination: ?GENERAL APPEARANCE:?Reveals a pleasant, alert, well-nourished, well- developed, well hydrated individual, who demonstrates proper attention to hygiene/body habitus, and is in no acute distress, Pt serves as own?historian for office visit today.?ORIENTED:?person, place, and time.?Neurological: ?SENSORY:?Neurological exam demonstrates , reduced light touch sensation , reduced sharp/dull pin prick discrimination , reduced vibration sensation , reduced proprioception sensation , in a stocking fashion , plantar aspects , 5.07 monofilament test performed at plantar aspects of 5 varied sites per foot shows sensation , reduced , Pt relates , burning , hyperesthesia , paresthesia , B/L.?Vascular: ?DP PULSES:?3/4, B/L.?PT PULSES:?3/4, B/L.?CAPILLARY FILL TIME:?immediate, all digits, B/L.?SKIN TEMPERTURE GRADIENT OF THE LOWER EXTERMITIES:?warm to cool, proximal to distal, B/L.?HAIR GROWTH/TEXTURE/ELASTICITY/TURGOR:?normal, B/L.?PIGMENTATION:?normal, B/L.?EDEMA:?absent, B/L.?Dermatologic: ?SKIN FINDINGS:?Skin exam reveals normal texture, elasticity, and turgor. There are no masses. The interspaces are clear.?Orthopedic: ?MUSCLE STRENGTH:?5/5 all groups in a symmetrical fashion , B/L.?FOOT MORPHOLOGY:? Pes Planus structure, Decreased Ankle joint dorsiflexion ROM, knee extended.?Heel Pain: ?INSPECTION REVEALS:?Pain on Palpation to Plantar Fascia med. and central bands, intrinsic musc., infra-calcaneal bursa, and med calc tubercle, B/L, No pain: posterior/superior heel, achilles bursa/tendon, sinus tarsi, peroneals, or with lateral heel compression; no limited STJ ROM, calor, or ecchymosis , B/L.?X-Rays - IMAGING REPORT: ?Clinical Indication(s):? Evaluate for Fracture, Evaluate Biomechanical Deformity.?Views:?3 views of Foot, LAT, LO, AP?, B/L.?Findings:?normal bone and soft tissue density consistent for patients age and sex, navicular/cuneiform plantar subluxation with anterior cyma line, positive infra-calcaneal exostosis, no coalitions identified , dorsal degenerative changes of the tarsal joints , asymmetrical Ankle joint space narrowing , anteriorly.?Foot structure:?reveals excess pronation with , anterior break in cyme line , increased talar declination , decreased calcaneal inclination.?Fracture:?Negative fractures identified.? Assessment: * Assessment: 1.?Pain in right foot - M79. 671?2.?Calcaneal spur, right foot - M77.31?3.?Plantar fasciitis, bilateral - M72.2 (Primary), Acute problem, Complicated w/ Multiple Tx Options(4),Dx New problem, Prognosis Uncertain (4)?4.?Pain in left foot - M79.672?5.?Calcaneal spur, left foot - M77.32?6.?Neuropathy - G62.9?7.?Primary osteoarthritis, left ankle and foot - M19.072?8.?Primary osteoarthritis of right ankle - M19.071? Plan: * Treatment: 2.?Pain in right foot?Imaging: X ray : Foot, right 3V 3.?Pain in left foot?Imaging: X ray : Foot, left 3V * Procedure Codes:?96007 X-RAY EXAM OF RIGHT FOOT 3V, Modifiers: 26 , [id number] X- RAY EXAM OF LEFT FOOT 3V, Modifiers: 26 , LT * Preventive Medicine:? ??Counseling:?Discussion:?-14: Office or other outpatient visit for the evaluation and management of an established patient, which required a medically appropriate history and/or examination and MODERATE level of DECISION MAKING for: 1 OR MORE CHRONIC PROBLEM(S) THATS WORSENING, 2 STABLE CHRONIC PROBLEMS, A NEWLY DIAGNOSED PROBLEM WITH UNCERTAIN PROGNOSIS, AN ACUTE COMPLICATED INJURY WITH MULTIPLE TREATMENT OPTIONS, OR AN ACUTE PROBLEM WITH ACCOMPANYING SYSTEMIC SYMPTOMS, THAT POSE(S) A MODERATE RISK OF MORBIDITY. THIS CONDITION MAY ALSO INCLUDE RX DRUG MANAGEMENT, OR A DECISON FOR MINOR SURGERY. The visit on the day of the encounter encompassed interpreting the data and educating the patient as to the nature of their condition, treatment options available according to their individual PMH, meds, allergies, and overall health/living conditions, as well as any potential risks or complications that may occur from a failure to adhere to, and participate in, the recommended course of therapy. The discussion included a complete verbal, and/or written explanation of the examination results, any x-rays taken, the proposed diagnosis, and outline of the treatment plan. A schedule for future care needs was also explained. The patient verbalized an understanding of the instructions at this time and agreed to be an active participant in their treatment. If the patient should think of any questions or concerns after the visit, I have encouraged the patient to call the office.?Heel pain:?FASCIITIS: I explained to the patient the possible etiologies of Plantar Fasciitis including foot type/shoegear/activity level/exercise routine and the risks/benefits of all the different treatment options for heel pain including: No treatment at all, Rest, Ice, NSAIDs(only if well tolerated after meals), New/supportive Shoegear, Strappings and Tapings, Stretching exercises, Deep Tissue Massage, Heel cups/cushions, Arch support/shoe inserts, Custom orthoses, Topical analgesics including Aspercream/Voltaren gel, Night splint AFO for am stiffness, Cortisone injection therapy, Cast boot with crutches/cane/or walker for assisted ambulation, Physical Therapy, EPAT/ESWT, Interfil injection therapy, as well as surgical [place]/Endoscopic Fasciitomy surgical procedures if needed. Recommendations were made to limit barefoot walking, eliminate wearing nonsupportive shoegear (i.e. flip-flops or sandals, or a shoe with an easily bendable, foldable, or twistable sole) and wear shoegear with a good solid sole, a supportive arch, and plenty of room for an insert/orthotic if necessary. If wearing sandals was required by the patient, we recommended orthopedic sandals such as Orthoheel or Birkenstock even while in the home. If the patient wore heels in the past, we recommended they continue, but eliminate the use of flats. The advantages and disadvantages of each option were discussed and the patients questions re: types of shoegear, custom vs prefabricated inserts, activity level, PO vs Topical medications (and their respective potential complications/drug interactions/side effects), and consistency in home treatment regimens for optimal success were answered to their satisfaction. Literature detailing plantar fasciitis and the various treatment options were dispensed and reviewed.?Neuritis/Neuropathy:?The patient was counseled on the diagnosis, possible etiologies (including mechanical stress, injury, entrapment, chemotherapy, diabetes, vertebral disk herniation if hx), treatment options, and importance for adherence to recommendations in order to address the patients Neuritis/Neuropathy. The advantages and disadvantages re: Accomidative mechanical support/offloading, Topical vs PO analgesics including aspercream/Voltaren gel/Lidoderm patches/Neurontin/Lyrica along with their potential side effects were discussed with the patient to their satisfaction. Also discussed the use of therapeutic injectable cortisone if needed. Surgical treatment, if considered an option, was discussed as well. If surgery is warranted, we discussed the potential successful outcomes as well as the possible complications such as failure, painful scar, permanent tingling/numbness/neuralgea/or intractable pain. Patient questions re: medication use, dosage, and possible side effects and drug interactions were reviewed and the answers to each understood. If the condition worsens, the patient was instructed to contact the office for an appointment. The patient verbally confirmed a full understanding of the above.?Orthotics:?I explained to the patient the benefits of OT use. I explained that orthoses are medically necessary to decrease the foot pain through proper mechanical control, support of their foot , decrease stretch/strain on the plantar fascia; pt defers.?P.R.I.C.E.:?The patient was counseled on the use of P.R.I.C.E. and NSAIDS (if well tolerated) to aid in the recovery from their painful condition.?Shoe Gear Counseling:?The patient and I reviewed the types of shoes they should be wearing. My recommendation included obtaining a well-fitted shoe with a good supportive, non-foldable nor twistable sole, plenty of toe/room for the forefoot, and proper arch support. Based on todays examination, I recommended the patient look for new shoes, by having their feet professionally measured. We discussed that generally the best time of the day for a shoe fitting is the afternoon. Different shoes types and brands to best match the patients occupation and vocation were discussed. Specific brand selection will be up to the patient, their individual foot condition/deformities, and fit. The patient and I reviewed the standard new shoe break in period by wearing them for a few hours a day while checking for redness or sores as wear time is increased. The patient verbally confirmed to understanding the information discussed.?Stretching Exercises:?Stretching and deep tissue massage exercises for the patients injury/diagnosis were discussed and demonstrated, handouts were dispensed.?X-rays:?Discussed and reviewed the X-rays with the patient. We discussed how the findings relate to the patients symptoms/complaints. Answered any and all questions..? * Follow Up:?prn * Images: * Sign off status: Completed true * Provider:?Jessica Brennan DPM Date:? Generated for Silvia dorsey/Enriqueta/Freddy on:?05/29/2024 11:20 AM EST History and Physical Notes * HPI (History of Present Illness) Category Sub-Category Detail Notes Category Not es Heel pain Nature: tenderness, sharp pain, stif fness Location: Proximal plantar asp ect of Heel , Arch, B/L Aggravated: standing, walking, w alking first thing in the morning/after rest Course: worse Treatments: rest/alter normal da huseyin activity Examination Category Sub-Category Detail Notes Category Not es Heel Pain INSPECTION REVEALS: Pain on Palp ation to Plantar Fascia med. and central bands, intrinsic musc., infra-calcaneal bursa, and med calc tubercle, B/L, No pain: posterior/superior heel, achilles bursa/tendon, sinus tarsi, peroneals, or with lateral heel compression; no limited STJ ROM, calor, or ecchymosis , B/L Neurological SENSORY: Neurological exa m demonstrates , reduced light touch sensation , reduced sharp/dull pin prick discrimination , reduced vibration sensation , reduced proprioception sensation , in a stocking fashion , plantar aspects , 5.07 monofilament test performed at plantar aspects of 5 varied sites per foot shows sensation , reduced , Pt relates , burning , hyperesthesia , paresthesia , B/L Dermatologic SKIN FINDINGS: Skin exam reveal s normal texture, elasticity, and turgor. There are no masses. The interspaces are clear Orthopedic FOOT MORPHOLOGY: Pes Planus stru cture, Decreased Ankle joint dorsiflexion ROM, knee extended MUSCLE STRENGTH: 5/5 all groups in a symmetrical fashion , B/L General Examination GENERAL APPEARANCE: Reveals a pleasant, alert, well- nourished, well-developed, well hydrated individual, who demonstrates proper attention to hygiene/body habitus, and is in no acute distress, Pt serves as own historian for office visit today ORIENTED: person, place, and t yanely Vascular DP PULSES (B): 3/4, B/L PT PULSES (B): 3/4, B/L CAPILLARY FILL TIME: immediate, all digi ts, B/L TEMPERTURE GRADIENT (C): warm to cool, p roximal to distal, B/L TROPHIC CONDITION-TEXTURE/ELASTICITY/TURGOR/HAIR GROWTH (B): normal, B/L EDEMA (C): absent, B/L PIGMENTATION: normal, B/L X-Rays - IMAGING REPORT Findings: normal b one and soft tissue density consistent for patients age and sex, navicular/cuneiform plantar subluxation with anterior cyma line, positive infra-calcaneal exostosis, no coalitions identified , dorsal degenerative changes of the tarsal joints , asymmetrical Ankle joint space narrowing , anteriorly Fracture: Negative fractures i dentified Foot structure: reveals excess prona tion with , anterior break in cyme line , increased talar declination , decreased calcaneal inclination Views: 3 views of Foot, LAT , LO, AP , B/L Clinical Indication(s): Evaluate for Fra cture, Evaluate Biomechanical Deformity
--- OUTSIDE RECORDS SUMMARY | 2024-05-29 11:20 | XMS_ITS | Encounter Summary ---
Author Name [facility] Organization [facility] Address [address] [place] [address] Care Team Providers Care Union Contract Representative Name Role Phone NENA INMAN Primary Care Provider Unavail able Selected Encounter This section includes the information on record at [place] for the Encounter. Date/Time Encounter Type Encounter Description Reason Pro vider Source October 11, 2023 12:00 AM Outpatient Encounter EVENT (HISTORICAL) I[facility] Encounter Template Text not used by [place] Plan of Treatment: Future Appointments (+ 6 months) and Future Tests (+/- 45 days) The Plan of Treatment section includes future care activities for the patient from all [place] treatmentfacilities. This section includes future appointments and future orders which are active, pending or scheduled. Future Appointments This section includes appointments that were scheduled to occur 6 months from the date of the Encounter, up to a maximum of 20 appointments. The data comes from all [place] treatment facilities. Appointment Date/Time Appointment Type Appointme nt Facility Name October 16, 2023 08:30 AM AMBULATORY - MEDICINE [facility] Social History: Smoking Status (Most current) [...] 20, 2023 08:30 AM VA-TOBACCO FORMER USER [facility] Tobacco Use History This section includes a history of the smoking, or tobacco-related health factors, that were collected on or before the date of the Encounter. The data comes from the [place] facility where the Encounter took place. Date/Time Smoking Status/Tobacco Use Comment F acility Aug 20, 2023 08:30 AM VA-TOBACCO QUIT 15 YRS OR MORE [facility] [place] Aug 18, 2022 09:00 AM VA-TOBACCO FORMER USER [facility] [place] Aug 18, 2022 09:00 AM VA-TOBACCO QUIT 15 YRS OR MORE [facility] [place] [facility] Jul 28, 2022 08:00 AM AH-BPR SMOKING DEPLOYMENT NO [facility] [place] [facility] Jul 28, 2022 08:00 AM PREVIOUS SMOKER [facility] [place] [facility] Feb 10, 2020 03:00 PM VA-TOBACCO FORMER USER [facility] [place] [facility] Feb 10, 2020 03:00 PM VA-TOBACCO QUIT 15 YRS OR MORE [facility] [place] [facility]
== END 2024-05-29 10:40 | disposition home or self-care (01) ==
LOC: HO.RESP 10:39
PROVIDERS: PCP Internal Medicine; Visit Provider Internal Medicine
DX: J45.909 Unspecified asthma, uncomplicated (principal)
CPT/HCPCS: 94010; 94640; 94727; 94729

== ENCOUNTER → 2024-05-29 10:42 | Outpatient (BNV) | payer OTHER, SELFPAY | PROVIDERS: PCP Internal Medicine; Visit Provider Internal Medicine Pulmonary Disease | DX: J45.909 Unspecified asthma, uncomplicated (principal) | CPT/HCPCS: 94060; 94727; 94729 ==

== ENCOUNTER 2024-06-06 06:23 | Outpatient (REF) | payer OTHER, SELFPAY ==
[2024-06-06 06:41] LABS: MANUAL DIFF FLAG NO
[2024-06-06 07:20] LABS: Estimated Average Glucose 117 mg/dL; Hemoglobin A1C 137.9269 umol/L; Hemoglobin A1c % 5.7 % (<6.0); Total Hemoglobin (HGBA1C) 3606.2026 umol/L
[2024-06-06 07:25] LABS: Basophils Absolute Auto 0.1 X10*3/uL (0.0-0.2); Basophils Percent Auto 0.7 % (0-2); Eosinophils Absolute Auto 0.3 X10*3/uL (0.0-0.4); Eosinophils Percent Auto 3.8 % (0-4); Hematocrit 40.1 % (42.0-52.0); Hemoglobin 13.8 g/dl (14.0-18.0); Imm Gran Abs Auto 0.02 X10*3/uL (0.00-0.03); Imm Gran Pct Auto 0.3 % (0.0-0.4); Immature Retic Fraction 23.2 % (2.3-13.4); Lymphocytes Absolute Auto 1.6 X10*3/uL (1.2-4.9); Lymphocytes Percent Auto 22.7 % (20-40); Mean Corpuscular HGB Conc 34.4 g/dl (31.0-36.0); Mean Corpuscular Volume 90.1 fL (80.0-98.0); Mean Platelet Volume 9.8 fL (9.4-12.4); Monocytes Absolute Auto 0.7 X10*3/uL (0.1-1.2); Monocytes Percent Auto 9.7 % (2-11); Neutrophils Absolute Auto 4.5 x10*3/uL (2.0-8.3); Neutrophils Percent Auto 62.8 % (45-73); Platelet Count 353 X10*3/uL (160-400); Red Blood Count 4.45 X10*6/uL (4.60-5.80); Red Cell Distribution Width 12.5 % (11.0-16.0); Retic HGB Equivalent 34.4 pg (30.0-35.0); Reticulocyte Percent 2.8 % (0.5-1.8); Reticulocytes Absolute 0.125 X10*6/uL (0.026-0.095); White Blood Count 7.1 X10*3/uL (4.8-10.8)
[2024-06-06 07:55] LABS: Alanine Aminotransferase 60 U/L (0-40); Albumin Level 4.5 g/dL (3.5-5.0); Alkaline Phosphatase 39 U/L (39-117); Anion Gap 11 (12-20); Aspartate Amino Transferase 30 U/L (5-37); Bilirubin Total 0.4 mg/dL (0.0-1.0); Blood Urea Nitrogen 24 mg/dL (9-16); Carbon Dioxide 25 mmol/L (22-29); Chloride 110 mmol/L (96-108); Cholesterol 166 mg/dL (<200); Estimated Glomerular Filt Rate > 60; Glucose Random 107 mg/dL (60-115); HDL Cholesterol 41 mg/dL (>40); Iron 62 mcg/dL (45-160); LDL Cholesterol Calculated 103 mg/dL (<100); Percent Iron Saturation 18 % (15-50); Potassium 3.8 mmol/L (3.3-5.1); Sodium 142 mmol/L (135-145); Total Iron Binding Capacity 339 mcg/dL (228-428); Total Protein 7.3 g/dL (6.5-8.0); Triglycerides 114 mg/dL (<150); Unsaturated Iron Binding 277 ug/dL
[2024-06-06 08:15] LABS: Ferritin 416 ng/mL (20-250); Free T4 (Free Thyroxine) 0.96 ng/dL (0.71-1.85); Thyroid Stimulating Hormone 1.29 uIU/mL (0.32-4.0)
[2024-06-06 08:23] LABS: Folate 12.5 ng/mL (> or = 4.0); Prostate Specific Antigen Scr 2.42 ng/mL (<0.05-4.0); Vitamin B12 340 pg/mL (200-900)
== END 2024-06-06 06:24 | disposition home or self-care (01) ==
LOC: HO.LAB 06:23
PROVIDERS: PCP Internal Medicine; Visit Provider Internal Medicine
DX: K21.9 Gastro-esophageal reflux disease without esophagitis (principal); E78.00 Pure hypercholesterolemia, unspecified; Z12.5 Encounter for screening for malignant neoplasm of prostate; Z13.1 Encounter for screening for diabetes mellitus
CPT/HCPCS: 36415; 80053; 80061; 82607; 82728; 82746; 83036; 83540; 84153; 84439; 84443; 85025; 85045

== ENCOUNTER 2024-06-10 10:52 | Outpatient (AMB) | payer OTHER, SELFPAY ==
--- NOTE | 2024-06-10 10:59 | MHC.PC.OV ---
Vital Signs 06/10/24 11:00 Height 5 ft 10 in Weight 214 lb 8 oz BMI 30.8 BP 134/72 Blood Pressure Location Lt brachial Position Sitting Pulse 67 Pulse Source Pulse Oximeter Temp 97.1 F Temp Source Skin Pulse Oximetry (%) 98 Oxygen Delivery Method Room Air Intake Visit Reasons: Annual Exam Intake Note: Patient is here today for a physical. 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 Accompanied by: Self / Same As Patient Allergies amlodipine Adverse Reaction (Intermediate, Verified 06/10/24 11:00) leg swelling chlorthalidone Adverse Reaction (Intermediate, Verified 06/10/24 11:00) gout, hypokalemia ezetimibe [Zetia] Adverse Reaction (Intermediate, Verified 06/10/24 11:00) ^ LFTS lisinopril Adverse Reaction (Intermediate, Verified 06/10/24 11:00) cough topiramate [From Topamax] Adverse Reaction (Intermediate, Verified 06/10/24 11:00) agitation Medication List - Last Reconciled 06/10/24 by Lorraine Fields MD albuterol sulfate 90 mcg/actuation (Ventolin HFA) 2 puffs inhalation Q6H PRN cholecalciferol (vitamin D3) 50 mcg PO DAILY [CPAP ] fenofibrate nanocrystallized 145 mg PO DAILY losartan-hydrochlorothiazide 100-25 mg 1 tab PO DAILY 30 days magnesium oxide 400 mg PO DAILY metoprolol succinate ER 100 mg PO DAILY 90 days modafinil 100 mg PO QAM 30 days mometasone 50 mcg/actuation (Nasonex 24hr Allergy) 2 sprays intranasal DAILY naltrexone-bupropion 8-90 mg (Contrave) 1 tab PO QAM 30 days simvastatin 5 mg PO BEDTIME Tobacco use date assessed: 06/10/24 Dental Screening Dental Screen Date: 06/10/24 Did you have a dental visit in the last 12 months?: No Did you have a dental problem in the last 6 months where you did not have access to dental care?: No Was dental information given to patient?: No HPI Annual Exam HPI Details R knee pain hitting R knee 2 months ago and still having pain - The patient is a 58-year-old male presenting with multiple chronic health issues. The patient has a diagnosis of restrictive lung disease, with previous lung function testing showing normal results but difficulty in lung expansion due to weight. He has essential hypertension, currently well-controlled with medications, though the patient reports past medication allergies to amlodipine, chlorthalidone, and lisinopril. Hyperlipidemia is being managed with simvastatin and fenofibrate, and recent blood work shows improved cholesterol levels. The patient also has a history of obstructive sleep apnea and is compliant with CPAP use. Notably, the patient reports mild anemia, stable compared to previous results, and hyperglycemia with a fasting blood glucose of 107 mg/dL. Hemoglobin A1c has shown a slight improvement to 5.7%. A recent knee injury occurred approximately two months ago, causing persistent swelling and pressure. The patient has refrained from using ibuprofen, noting an aggravation of joint pain correlating with a lapse in blood pressure medication. 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 - Respiratory: Denies chest pain, shortness of breath, cough. - Cardiovascular: Denies chest pain, palpitations. - Gastrointestinal: Reports normal bowel movements. Denies constipation, nausea, vomiting. - Genitourinary: Denies dysuria. Reports nocturia (2-3 times per night). - Neurological: Denies dizziness, syncope, headaches. - Musculoskeletal: Reports knee pain with difficulty in bending. - Heme/Lymph: No significant changes. - Labs: Mild anemia with stable hemoglobin at 13.8 g/dL. Fasting glucose at 107 mg/dL. Hemoglobin A1c at 5.7%. Cholesterol levels at 103 mg/dL. - Tests: Recent pulmonary function tests confirmed restrictive lung disease. [facility] Medical History Daytime sleepiness Disc degeneration, lumbosacral Family history of malignant hyperthermia DDD (degenerative disc disease), lumbar Obesity (BMI 30-39.9) Nocturnal hypoxemia Obstructive sleep apnea Vitamin D deficiency Impaired glucose tolerance Fatty liver Hypercholesterolemia Hypertension Surgical History S/P bilateral inguinal hernia repair History of ear surgery H/O colonoscopy History of selective injection of anesthetic agent around lumbar nerve root Family History Father Lung cancer Mother Lung cancer Maternal Grandmother No problems noted. Maternal Grandfather Lung cancer Paternal Grandmother No problems noted. Paternal Grandfather No problems noted. Daughter Bipolar disorder Maternal Aunt Bipolar disorder Other Mental health disorder Social History Housing: House Alcohol intake: current Comment: 2 a month 4 beers Patient Tobacco Use Status: Former Tobacco user Tobacco use type: Cigarette Years Smoked: 1987 e-Cigarette/Vaping Use: Never Used Second Hand Smoke Exposure: Yes service: Yes Current occupational status: employed Current occupational exposures/hazards: No Cognitive needs: No Hearing needs: No Vision needs: Yes (Glasses) Questionnaire PHQ-9 Over the last 2 weeks, how often have you been bothered by any of the following problems? 1. Little interest or pleasure in doing things: not at all 2. Feeling down, depressed, or hopeless: not at all 3. Trouble falling or staying asleep, or sleeping too much: not at all 4. Feeling tired or having little energy: several days 5. Poor appetite or overeating: not at all 6. Feeling bad about yourself - or that you are a failure or have let yourself or your family down: not at all 7. Trouble concentrating on things, such as reading the newspaper or watching television: not at all 8. Moving or speaking so slowly that other people could have noticed. Or the opposite - being so fidgety or restless that you have been moving around a lot more than usual: not at all 9. Thoughts that you would be better off or of hurting yourself in some way: not at all Total score: 1 Depression Screening Interpretation: Positive Depression Screening Done: Yes Source: Developed by Drs. Tuan Schwarz, Claudia Burdick, Fabricio Salinas and colleagues, with an educational piper from [employer]. Thrive Questionnaire Date Thrive assessed: 06/10/24 I am a: Patient What is your living situation today?: I have a steady place to live Within the past 12 months, did the food you bought not last and you didn't have the money to get more?: Never true Within the past 12 months, did you worry whether your food would run out before you got money to buy more?: Never true Do you have trouble paying for medicines?: No Do you have trouble getting transportation to medical appointments?: No Do you have trouble paying your heating and electricity bill?: No Do you have trouble taking care of your child, family member or friend?: No Do you have trouble with day-to-day activities such as bathing, preparing meals, shopping, managing finances, etc.?: No Are you currently unemployed and looking for a job?: No Are you interested in more education?: No Please select the resources that you would like help with: None Currently or been in a relationship where the following occur: No concerns reported THRIVE Score: 0 AUDIT C Alcohol Use Questionnaire (AUDIT-C) 1. How often do you have a drink containing alcohol?: 2-3 times a week 2. How many drinks containing alcohol do you have on a typical day when you are drinking?: 1 or 2 3. How often do you have six or more drinks on one occasion?: Never Total Score: 3 AVIVA-7 AMB Questionnaire AVIVA-7 Date AVIVA - 7 assessed: 06/10/24 Feeling nervous, anxious, or on edge: 0 = Not at all Not being able to stop or control worryin = Not at all Worrying too much about different things: 0 = Not at all Trouble relaxin = Several days Being so restless that it is hard to sit still: 0 = Not at all Becoming easily annoyed or irritable: 0 = Not at all Feeling afraid as if something awful might happen: 0 = Not at all Total AVIVA-7 score (0-4 normal; 5-9 mild; 10-14 moderate; 15-21 severe): 1 Source: Developed by Drs. Tuan Schwarz, Claudia Burdick, Fabricio Salinas and colleagues, with an educational piper from [employer]. Review of Systems Const Denies poor appetite and Denies weakness Eyes Denies no additional complaints ENT Reports Normal hearing present, Denies dizziness, Denies nasal congestion, Denies tinnitus and Denies sore throat Card Denies chest pain, Denies syncope, Denies rapid heart rate and Denies dyspnea Resp Denies cough and Denies dyspnea GI Denies change in stool character, Reports constipation, Denies diarrhea, Denies nausea and Denies vomiting Denies dysuria and Denies urinary frequency Neuro Reports Normal hearing present, Denies confusion, Denies dizziness, Denies syncope and Denies weakness Psych Denies confusion Physical exam (Primary Care) Vital Signs: Last Vital Signs Temp 97.1 F 06/10/24 11:00 Pulse 67 06/10/24 11:00 BP 134/72 06/10/24 11:00 Pulse Ox 98 06/10/24 11:00 Oxygen Delivery Method Room Air 06/10/24 11:00 BMI result Body Mass Index 30.8 Tobacco/Smoking Status: Tobacco use Status Tobacco use date assessed 06/10/24 06/10/24 11:04 Patient Tobacco Use Status Former Tobacco user 06/10/24 11:04 Tobacco use type Cigarette 06/10/24 11:04 e-Cigarette/Vaping Use Never Used 06/10/24 11:04 PHQ-9: PHQ-9 Score PHQ-9: Total score 1 06/10/24 11:14 Depression Screening Interpretation: Positive Thrive Assessment: Date of Thrive Assessment Date Thrive assessed 06/10/24 06/10/24 11:04 Currently or been in a relationship where the following occur: No concerns reported Const General: No confusion Orientation/consciousness: No confusion HENMT Head: Yes normocephalic Ears: external ears normal and TM's normal bilaterally Face and sinus: Yes normal facial exam Mouth: moist mucous membranes Throat: Yes tonsils normal Eyes Conjunctivae: conjunctivae normal Pupils: Equal, round and reactive pupils present and Pupil accommodation reflex normal Direct Ophthalmoscopy: normal light reflex Neck Neck: No lymphadenopathy Thyroid: Thyroid normal Chest Chest palpation & inspection: normal inspection of the chest Resp Effort & Inspection: normal respiratory effort and no audible wheezes Auscultation: clear to auscultation bilaterally, no crackles, no wheezes and lung sounds not diminished Cardio Rate: regular rate Rhythm: regular rhythm Peripheral pulses: radial pulses present and dorsalis pedis present GI Other: guaiac neg and prostate N Palpation (GI): no masses Auscultation: normal bowel sounds and normoactive bowel sounds Male General Exam: Yes normal external exam Skin General skin exam: no rashes or lesions noted Rashes: no rashes Neuro General: No confusion Cranial nerves: Yes Equal, round and reactive pupils present and Yes Normal hearing present Cognition (Neuro): normal cognition Gait exam (Neuro): Normal gait present Motor exam (neuro): 5/5 motor strength present throughout Deep tendon reflexes (DTR's): Right brachioradialis reflex intensity grade: 2+, Left brachioradialis reflex intensity grade: 2+, Right patellar reflex intensity grade: 2+ and Left patellar reflex intensity grade: 2+ Extrem General: No edema Coding Level of Care Code Est Pt Prev Care 40-64y(64014) Diagnoses Annual physical exam Z00.00 Essential hypertension I10 Hypertension type: essential hypertension Hypercholesterolemia E78.00 Impaired glucose tolerance R73.02 Obesity (BMI 30-39.9) E66.9 Fatty liver K76.0 Mild intermittent asthma without complication J45.20 Asthma complication type: uncomplicated Asthma persistence: intermittent Asthma severity: mild Knee pain, right M25.561 Assessment & Plan Assessment & Plan (1) Annual physical exam: Code(s): Z00.00 - Encounter for general adult medical examination without abnormal findings Category: Medical (2) Hypertension: Code(s): I10 - Essential (primary) hypertension Category: Medical Qualifiers: Hypertension type: essential hypertension Qualified Code(s): I10 - Essential (primary) hypertension (3) Hypercholesterolemia: Code(s): E78.00 - Pure hypercholesterolemia, unspecified Category: Medical (4) Impaired glucose tolerance: Code(s): R73.02 - Impaired glucose tolerance (oral) Category: Medical (5) Obesity (BMI 30-39.9): Code(s): E66.9 - Obesity, unspecified Category: Medical (6) Fatty liver: Comment: Ultrasound done in 2017 Code(s): K76.0 - Fatty (change of) liver, not elsewhere classified Category: Medical (7) Asthma: Comment: OR 2021 Code(s): J45.909 - Unspecified asthma, uncomplicated Category: Medical Qualifiers: Asthma complication type: uncomplicated Asthma persistence: intermittent Asthma severity: mild Qualified Code(s): J45.20 - Mild intermittent asthma, uncomplicated (8) Knee pain, right: Code(s): M25.561 - Pain in right knee Category: Medical Plan - Continue current antihypertensive and lipid-lowering regimens. - Referral for knee x-ray to assess injury from recent trauma. - Reinforce CPAP compliance to address obstructive sleep apnea. - Encourage modification of dietary habits and increase physical activity once knee improves. - Monitor fasting glucose and hemoglobin A1c periodically. - Consider re-evaluation of medication treatment strategy for weight management in accordance with insurance coverage. - Discuss potential need for hearing evaluation if symptoms persist. We discussed the importance of continued medication adherence for blood pressure and lipid control. The patient is advised to maintain CPAP compliance to manage obstructive sleep apnea effectively. We reviewed the results of his recent blood work and the mild anemia, which remains stable without significant concern. There was an explanation regarding the management of fasting glucose and A1c levels, emphasizing dietary modifications. We agreed on conducting an x-ray to evaluate his knee injury. I advised on the potential impact of weight on his pulmonary condition and encouraged lifestyle changes. Regarding weight management, we touched on insurance constraints and possibilities of medication adjustments. We addressed his exposure to hazardous chemicals and ongoing vigilance for respiratory symptoms. - Continue taking prescribed blood pressure and cholesterol medications. - Use CPAP machine every night to manage sleep apnea. - If knee pain persists or worsens, follow up after x-ray results. - Maintain a balanced diet, reducing sugar and carbohydrates. - Engage in physical activity as capable, especially non-impact exercises post knee recovery. - Monitor blood glucose levels regularly. - Avoid hazardous chemical inhalation and report any respiratory changes. - Seek medical advice if experiencing abnormal symptoms or reactions. - Schedule follow-up in six months or sooner if issues arise. Orders: Orders XR knee RT 2V Today M25.561 - Pain in right knee Medications: New tirzepatide (weight loss) (Zepbound) for 4 weeks 2.5 mg (0.5 mL) subcut QWEEK 2 mL 2RF E66.9 - Obesity, unspecified Discontinued naltrexone-bupropion 8-90 mg (Contrave) administer week 1 of therapy Discontinued Reason: Insurance Denied 1 tab PO QAM 30 days 30 tabs 0RF E66.9 - Obesity, unspecified
[2024-06-10 11:00] VITALS: BP 134/72; PULSE 67; TEMP 36.2; O2SAT 98; BMI 30.8
--- OUTSIDE RECORDS SUMMARY | 2024-06-10 12:29 | XMS_ITS | Continuity of Care Document ---
Author Name [facility] Organization [facility] Care Team Providers Care Quality Engineering Manager Name Role Phone [facility] Unavailable Unavailable Problems Combined list of problems from Department of Defense and Veterans Affairs facilities. It does not include entries that were removed or entered in error. Problem Status Onset Date Problem Type Date of Resolution Comments Source Exposure to potentially hazardous substance Active [facility] Hearing Loss (SCT [id number]) Active Condition [facility] HTN - Hypertension (SCT [id number]) Active Condition [facility] Hypercholesterolemia (SCT [id number]) Active Condition [facility] Low Back Pain (SCT [id number]) Active Condition [facility] Obstructive Sleep Apnea of Adult ([facility] [id number]) Active Condition [facility] Diagnosis: ICD-10-CM Z02.89 Encounter for other administrative examinations Active Diagnosis [facility] Diagnosis: ICD-10-CM Z23 Encounter for immunization Active Diagnosis [facility] Diagnosis: ICD-10-CM H91.90 Unspecified hearing loss, unspecified ear Active Diagnosis [facility] Medications Combined list of outpatient medications from Department of Defense and Veterans Affairs facilities.Medications provided include 1) outpatient medications from the last 15 months, and 2) patient-reported medications. Medication Details Route Status Patient Instructions Prescription Expires Prescription Number Last Dispense Date Ordering Provider Order Date Order Qty Source CHOLECALCIF PING 50MCG (2,000UNIT) TAB TAKE ONE TABLET BY MOUTH ONCE DAILY ORAL ACTIVE NENA INMAN 2022 [facility] FENOFIBRATE 145MG TAB TAKE ONE TABLET BY MOUTH ONCE DAILY ORAL ACTIVE NENA INMAN 2019 [facility] HYDROCHLORO THIAZIDE/LO SARTAN TAB TAKE BY MOUTH ONCE DAILY ORAL ACTIVE NENA INMAN [facility] METOPROLOL SUCCINATE 100MG TAB,SA TAKE ONE TABLET BY MOUTH ONCE DAILY ORAL ACTIVE NENA INMAN 2022 [facility] Allergies, Adverse Reactions, Alerts Combined list of allergies from Department of [facility] and Veterans Affairs facilities. It does not include entries that were removed or entered in error. Substance Category Reaction Severity Reaction type Status Date Reported Comments Source AMLODIPINE Drug allergy (disorder) Swelling of lower limb active 3 [facility] CHLORTHALIDO NE Drug allergy (disorder) Hypokalemia , Gout active 3 [facility] CHLORTHALIDO NE Propensity to adverse reactions to drug (finding) Gout, [facility]alemia [facility] EZETIMIBE Drug allergy (disorder) Liver enzymes abnormal active 3 [facility] LISINOPRIL Propensity to adverse reactions to drug (finding) active [facility] Immunizations Combined list of available immunizations from the Department of [facility] and Veterans Affairs facilities. Immunization Series Date Given Administered By Site Reaction Lot Number CVX Code Drug [employer] Member Status Comments Source TDAP 2023 ETHAN MALDONADO RIGHT DELTO ID [id number] 115 complet ed [facility] ZOSTER RECOMBINANT 2 2023 ETHAN MALDONADO LEFT DELTO ID [id number] 187 [facility] PNEUMOCOCCAL CONJUGATE PCV20, POLYSACCHARID E [id number] CONJUGATE, ADJUVANT, PF 2023 BHARAT MEADOWS LEFT DELTO ID [id number] 216 complet ed [facility] ZOSTER RECOMBINANT 2023 BHARAT MEADOWS LEFT DELTO ID [id number] 187 complet ed [facility] INFLUENZA, UNSPECIFIED FORMULATION 2022 88 complet ed [facility] COVID-19 (PFIZER), MRNA, LNP-S, BIVALENT BOOSTER, PF, 30 MCG/0.3 ML DOSE 1 2021 300 complet ed [facility] INFLUENZA, UNSPECIFIED FORMULATION 2021 88 complet ed [facility] COVID-19 (PFIZER), MRNA, LNP-S, PF, 30 MCG/0.3 ML DOSE 4 2021 208 complet ed [facility] COVID-19 (PFIZER), MRNA, LNP-S, PF, 30 MCG/0.3 ML DOSE 3 2020 208 complet ed [facility] COVID-19 (PFIZER), MRNA, LNP-S, PF, 30 MCG/0.3 ML DOSE 2 2020 208 complet ed PFR; [id number]; 1 [facility] COVID-19 (PFIZER), MRNA, LNP-S, PF, 30 MCG/0.3 ML DOSE 1 2020 208 complet ed PFR; [id number]; 1 [facility] Results Combined list of recent chemistry, hematology and other laboratory results from Department of Defense and Veterans Affairs, ranging from 15 months to all on record, depending upon the facility. Order Name Results Value Reference Range Date Interpretation Specimen Comments Source CBC LEUKOCYTES [#/VOLUME] IN BLOOD BY AUTOMATED COUNT 7.39 10*3/uL 4.50 - 11.00 08/19 Specimen Type: BLOOD No comment entered. Ordering Provider: Rei INMAN Report Released Date/Time: Aug 20, 2023 08:52 AM Reporting Lab: [facility] [address] [facility] [address] Performing Lab: [facility] [address] [facility] [address] [facility] CBC ERYTHROCYT ES [#/VOLUME] IN BLOOD BY AUTOMATED COUNT 4.65 10*6/uL 4.23 - 5.66 08/19 Specimen Type: BLOOD No comment entered. Ordering Provider: Rei INMAN Report Released Date/Time: Aug 20, 2023 08:52 AM Reporting Lab: [facility] [address] [facility] [address] Performing Lab: [facility] [address] [facility] [address] [facility] CBC HEMOGLOBIN [MASS/VOLU ME] IN BLOOD 13.9 g/dL 12.8 - 17 08/19 Specimen Type: BLOOD No comment entered. Ordering Provider: Rei INMAN Report Released Date/Time: Aug 20, 2023 08:52 AM Reporting Lab: [facility] [place] [facility] [address] [facility] [address] Performing Lab: [facility] [place] [address] [address] [facility] [place] CBC HEMATOCRIT [VOLUME FRACTION] OF BLOOD BY AUTOMATED COUNT 40.7 39.2 - 50.4 08/19 Specimen Type: BLOOD No comment entered. Ordering Provider: Rei INMAN Report Released Date/Time: Aug 20, 2023 08:52 AM Reporting Lab: [facility] [place] [facility] [address] [facility] [address] Performing Lab: [facility] [place] [facility] [address] [facility] [address] [facility] [place] [facility] CBC MCV [ENTITIC VOLUME] BY AUTOMATED COUNT 87.5 fL 82 - 99 08/19 Specimen Type: BLOOD No comment entered. Ordering Provider: Rei INMAN Report Released Date/Time: Aug 20, 2023 08:52 AM Reporting Lab: [facility] [place] [facility] [address] [facility] [address] Performing Lab: [facility] [address] [facility] [address] [facility] [place] [facility] CBC MCHC [MASS/VOLU ME] BY AUTOMATED COUNT 34.2 g/dL 30.8 - 35.1 08/19 Specimen Type: BLOOD No comment entered. Ordering Provider: Rei INMAN Report Released Date/Time: Aug 20, 2023 08:52 AM Reporting Lab: [facility] [place] [facility] [address] [facility] [address] Performing Lab: [facility] [place] [facility] [address] [facility] [address] [facility] [place] [facility] CBC PLATELETS [#/VOLUME] IN BLOOD BY AUTOMATED COUNT 341 10*3/uL 140 - 360 08/19 Specimen Type: BLOOD No comment entered. Ordering Provider: Rei INMAN Report Released Date/Time: Aug 20, 2023 08:52 AM Reporting Lab: [facility] [place] [address] [address] Performing Lab: [facility] [place] [address] [address] [facility] [place] [facility] CBC ERYTHROCYT E DISTRIBUTI ON WIDTH [RATIO] BY AUTOMATED COUNT 12.4 12.0 - 16.0 08/19 Specimen Type: BLOOD No comment entered. Ordering Provider: Rei INMAN Report Released Date/Time: Aug 20, 2023 08:52 AM Reporting Lab: [facility] [place] [address] [address] Performing Lab: [facility] [place] [address] [address] [facility] CBC MCH [ENTITIC MASS] BY AUTOMATED COUNT 29.9 pg 26.2 - 32.6 08/19 Specimen Type: BLOOD No comment entered. Ordering Provider: Rei INMAN Report Released Date/Time: Aug 20, 2023 08:52 AM Reporting Lab: [facility] [place] [address] [address] Performing Lab: [facility] [place] [address] [address] [facility] BASIC METABOLI C PANEL (fasting ) UREA NITROGEN [MASS/VOLU ME] IN SERUM OR PLASMA 23 mg/dL 7 - 25 08/19 Specimen Type: SERUM No comment entered. Ordering Provider: Rei INMAN Report Released Date/Time: Aug 20, 2023 08:52 AM Reporting Lab: [facility]ENTERUSE[address] [address] Performing Lab: [facility]USE[address] [address] [facility]ITALRCR[facility]N [facility]USE [facility] BASIC METABOLI C PANEL (fasting ) GLUCOSE [MASS/VOLU ME] IN SERUM OR PLASMA 110 mg/dL 65 - 100 08/19 H Specimen Type: SERUM No comment entered. Ordering Provider: Rei INMAN Report Released Date/Time: Aug 20, 2023 08:52 AM Reporting Lab: [facility]TR[facility] [address] Performing Lab: [facility] CLAIRTRN [facility]ENTERUSE[address] [address] [facility]USE [facility] BASIC METABOLI C PANEL (fasting ) SODIUM [MOLES/VOL UME] IN SERUM OR PLASMA 139 mmol/L 135 - 145 08/19 Specimen Type: SERUM No comment entered. Ordering Provider: Rei INMAN Report Released Date/Time: Aug 20, 2023 08:52 AM Reporting Lab: [facility] [place] [address] [address] Performing Lab: [facility]ITALRL TRN [facility]ENTERUSE[address] [address] [facility] [facility]TR[facility] BASIC METABOLI C PANEL (fasting ) POTASSIUM [MOLES/VOL UME] IN SERUM OR PLASMA 3.9 mmol/L 3.5 - 5.0 08/19 Specimen Type: SERUM No comment entered. Ordering Provider: Rei INMAN Report Released Date/Time: Aug 20, 2023 08:52 AM Reporting Lab: [facility] [place] [facility] [address] [facility] [address] Performing Lab: [facility] [place] [facility] [address] [facility] [address] [facility] [facility] BASIC METABOLI C PANEL (fasting ) CHLORIDE [MOLES/VOL UME] IN SERUM OR PLASMA 106 mmol/L 100 - 110 08/19 Specimen Type: SERUM No comment entered. Ordering Provider: Rei INMAN Report Released Date/Time: Aug 20, 2023 08:52 AM Reporting Lab: [facility] [place] [address] [address] Performing Lab: [facility] [place] [address] [address] [facility] BASIC METABOLI C PANEL (fasting ) CARBON DIOXIDE, TOTAL [MOLES/VOL UME] IN SERUM OR PLASMA 22 meq/L 20 - 30 08/19 Specimen Type: SERUM No comment entered. Ordering Provider: Rei INMAN Report Released Date/Time: Aug 20, 2023 08:52 AM Reporting Lab: [facility] [place] [address] [address] Performing Lab: [facility] [place] [address] [address] [facility]USE [facility] BASIC METABOLI C PANEL (fasting ) CREATININE [MASS/VOLU ME] IN SERUM OR PLASMA 1.07 mg/dL 0.50 - 1.40 08/19 Specimen Type: SERUM No comment entered. Ordering Provider: Rei INMAN Report Released Date/Time: Aug 20, 2023 08:52 AM Reporting Lab: [facility] [place] [address] [address] Performing Lab: [facility] [place] [address] [address] [facility] BASIC METABOLI C PANEL (fasting ) GLOMERULAR FILTRATION RATE/1.73 SQ M.PREDICTE D [VOLUME RATE/AREA] IN SERUM, PLASMA OR BLOOD BY CREATININE -BASED FORMULA (CKD-EPI 2020) 79 mL/min 60 08/19 Specimen Type: SERUM No comment entered. Ordering Provider: Rei INMAN Report Released Date/Time: Aug 20, 2023 08:52 AM Reporting Lab: [facility] [place] [address] [address] Performing Lab: [facility] [place] [address] [address] [facility] [facility] LIVER FUNCTION PROTEIN [MASS/VOLU ME] IN SERUM OR PLASMA 6.9 g/dL 6.0 - 8.3 08/19 Specimen Type: SERUM No comment entered. Ordering Provider: Rei INMAN Report Released Date/Time: Aug 20, 2023 08:52 AM Reporting Lab: [facility] [place] [address] [address] Performing Lab: [facility] [place] [address] [address] [facility] [place] [facility] LIVER FUNCTION ALBUMIN [MASS/VOLU ME] IN SERUM OR PLASMA 4.4 g/dL 3.5 - 5.0 08/19 Specimen Type: SERUM No comment entered. Ordering Provider: Rei INMAN Report Released Date/Time: Aug 20, 2023 08:52 AM Reporting Lab: [facility] [place] [address] [address] Performing Lab: [facility] [place] [address] [address] [facility] LIVER FUNCTION ALKALINE PHOSPHATAS E [ENZYMATIC ACTIVITY/V OLUME] IN SERUM OR PLASMA 37 U/L 40 - 150 08/19 L Specimen Type: SERUM No comment entered. Ordering Provider: Rei INMAN Report Released Date/Time: Aug 20, 2023 08:52 AM Reporting Lab: [facility] [place] [address] [address] Performing Lab: [facility] [place] [facility] [address] [facility] [address] [facility] [place] [facility] LIVER FUNCTION ASPARTATE AMINOTRANS FERASE [ENZYMATIC ACTIVITY/V OLUME] IN SERUM OR PLASMA 30 U/L 5 - 34 08/19 Specimen Type: SERUM No comment entered. Ordering Provider: Rei INMAN Report Released Date/Time: Aug 20, 2023 08:52 AM Reporting Lab: [facility] [place] [facility] [address] [facility] [address] Performing Lab: [facility] [place] [facility] [address] [facility] [address] [facility] [place] [facility] LIVER FUNCTION ALANINE AMINOTRANS FERASE [ENZYMATIC ACTIVITY/V OLUME] IN SERUM OR PLASMA 58 U/L 08/19 H Specimen Type: SERUM No comment entered. Ordering Provider: Rei INMAN Report Released Date/Time: Aug 20, 2023 08:52 AM Reporting Lab: [facility] [place] [facility] [address] [facility] [address] Performing Lab: [facility] [place] [facility] [address] [facility] [address] [facility] [place] [facility] LIVER FUNCTION BILIRUBIN. TOTAL [MASS/VOLU ME] IN SERUM OR PLASMA 0.5 mg/dL 0.2 - 1.2 08/19 Specimen Type: SERUM No comment entered. Ordering Provider: Rei INMAN Report Released Date/Time: Aug 20, 2023 08:52 AM Reporting Lab: [facility] [place] [facility] [address] [facility] [address] Performing Lab: [facility] [place] [facility] [address] [facility] [address] [facility] [place] [facility] LIPID PANEL FASTING CHOLESTERO L [MASS/VOLU ME] IN SERUM OR PLASMA 200 mg/dL 08/19 H Specimen Type: SERUM No comment entered. Ordering Provider: Rei INMAN Report Released Date/Time: Aug 20, 2023 08:52 AM Reporting Lab: [facility] [place] [facility] [address] [facility] [place] [address] Performing Lab: [facility] [place] [facility] [address] [facility] [address] [facility] [place] [facility] LIPID PANEL FASTING TRIGLYCERI DE [MASS/VOLU ME] IN SERUM OR PLASMA 191 mg/dL 0 - 150 08/19 H Specimen Type: SERUM No comment entered. Ordering Provider: Rei INMAN Report Released Date/Time: Aug 20, 2023 08:52 AM Reporting Lab: [facility] [place] [facility] [address] [facility] [address] Performing Lab: [facility] [place] [facility] [address] [facility] [address] [facility] [place] [facility] LIPID PANEL FASTING CHOLESTERO L IN LDL [MASS/VOLU ME] IN SERUM OR PLASMA BY CALCULATIO N 121 mg/dL 0 - 129 08/19 Specimen Type: SERUM No comment entered. Ordering Provider: Rei INMAN Report Released Date/Time: Aug 20, 2023 08:52 AM Reporting Lab: [facility] [place] [facility] [address] [facility] [address] Performing Lab: [facility] [place] [facility] [address] [facility] [address] [facility] [place] [facility] LIPID PANEL FASTING CHOLESTERO L.TOTAL/CH OLESTEROL IN HDL [MASS RATIO] IN SERUM OR PLASMA 4.9 08/19 Specimen Type: SERUM No comment entered. Ordering Provider: Rei INMAN Report Released Date/Time: Aug 20, 2023 08:52 AM Reporting Lab: [facility] [place] [facility] [address] [facility] [address] Performing Lab: [facility] [place] [facility] [address] [facility] [address] [facility] [place] [facility] LIPID PANEL FASTING CHOLESTERO L IN HDL [MASS/VOLU ME] IN SERUM OR PLASMA 41 mg/dL 40 - 60 08/19 Specimen Type: SERUM No comment entered. Ordering Provider: Rei INMAN Report Released Date/Time: Aug 20, 2023 08:52 AM Reporting Lab: [facility] [place] [facility] [address] [facility] [address] Performing Lab: [facility] [place] [facility] [address] [facility] [address] [facility] [place] [facility] TSH THYROTROPI N [UNITS/VOL UME] IN SERUM OR PLASMA 1.59 u[IU]/mL 0.35 - 5.00 08/19 Specimen Type: SERUM No comment entered. Ordering Provider: Rei INMAN Report Released Date/Time: Aug 20, 2023 08:52 AM Reporting Lab: [facility] [place] [address] [address] Performing Lab: [facility] [place] [address] [address] [facility] [place] [facility] URINALYS IS COLOR OF URINE Light-Ye llow 08/19 Specimen Type: URINE Comment: If Glucose = >500 and Ketones are positive, please alert the Physician. Ordering Provider: Rei INMAN Report Released Date/Time: Aug 20, 2023 08:52 AM Reporting Lab: [facility] [place] [address] [address] Performing Lab: [facility] [place] [address] [address] [facility] [place] [facility] URINALYS IS APPEARANCE OF URINE Clear 08/19 Specimen Type: URINE Comment: If Glucose = >500 and Ketones are positive, please alert the Physician. Ordering Provider: Rei INMAN Report Released Date/Time: Aug 20, 2023 08:52 AM Reporting Lab: [facility] [place] [address] [address] Performing Lab: [facility] [place] [place] [address] [facility]N [place] [facility] URINALYS IS GLUCOSE [MASS/VOLU ME] IN URINE NEGATIVE mg/dL 08/19 Specimen Type: URINE Comment: If Glucose = >500 and Ketones are positive, please alert the Physician. Ordering Provider: Rei INMAN Report Released Date/Time: Aug 20, 2023 08:52 AM Reporting Lab: [facility] [place] [address] [address] Performing Lab: [facility] [place] [address] [address] [facility] [place] [facility] URINALYS IS KETONES [MASS/VOLU ME] IN URINE BY TEST STRIP NEGATIVE mg/dL 08/19 Specimen Type: URINE Comment: If Glucose = >500 and Ketones are positive, please alert the Physician. Ordering Provider: Rei INMAN Report Released Date/Time: Aug 20, 2023 08:52 AM Reporting Lab: [facility] [place] [address] [address] Performing Lab: [facility]US[facility] [address] [address] [facility] [facility] CLAIRTRN [facility]ENTERUSE [facility] URINALYS IS ERYTHROCYT ES [PRESENCE] IN URINE SEDIMENT BY LIGHT MICROSCOPY NEGATIVE mg/dL 08/19 Specimen Type: URINE Comment: If Glucose = >500 and Ketones are positive, please alert the Physician. Ordering Provider: Rei INMAN Report Released Date/Time: Aug 20, 2023 08:52 AM Reporting Lab: [facility] [place] [address] [address] Performing Lab: [facility] [place] [address] [address] [facility] CLAIRTRN [place] [facility] URINALYS IS PROTEIN [MASS/VOLU ME] IN URINE BY TEST STRIP NEGATIVE mg/dL 08/19 Specimen Type: URINE Comment: If Glucose = >500 and Ketones are positive, please alert the Physician. Ordering Provider: Rei INMAN Report Released Date/Time: Aug 20, 2023 08:52 AM Reporting Lab: [facility] [place] [facility] [address] [facility] [address] Performing Lab: [facility] [place] [facility] [address] [facility] [address] [facility] [place] [facility] URINALYS IS NITRITE [PRESENCE] IN URINE NEGATIVE mg/dL 08/19 Specimen Type: URINE Comment: If Glucose = >500 and Ketones are positive, please alert the Physician. Ordering Provider: Rei INMAN Report Released Date/Time: Aug 20, 2023 08:52 AM Reporting Lab: [facility] [place] [facility] [address] [facility] [address] Performing Lab: [facility] [place] [facility] [address] [facility] [address] [facility] [place] [facility] URINALYS IS BILIRUBIN. TOTAL [PRESENCE] IN URINE NEGATIVE mg/dL 08/19 Specimen Type: URINE Comment: If Glucose = >500 and Ketones are positive, please alert the Physician. Ordering Provider: Rei INMAN Report Released Date/Time: Aug 20, 2023 08:52 AM Reporting Lab: [facility] [place] [facility] [address] [facility] [address] Performing Lab: [facility] [place] [facility] [address] [facility] [address] [facility] [place] [facility] URINALYS IS SPECIFIC GRAVITY OF URINE BY REFRACTOME TRY 1.012 1.016 - 1.022 08/19 L Specimen Type: URINE Comment: If Glucose = >500 and Ketones are positive, please alert the Physician. Ordering Provider: Rei INMAN Report Released Date/Time: Aug 20, 2023 08:52 AM Reporting Lab: [facility] [place] [facility] [address] [facility] [address] Performing Lab: [facility] [place] [facility] [address] [facility] [address] [facility] URINALYS IS PH OF URINE BY TEST STRIP 6.0 5.0 - 9.0 08/19 Specimen Type: URINE Comment: If Glucose = >500 and Ketones are positive, please alert the Physician. Ordering Provider: Rei INMAN Report Released Date/Time: Aug 20, 2023 08:52 AM Reporting Lab: [facility] [address] [facility] [address] Performing Lab: [facility]ITALRCR[facility]N [facility]USEJ[facility] [address] [facility] [address] [facility] URINALYS IS UROBILINOG EN [MASS/VOLU ME] IN URINE BY TEST STRIP <2.0mg/d L <2.0 - 2.0 08/19 Specimen Type: URINE Comment: If Glucose = >500 and Ketones are positive, please alert the Physician. Ordering Provider: Rei INMAN Report Released Date/Time: Aug 20, 2023 08:52 AM Reporting Lab: [facility]USE[facility] [address] [facility] [address] Performing Lab: [facility]USE[facility] [address] [facility] [address] [facility] URINALYS IS LEUKOCYTE ESTERASE [PRESENCE] IN URINE BY TEST STRIP NEGATIVE 08/19 Specimen Type: URINE Comment: If Glucose = >500 and Ketones are positive, please alert the Physician. Ordering Provider: Rei INMAN Report Released Date/Time: Aug 20, 2023 08:52 AM Reporting Lab: [facility]USE[facility] [address] [facility] [address] Performing Lab: [facility]N [facility]ENTERUSE[address] [address] [facility]N [facility]ENTERUSE [facility] VITAMIN D (25-OH) 25-HYDROXY VITAMIN D3 [MASS/VOLU ME] IN SERUM OR PLASMA 29 ng/mL 20 - 50 08/19 Specimen Type: SERUM No comment entered. Ordering Provider: Rei INMAN Report Released Date/Time: Aug 20, 2023 08:52 AM Reporting Lab: [facility]ITALRST[facility]IRTRN [facility] CENTERUSETS [address] [address] Performing Lab: [facility]OSPITALRL TRN [facility]ENTERUSE[address] [address] [facility]PITALRCROSSBRIDGE BEH[facility]IOR[facility] HEALTHN [facility]ENTERUSE [facility] HIV 1&2 Ag/Ab SCREEN HIV 1+2 AB+HIV1 P24 AG [PRESENCE] IN SERUM OR PLASMA BY IMMUNOASSA Y NON-REAC TIVE 08/19 Specimen Type: SERUM No comment entered. Ordering Provider: Rei INMAN Report Released Date/Time: Aug 20, 2023 08:52 AM Reporting Lab: [facility]PITALRCROSSBRID[facility] BE[facility]IOR[facility] HEALTHN [facility]ENTERUSE[address] [address] Performing Lab: [facility]ITALRCROSSBRID[facility]IOR[facility] HEALTHN [facility]ENTERUSE[address] [address] [facility]N [facility]ENTERUSE [facility] HEPATITI S C ANTIBODY (HCV)-AR C HEPATITIS C VIRUS AB [PRESENCE] IN SERUM NON-REAC TIVE 08/19 Specimen Type: SERUM Comment: Hep C Ab: No HCV antibody detected. If recent infection is suspected or other evidence suggests HCV infection, consider HCV nucleic acid testing Ordering Provider: Rei INMAN Report Released Date/Time: Aug 20, 2023 08:52 AM Reporting Lab: [facility]ITALN [address] [address] Performing Lab: [facility]OSPITALRL [facility]ENTERUSE[address] [address] [facility]OSPITALRCROSSBRID[facility] BEH[facility]IORAL HEALTHN [facility]ENTERUSE [facility] OCCULT BLOOD FIT X1 SCREEN(W R) HEMOGLOBIN .GASTROINT ESTINAL.LO WER [PRESENCE] IN STOOL BY IMMUNOASSA Y Negative 08/21 Specimen Type: FECES Comment: H* INDICATES A VA ALERT HAS BEEN SENT Ordering Provider: Rei INMAN Report Released Date/Time: Aug 23, 2022 01:48 PM Reporting Lab: [facility]ITALRCR[facility]BRID[facility] HEALTHN [facility]ENTERUSE[address] [address] Performing Lab: [facility] [place] [facility] [address] [facility] [address] [facility] Vital Signs Combined list of inpatient and outpatient Vital Signs from Department of Defense and Veterans Affairs, ranging from 12 months to all on record, depending upon the facility. Vital Sign Value Date Comments Source SYSTOLIC BLOOD PRESSURE 120 08/20/2023 08:28:11 [facility] [place] DIASTOLIC BLOOD PRESSURE 80 08/20/2023 08:28:11 [facility] [place] [facility] PULSE OXIMETRY 94 08/20/2023 08:28:11 [facility] [place] [facility] WEIGHT 221 08/20/2023 08:28:11 [facility] [place] [facility] PAIN 0 08/20/2023 08:28:11 [facility] [place] [facility] TEMPERATURE 98.2 08/20/2023 08:28:11 [facility] [place] [facility] PULSE 63 08/20/2023 08:28:11 [facility] [place] [facility] RESPIRATION 16 08/20/2023 08:28:11 [facility] [place] [facility] Encounters Combined list of: 1) Encounters from Department of Veterans Affairs facilities going back up to thelast 18 months. 2) Encounters from the Department of Defense facilities going back up to 280 months. Location Location Details Encounter Type Encounter Number Reason For Visit Attending Provider ADM Date DC Date Status Disposition Source [facility] Encounter [id number] 03/07 [facility] En[facility] [id number] 03/09 [facility] Encounter [id number] 04/02 [facility] Encounter [id number] 05/15 [facility] OFFICE O/P EST LOW 20 MIN [id number] Diagnos is: ICD-10- CM H91.90 Unspeci fied hearing loss, unspeci fied ear<br/ > HENNYNENA 08/19 [facility] En[facility] [id number] 09/30 [facility] En[facility] [id number] 10/10 [facility] Encounter [id number] 10/10 [facility] OFF/OP EST MAY X REQ PHY/QHP [id number] Diagnos is: ICD-10- CM Z23 Encount er for immuniz ation<b r/> Karthikeyan MALDONADO 10/15 [facility] Out[facility] Encounter [id number] Desirae DOMINGUEZ 02/06 [facility] En[facility] [id number] ABDIEL,TAMMY ISTOPHER E 04/10 [facility] Out[facility] Encounter [id number] Diagnos is: ICD-10- CM Z02.89 Encount er for other adminis trative examina tions<b r/> CARLOS CASTRO 04/21 [facility] Social History Combined list of available smoking, tobacco, and other social history from Department of Defense and Veterans Affairs facilities. Social History Type Response Date Comment Sourc e Tobacco smoking status NHIS VA-TOBACCO FORMER USER 08/20/2023 [facility] [place] [facility] History of tobacco use VA-TOBACCO QUIT 15 YRS OR MORE 08/20/2023 [facility] [place] [facility] History of tobacco use VA-TOBACCO FORMER USER 08/18/2022 [facility] [place] [facility] History of tobacco use PREVIOUS SMOKER [facility] [facility] [place] [facility] History of tobacco use VA-TOBACCO FORMER USER 02/10/2020 [facility] [place] [facility] This section is an empty social history section. DoD Plan of Care List of future care activities from Department of Veterans Affairs facilities. Additional future care activities may be listed in the Assessment and Plan section. Date/Time Care Activity Care Activity Detail Facili ty 08/18/2024 AMBULATORY - MEDICINE AMBULATORY - MEDICI NE [facility]
--- OUTSIDE RECORDS SUMMARY | 2024-06-10 12:30 | XMS_ITS | Patient Health Record ---
Author Organization [facility] Address [address] [place] [address] Care Team Providers Care Software Developer Mid Level Name Role Phone Lorraine Fields Primary Care Provider Unavailabl e Tirso Sunshine Unavailable [phone] Jessica Brennan Unavailable [phone] Allergies Allergen (clinical drug ingredient) Drug/Non Drug [...] Name Lorraine Referring Provider Last Name [facility]erred [facility] Referred Provider Tirso Sunshine Referred Address [address] [place], [place],[address], Referred Provider Specialty Podiatry Referral Priority Routine [...] primary osteoarthritis of the ankle and/or foot (758644955) Primary osteoarthritis, left ankle and foot (M19.072) Active confirmed Problem 944161757 Neuropathy (G62.9) Active confirmed Problem 038030752 Primary osteoarthritis of right ankle (M19.071) Active confirmed Vital Signs Height 5 ft 10 in in 07/17/2023 Weight 217 lbs 07/17/2023 BMI 31.13 kg/m2 07/17/2023 Encounters Encounter Location Date Provider Diagnosis [facility] [address] [address] 07/17/2023 Jessica Brennan Pain in right foot [...] Insured Coverage Start Date Coverage End Date [facility] [address] [place] [address] [id number] Lou Walters Spouse - patient is [...]
--- OUTSIDE RECORDS SUMMARY | 2024-06-10 12:30 | XMS_ITS ---
Author Organization [facility] Address [address] [address] Care Team Providers Care Residential Property Consultant Name Role Phone Lorraine Fields Primary Care Provider UnavailTirso Branch Unavailable [phone] Jessica Brennan Unavailable [phone] Allergies Allergen (clinical drug ingredient) Drug/Non Drug [...] Problem Status W/U Status Risk Notes Problem [id number] Neuropathy (G62.9) Active confirmed Problem 203909022 Primary osteoarthritis of right ankle (M19.071) Active confirmed Vital Signs Height 5 ft 10 in in 07/17/2023 Weight 217 lbs 07/17/2023 BMI 31.13 kg/m2 07/17/2023 Encounters Encounter Location Date Provider Diagnosis [facility] [address] [address] 07/17/2023 Jessica Perica Pain in right foot [...] Ubaldo WALTERS PDOB: [birth year] (57 yo M)Acc No.[id number]:07/17/2023 Progress Note Patient:?Ubaldo Walters P Provider:?Jessica Brennan DPM :1965???Age:57 Y???Sex:Male Sang e:07/17/2023 Address:[address] [place] [address] [facility]-[address] Pcp:Lorraine Fields Subjective: * Chief Complaints: * [...] for children. ?Marital status: . 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 * Medications:?TakingSimvastat in 5 MG [...] ray : Foot, left 3V * Procedure Codes:?29154 X-RAY EXAM OF RIGHT FOOT 3V, Modifiers: 26 , [id number] X- RAY EXAM OF LEFT FOOT 3V, [...] Interfil injection therapy, as well as surgical [place]/Endoscopic Fasciitomy surgical procedures if needed. Recommendations were [...] Brennan DPM Date:? Generated for Silvia dorsey/Enriqueta/Freddy on:?06/10/2024 12:29 PM EST History and Physical Notes * HPI [...]
== END 2024-06-10 11:48 | disposition home or self-care (01) ==
PROVIDERS: PCP Internal Medicine; Visit Provider Internal Medicine
DX: Z00.00 Encounter for general adult medical examination without abnormal findings (principal); I10 Essential (primary) hypertension; Z68.30 Body mass index [BMI] 30.0-30.9, adult; E66.9 Obesity, unspecified; E78.00 Pure hypercholesterolemia, unspecified; R73.02 Impaired glucose tolerance (oral); K76.0 Fatty (change of) liver, not elsewhere classified; J45.20 Mild intermittent asthma, uncomplicated; M25.561 Pain in right knee

== ENCOUNTER 2024-06-17 10:56 | Outpatient (REF) | payer OTHER, SELFPAY ==
--- NOTE | ~2024-06-17 | XR_ITS ---
EXAMINATION: XR KNEE 1-2 VIEWS RIGHT HISTORY: M25.561 - Pain in right knee COMPARISON: There are no prior studies available for comparison. FINDINGS: AP and lateral views of the right knee are submitted. Osseous mineralization is normal. There is no fracture or dislocation. There is mild narrowing of the medial compartment. There is heterotopic bone formation at the superficial aspect of the patella. The soft tissues are unremarkable. XR/XR knee RT 2V IMPRESSION: Mild narrowing of the compartment. Electronically signed by: Tuan Madden MD 06/18/2024 02:23 PM HERNAN SANCHEZ
--- OUTSIDE RECORDS SUMMARY | 2024-06-17 12:06 | XMS_ITS ---
Author Organization [facility] Address [address] [address] Care Team Providers Care Field Sampling Technician Name Role Phone Lorraine Fields Primary Care Provider UnavailTirso Branch Unavailable [phone] Jessica Brennan Unavailable [phone] Allergies Allergen (clinical drug ingredient) Drug/Non Drug [...] Problem Status W/U Status Risk Notes Problem [id number] Neuropathy (G62.9) Active confirmed Problem 225069236 Primary osteoarthritis of right ankle (M19.071) Active confirmed Vital Signs Height 5 ft 10 in in 07/17/2023 Weight 217 lbs 07/17/2023 BMI 31.13 kg/m2 07/17/2023 Encounters Encounter Location Date Provider Diagnosis [facility] [address] [address] 07/17/2023 Jessica Perica Pain in right foot [...] Ubaldo WALTERS PDOB: [birth year] (57 yo M)Acc No.[id number]:07/17/2023 Progress Note Patient:?Ubaldo Walters P Provider:?Jessica Brennan DPM :1965???Age:57 Y???Sex:Male Sang e:07/17/2023 Address:[address] [place] [address] [facility]EN[facility] DOTHANRB-[id number] Pcp:Lorraine Fields Subjective: * Chief Complaints: * [...] for children. ?Marital status: . 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 * Medications:?TakingSimvastat in 5 MG [...] ray : Foot, left 3V * Procedure Codes:?86299 X-RAY EXAM OF RIGHT FOOT 3V, Modifiers: 26 , [id number] X- RAY EXAM OF LEFT FOOT 3V, [...] Interfil injection therapy, as well as surgical [place]/Endoscopic Fasciitomy surgical procedures if needed. Recommendations were [...] Brennan DPM Date:? Generated for Silvia dorsey/Enriqueta/Freddy on:?06/17/2024 12:05 PM EST History and Physical Notes * HPI (History of Present Illness) Category Sub-Category Detail Notes Category Not es Heel pain Nature: tenderness, sharp pain, stif fness Location: Proximal plantar asp ect of Heel , Arch, B/L Aggravated: standing, walking, w alking first thing in the morning/after rest Course: worse Treatments: rest/alter normal da hsueyin activity Examination Category Sub-Category Detail Notes Category [...]
--- OUTSIDE RECORDS SUMMARY | 2024-06-17 12:06 | XMS_ITS | Patient Health Record ---
Author Organization [facility] Address [address] [place] [address] Care Team Providers Care Cabin Equipment Supervisor Name Role Phone Lorraine Fields Primary Care Provider Unavailabl e Tirso Sunshine Unavailable [phone] Jessica Brennan Unavailable [phone] Allergies Allergen (clinical drug ingredient) Drug/Non Drug [...] Provider Last Name [facility]erred [facility] Referred Provider Tirso Sunshine Referred Address [address] [place], [place],[address], Referred Provider Specialty Podiatry Referral Priority Routine [...] primary osteoarthritis of the ankle and/or foot (115903124) Primary osteoarthritis, left ankle and foot (M19.072) Active confirmed Problem 044377853 Neuropathy (G62.9) Active confirmed Problem 207346684 Primary osteoarthritis of right ankle (M19.071) Active confirmed Vital Signs Height 5 ft 10 in in 07/17/2023 Weight 217 lbs 07/17/2023 BMI 31.13 kg/m2 07/17/2023 Encounters Encounter Location Date Provider Diagnosis [facility] [address] [address] 07/17/2023 Jessica Brennan Pain in right foot [...] Insured Coverage Start Date Coverage End Date [facility] [address] [place] [address] [id number] Lou Walters Spouse - patient is [...]
--- OUTSIDE RECORDS SUMMARY | 2024-06-17 12:06 | XMS_ITS | Continuity of Care Document ---
Author Name [facility] Organization [facility] Care Team Providers Care Box Loader Name Role Phone [facility] Unavailable Unavailable Problems Combined list of problems from Department of Defense and Veterans Affairs facilities. It does not include entries that were removed or entered in error. Problem Status Onset Date Problem Type Date of Resolution Comments Source Exposure to potentially hazardous substance Active Condition [facility] [place] Hearing Loss (SCT [id number]) Active Condition [facility] [place] HTN - Hypertension (SCT [id number]) Active Condition [facility] Hypercholesterolemia (SCT [id number]) Active Condition [facility] Low Back Pain (SCT [id number]) Active Condition [facility] [place] Obstructive Sleep Apnea of Adult ([facility] [id number]) Active Condition [facility] [place] [...] ONCE DAILY ORAL ACTIVE NENA INMAN 2022 [facility] FENOFIBRATE 145MG TAB TAKE ONE TABLET BY MOUTH ONCE DAILY ORAL ACTIVE NENA INMAN 2019 [facility] [place] [facility] [facility] HYDROCHLORO THIAZIDE/LO SARTAN TAB TAKE BY MOUTH ONCE DAILY ORAL ACTIVE NENA INMAN 2022 [facility] METOPROLOL SUCCINATE 100MG TAB,SA TAKE ONE TABLET BY MOUTH ONCE DAILY ORAL ACTIVE NENA INMAN 2022 [facility] Allergies, Adverse Reactions, Alerts Combined list of allergies from Department of [facility] and Veterans Affairs facilities. It does not include entries that were removed or entered in error. Substance Category Reaction Severity Reaction type Status Date Reported Comments Source AMLODIPINE Drug allergy (disorder) Swelling of lower limb active 3 [facility] CHLORTHALIDO NE Drug allergy (disorder) Hypokalemia , Gout active 3 [facility] [place]AL[place] Propensity to adverse reactions to drug (finding) Gout, Hypokalemia active [facility] EZETIMIBE Drug allergy (disorder) Liver enzymes abnormal active 3 [facility] LISINOPRIL Propensity to adverse reactions to drug (finding) active 0 [facility] Immunizations Combined list of available immunizations from the Department of [facility] and Veterans Affairs facilities. 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 Status Comments Source TDAP 2023 ETHAN MALDONADO RIGHT DELTO ID [id number] 115 complet ed [facility] ZOSTER RECOMBINANT 2 2023 ETHAN MALDONADO LEFT DELTO ID [id number] 187 complet ed [facility] PNEUMOCOCCAL CONJUGATE PCV20, POLYSACCHARID E [id number] CONJUGATE, ADJUVANT, PF 2023 BHARAT MEADOWS LEFT DELTO ID [id number] 216 complet ed [facility] ZOSTER RECOMBINANT 2023 BHARAT MEAD[place] LEFT DELTO ID [id number] 187 complet ed [facility] INFLUENZA, UNSPECIFIED FORMULATION 2022 88 complet ed [facility] COVID-19 (PFIZER), MRNA, LNP-S, [...] DOSE 2 2020 208 complet ed PFR; [id number]; 1 [facility] COVID-19 (PFIZER), MRNA, LNP-S, PF, 30 MCG/0.3 ML DOSE 1 2020 208 complet ed PFR; [id number]; 1 [facility] Results Combined list of recent chemistry, hematology [...] Aug 20, 2023 08:52 AM Reporting Lab: [facility] [address] [facility] [address] Performing Lab: [facility]USE[facility] [address] [facility] [address] [facility]ITALRLAWRENCE [facility]ENTERN [facility]USE [facility] CBC ERYTHROCYT ES [#/VOLUME] IN BLOOD BY AUTOMATED COUNT 4.65 10*6/uL 4.23 - 5.66 08/19 Specimen Type: BLOOD No comment entered. Ordering Provider: Rei INMAN Report Released Date/Time: Aug 20, 2023 08:52 AM Reporting Lab: [facility] [address] [facility] [address] Performing Lab: [facility] [address] [facility] [address] [facility] [place] [facility] CBC HEMOGLOBIN [MASS/VOLU ME] IN BLOOD 13.9 g/dL 12.8 - 17 08/19 Specimen Type: BLOOD No comment entered. Ordering Provider: Rei INMAN Report Released Date/Time: Aug 20, 2023 08:52 AM Reporting Lab: [facility] [place] [facility] [address] [facility] [address] Performing Lab: [facility] [place] [address] [address] [facility] [place] [facility] CBC HEMATOCRIT [VOLUME FRACTION] OF BLOOD BY AUTOMATED COUNT 40.7 39.2 - 50.4 08/19 Specimen Type: BLOOD No comment entered. Ordering Provider: Rei INMAN Report Released Date/Time: Aug 20, 2023 08:52 AM Reporting Lab: [facility] [place] [facility] [address] [facility] [address] Performing Lab: [facility] [place] [facility] [address] [facility] [address] [facility] [place] [facility] CBC MCV [ENTITIC VOLUME] BY AUTOMATED COUNT 87.5 fL 82 - 99 08/19 Specimen Type: BLOOD No comment entered. Ordering Provider: Rei INMAN Report Released Date/Time: Aug 20, 2023 08:52 AM Reporting Lab: [facility] [place] [facility] [address] [facility] [address] Performing Lab: [facility] [address] [facility] [address] [facility] [place] [facility] CBC MCHC [MASS/VOLU ME] BY AUTOMATED COUNT 34.2 g/dL 30.8 - 35.1 08/19 Specimen Type: BLOOD No comment entered. Ordering Provider: Rei INMAN Report Released Date/Time: Aug 20, 2023 08:52 AM Reporting Lab: [facility] [place] [facility] [address] [facility] [address] Performing Lab: [facility] [place] [facility] [address] [facility] [address] [facility] [place] [facility] CBC PLATELETS [#/VOLUME] IN BLOOD BY AUTOMATED COUNT 341 10*3/uL 140 - 360 08/19 Specimen Type: BLOOD No comment entered. Ordering Provider: Rei INMAN Report Released Date/Time: Aug 20, 2023 08:52 AM Reporting Lab: [facility] [place] [address] [address] Performing Lab: [facility] [place] [address] [address] [place] [facility] [place] [place] [facility] CBC ERYTHROCYT E DISTRIBUTI ON WIDTH [RATIO] BY AUTOMATED COUNT 12.4 12.0 - 16.0 08/19 Specimen Type: BLOOD No comment entered. Ordering Provider: Rei INMAN Report Released Date/Time: Aug 20, 2023 08:52 AM Reporting Lab: [facility] [place] [address] [address] Performing Lab: [facility] [place] [address] [address] [facility] [place] [facility] CBC MCH [ENTITIC MASS] BY AUTOMATED COUNT 29.9 pg 26.2 - 32.6 08/19 Specimen Type: BLOOD No comment entered. Ordering Provider: Rei INMAN Report Released Date/Time: Aug 20, 2023 08:52 AM Reporting Lab: [facility] [place] [address] [address] Performing Lab: [place] [facility] [place] [place] [address] [address] [facility]RN [facility] BASIC METABOLI C PANEL (fasting ) UREA NITROGEN [MASS/VOLU ME] IN SERUM OR PLASMA 23 mg/dL 7 - 25 08/19 Specimen Type: SERUM No comment entered. Ordering Provider: Rei INMAN Report Released Date/Time: Aug 20, 2023 08:52 AM Reporting Lab: [facility]ITALRCLEBURNE [facility] AND NURSING HOMETRN [facility]ENTERUSE[address] [address] Performing Lab: [facility]ITALRL WSTRN [facility]ENTERUSE[address] [address] [facility] HOSPITALRLAWRENCE MEDICAL [facility]ERN [facility] BASIC METABOLI C PANEL (fasting ) GLUCOSE [MASS/VOLU ME] IN SERUM OR PLASMA 110 mg/dL 65 - 100 08/19 H Specimen Type: SERUM No comment entered. Ordering Provider: Rei INMAN Report Released Date/Time: Aug 20, 2023 08:52 AM Reporting Lab: [facility]OSPITALRCLEBURNE [facility] AND NURSING HOMETRN MASSUSE[address] [address] Performing Lab: [facility]ITALRCLEBURNE [facility] AND NURSING HOMETRN [facility]ENTERUSE[address] [address] [facility]USE [facility] BASIC METABOLI C PANEL (fasting ) SODIUM [MOLES/VOL UME] IN SERUM OR PLASMA 139 mmol/L 135 - 145 08/19 Specimen Type: SERUM No comment entered. Ordering Provider: Rei INMAN Report Released Date/Time: Aug 20, 2023 08:52 AM Reporting Lab: [facility]ITALRL [place] [address] [address] Performing Lab: [facility] HOSPITALRL TRN [facility]ENTERUSE[address] [address] [facility] HOSPITALRCLEBURNE COMM[facility] HOMETRN [facility] BASIC METABOLI C PANEL (fasting ) POTASSIUM [MOLES/VOL UME] IN SERUM OR PLASMA 3.9 mmol/L 3.5 - 5.0 08/19 Specimen Type: SERUM No comment entered. Ordering Provider: Rei INMAN Report Released Date/Time: Aug 20, 2023 08:52 AM Reporting Lab: [facility] [place] [facility] [address] [facility] [address] Performing Lab: [facility] [place] [facility] [address] [facility] [address] [place] [facility] [facility] [facility] BASIC METABOLI C PANEL (fasting ) CHLORIDE [MOLES/VOL UME] IN SERUM OR PLASMA 106 mmol/L 100 - 110 08/19 Specimen Type: SERUM No comment entered. Ordering Provider: Rei INMAN Report Released Date/Time: Aug 20, 2023 08:52 AM Reporting Lab: [place] [facility] [place] [address] [address] Performing Lab: [place] [facility] [place] [address] [address] [facility]PITALRL WSTRN [address] [facility] BASIC METABOLI C PANEL (fasting ) CARBON DIOXIDE, TOTAL [MOLES/VOL UME] IN SERUM OR PLASMA 22 meq/L 20 - 30 08/19 Specimen Type: SERUM No comment entered. Ordering Provider: Rei INMAN Report Released Date/Time: Aug 20, 2023 08:52 AM Reporting Lab: [facility]ITALRL [place] [address] [address] Performing Lab: [place] [facility] [place] [address] [address] [facility]OSPITALRL WSTRN [facility]USE [facility] BASIC METABOLI C PANEL (fasting ) CREATININE [MASS/VOLU ME] IN SERUM OR PLASMA 1.07 mg/dL 0.50 - 1.40 08/19 Specimen Type: SERUM No comment entered. Ordering Provider: Rei INMAN Report Released Date/Time: Aug 20, 2023 08:52 AM Reporting Lab: [facility] [place] [address] [address] Performing Lab: [facility] [place] [address] [address] [facility] BASIC METABOLI C PANEL (fasting ) GLOMERULAR FILTRATION RATE/1.73 SQ M.PREDICTE D [VOLUME RATE/AREA] IN SERUM, PLASMA OR BLOOD BY CREATININE -BASED FORMULA (CKD-EPI 2020) 79 mL/min 60 08/19 Specimen Type: SERUM No comment entered. Ordering Provider: Rei INMAN Report Released Date/Time: Aug 20, 2023 08:52 AM Reporting Lab: [facility] [place] [address] [address] Performing Lab: [facility] [place] [address] [address] [facility]RL WSTRN [place] [facility] LIVER FUNCTION PROTEIN [MASS/VOLU ME] IN SERUM OR PLASMA 6.9 g/dL 6.0 - 8.3 08/19 Specimen Type: SERUM No comment entered. Ordering Provider: Rei INMAN Report Released Date/Time: Aug 20, 2023 08:52 AM Reporting Lab: [facility] [address] [address] Performing Lab: [facility] [place] [address] [address] [facility]RL W[facility] [place] [facility] LIVER FUNCTION ALBUMIN [MASS/VOLU ME] IN SERUM OR PLASMA 4.4 g/dL 3.5 - 5.0 08/19 Specimen Type: SERUM No comment entered. Ordering Provider: Rei INMAN Report Released Date/Time: Aug 20, 2023 08:52 AM Reporting Lab: [facility] [place] [address] [address] Performing Lab: [place] [facility] [place] [address] [address] [facility] LIVER FUNCTION ALKALINE PHOSPHATAS E [ENZYMATIC ACTIVITY/V OLUME] IN SERUM OR PLASMA 37 U/L 40 - 150 08/19 L Specimen Type: SERUM No comment entered. Ordering Provider: Rei INMAN Report Released Date/Time: Aug 20, 2023 08:52 AM Reporting Lab: [facility] [place] [address] [address] Performing Lab: [facility] [place] [facility] [address] [facility] [address] [facility] [place] [facility] LIVER FUNCTION ASPARTATE AMINOTRANS FERASE [ENZYMATIC ACTIVITY/V OLUME] IN SERUM OR PLASMA 30 U/L 5 - 34 08/19 Specimen Type: SERUM No comment entered. Ordering Provider: Rei INMAN Report Released Date/Time: Aug 20, 2023 08:52 AM Reporting Lab: [facility] [place] [facility] [address] [facility] [address] Performing Lab: [facility] [place] [facility] [address] [facility] [address] [place] [facility] [place] [facility] LIVER FUNCTION ALANINE AMINOTRANS FERASE [ENZYMATIC ACTIVITY/V OLUME] IN SERUM OR PLASMA 58 U/L 08/19 H Specimen Type: SERUM No comment entered. Ordering Provider: Rei INMAN Report Released Date/Time: Aug 20, 2023 08:52 AM Reporting Lab: [facility] [facility] [address] [facility] [address] Performing Lab: [facility] [place] [facility] [address] [facility] [address] [facility] [place] [facility] LIVER FUNCTION BILIRUBIN. TOTAL [MASS/VOLU ME] IN SERUM OR PLASMA 0.5 mg/dL 0.2 - 1.2 08/19 Specimen Type: SERUM No comment entered. Ordering Provider: Rei INMAN Report Released Date/Time: Aug 20, 2023 08:52 AM Reporting Lab: [facility] [place] [facility] [address] [facility] [address] Performing Lab: [facility] [place] [facility] [address] [facility] [address] [facility] [place] [facility] LIPID PANEL FASTING CHOLESTERO L [MASS/VOLU ME] IN SERUM OR PLASMA 200 mg/dL 08/19 H Specimen Type: SERUM No comment entered. Ordering Provider: Rei INMAN Report Released Date/Time: Aug 20, 2023 08:52 AM Reporting Lab: [facility] [place] [facility] [address] [place] [address] Performing Lab: [facility] [place] [facility] [address] [facility] [address] [facility] [place] [facility] LIPID PANEL FASTING TRIGLYCERI DE [MASS/VOLU ME] IN SERUM OR PLASMA 191 mg/dL 0 - 150 08/19 H Specimen Type: SERUM No comment entered. Ordering Provider: Rei INMAN Report Released Date/Time: Aug 20, 2023 08:52 AM Reporting Lab: [facility] [facility] [address] [facility] [address] Performing Lab: [facility] [place] [facility] [address] [facility] [address] [facility] [place] [facility] LIPID PANEL FASTING CHOLESTERO L IN LDL [MASS/VOLU ME] IN SERUM OR PLASMA BY CALCULATIO N 121 mg/dL 0 - 129 08/19 Specimen Type: SERUM No comment entered. Ordering Provider: Rei INMAN Report Released Date/Time: Aug 20, 2023 08:52 AM Reporting Lab: [facility] [place] [facility] [address] [facility] [address] Performing Lab: [facility] [place] [facility] [address] [facility] [address] [facility] [place] [facility] LIPID PANEL FASTING CHOLESTERO L.TOTAL/CH OLESTEROL IN HDL [MASS RATIO] IN SERUM OR PLASMA 4.9 08/19 Specimen Type: SERUM No comment entered. Ordering Provider: Rei INMAN Report Released Date/Time: Aug 20, 2023 08:52 AM Reporting Lab: [facility] [facility] [address] [facility] [address] Performing Lab: [facility] [place] [facility] [address] [facility] [address] [facility] [facility] LIPID PANEL FASTING CHOLESTERO L IN HDL [MASS/VOLU ME] IN SERUM OR PLASMA 41 mg/dL 40 - 60 08/19 Specimen Type: SERUM No comment entered. Ordering Provider: Rei INMAN Report Released Date/Time: Aug 20, 2023 08:52 AM Reporting Lab: [facility] [facility] [address] [facility] [address] Performing Lab: [facility] [place] [facility] [address] [facility] [address] [facility] [facility] TSH THYROTROPI N [UNITS/VOL UME] IN SERUM OR PLASMA 1.59 u[IU]/mL 0.35 - 5.00 08/19 Specimen Type: SERUM No comment entered. Ordering Provider: Rei INMAN Report Released Date/Time: Aug 20, 2023 08:52 AM Reporting Lab: [facility] [place] [address] [address] Performing Lab: [place] [facility] [address] [address] [facility]RL [facility] [place] [facility] URINALYS IS COLOR OF URINE Light-Ye llow 08/19 Specimen Type: URINE Comment: If Glucose = >500 and Ketones are positive, please alert the Physician. Ordering Provider: Rei INMAN Report Released Date/Time: Aug 20, 2023 08:52 AM Reporting Lab: [facility] [place] [address] [address] Performing Lab: [facility] [place] [address] [address] [facility] [place] [facility] URINALYS IS APPEARANCE OF URINE Clear 08/19 Specimen Type: URINE Comment: If Glucose = >500 and Ketones are positive, please alert the Physician. Ordering Provider: Rei INMAN Report Released Date/Time: Aug 20, 2023 08:52 AM Reporting Lab: [facility] [place] [address] [address] Performing Lab: [place] [facility] [address] [facility]ITALRL TRN [place] [facility] URINALYS IS GLUCOSE [MASS/VOLU ME] IN URINE NEGATIVE mg/dL 08/19 Specimen Type: URINE Comment: If Glucose = >500 and Ketones are positive, please alert the Physician. Ordering Provider: Rei INMAN Report Released Date/Time: Aug 20, 2023 08:52 AM Reporting Lab: [facility] [place] [address] [address] Performing Lab: [facility] [place] [address] [address] [facility]RL TRN [place] [facility] URINALYS IS KETONES [MASS/VOLU ME] IN URINE BY TEST STRIP NEGATIVE mg/dL 08/19 Specimen Type: URINE Comment: If Glucose = >500 and Ketones are positive, please alert the Physician. Ordering Provider: Rei INMAN Report Released Date/Time: Aug 20, 2023 08:52 AM Reporting Lab: [facility]RL [facility]N [place] [address] [address] Performing Lab: [facility]RL WSTRN [facility] CENTERUSETS [address] [address] [facility]OSPITALRCLEBURNE COMM[facility] NURSING HOMETRN [facility]USE [facility] URINALYS IS ERYTHROCYT ES [PRESENCE] IN URINE SEDIMENT BY LIGHT MICROSCOPY NEGATIVE mg/dL 08/19 Specimen Type: URINE Comment: If Glucose = >500 and Ketones are positive, please alert the Physician. Ordering Provider: Rei INMAN Report Released Date/Time: Aug 20, 2023 08:52 AM Reporting Lab: [facility] [place] [address] [address] Performing Lab: [facility] [place] [address] [address] [facility]OSPITALRCLEBURNE COMM[facility] AND NURSING HOMETRN [place] [facility] URINALYS IS PROTEIN [MASS/VOLU ME] IN URINE BY TEST STRIP NEGATIVE mg/dL 08/19 Specimen Type: URINE Comment: If Glucose = >500 and Ketones are positive, please alert the Physician. Ordering Provider: Rei INMAN Report Released Date/Time: Aug 20, 2023 08:52 AM Reporting Lab: [facility] [place] [facility] [address] [facility] [address] Performing Lab: [facility] [place] [facility] [address] [facility] [address] [facility] [place] [facility] URINALYS IS NITRITE [PRESENCE] IN URINE NEGATIVE mg/dL 08/19 Specimen Type: URINE Comment: If Glucose = >500 and Ketones are positive, please alert the Physician. Ordering Provider: Rei INMAN Report Released Date/Time: Aug 20, 2023 08:52 AM Reporting Lab: [facility] [place] [facility] [address] [facility] [address] Performing Lab: [facility] [place] [facility] [address] [facility] [address] [facility] [place] [facility] URINALYS IS BILIRUBIN. TOTAL [PRESENCE] IN URINE NEGATIVE mg/dL 08/19 Specimen Type: URINE Comment: If Glucose = >500 and Ketones are positive, please alert the Physician. Ordering Provider: Rei INMAN Report Released Date/Time: Aug 20, 2023 08:52 AM Reporting Lab: [facility] [place] [facility] [address] [facility] [address] Performing Lab: [facility] [place] [facility] [address] [facility] [address] [facility] [place] [facility] URINALYS IS SPECIFIC GRAVITY OF URINE BY REFRACTOME TRY 1.012 1.016 - 1.022 08/19 L Specimen Type: URINE Comment: If Glucose = >500 and Ketones are positive, please alert the Physician. Ordering Provider: Rei INMAN Report Released Date/Time: Aug 20, 2023 08:52 AM Reporting Lab: [facility] [place] [facility] [address] [facility] [address] Performing Lab: [facility] [place] [facility] [address] [facility] [address] [facility] URINALYS IS PH OF URINE BY TEST STRIP 6.0 5.0 - 9.0 08/19 Specimen Type: URINE Comment: If Glucose = >500 and Ketones are positive, please alert the Physician. Ordering Provider: Rei INMAN Report Released Date/Time: Aug 20, 2023 08:52 AM Reporting Lab: [facility] [address] [facility] [address] Performing Lab: [facility] [address] [facility] [facility] [address] [facility] URINALYS IS UROBILINOG EN [MASS/VOLU ME] IN URINE BY TEST STRIP <2.0mg/d L <2.0 - 2.0 08/19 Specimen Type: URINE Comment: If Glucose = >500 and Ketones are positive, please alert the Physician. Ordering Provider: Rei INMAN Report Released Date/Time: Aug 20, 2023 08:52 AM Reporting Lab: [facility] [address] [facility] [address] Performing Lab: [facility]USEST[facility] [address] [facility] [address] URINALYS IS LEUKOCYTE ESTERASE [PRESENCE] IN URINE BY TEST STRIP NEGATIVE 08/19 Specimen Type: URINE Comment: If Glucose = >500 and Ketones are positive, please alert the Physician. Ordering Provider: Rei INMAN Report Released Date/Time: Aug 20, 2023 08:52 AM Reporting Lab: [facility]USE[facility] [address] [facility] [address] Performing Lab: [facility]ENTERUSE[address] [address] [facility] VITAMIN D (25-OH) 25-HYDROXY VITAMIN D3 [MASS/VOLU ME] IN SERUM OR PLASMA 29 ng/mL 20 - 50 08/19 Specimen Type: SERUM No comment entered. Ordering Provider: Rei INMAN Report Released Date/Time: Aug 20, 2023 08:52 AM Reporting Lab: [facility]ITALRCLE[facility] NURSING HOMETRN [facility] CENTERUSETS [address] [address] Performing Lab: [facility]RAY[facility] HOSPITALRL TRN [facility]ENTERUSE[address] [address] [facility] HOSPITALRLAWRENCE MEDICAL CENTERN [facility]USE [facility] HIV 1&2 Ag/Ab SCREEN HIV 1+2 AB+HIV1 P24 AG [PRESENCE] IN SERUM OR PLASMA BY IMMUNOASSA Y NON-REAC TIVE 08/19 Specimen Type: SERUM No comment entered. Ordering Provider: Rei INMAN Report Released Date/Time: Aug 20, 2023 08:52 AM Reporting Lab: [facility] HOSPITALRLAWRENCE MEDICAL CENTERN [facility]ENTERUSE[address] [address] Performing Lab: [facility] HOSPITALRLAWRENCE MEDICAL CENTERN [facility]ENTERUSE[address] [address] [facility]USE [facility] HEPATITI S C ANTIBODY (HCV)-AR C HEPATITIS C VIRUS AB [PRESENCE] IN SERUM NON-REAC TIVE 08/19 Specimen Type: SERUM Comment: Hep C Ab: No HCV antibody detected. If recent infection is suspected or other evidence suggests HCV infection, consider HCV nucleic acid testing Ordering Provider: Rei INMAN Report Released Date/Time: Aug 20, 2023 08:52 AM Reporting Lab: [facility] [address] [address] Performing Lab: [facility] HOSPITALRL [facility]ENTERUSE[address] [address] [facility] HOSPITALRLAWRENCE MEDICAL CENTERN [facility]USE [facility] OCCULT BLOOD FIT X1 SCREEN(W R) HEMOGLOBIN .GASTROINT ESTINAL.LO WER [PRESENCE] IN STOOL BY IMMUNOASSA Y Negative 08/21 Specimen Type: FECES Comment: H* INDICATES A VA ALERT HAS BEEN SENT Ordering Provider: Rei INMAN Report Released Date/Time: Aug 23, 2022 01:48 PM Reporting Lab: [facility] HOSPITALRLAWRENCE MEDICAL CENTERN [facility]ENTERUSE[address] [address] Performing Lab: [facility] [address] [facility] [address] [facility] Vital [...] [facility] [id number] 03/07 [facility] En[facility] [id number] 03/09 [facility] En[facility] [id number] 04/02 [facility] Encounter [id number] 05/15 [facility] OFFICE O/P EST LOW 20 MIN [id number] Diagnos is: ICD-10- CM H91.90 Unspeci fied hearing loss, unspeci fied ear<br/ > HENNYNENA 08/19 [facility] En[facility] [id number] 09/30 [facility] Encounter [id number] 10/10 [facility] Encounter [id number] 10/10 [facility] OFF/OP EST MAY X REQ PHY/QHP [id number] Diagnos is: ICD-10- CM Z23 Encount er for immuniz ation<b r/> Karthikeyan MALDONADO 10/15 [facility] Encounter [id number] Desirae DOMINGUEZ 02/06 [facility] Encounter [id number] ABDIEL,TAMMY ISTOPHER E 04/10 [facility] Encounter [id number] Diagnos is: ICD-10- CM Z02.89 Encount er for other adminis trative examina tions<b r/> CARLOS CASTRO 04/21 [facility] Social History Combined list of available smoking, tobacco, and other social history from Department of Defense and Veterans Affairs facilities. Social History Type Response Date Comment Sourc e Tobacco smoking status NHIS VA-TOBACCO FORMER USER 08/20/2023 [facility] [place] [facility] History of tobacco use VA-TOBACCO QUIT 15 YRS OR MORE 08/20/2023 [facility] [place] [facility] History of tobacco use VA-TOBACCO FORMER USER 08/18/2022 [facility] [place] [facility] History of tobacco use PREVIOUS SMOKER 07/28/2022 [facility] [place] [facility] History of tobacco use VA-TOBACCO FORMER USER 02/10/2020 [facility] [place] [facility] This section is an empty social history section. DoD Plan of Care List of future care activities from Department of Veterans Affairs facilities. Additional future care activities may be listed in the Assessment and Plan section. Date/Time Care Activity Care Activity Detail Facili ty 08/18/2024 AMBULATORY - MEDICINE AMBULATORY - [facility]ICI NE [facility]
== END 2024-06-17 10:57 | disposition home or self-care (01) ==
LOC: HO.HMGCX 10:56
PROVIDERS: PCP Internal Medicine; Visit Provider Internal Medicine
DX: M25.561 Pain in right knee (principal)
CPT/HCPCS: 73560

== ENCOUNTER → 2024-06-17 11:20 | Outpatient (BNV) | payer OTHER, SELFPAY | PROVIDERS: PCP Internal Medicine; Visit Provider Radiology Diagnostic Radiology | DX: M25.561 Pain in right knee (principal) | CPT/HCPCS: 73560 ==

== ENCOUNTER → 2024-06-27 17:55 | Outpatient (BNV) | payer OTHER, SELFPAY ==
--- NOTE | 2024-06-27 17:55 | MHC.PC.OV ---
Intake Visit Reasons: Amb Documentation Allergies amlodipine Adverse Reaction (Intermediate, Verified 06/10/24 11:00) leg swelling chlorthalidone Adverse Reaction (Intermediate, Verified 06/10/24 11:00) gout, hypokalemia ezetimibe [Zetia] Adverse Reaction (Intermediate, Verified 06/10/24 11:00) ^ LFTS lisinopril Adverse Reaction (Intermediate, Verified 06/10/24 11:00) cough topiramate [From Topamax] Adverse Reaction (Intermediate, Verified 06/10/24 11:00) agitation Tobacco use date assessed: 06/10/24 Dental Screening Dental Screen Date: 06/10/24 HPI Amb Documentation HPI Details yesterday , 1 days sore throat nofever, chills, cough , non productive and was tested in the urgent center tested Wanda and was told influenza A patient calling in. [facility] Medical History Daytime sleepiness Disc degeneration, lumbosacral Family history of malignant hyperthermia DDD (degenerative disc disease), lumbar Obesity (BMI 30-39.9) Nocturnal hypoxemia Obstructive sleep apnea Vitamin D deficiency Impaired glucose tolerance Fatty liver Hypercholesterolemia Hypertension Surgical History S/P bilateral inguinal hernia repair History of ear surgery H/O colonoscopy History of selective injection of anesthetic agent around lumbar nerve root Family History Father Lung cancer Mother Lung cancer Maternal Grandmother No problems noted. Maternal Grandfather Lung cancer Paternal Grandmother No problems noted. Paternal Grandfather No problems noted. Daughter Bipolar disorder Maternal Aunt Bipolar disorder Other Mental health disorder Social History Housing: House Alcohol intake: current Comment: 2 a month 4 beers Patient Tobacco Use Status: Former Tobacco user Tobacco use type: Cigarette Years Smoked: 1987 e-Cigarette/Vaping Use: Never Used Second Hand Smoke Exposure: Yes service: Yes Current occupational status: employed Current occupational exposures/hazards: No Cognitive needs: No Hearing needs: No Vision needs: Yes (Glasses) Questionnaire Thrive Questionnaire Date Thrive assessed: 06/10/24 AVIVA-7 AMB Questionnaire AVIVA-7 Date AVIVA - 7 assessed: 06/10/24 Source: Developed by Drs. Tuan Schwarz, Claudia Burdick, Fabricio Salinas and colleagues, with an educational piper from [employer]. Physical exam (Primary Care) Tobacco/Smoking Status: Tobacco use Status Tobacco use date assessed 06/10/24 06/10/24 11:04 Patient Tobacco Use Status Former Tobacco user 06/10/24 11:04 Tobacco use type Cigarette 06/10/24 11:04 e-Cigarette/Vaping Use Never Used 06/10/24 11:04 Thrive Assessment: Date of Thrive Assessment Date Thrive assessed 06/10/24 06/10/24 11:04 Telehealth Telehealth Telehealth Platform: Telephone Location of provider rendering services: practice address Location of patient: address on file Patient Identification confirmed using: Name, : Yes Telehealth method: voice only Patient verbally consented to treatment: Yes Patient verbally consented to billing insurance company: Yes Patient informed of any privacy concerns related to visit: Yes Minutes spent on Phone/Video with Pt.: 15 Coding Level of Care Code Tele Est Pt Level 3 (38092) Diagnoses Influenza A J10.1 Assessment & Plan Assessment & Plan (1) Influenza A: Code(s): J10.1 - Influenza due to other identified influenza virus with other respiratory manifestations Category: Medical Plan: For the sore throat can take Cepacol lozenges, discussed about Delsym to help with dry cough so she can rest and advised to increase oral fluids. Patient also can take Tylenol for chills and fever. Antiviral sent in Medications: New oseltamivir (Tamiflu) 75 mg PO BID 5 days 10 caps 0RF J10.1 - Influenza due to other identified influenza virus with other respiratory manifestations
== END ==
PROVIDERS: PCP Internal Medicine; Visit Provider Internal Medicine
DX: J10.1 Influenza due to other identified influenza virus with other respiratory manifestations (principal)
CPT/HCPCS: 98012

== ENCOUNTER 2024-08-06 09:58 | Outpatient (REF) | payer OTHER, SELFPAY ==
--- OUTSIDE RECORDS SUMMARY | 2024-08-06 11:25 | XMS_ITS | Patient Health Record ---
Author Organization [facility] Address [address] [place] [address] Care Team Providers Care Hothouse Worker Name Role Phone Lorraine Fields Primary Care Provider Unavaildonato e Tirso Sunshine Unavailable [phone] Allergies Allergen (clinical drug ingredient) Drug/Non Drug Allergy documented on EMR Reaction Allergy Type Onset Date Status amlodipine Amlodipine leg swelling Drug Allergy Ac tive chlorthalidone Chlorthalidone gout, hypokalemia Drug Allergy Active ezetimibe Ezetimibe elevated LFTs Drug Allergy Act vikram lisinopril Lisinopril cough Drug Allergy Activ e Reason For Referral No Information Medications Medication SIG (Take, Route, Frequency, Duration) [...] primary osteoarthritis of the ankle and/or foot (740227416) Primary osteoarthritis, left ankle and foot (M19.072) Active confirmed Problem [id number] Neuropathy (G62.9) Active confirmed Problem [id number] 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
--- OUTSIDE RECORDS SUMMARY | 2024-08-06 11:25 | XMS_ITS ---
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] for children. ?Marital status: . 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 * Medications:?TakingSimvastat in 5 MG [...] ray : Foot, left 3V * Procedure Codes:?42212 X-RAY EXAM OF RIGHT FOOT 3V, Modifiers: 26 , [id number] X- RAY EXAM OF LEFT FOOT 3V, [...] Interfil injection therapy, as well as surgical [place]/Endoscopic Fasciitomy surgical procedures if needed. Recommendations were [...] Provider:?Jessica Brennan DPM Date:? Generated for Silvia dorsey/Enriqueta/Homaitting on:?08/06/2024 11:25 AM EDT History and Physical Notes * HPI (History [...]
== END 2024-08-06 09:59 | disposition home or self-care (01) ==
LOC: HO.SH 09:58
PROVIDERS: Visit Provider Internal Medicine
DX: Z01.118 Encounter for examination of ears and hearing with other abnormal findings (principal); H90.3 Sensorineural hearing loss, bilateral
CPT/HCPCS: 92557; 92567

== ENCOUNTER 2024-10-07 10:52 | Outpatient (AMB) | payer OTHER, SELFPAY ==
--- NOTE | 2024-10-07 10:59 | MHC.OFFVIS ---
Vital Signs 10/07/24 11:01 Height 5 ft 10 in Weight 220 lb BMI 31.6 BP 126/82 Blood Pressure Location Lt brachial Position Sitting Pulse 62 Pulse Source Pulse Oximeter Pulse Oximetry (%) 95 Oxygen Delivery Method Room Air Intake Visit Reasons: Follow Up 6mo Intake Note: Patient presents follow up [facility]AI medication. Compliance in chart(90/90days, >=4hrs-90 days, Median Pressure-9.8, Median Leaks- 1.3, AHI-1.1). Patient states never received his modafinil RX at pharmacy Allergies amlodipine Adverse Reaction (Intermediate, Verified 10/07/24 11:06) leg swelling chlorthalidone Adverse Reaction (Intermediate, Verified 10/07/24 11:06) gout, hypokalemia ezetimibe [Zetia] Adverse Reaction (Intermediate, Verified 10/07/24 11:06) ^ LFTS lisinopril Adverse Reaction (Intermediate, Verified 10/07/24 11:06) cough topiramate [From Topamax] Adverse Reaction (Intermediate, Verified 10/07/24 11:06) agitation HPI Comments Details: 57 y/o male patient presents for follow up of [facility] on CPAP and hypersomnia. Pt reports he sleeps well, 7-8 hrs with two bathroom breaks at most, he is a retired [employer] and notices since his time in the service he has always had difficulty with sleep. He is on modafinil 100 mg qAM for hypersomnia, and was unable to refill the prescription at [facility] today. Pt states that he is more alert and can focus on work, not falling asleep during work hours and does not take Modafinil on weekends. He denies side effects, he denies bruxism but is not certain as sometimes he wakes up with morning headaches which go away. Pt feels he needs a new prescription for a new CPAP machine, as his machine is starting to make some noise and he is worried it may stop working. RLS He moves his legs at night and wiggles his toes because he gets painful cramps in feet bilaterally, we discussed starting a dopamine agonist today. He continues to have spasms and cramps bilaterally in calves and feet with pins and needles so he has to get up and put weight on his feet. His memory and mood are stable. He does not smoke, drinks alcohol socially. [facility] Medical History Daytime sleepiness Disc degeneration, lumbosacral Family history of malignant hyperthermia DDD (degenerative disc disease), lumbar Obesity (BMI 30-39.9) Nocturnal hypoxemia Obstructive sleep apnea Vitamin D deficiency Impaired glucose tolerance Fatty liver Hypercholesterolemia Hypertension Surgical History S/P bilateral inguinal hernia repair History of ear surgery H/O colonoscopy History of selective injection of anesthetic agent around lumbar nerve root Family History Father Lung cancer Mother Lung cancer Maternal Grandmother No problems noted. Maternal Grandfather Lung cancer Paternal Grandmother No problems noted. Paternal Grandfather No problems noted. Daughter Bipolar disorder Maternal Aunt Bipolar disorder Other Mental health disorder Social History Housing: House Alcohol intake: current Comment: 2 a month 4 beers Patient Tobacco Use Status: Former Tobacco user Tobacco use type: Cigarette Years Smoked: 1987 e-Cigarette/Vaping Use: Never Used Second Hand Smoke Exposure: Yes service: Yes Current occupational status: employed Current occupational exposures/hazards: No Cognitive needs: No Hearing needs: No Vision needs: Yes (Glasses) Physical Exam Vital Signs: Last Vital Signs Pulse 62 10/07/24 11:01 BP 126/82 10/07/24 11:01 Pulse Ox 95 10/07/24 11:01 Oxygen Delivery Method Room Air 10/07/24 11:01 BMI result Body Mass Index 31.6 Const General: cooperative, comfortable and no acute distress Nutritional Appearance: overweight Orientation/consciousness: patient oriented x3 Eyes Pupils: Equal, round and reactive pupils present Neck Neck: Yes full ROM Resp Effort & Inspection: normal respiratory effort and able to speak in complete sentences Neuro General: patient oriented x3 and moves all extremities Cranial nerves: Yes Facial sensation intact/muscles of mastication intact, Yes Equal, round and reactive pupils present, Yes Normal accommodation reflex present, Yes Normal facial strength present, Yes Midline tongue present, Yes Ability to bilaterally rotate head present and Yes Ability to bilaterally elevate shoulders present Gait exam (Neuro): Normal gait present Motor exam (neuro): 5/5 motor strength present throughout and Normal motor muscle tone present throughout Psych Appearance: grossly normal Thought process: Normal thought process present Thought content: Normal thought content present Results Reviewed Results Reviewed: [facility] Compliance Report 07/01/2024 - 09/28/2024 90/90 days 100% and >4 hours 90 days Avg total use 7 hours and 20 min Auto press [id number] Press median 9.8 Leaks median 1.3 AHI 1.0 Labs reviewed with patient Ferritin is high, he is being followed with PCP. Assessment & Plan Assessment & Plan (1) Obstructive sleep apnea: Comment: Sleep study February 2018 on CPAP Code(s): G47.33 - Obstructive sleep apnea (adult) (pediatric) Category: Medical (2) Hypersomnia with sleep apnea: Code(s): G47.10 - Hypersomnia, unspecified; G47.30 - Sleep apnea, unspecified Category: Medical (3) Leg cramps: Code(s): R25.2 - Cramp and spasm Category: Medical (4) RLS (restless legs syndrome): Code(s): G25.81 - Restless legs syndrome Category: Medical Plan WAI Continue to use APAP [id number] nightly > 4 hrs, as patient is experiencing good clinical effects. Clean and change PAP supplies routinely, wash mask, tubing, change filters and fill reservoir with water as needed. Hypersomnia continue on Modafinil 100mg po daily at 7am, with the exception on weekends. RLS start gabapentin 300mg po at bedtime, continue Magnesium 400mg at bedtime for BLE foot cramps, topically may use magnilife restless leg cream. F/U in 3 months. Medications: New gabapentin take one 300mg PO capsule at bedtime daily for RLS symptoms. 300 mg PO BEDTIME 90 days 90 caps 3RF Restless Leg Syndrome MDD 300mg PO G25.81 - Restless legs syndrome Refilled modafinil 100 mg PO QAM 30 days 30 tabs 4RF Patient Instructions: Sleep Hygiene provided: set a scheduled bedtime and wake time to help regulate the circadian rhythm and balance the release of pituitary hormones. Sleep in a dark room, temperatures below 68 degrees, and no devices n bed. Limit caffeinated products 6 hours prior to bed, and limit fluids 2-4 hours prior to bed. Gentle night yoga, diffusing essential oils, and playing soft music can be relaxing. Declined PT today. Will evaluate for bruxism next visit. Coding Level of Care Code Est Pt Level 4 (52043) Complex EM visit Add On G2211 Diagnoses Obstructive sleep apnea G47.33 Hypersomnia with sleep apnea G47.10; G47.30 Leg cramps R25.2 RLS (restless legs syndrome) G25.81 Time Spent (min) 30
[2024-10-07 11:01] VITALS: BP 126/82; PULSE 62; O2SAT 95; BMI 31.6
--- OUTSIDE RECORDS SUMMARY | 2024-10-07 12:07 | XMS_ITS ---
[facility] Organization [facility] Address [address] [place] [address] Care Team Providers Care Body And Frame Technician Name Role Phone Lorraine Fields Primary Care Provider UnavailTirso Branch Unavailable [phone] Jessica Brennan Unavailable [phone] Allergies Allergen (clinical drug ingredient) Drug/Non Drug [...] Problem Status W/U Status Risk Notes Problem [id number] Neuropathy (G62.9) Active confirmed Problem [id number] Primary osteoarthritis of right ankle (M19.071) Active confirmed Vital Signs Height 5 ft 10 in in 07/17/2023 Weight 217 lbs 07/17/2023 BMI 31.13 kg/m2 07/17/2023 Encounters Encounter Location Date Provider Diagnosis [facility] [address] [address] 07/17/2023 Jessica Perica Pain in right foot [...] Ubaldo WALTERS PDOB: [birth year] (57 yo M)Acc No.[id number]:07/17/2023 Progress Note Patient:?Ubaldo Walters P Provider:?Jessica Brennan DPM :1965???Age:57 Y???Sex:Male Sang e:07/17/2023 Address:[address] [place] [address] [id number] Pcp:Lorraine Fields Subjective: * Chief Complaints: * [...] for children. ?Marital status: . 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 * Medications:?TakingSimvastat in 5 MG [...] ray : Foot, left 3V * Procedure Codes:?69503 X-RAY EXAM OF RIGHT FOOT 3V, Modifiers: 26 , [id number] X- RAY EXAM OF LEFT FOOT 3V, [...] Interfil injection therapy, as well as surgical [place]/Endoscopic Fasciitomy surgical procedures if needed. Recommendations were [...] Brennan DPM Date:? Generated for Silvia dorsey/Enriqueta/Homaitting on:?10/07/2024 12:06 PM EDT History and Physical Notes * HPI [...]
--- OUTSIDE RECORDS SUMMARY | 2024-10-07 12:07 | XMS_ITS ---
Author Name [facility] [place] [facility] Address [address] [place] [id number] Care Team Providers Care Outpatient Coder Name Role Phone ANKIT CORTEZ Primary Care [...] PRESCRIPT ION RX May 21, 2022 THPRX [phone] DION FITZPATRICK PATIENT [facility] FLORECITA Martinez 2023 [facility] [id number] DION FITZPATRICK PATIENT Selected Encounter This section includes the information on record at [place] for the Encounter. Date/Time Encounter Type Encounter Description Reason Provider Source Aug 18, 2024 08:30 AM OFFICE O/P EST LOW 20 MIN PRIMARY CARE/MEDICINE ICD-10-CM I10 Essential (primary) hypertension STUART CORTEZ E Encounter Template Text not used by [place] Assessments - Encounter Diagnoses This section includes the primary and secondary diagnoses documented for the Encounter. Date/Time Primary/Secondary Diagnosis Diagnosis Name Provider Source Aug 18, 2024 09:09 AM PRIMARY Essential (primary) hypertension STUART CORTEZ [place] [facility] [place] [facility] Aug 18, 2024 09:09 AM SECONDARY Encounter for immunization STUART CORTEZ [place] [facility] [place] [facility] Vital Signs: All taken on the encounter date This section contains inpatient and outpatient Vital Signs collected on the date of the Encounter. Date/Time Temperature Pulse Blood Pressure Respiratory Rate SP02 Pain Height Weight Body Mass Index Source Aug 18, 2024 09:03 [facility] 138[facility] [facility] Aug 18, 2024 08:43 AM 98.3 64 140/80 18 98 0 210 29 [facility] Immunizations: All administered on the encounter date This section contains immunizations associated to the Encounter. Immunization Series Date Issued Administered By Site Reaction Lot Number [id number] Code Drug Research And Development Tester Comment(s) Source RSV, BIVALENT, PROTEIN SUBUNIT RSVPREF, DILUENT RECONSTITUTED , 0.5 ML, PF 1 Aug 18, 2024 BHARAT MEADOWS E RIGHT DELTO ID [id number] [employer] ADMINISTERE D AT [place], [facility] Social History: Smoking Status (Most current) and Tobacco Use (All prior to encounter date) This section includes the most current, and the historical, smoking and tobacco- related health factors from the [place] facility where the Encounter took place. Current Smoking Status This section includes the most current smoking, or tobacco-related health factor, from the [place] facility where the Encounter took place. Date/Time Current Smoking Status Comment Pina ity Aug 18, 2024 08:30 AM VA-TOBACCO USE FOR JONES C[facility]AR[facility]TES [facility] Tobacco Use History This section includes a history of the smoking, or tobacco-related health factors, that were collected on or before the date of the Encounter. The data comes from the [place] facility where the Encounter took place. Date/Time Smoking Status/Tobacco Use Comment F acility Aug 18, 2024 08:30 AM VA-TOBACCO USE FOR JONES CIGARETTES [place] [facility] [place] [facility] Aug 20, 2023 08:30 AM VA-TOBACCO FORMER USER [place] [facility] [place] [facility] Aug 20, 2023 08:30 AM VA-TOBACCO QUIT 15 YRS OR MORE [place] [facility] [place] [facility] Aug 18, 2022 09:00 AM VA-TOBACCO FORMER USER [place] [facility] [place] [facility] Aug 18, 2022 09:00 AM VA-TOBACCO QUIT 15 YRS OR MORE [facility] [place] [facility] Jul 28, 2022 08:00 AM AH-BPR SMOKING DEPLOYMENT NO [facility] [place] [facility] Jul 28, 2022 08:00 AM PREVIOUS SMOKER [place] [facility] [place] [facility] Feb 10, 2020 03:00 PM VA-TOBACCO FORMER USER [facility] [place] [facility] Feb 10, 2020 03:00 PM VA-TOBACCO QUIT 15 YRS OR MORE [place] [facility] [place] [facility] Encounter Notes: All associated encounter notes This section contains the clinical notes associated to the Encounter. Date/Time Encounter Note(s) Provider Source Aug 18, 2024 08:55 AM PHYSICIAN LAWN CARE PROFESSIONAL NOTE: LOCAL TITLE: PA NOTE STANDARD TITLE: PHYSICIAN LAWN CARE PROFESSIONAL NOTE DATE OF NOTE: AUG 18, 2024@08:55 [...] substance 2. Obstructive Sleep Apnea of Adult ([facility] [id number]) 3. HTN - Hypertension ([facility] [id number]) 4. Hypercholesterolemia ([facility] [id number]) 5. Hearing Loss ([facility] 04050493) 6. Low Back Pain ([facility] [id number]) SERVICE CONNECTED % - 50 [facility] and [...] obesity were reviewed and discussed with the [place], and the benefits of a weight management treatment program, such as MOVE! was discussed and offered to the [place]. After discussing the health risks of being [...] substance 2. Obstructive Sleep Apnea of Adult ([facility] [id number]) 3. HTN - Hypertension ([facility] 82509353) 4. Hypercholesterolemia ([facility] 02671555) 5. Hearing Loss ([facility] 07255796) 6. Low Back Pain ([facility] 238981542) SERVICE CONNECTED % - 50 [facility] and [...] nasolabial folds intact. [facility] [place]. /alka/ Ankit Cortez PA-C STAFF PHYSICIAN LAWN CARE PROFESSIONAL Signed: 08/18/2024 09:09 [facility]IT [facility]TEZ [place] [facility] Aug 18, 2024 08:44 AM PREVENTIVE MEDICINE NURSING NOTE: LOCAL TITLE: CLINICAL REMINDERS/NURSING STANDARD TITLE: PREVENTIVE MEDICINE NURSING NOTE DATE OF NOTE: AUG 18, 2024@08:44 ENTRY DATE: AUG 18, 2024@08:45:13 AUTHOR: DG MEADOWS COSIGNER: URGENCY: STATUS: COMPLETED CLINICAL REMINDERS/NURSING Has ADDENDA Suicide Screen: C-SSRS Screening [place] Suicide Severity Rating Scale (C-SSRS) screener 1. [...] Aug 18, 2024 08:30 Series: Series 1 Research And Development Tester: [employer] Lot: [id number] Exp Date: Apr 19, 2025 NDC: [id number] Admin Route/Site: INTRAMUSCULAR/RIGHT DELTOID Dosage: 0.5mL Vaccine Information Statement(s): RSV (RESPIRATORY SYNCYTIAL VIRUS) VACCINE VIS Jun 20, 2024 ([place]) Order By: Policy Administered By: Dg Meadows Vaccine Information Sheet (VIS) was given to the patient/caregiver, education regarding adverse reactions was discussed, as well as barriers to learning, if any, were acknowledged. /alka/ DG MEADOWS LPN Signed: 08/18/2024 09:09 [facility] MEADOWS [place] [facility]
--- OUTSIDE RECORDS SUMMARY | 2024-10-07 12:07 | XMS_ITS | Patient Health Record ---
Author Organization [facility] Address [address] 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
--- OUTSIDE RECORDS SUMMARY | 2024-10-07 12:07 | XMS_ITS | Continuity of Care Document ---
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 It does not include entries that were removed or entered in error. Problem Status Onset Date Problem Type Date of Resolution Comments Source Exposure to potentially hazardous substance Active Condition [facility] Hearing Loss (SCT [id number]) Active Condition [facility] HTN - Hypertension (SCT [id number]) Active Condition [facility] Hypercholesterolemia (SCT 66030608) Active Condition [facility] Low Back Pain (SCT [id number]) Active Condition [facility] Obstructive Sleep Apnea of Adult (SCT [id number]) Active Condition [facility] Diagnosis: ICD-10-CM I10 Essential (primary) hypertension Active Diagnosis [facility] [...] ONCE DAILY ORAL ACTIVE NENA INMAN 2022 [facility] FENOFIBRATE 145MG TAB TAKE ONE TABLET BY MOUTH ONCE DAILY ORAL ACTIVE NENA INMAN 2019 [facility] HYDROCHLORO THIAZIDE/LO SARTAN TAB TAKE BY MOUTH ONCE DAILY ORAL ACTIVE NENA INMAN 2022 [facility] METOPROLOL SUCCINATE 100MG TAB,SA TAKE ONE TABLET BY MOUTH ONCE DAILY ORAL ACTIVE [place] S[facility] 2022 [facility] Allergies, Adverse Reactions, Alerts Combined list of allergies from Department of [facility] and [facility] facilities. It does not include entries that were removed or entered in error. Substance Category Reaction Severity Reaction type Status Date Reported Comments Source AMLODIPINE Drug allergy (disorder) Swelling of lower limb active 3 [facility] [place]THAL[place]O [place] Drug allergy (disorder) Hypokalemia , Gout active 3 [facility] [place] Propensity to adverse reactions to drug (finding) Gout, Hypokalemia active 3 [facility] EZETIMIBE Drug allergy (disorder) Liver enzymes abnormal active 3 [facility] LISINOPRIL Propensity to adverse reactions to drug (finding) active 0 [facility] Immunizations Combined list of available immunizations from the Department of [facility] and [facility] facilities. Immunization Series Date Given Administered By Site Reaction Lot Number CVX Code Drug Disaster Recovery Coordinator Status Comments Source RSV, BIVALENT, PROTEIN SUBUNIT RSVPREF, DILUENT RECONSTITUTED , 0.5 ML, PF 1 2024 BH[place] E [place] [id number] 305 complet ed ADMINISTE RED AT ME, [facility] COVID-19 (PFIZER), MRNA, LNP-S, PF, ROLANDA-SUCROSE, 30 MCG/0.3 ML (AGES 12+ YEARS) 1 2023 309 complet ed HISTORICA L INFORMATI ON - FROM OTHER PROVIDER, [facility] INFLUENZA, UNSPECIFIED FORMULATION 2023 88 complet ed Booster for Series, HISTORICA L INFORMATI ON - FROM OTHER PROVIDER, [facility] TDAP 2023 ETHAN MALDONADO RIGHT DELTO ID [id number] 115 complet ed ADMINISTE RED AT ME, [facility] ZOSTER RECOMBINANT 2 2023 ETHAN MALDONADO LEFT DELTO ID [id number] 187 complet ed ADMINISTE RED AT ME, [facility] PNEUMOCOCCAL CONJUGATE PCV20, POLYSACCHARID E [id number] CONJUGATE, ADJUVANT, PF 2023 BHARAT MEADOWS E LEFT DELTO ID [id number] 216 complet ed Booster for Series, ADMINISTE RED AT ME, [facility] ZOSTER RECOMBINANT 2023 BHARAT MEADOWS E LEFT DELTO ID [id number] 187 complet ed Booster for Series, ADMINISTE RED AT ME, [facility] INFLUENZA, UNSPECIFIED FORMULATION 2022 88 complet ed Booster for Series, HISTORICA L INFORMATI ON - FROM OTHER PROVIDER, [facility] COVID-19 ([email or web address]), MRNA, LNP-S, BIVALENT BOOSTER, PF, 30 MCG/0.3 ML DOSE 1 2021 300 complet ed HISTORICA L INFORMATI ON - FROM OTHER PROVIDER, [facility] INFLUENZA, UNSPECIFIED FORMULATION 2021 88 complet ed Completed Series, HISTORICA L INFORMATI ON - FROM OTHER PROVIDER, [facility] COVID-19 ([email or web address]), MRNA, LNP-S, PF, 30 MCG/0.3 ML DOSE 4 2021 208 complet ed HISTORICA L INFORMATI ON - FROM OTHER PROVIDER, [facility] COVID-19 ([email or web address]), MRNA, LNP-S, PF, 30 MCG/0.3 ML DOSE 3 2020 208 complet ed HISTORICA L INFORMATI ON - FROM OTHER PROVIDER, [facility] COVID-19 ([email or web address]), MRNA, LNP-S, PF, 30 MCG/0.3 ML DOSE 2 2020 208 complet ed PFR; [id number]; 1 [facility] COVID-19 (PFIZER), MRNA, LNP-S, PF, 30 MCG/0.3 ML DOSE 1 2020 208 complet ed PFR; [id number]; 1 [facility] Results Combined list of recent chemistry, hematology [...] 2023 08:52 AM Reporting Lab: [facility] [facility] [address] [facility] [address] Performing Lab: [facility] [place] [facility] [address] [facility] [address] [facility] CBC ERYTHROCYT ES [#/VOLUME] IN BLOOD BY AUTOMATED COUNT 4.65 10*6/uL 4.23 - 5.66 08/19 Specimen Type: BLOOD No comment entered. Ordering Provider: Rei INMAN Report Released Date/Time: Aug 20, 2023 08:52 AM Reporting Lab: [facility] [place] [facility] [address] [facility] [address] Performing Lab: [facility] [place] [facility] [address] [facility] [address] [facility] CBC HEMOGLOBIN [MASS/VOLU ME] IN BLOOD 13.9 g/dL 12.8 - 17 08/19 Specimen Type: BLOOD No comment entered. Ordering Provider: Rei INMAN Report Released Date/Time: Aug 20, 2023 08:52 AM Reporting Lab: [facility] [place] [facility] [address] [facility] [address] Performing Lab: [facility] [facility] [address] [facility] [address] [facility] CBC HEMATOCRIT [VOLUME FRACTION] OF BLOOD BY AUTOMATED COUNT 40.7 39.2 - 50.4 08/19 Specimen Type: BLOOD No comment entered. Ordering Provider: Rei INMAN Report Released Date/Time: Aug 20, 2023 08:52 AM Reporting Lab: [facility] [facility] [address] [facility] [address] Performing Lab: [facility] [place] [facility] [address] [facility] [address] [facility] CBC MCV [ENTITIC VOLUME] BY AUTOMATED COUNT 87.5 fL 82 - 99 08/19 Specimen Type: BLOOD No comment entered. Ordering Provider: Rei INMAN Report Released Date/Time: Aug 20, 2023 08:52 AM Reporting Lab: [facility] [place] [facility] [address] [facility] [address] Performing Lab: [facility] [place] [facility] [address] [facility] [address] [facility] CBC MCHC [MASS/VOLU ME] BY AUTOMATED COUNT 34.2 g/dL 30.8 - 35.1 08/19 Specimen Type: BLOOD No comment entered. Ordering Provider: Rei INMAN Report Released Date/Time: Aug 20, 2023 08:52 AM Reporting Lab: [facility] [place] [facility] [address] [facility] [address] Performing Lab: [facility] [place] [address] [address] [facility] CBC PLATELETS [#/VOLUME] IN BLOOD BY AUTOMATED COUNT 341 10*3/uL 140 - 360 08/19 Specimen Type: BLOOD No comment entered. Ordering Provider: Rei INMAN Report Released Date/Time: Aug 20, 2023 08:52 AM Reporting Lab: [facility] [place] [facility] [address] [facility] [address] Performing Lab: [facility] [place] [facility] [address] [facility] [address] [facility] CBC ERYTHROCYT E DISTRIBUTI ON WIDTH [RATIO] BY AUTOMATED COUNT 12.4 12.0 - 16.0 08/19 Specimen Type: BLOOD No comment entered. Ordering Provider: Rei INMAN Report Released Date/Time: Aug 20, 2023 08:52 AM Reporting Lab: [facility] [place] [facility] [address] [facility] [address] Performing Lab: [facility] [place] [facility] [address] [facility] [address] [facility] CBC MCH [ENTITIC MASS] BY AUTOMATED COUNT 29.9 pg 26.2 - 32.6 08/19 Specimen Type: BLOOD No comment entered. Ordering Provider: Rei INMAN Report Released Date/Time: Aug 20, 2023 08:52 AM Reporting Lab: [facility] [place] [facility] [address] [facility] [address] Performing Lab: [facility] [place] [facility] [address] [facility] [address] [facility] BASIC METABOLI C PANEL (fasting ) UREA NITROGEN [MASS/VOLU ME] IN SERUM OR PLASMA 23 mg/dL 7 - 25 08/19 Specimen Type: SERUM No comment entered. Ordering Provider: Rei INMAN Report Released Date/Time: Aug 20, 2023 08:52 AM Reporting Lab: [facility] [place] [facility] [address] [facility] [address] Performing Lab: [facility] [place] [facility] [address] [facility] [address] [facility] BASIC METABOLI C PANEL (fasting ) GLUCOSE [MASS/VOLU ME] IN SERUM OR PLASMA 110 mg/dL 65 - 100 08/19 H Specimen Type: SERUM No comment entered. Ordering Provider: VANWAGNER,W ILLIAM F Report Released Date/Time: Aug 20, 2023 08:52 AM Reporting Lab: [facility] [place] [facility] [address] [facility] [address] Performing Lab: [facility] [place] [facility] [address] [facility] [address] [facility] BASIC METABOLI C PANEL (fasting ) SODIUM [MOLES/VOL UME] IN SERUM OR PLASMA 139 mmol/L 135 - 145 08/19 Specimen Type: SERUM No comment entered. Ordering Provider: Rei INMAN Report Released Date/Time: Aug 20, 2023 08:52 AM Reporting Lab: [facility] [place] [facility] [address] [facility] [address] Performing Lab: [facility] [place] [facility] [address] [facility] [address] [facility] BASIC METABOLI C PANEL (fasting ) POTASSIUM [MOLES/VOL UME] IN SERUM OR PLASMA 3.9 mmol/L 3.5 - 5.0 08/19 Specimen Type: SERUM No comment entered. Ordering Provider: Rei INMAN Report Released Date/Time: Aug 20, 2023 08:52 AM Reporting Lab: [facility] [place] [facility] [address] [facility] [address] Performing Lab: [facility] [place] [facility] [address] [facility] [address] [facility] BASIC METABOLI C PANEL (fasting ) CHLORIDE [MOLES/VOL UME] IN SERUM OR PLASMA 106 mmol/L 100 - 110 08/19 Specimen Type: SERUM No comment entered. Ordering Provider: Rei INMAN Report Released Date/Time: Aug 20, 2023 08:52 AM Reporting Lab: [facility] [place] [facility] [address] [facility] [address] Performing Lab: [facility] [place] [facility] [address] [facility] [address] [facility] BASIC METABOLI C PANEL (fasting ) CARBON DIOXIDE, TOTAL [MOLES/VOL UME] IN SERUM OR PLASMA 22 meq/L 20 - 30 08/19 Specimen Type: SERUM No comment entered. Ordering Provider: Rei INMAN Report Released Date/Time: Aug 20, 2023 08:52 AM Reporting Lab: [facility] [place] [address] [address] Performing Lab: [facility] [place] [address] [address] [facility] BASIC METABOLI C PANEL (fasting ) CREATININE [MASS/VOLU ME] IN SERUM OR PLASMA 1.07 mg/dL 0.50 - 1.40 08/19 Specimen Type: SERUM No comment entered. Ordering Provider: Rei INMAN Report Released Date/Time: Aug 20, 2023 08:52 AM Reporting Lab: [facility] [place] [address] [address] Performing Lab: [facility] [place] [address] [address] [facility] BASIC METABOLI C PANEL (fasting ) GLOMERULAR FILTRATION RATE/1.73 SQ M.PREDICTE D [VOLUME RATE/AREA] IN SERUM, PLASMA OR BLOOD BY CREATININE -BASED FORMULA (CKD-EPI 2020) 79 mL/min 60 08/19 Specimen Type: SERUM No comment entered. Ordering Provider: Rei INMAN Report Released Date/Time: Aug 20, 2023 08:52 AM Reporting Lab: [facility] [address] [address] Performing Lab: [facility] [place] [address] [address] [facility] LIVER FUNCTION PROTEIN [MASS/VOLU ME] IN SERUM OR PLASMA 6.9 g/dL 6.0 - 8.3 08/19 Specimen Type: SERUM No comment entered. Ordering Provider: Rei INMAN Report Released Date/Time: Aug 20, 2023 08:52 AM Reporting Lab: [facility] [place] [facility] [address] [facility] [address] Performing Lab: [facility] [place] [facility] [address] [facility] [address] [facility] LIVER FUNCTION ALBUMIN [MASS/VOLU ME] IN SERUM OR PLASMA 4.4 g/dL 3.5 - 5.0 08/19 Specimen Type: SERUM No comment entered. Ordering Provider: Rei INMAN Report Released Date/Time: Aug 20, 2023 08:52 AM Reporting Lab: [facility] [place] [facility] [address] [facility] [address] Performing Lab: [facility] [place] [facility] [address] [facility] [address] [facility] [facility] LIVER FUNCTION ALKALINE PHOSPHATAS E [ENZYMATIC ACTIVITY/V OLUME] IN SERUM OR PLASMA 37 U/L 40 - 150 08/19 L Specimen Type: SERUM No comment entered. Ordering Provider: Rei INMAN Report Released Date/Time: Aug 20, 2023 08:52 AM Reporting Lab: [facility] [place] [facility] [address] [facility] [address] Performing Lab: [facility] [place] [facility] [address] [facility] [address] [facility] LIVER FUNCTION ASPARTATE AMINOTRANS FERASE [ENZYMATIC ACTIVITY/V OLUME] IN SERUM OR PLASMA 30 U/L 5 - 34 08/19 Specimen Type: SERUM No comment entered. Ordering Provider: Rei INMAN Report Released Date/Time: Aug 20, 2023 08:52 AM Reporting Lab: [facility] [place] [facility] [address] [facility] [address] Performing Lab: [facility] [place] [facility] [address] [facility] [address] [facility] LIVER FUNCTION ALANINE AMINOTRANS FERASE [ENZYMATIC ACTIVITY/V OLUME] IN SERUM OR PLASMA 58 U/L 08/19 H Specimen Type: SERUM No comment entered. Ordering Provider: Rei INMAN Report Released Date/Time: Aug 20, 2023 08:52 AM Reporting Lab: [facility] [place] [facility] [address] [facility] [address] Performing Lab: [facility] [place] [facility] [address] [facility] [address] [facility] LIVER FUNCTION BILIRUBIN. TOTAL [MASS/VOLU ME] IN SERUM OR PLASMA 0.5 mg/dL 0.2 - 1.2 08/19 Specimen Type: SERUM No comment entered. Ordering Provider: Rei INMAN Report Released Date/Time: Aug 20, 2023 08:52 AM Reporting Lab: [facility] [place] [address] [address] Performing Lab: [facility] [place] [address] [address] [facility] LIPID PANEL FASTING CHOLESTERO L [MASS/VOLU ME] IN SERUM OR PLASMA 200 mg/dL 08/19 H Specimen Type: SERUM No comment entered. Ordering Provider: Rei INMAN Report Released Date/Time: Aug 20, 2023 08:52 AM Reporting Lab: [facility] [place] [address] [address] Performing Lab: [facility] [place] [address] [address] [facility] LIPID PANEL FASTING TRIGLYCERI DE [MASS/VOLU ME] IN SERUM OR PLASMA 191 mg/dL 0 - 150 08/19 H Specimen Type: SERUM No comment entered. Ordering Provider: Rei INMAN Report Released Date/Time: Aug 20, 2023 08:52 AM Reporting Lab: [facility] [place] [address] [address] Performing Lab: [facility] [place] [address] [address] [facility] LIPID PANEL FASTING CHOLESTERO L IN LDL [MASS/VOLU ME] IN SERUM OR PLASMA BY CALCULATIO N 121 mg/dL 0 - 129 08/19 Specimen Type: SERUM No comment entered. Ordering Provider: Rei INMAN Report Released Date/Time: Aug 20, 2023 08:52 AM Reporting Lab: [facility] [place] [facility] [address] [facility] [address] Performing Lab: [facility] [place] [facility] [address] [facility] [address] [facility] LIPID PANEL FASTING CHOLESTERO L.TOTAL/CH OLESTEROL IN HDL [MASS RATIO] IN SERUM OR PLASMA 4.9 08/19 Specimen Type: SERUM No comment entered. Ordering Provider: Rei INMAN Report Released Date/Time: Aug 20, 2023 08:52 AM Reporting Lab: [facility] [place] [facility] [address] [facility] [address] Performing Lab: [facility] [place] [facility] [address] [facility] [address] [facility] LIPID PANEL FASTING CHOLESTERO L IN HDL [MASS/VOLU ME] IN SERUM OR PLASMA 41 mg/dL 40 - 60 08/19 Specimen Type: SERUM No comment entered. Ordering Provider: Rei INMAN Report Released Date/Time: Aug 20, 2023 08:52 AM Reporting Lab: [facility] [place] [facility] [address] [facility] [address] Performing Lab: [facility] [place] [facility] [address] [facility] [address] [facility] TSH THYROTROPI N [UNITS/VOL UME] IN SERUM OR PLASMA 1.59 u[IU]/mL 0.35 - 5.00 08/19 Specimen Type: SERUM No comment entered. Ordering Provider: Rei INMAN Report Released Date/Time: Aug 20, 2023 08:52 AM Reporting Lab: [facility] [place] [facility] [address] [facility] [address] Performing Lab: [facility] [place] [facility] [address] [facility] [address] [facility] URINALYS IS COLOR OF URINE Light-Ye llow 08/19 Specimen Type: URINE Comment: If Glucose = >500 and Ketones are positive, please alert the Physician. Ordering Provider: Rei INMAN Report Released Date/Time: Aug 20, 2023 08:52 AM Reporting Lab: [facility] [place] [facility] [address] [facility] [address] Performing Lab: [facility] [place] [facility] [address] [facility] [address] [facility] URINALYS IS APPEARANCE OF URINE Clear 08/19 Specimen Type: URINE Comment: If Glucose = >500 and Ketones are positive, please alert the Physician. Ordering Provider: Rei INMAN Report Released Date/Time: Aug 20, 2023 08:52 AM Reporting Lab: [facility] [place] [facility] [address] [facility] [address] Performing Lab: [facility] [place] [facility] [address] [facility] [address] [facility] URINALYS IS GLUCOSE [MASS/VOLU ME] IN URINE NEGATIVE mg/dL 08/19 Specimen Type: URINE Comment: If Glucose = >500 and Ketones are positive, please alert the Physician. Ordering Provider: Rei INMAN Report Released Date/Time: Aug 20, 2023 08:52 AM Reporting Lab: [facility] [place] [facility] [address] [facility] [address] Performing Lab: [facility] [place] [facility] [address] [facility] [address] [facility] [place] [facility] URINALYS IS KETONES [MASS/VOLU ME] IN URINE BY TEST STRIP NEGATIVE mg/dL 08/19 Specimen Type: URINE Comment: If Glucose = >500 and Ketones are positive, please alert the Physician. Ordering Provider: Rei INMAN Report Released Date/Time: Aug 20, 2023 08:52 AM Reporting Lab: [facility] [place] [facility] [address] [facility] [address] Performing Lab: [facility] [place] [facility] [address] [facility] [address] [facility] [place] [facility] URINALYS IS ERYTHROCYT ES [PRESENCE] IN URINE SEDIMENT BY LIGHT MICROSCOPY NEGATIVE mg/dL 08/19 Specimen Type: URINE Comment: If Glucose = >500 and Ketones are positive, please alert the Physician. Ordering Provider: Rei INMAN Report Released Date/Time: Aug 20, 2023 08:52 AM Reporting Lab: [facility] [place] [facility] [address] [facility] [address] Performing Lab: [facility] [place] [address] [address] [facility] URINALYS IS PROTEIN [MASS/VOLU ME] IN URINE BY TEST STRIP NEGATIVE mg/dL 08/19 Specimen Type: URINE Comment: If Glucose = >500 and Ketones are positive, please alert the Physician. Ordering Provider: Rei INMAN Report Released Date/Time: Aug 20, 2023 08:52 AM Reporting Lab: [facility] [place] [facility] [address] [facility] [address] Performing Lab: [facility] [place] [facility] [address] [facility] [address] [facility] URINALYS IS NITRITE [PRESENCE] IN URINE NEGATIVE mg/dL 08/19 Specimen Type: URINE Comment: If Glucose = >500 and Ketones are positive, please alert the Physician. Ordering Provider: Rei INMAN Report Released Date/Time: Aug 20, 2023 08:52 AM Reporting Lab: [facility] [place] [facility] [address] [facility] [address] Performing Lab: [facility] [address] [address] [facility] URINALYS IS BILIRUBIN. TOTAL [PRESENCE] IN URINE NEGATIVE mg/dL 08/19 Specimen Type: URINE Comment: If Glucose = >500 and Ketones are positive, please alert the Physician. Ordering Provider: Rei INMAN Report Released Date/Time: Aug 20, 2023 08:52 AM Reporting Lab: [address] [address] Performing Lab: [address] [address] [facility] URINALYS IS SPECIFIC GRAVITY OF URINE BY REFRACTOME TRY 1.012 1.016 - 1.022 08/19 L Specimen Type: URINE Comment: If Glucose = >500 and Ketones are positive, please alert the Physician. Ordering Provider: Rei INMAN Report Released Date/Time: Aug 20, 2023 08:52 AM Reporting Lab: [address] [address] Performing Lab: [address] [address] [facility] URINALYS IS PH OF URINE BY TEST STRIP 6.0 5.0 - 9.0 08/19 Specimen Type: URINE Comment: If Glucose = >500 and Ketones are positive, please alert the Physician. Ordering Provider: Rei INMAN Report Released Date/Time: Aug 20, 2023 08:52 AM Reporting Lab: [address] [address] Performing Lab: [address] [address] [facility] URINALYS IS UROBILINOG EN [MASS/VOLU ME] IN URINE BY TEST STRIP <2.0mg/d L <2.0 - 2.0 08/19 Specimen Type: URINE Comment: If Glucose = >500 and Ketones are positive, please alert the Physician. Ordering Provider: Rei INMAN Report Released Date/Time: Aug 20, 2023 08:52 AM Reporting Lab: [facility] [place] [facility] [address] [facility] [id number] Performing Lab[facility] [address] [address] [facility] [place] [facility] LEUKOCYTE ESTERASE [PRESENCE] IN URINE BY TEST STRIP NEGATIVE 08/19 Specimen Type: URINE Comment: If Glucose = >500 and Ketones are positive, please alert the Physician. Ordering Provider: Rei INMAN Report Released Date/Time: Aug 20, 2023 08:52 AM Reporting Lab: [facility] [address] [id number] Performing Lab: [facility] [address] [facility] VITAMIN D (25-OH) 25-HYDROXY VITAMIN D3 [MASS/VOLU ME] IN SERUM OR PLASMA 29 ng/mL 20 - 50 08/19 Specimen Type: SERUM No comment entered. Ordering Provider: Rei INMAN Report Released Date/Time: Aug 20, 2023 08:52 AM Reporting Lab: [facility] [address] Performing Lab: [facility] [place] [address] [address] [facility] HIV 1&2 Ag/Ab SCREEN HIV 1+2 AB+HIV1 P24 AG [PRESENCE] IN SERUM OR PLASMA BY IMMUNOASSA Y NON-REAC TIVE 08/19 Specimen Type: SERUM No comment entered. Ordering Provider: Rei INMAN Report Released Date/Time: Aug 20, 2023 08:52 AM Reporting Lab: [facility] [place] [address] [address] Performing Lab: [facility] [place] [facility] [address] [facility] [address] [facility] HEPATITI S C ANTIBODY (HCV)-AR C HEPATITIS C VIRUS AB [PRESENCE] IN SERUM NON-REAC TIVE 08/19 Specimen Type: SERUM Comment: Hep C Ab: No HCV antibody detected. If recent infection is suspected or other evidence suggests HCV infection, consider HCV nucleic acid testing Ordering Provider: Rei INMAN Report Released Date/Time: Aug 20, 2023 08:52 AM Reporting Lab: [facility] [place] [facility] [address] [facility] [address] Performing Lab: [facility] [place] [facility] [address] [facility] [address] [facility] Vital Signs Combined list of inpatient and outpatient Vital Signs from Department of Defense and Veterans Affairs, ranging from 12 months to all on record, depending upon the facility. Vital Sign Value Date Comments Source SYSTOLIC BLOOD PRESSURE 140 08/19/19 25 08:43:43 [facility] [place] [facility] DIASTOLIC BLOOD PRESSURE 80 025 08:43:43 [facility] PULSE OXIMETRY 98 08/18/2024 08:43:43 [facility] WEIGHT 210 08/18/2024 08:43:43 [facility] BMI 29 kg/m2 08/18/2024 08:43:43 [facility] PAIN 0 08/18/2024 08:43:43 [facility] TEMPERATURE 98.3 08/18/2024 08:43:43 [facility] PULSE 64 08/18/2024 08:43:43 [facility] RESPIRATION 18 08/18/2024 08:43:43 [facility] Encounters Combined list of: 1) Encounters from Department of Veterans Affairs facilities going backup to the last 18 months, not all VA inpatient encounters are included; 2) Encounters from the Department of Defense facilities going backup to 280 months. Location Location Details Encounter Type Encounter Number Reason For Visit Attending Provider ADM Date DC Date Status Disposition Source [facility] Encounter [id number] 05/15 [facility] OFFICE O/P EST LOW 20 MIN [id number] Diagnos is: ICD-10- CM H91.90 Unspeci fied hearing loss, unspeci fied ear NENA INMAN 08/19 [facility] Encounter [id number] 09/30 [facility] Encounter [id number] 10/10 [facility] Encounter [id number] 10/10 [facility] OFF/OP EST SEPTEMBER X REQ PHY/QHP [id number] Diagnos is: ICD-10- CM Z23 Encount er for immuniz ation Karthikeyan MALDONADO 10/15 [facility] Out[facility] Encounter [id number] Desirae DOMINGUEZ 02/06 [facility] Out[facility] Encounter [id number] 03/22 [facility] Encounter [id number] TAMMY MEADOWS ISPAULO Martinez 04/10 [facility] Outpatient Encounter [id number] Diagnos is: ICD-10- CM Z02.89 Encount er for other adminis trative examina david CLAUDIOEliazarMILLIE MASONCARLOS Joan 04/21 [facility] Outpatient Encounter [id number] 08/16 [facility] OFFICE O/P EST LOW 20 MIN [id number] Diagnos is: ICD-10- CM I10 Essenti al (primar y) hyperte NENA Maxwell 08/18 [facility] [place] Social History Combined list of available smoking, tobacco, and other social history from Department of Defense and Veterans Affairs facilities. Social History Type Response Date Comment Sourc e Tobacco smoking status NHIS VA-TOBACCO USE FORMER CIGARETTES 08/18/2024 [facility] History of tobacco use VA-TOBACCO NEVER USED OTHER TYPE 08/18/2024 [facility] History of tobacco use VA-TOBACCO FORMER USER 08/20/2023 [facility] History of tobacco use VA-TOBACCO FORMER USER 08/18/2022 [facility] [place] History of tobacco use PREVIOUS SMOKER 07/28/2022 [facility] [place] [facility] History of tobacco use VA-TOBACCO FORMER USER 02/10/2020 [facility] [place] [facility] This section is an empty social history section. DoD Plan of Care List of future care activities from Department of Veterans Affairs facilities. Additional future care activities may be listed in the Assessment and Plan section. Date/Time Care Activity Care Activity Detail Facili ty 03/10/2025 AMBULATORY - MEDICINE AMBULATORY - MEDICI [facility] [place] [facility]
== END 2024-10-07 12:18 | disposition home or self-care (01) ==
LOC: HO.HSMS 10:52
PROVIDERS: PCP Internal Medicine; Visit Provider Physician Assistant Medical
DX: G47.33 Obstructive sleep apnea (adult) (pediatric) (principal); G47.10 Hypersomnia, unspecified; G47.30 Sleep apnea, unspecified; R25.2 Cramp and spasm; G25.81 Restless legs syndrome
CPT/HCPCS: 99214

== ENCOUNTER → 2024-10-07 10:52 | Outpatient (BNVA) | payer OTHER, SELFPAY | PROVIDERS: PCP Internal Medicine; Visit Provider Physician Assistant Medical | DX: G47.33 Obstructive sleep apnea (adult) (pediatric) (principal); G47.10 Hypersomnia, unspecified; G25.81 Restless legs syndrome; Z99.89 Dependence on other enabling machines and devices | CPT/HCPCS: 99212 ==

== ENCOUNTER 2024-12-06 07:01 | Outpatient (REF) | payer OTHER, SELFPAY ==
--- OUTSIDE RECORDS SUMMARY | 2024-08-18 04:30 | XMS_ITS ---
Author Name [facility] [place] Organization [facility] Address [address] [place] [id number] Care Team Providers Care News Internship Name Role Phone ANKIT CORTEZ Primary Care Provider Unavail able Insurance Providers: All historical and current Section Date Range: From patient's date of to the date document was created. This section includes the names of all active insurance providers for the patient. Insurance Provider Type of Coverage Plan Name Start of Policy Coverage End of Policy Coverage Group Number Member ID Insurance Provider's Telephone Number Policy Linares's Name Patient's Relationship to Policy Linares [employer] PRESCRIPT ION RX May 21, 2022 THPRX [id number] DION FITZPATRICK PATIENT [facility] FLORECITA Martinez 2023 [facility] [id number] DION FITZPATRICK PATIENT Selected Encounter This section includes the information on record at [place] for the Encounter. Date/Time Encounter Type Encounter Description Reason Provider Source Aug 18, 2024 08:30 AM OFFICE O/P EST LOW 20 MIN PRIMARY CARE/MEDICINE ICD-10-CM I10 Essential (primary) hypertension STUART CORTEZ E Encounter Template Text not used by [place] Assessments - Encounter Diagnoses This section includes the primary and secondary diagnoses documented for the Encounter. Date/Time Primary/Secondary Diagnosis Diagnosis Name Provider Source Aug 18, 2024 09:09 AM PRIMARY Essential (primary) hypertension STUART CORTEZ [place] [facility] [place] [facility] Aug 18, 2024 09:09 AM SECONDARY Encounter for immunization STUART CORTEZ [place] [facility] [place] [facility] Vital Signs: All taken on the encounter date This section contains inpatient and outpatient Vital Signs collected on the date of the Encounter. Date/Time Temperature Pulse Blood Pressure Respiratory Rate SP02 Pain Height Weight Body Mass Index Source Aug 18, 2024 09:03 AM 138/87 [facility] Aug 18, 2024 08:43 AM 98.3 64 140/80 18 98 0 210 29 [facility] Immunizations: All administered on the encounter date This section contains immunizations associated to the Encounter. Immunization Series Date Issued Administered By Site Reaction Lot Number [id number] Code Drug Fly Raiser Lockstitch Comment(s) Source RSV, BIVALENT, PROTEIN SUBUNIT RSVPREF, DILUENT RECONSTITUTED , 0.5 ML, PF 1 Aug 18, 2024 BHARAT MEADOWS E RIGHT DELTO ID [id number] [employer] ADMINISTERE D AT [place], [facility] Social History: Smoking Status (Most current) and Tobacco Use (All prior to encounter date) This section includes the most current, and the historical, smoking and tobacco- related health factors from the [place] facility where the Encounter took place. Current Smoking Status This section includes the most current smoking, or tobacco-related health factor, from the [place] facility where the Encounter took place. Date/Time Current Smoking Status Comment Pina ity Aug 18, 2024 08:30 AM VA-TOBACCO USE FOR JONES CIGARETTES [facility] Tobacco Use History This section includes a history of the smoking, or tobacco-related health factors, that were collected on or before the date of the Encounter. The data comes from the [place] facility where the Encounter took place. Date/Time Smoking Status/Tobacco Use Comment F acility Aug 18, 2024 08:30 AM VA-TOBACCO USE FOR JONES CIGARETTES [place] [facility] [place] [facility] Aug 20, 2023 08:30 AM VA-TOBACCO FORMER USER [place] [facility] [place] [facility] Aug 20, 2023 08:30 AM VA-TOBACCO QUIT 15 YRS OR MORE [place] [facility] [place] [facility] Aug 18, 2022 09:00 AM VA-TOBACCO FORMER USER [place] [facility] [place] [facility] Aug 18, 2022 09:00 AM VA-TOBACCO QUIT 15 YRS OR MORE [facility] [place] [facility] Jul 28, 2022 08:00 AM AH-BPR SMOKING DEPLOYMENT NO [facility] [place] [facility] Jul 28, 2022 08:00 AM PREVIOUS SMOKER [place] [facility] [place] [facility] Feb 10, 2020 03:00 PM VA-TOBACCO FORMER USER [facility] [place] [facility] Feb 10, 2020 03:00 PM VA-TOBACCO QUIT 15 YRS OR MORE [place] [facility] [place] [facility] Encounter Notes: All associated encounter notes This section contains the clinical notes associated to the Encounter. Date/Time Encounter Note(s) Provider Source Aug 18, 2024 08:55 AM PHYSICIAN [employer] ADMINISTRATOR NOTE: LOCAL TITLE: PA NOTE STANDARD TITLE: PHYSICIAN [employer] ADMINISTRATOR NOTE DATE OF NOTE: AUG 18, 2024@08:55 ENTRY DATE: AUG 18, 2024@08:55:34 AUTHOR: ANKIT CORTEZ COSIGNER: URGENCY: STATUS: COMPLETED CC/HPI/A/P: 59 year old MALE here in follow-up for; Review of systems: Patient reports no changes from Usual State Of Health/[place], in meds or any admissions. Active problems - Computerized Problem List is the source for the followin. Exposure to potentially hazardous substance 2. Obstructive Sleep Apnea of Adult ([facility] [id number]) 3. HTN - Hypertension ([facility] [id number]) 4. Hypercholesterolemia ([facility] [id number]) 5. Hearing Loss ([facility] [id number]) 6. Low Back Pain ([facility] [id number]) SERVICE CONNECTED % - 50 VA and Non VA meds were reconciled with the patient who left with a corrected copy. See medication page for details. Active and Recently Outpatient Medications (excluding Supplies): Active Non-VA Medications Status 1) Non-VA CHOLECALCIF 50MCG (D3-2,000UNIT) TAB 50MCG BY MOUTH ACTIVE ONCE DAILY 2) Non-VA FENOFIBRATE 145MG TAB 145MG BY MOUTH ONCE DAILY ACTIVE 3) Non-VA METOPROLOL SUCCINATE 100MG SA TAB 100MG BY MOUTH ONCE ACTIVE DAILY 98.3 F [36.8 C] (08/18/2024 08:43) 64 (08/18/2024 08:43) 18 (08/18/2024 08:43) 140/80 (08/18/2024 08:43) 0 (08/18/2024 08:43) 71 in [180.3 cm] (08/20/2023 08:55) 210 lb [95.25 kg] (08/18/2024 08:43) BMI: 29.4 Neuro: Alert and oriented times three, grossly nonfocal, nasolabial folds intact. Thyroid nonpalpable. Cor: Regular rate and rhythm, normal s1 and 2 without Murmur, carotid bruits or pedal edema. Lungs; Clear to auscultation bilaterally. Recent labs reviewed with patient today: BMI>30/>24.99 High Risk: At this visit, the health risks of obesity were reviewed and discussed with the [place], and the benefits of a weight management [...] weight management treatment program at this time. Alcohol Use Screen (AUDIT-C): Alcohol Screen: SCREEN FOR ALCOHOL (AUDIT-C) An alcohol screening test (AUDIT-C) was negative (score=4). 1. How often did you have a [...] you were drinking in the past year? Three or four drinks 3. How often did you have six or more drinks on one occasion in the past year? Never CC/HPI/A/P: 59 year old MALE here in follow-up for; Htn, repeat is a bit lower than our intake. I need glasses to optom to book appt. Review of systems: Patient reports no changes from Usual State Of Health/[place], in meds or any admissions. Active problems - Computerized Problem List is the source for the followin. Exposure to potentially hazardous substance 2. Obstructive Sleep Apnea of Adult ([facility] [id number]) 3. HTN - Hypertension ([facility] [id number]) 4. Hypercholesterolemia ([facility] [id number]) 5. Hearing Loss ([facility] [id number]) 6. Low Back Pain ([facility] [id number]) SERVICE CONNECTED % - 50 VA and Non VA meds were reconciled with the patient who left with a corrected copy. See medication page for details. Active and Recently Outpatient Medications (excluding Supplies): Active Non-VA Medications Status 1) Non-VA CHOLECALCIF 50MCG (D3-2,000UNIT) TAB 50MCG BY MOUTH ACTIVE ONCE DAILY 2) Non-VA FENOFIBRATE 145MG TAB 145MG BY MOUTH ONCE DAILY ACTIVE 3) Non-VA METOPROLOL SUCCINATE 100MG SA TAB 100MG BY MOUTH ONCE ACTIVE DAILY 98.3 F [36.8 C] (08/18/2024 08:43) 64 (08/18/2024 08:43) 18 (08/18/2024 08:43) 138/87 (08/18/2024 09:03) 0 (08/18/2024 08:43) 71 in [180.3 cm] (08/20/2023 08:55) 210 lb [95.25 kg] (08/18/2024 08:43) BMI: 29.4 Neuro: Alert and oriented times three, grossly nonfocal, nasolabial folds intact. [facility] [place]. /alka/ Ankit Cortez PA-C STAFF PHYSICIAN [employer] SYSTEM[employer] ADMINISTRATOR Signed: 08/18/2024 09:09 ANKIT CORTEZ [place] [facility] Aug 18, 2024 08:44 AM PREVENTIVE MEDICINE NURSING NOTE: LOCAL TITLE: CLINICAL REMINDERS/NURSING STANDARD TITLE: PREVENTIVE MEDICINE NURSING NOTE DATE OF NOTE: AUG 18, 2024@08:44 ENTRY DATE: AUG 18, 2024@08:45:13 AUTHOR: DG MEADOWS COSIGNER: URGENCY: STATUS: COMPLETED CLINICAL REMINDERS/NURSING Has ADDENDA Suicide Screen: C-SSRS Screening [place] Suicide Severity Rating Scale (C-SSRS) screener 1. [...] required due to responses to other questions. Depression Screening: Perform PHQ-2 A PHQ-2 screen was performed. The score was 0 which is a negative screen for depression. Over the past two weeks, how often have you been bothered by the following problems? 1. Little interest or pleasure in doing things Not at all 2. Feeling down, depressed, or hopeless Not at all Tobacco Use Screening: The patient is a former cigarette smoker. The patient has never used other types of tobacco. /alka/ DG MEADOWS LPN Signed: 08/18/2024 08:46 08/18/2024 ADDENDUM STATUS: COMPLETED Influenza Immunization: The patient has received the seasonal influenza vaccine for the current season at another location. Documented: INFLUENZA, UNSPECIFIED FORMULATION Historical Date Administered: Mar 22, 2024 Series: Booster Outside Location: Outside Healthcare Provider Information Source: FROM OTHER PROVIDER COVID-19 Immunization: Patient received a prior dose of the Pfizer Monovalent vaccine. Documented: COVID-19 (PFIZER), MRNA, LNP-S, PF, ROLANDA-SUCROSE, 30 MCG/0.3 ML (AGES 12+ YEARS) Historical Date Administered: Mar 22, 2024 Series: Series 1 Outside Location: Outside Healthcare Provider Information Source: FROM OTHER PROVIDER RSV Immunization: Respiratory Syncytial Virus (RSV) Vaccine: RSV vaccine administered today. Administered: RSV, BIVALENT, PROTEIN SUBUNIT RSVPREF, DILUENT RECONSTITUTED, 0.5 ML, PF Date Administered: Aug 18, 2024 08:30 Series: Series 1 Fly Raiser Lockstitch: [employer] Lot: [id number] Exp Date: Apr 19, 2025 NDC: [id number] Admin Route/Site: INTRAMUSCULAR/RIGHT DELTOID Dosage: 0.5mL Vaccine Information Statement(s): RSV (RESPIRATORY SYNCYTIAL VIRUS) VACCINE VIS Jun 20, 2024 (KHMER) Order By: Policy Administered By: Dg Meadows Vaccine Information Sheet (VIS) was given to the patient/caregiver, education regarding adverse reactions was discussed, as well as barriers to learning, if any, were acknowledged. /alka/ DG MEADOWS LPN Signed: 08/18/2024 09:09 IM[facility] MEADOWS [place] [facility]
[2024-12-06 07:21] LABS: MANUAL DIFF FLAG NO
[2024-12-06 08:16] LABS: Hematocrit 40.4 % (42.0-52.0); Hemoglobin 13.6 g/dl (14.0-18.0); Imm Gran Abs Auto 0.02 X10*3/uL (0.00-0.03); Imm Gran Pct Auto 0.3 % (0.0-0.4); Lymphocytes Absolute Auto 1.8 X10*3/uL (1.2-4.9); Mean Corpuscular HGB Conc 33.7 g/dl (31.0-36.0); Mean Corpuscular Hemoglobin 30.4 pg (27.0-33.0); Mean Corpuscular Volume 90.2 fL (80.0-98.0); NRBC Abs Auto 0.000 X10*3/uL (0.0-0.012); NRBC Pct Auto 0.0 /100WBC (0.0-0.2); Platelet Count 334 X10*3/uL (160-400); Red Blood Count 4.48 X10*6/uL (4.60-5.80); Reticulocytes Absolute 0.115 X10*6/uL (0.026-0.095); White Blood Count 7.4 X10*3/uL (4.8-10.8)
[2024-12-06 08:20] LABS: Hemoglobin A1C 150.3333 umol/L; Total Hemoglobin (HGBA1C) 3581.3573 umol/L
[2024-12-06 09:09] LABS: Alanine Aminotransferase 49 U/L (0-40); Albumin Level 4.6 g/dL (3.5-5.0); Alkaline Phosphatase 41 U/L (39-117); Anion Gap 11 (12-20); Aspartate Amino Transferase 28 U/L (5-37); Blood Urea Nitrogen 26 mg/dL (9-16); Calcium 8.9 mg/dL (8.4-10.2); Carbon Dioxide 27 mmol/L (22-29); Chloride 109 mmol/L (96-108); Cholesterol 179 mg/dL (<200); Estimated Glomerular Filt Rate > 60; HDL Cholesterol 37 mg/dL (>40); Magnesium 2.0 mg/dL (1.6-2.6); Potassium 3.8 mmol/L (3.3-5.1); Sodium 143 mmol/L (135-145); Total Protein 7.0 g/dL (6.5-8.0); Triglycerides 133 mg/dL (<150)
[2024-12-06 09:30] LABS: Free T4 (Free Thyroxine) 0.99 ng/dL (0.71-1.85); Thyroid Stimulating Hormone 1.26 uIU/mL (0.32-4.0)
[2024-12-06 09:41] LABS: Folate 7.5 ng/mL (> or = 4.0); Vitamin B12 753 pg/mL (200-900)
== END 2024-12-06 07:02 | disposition home or self-care (01) ==
LOC: HO.LAB 07:01
PROVIDERS: PCP Internal Medicine; Visit Provider Internal Medicine
DX: I10 Essential (primary) hypertension (principal); E78.00 Pure hypercholesterolemia, unspecified
CPT/HCPCS: 36415; 80053; 80061; 82607; 82746; 83036; 83735; 84153; 84439; 84443; 85025; 85045

== ENCOUNTER 2024-12-08 10:39 | Outpatient (AMB) | payer OTHER, SELFPAY ==
--- NOTE | 2024-12-08 10:43 | MHC.OFFVIS ---
Intake Visit Reasons: Hypertension Allergies amlodipine Adverse Reaction (Intermediate, Verified 10/07/24 11:06) leg swelling chlorthalidone Adverse Reaction (Intermediate, Verified 10/07/24 11:06) gout, hypokalemia ezetimibe (Zetia) Adverse Reaction (Intermediate, Verified 10/07/24 11:06) ^ LFTS lisinopril Adverse Reaction (Intermediate, Verified 10/07/24 11:06) cough topiramate (From Topamax) Adverse Reaction (Intermediate, Verified 10/07/24 11:06) agitation PFSH Medical History Daytime sleepiness Disc degeneration, lumbosacral Family history of malignant hyperthermia DDD (degenerative disc disease), lumbar Obesity (BMI 30-39.9) Nocturnal hypoxemia Obstructive sleep apnea Vitamin D deficiency Impaired glucose tolerance Fatty liver Hypercholesterolemia Hypertension Surgical History S/P bilateral inguinal hernia repair History of ear surgery H/O colonoscopy History of selective injection of anesthetic agent around lumbar nerve root Family History Father Lung cancer Mother Lung cancer Maternal Grandmother No problems noted. Maternal Grandfather Lung cancer Paternal Grandmother No problems noted. Paternal Grandfather No problems noted. Daughter Bipolar disorder Maternal Aunt Bipolar disorder Other Mental health disorder Social History Housing: House Alcohol intake: current Comment: 2 a month 4 alex Patient Tobacco Use Status: Former Tobacco user Tobacco use type: Cigarette Years Smoked: 1987 e-Cigarette/Vaping Use: Never Used Second Hand Smoke Exposure: Yes service: Yes Current occupational status: employed Current occupational exposures/hazards: No Cognitive needs: No Hearing needs: No Vision needs: Yes (Glasses) Coding
[2024-12-08 10:44] VITALS: BP 132/70; PULSE 68; TEMP 36.2; O2SAT 95; BMI 31.3
--- NOTE | 2024-12-08 10:45 | A.OFFPC_ITS ---
Vital Signs 12/08/24 10:44 Height 5 ft 10 in Weight 218 lb BMI 31.3 BP 132/70 Blood Pressure Location Lt brachial Position Sitting Pulse 68 Pulse Source Pulse Oximeter Temp 97.1 F Temp Source Temporal Artery Scan Pulse Oximetry (%) 95 Oxygen Delivery Method Room Air Intake Visit Reasons: Hypertension Allergies amlodipine Adverse Reaction (Intermediate, Verified 12/08/24 10:47) leg swelling chlorthalidone Adverse Reaction (Intermediate, Verified 12/08/24 10:47) gout, hypokalemia ezetimibe (Zetia) Adverse Reaction (Intermediate, Verified 12/08/24 10:47) ^ LFTS lisinopril Adverse Reaction (Intermediate, Verified 12/08/24 10:47) cough topiramate (From Topamax) Adverse Reaction (Intermediate, Verified 12/08/24 10:47) agitation Medication List - Last Reconciled 12/08/24 by Lorraine Osorio Po, albuterol sulfate 90 mcg/actuation (Ventolin HFA) 2 puffs inhalation Q6H PRN cholecalciferol (vitamin D3) 50 mcg PO DAILY [CPAP ] fenofibrate nanocrystallized 145 mg PO DAILY gabapentin 300 mg PO BEDTIME 90 days MDD 300mg PO hydrochlorothiazide 25 mg PO DAILY losartan 100 mg PO DAILY magnesium oxide 400 mg PO DAILY metoprolol succinate ER 100 mg PO DAILY 90 days modafinil 100 mg PO QAM 30 days mometasone 50 mcg/actuation (Nasonex 24hr Allergy) 2 sprays intranasal DAILY simvastatin 5 mg PO BEDTIME tirzepatide (weight loss) (Zepbound) 2.5 mg (0.5 mL) subcut QWEEK Tobacco use date assessed: 06/10/24 Dental Screening Dental Screen Date: 06/10/24 Did you have a dental visit in the last 12 months?: No Did you have a dental problem in the last 6 months where you did not have access to dental care?: No Was dental information given to patient?: Patient declined [facility] Medical History Daytime sleepiness Disc degeneration, lumbosacral Family history of malignant hyperthermia DDD (degenerative disc disease), lumbar Obesity (BMI 30-39.9) Nocturnal hypoxemia Obstructive sleep apnea Vitamin D deficiency Impaired glucose tolerance Fatty liver Hypercholesterolemia Hypertension Surgical History (Reviewed 12/08/24 @ 10:48 by Ninoska Greco [facility]) S/P bilateral inguinal hernia repair History of ear surgery H/O colonoscopy History of selective injection of anesthetic agent around lumbar nerve root Family History (Reviewed 12/08/24 @ 10:48 by Ninoska Greco [facility]) Father Lung cancer Mother Lung cancer Maternal Grandmother No problems noted. Maternal Grandfather Lung cancer Paternal Grandmother No problems noted. Paternal Grandfather No problems noted. Daughter Bipolar disorder Maternal Aunt Bipolar disorder Other Mental health disorder Social History (Reviewed 12/08/24 @ 10:48 by Ninoska Greco [facility]) Housing: House Alcohol intake: current Comment: 2 a month 4 beers Patient Tobacco Use Status: Former Tobacco user Tobacco use type: Cigarette Years Smoked: 1987 e-Cigarette/Vaping Use: Never Used Second Hand Smoke Exposure: Yes service: Yes Current occupational status: employed Current occupational exposures/hazards: No Cognitive needs: No Hearing needs: No Vision needs: Yes (Glasses) Questionnaire PHQ-9 Over the last 2 weeks, how often have you been bothered by any of the following problems? 1. Little interest or pleasure in doing things: not at all 2. Feeling down, depressed, or hopeless: not at all 3. Trouble falling or staying asleep, or sleeping too much: not at all 4. Feeling tired or having little energy: several days 5. Poor appetite or overeating: not at all 6. Feeling bad about yourself - or that you are a failure or have let yourself or your family down: not at all 7. Trouble concentrating on things, such as reading the newspaper or watching television: not at all 8. Moving or speaking so slowly that other people could have noticed. Or the opposite - being so fidgety or restless that you have been moving around a lot more than usual: not at all 9. Thoughts that you would be better off or of hurting yourself in some way: not at all Total score: 1 Depression Screening Interpretation: Positive Depression Screening Done: Yes Source: Developed by Drs. Tuan Schwarz, Claudia Burdick, Fabricio Salinas and colleagues, with an educational piper from [employer] [place]. Thrive Questionnaire Date Thrive assessed: 06/03/24 I am a: Patient What is your living situation today?: I have a steady place to live Within the past 12 months, did the food you bought not last and you didn't have the money to get more?: Never true Within the past 12 months, did you worry whether your food would run out before you got money to buy more?: Never true Do you have trouble paying for medicines?: No Do you have trouble getting transportation to medical appointments?: No Do you have trouble paying your heating and electricity bill?: No Do you have trouble taking care of your child, family member or friend?: No Do you have trouble with day-to-day activities such as bathing, preparing meals, shopping, managing finances, etc.?: No Are you currently unemployed and looking for a job?: No Are you interested in more education?: No Please select the resources that you would like help with: None Currently or been in a relationship where the following occur: No concerns reported THRIVE Score: 0 AUDIT C Alcohol Use Questionnaire (AUDIT-C) 1. How often do you have a drink containing alcohol?: 2-3 times a week 2. How many drinks containing alcohol do you have on a typical day when you are drinking?: 1 or 2 3. How often do you have six or more drinks on one occasion?: Never Total Score: 3 AVIVA-7 AMB Questionnaire AVIVA-7 Date AVIVA - 7 assessed: 06/10/24 Feeling nervous, anxious, or on edge: 0 = Not at all Not being able to stop or control worryin = Not at all Worrying too much about different things: 0 = Not at all Trouble relaxin = Several days Being so restless that it is hard to sit still: 0 = Not at all Becoming easily annoyed or irritable: 0 = Not at all Feeling afraid as if something awful might happen: 0 = Not at all Total AVIVA-7 score (0-4 normal; 5-9 mild; 10-14 moderate; 15-21 severe): 1 Source: Developed by Drs. Tuan Schwarz, Claudia Burdick, Fabricio Salinas and colleagues, with an educational piper from [employer] [place]. Physical exam (Primary Care) Vital Signs: Last Vital Signs Temp 97.1 F 12/08/24 10:44 Pulse 68 12/08/24 10:44 BP 132/70 12/08/24 10:44 Pulse Ox 95 12/08/24 10:44 Oxygen Delivery Method Room Air 12/08/24 10:44 BMI result Body Mass Index 31.3 Tobacco/Smoking Status: Tobacco use Status Tobacco use date assessed 06/10/24 12/08/24 10:48 Patient Tobacco Use Status Former Tobacco user 12/08/24 10:48 Tobacco use type Cigarette 12/08/24 10:48 e-Cigarette/Vaping Use Never Used 12/08/24 10:48 PHQ-9: PHQ-9 Score PHQ-9: Total score 1 12/08/24 10:58 Depression Screening Interpretation: Positive Thrive Assessment: Date of Thrive Assessment Date Thrive assessed 06/03/24 12/08/24 10:48 Currently or been in a relationship where the following occur: No concerns reported Const General: alert; No acute distress Eyes Conjunctivae: conjunctivae normal Resp Auscultation: clear to auscultation bilaterally Cardio Rate: regular rate Rhythm: regular rhythm GI Inspection: Yes normal to inspection Extrem General: Yes normal to inspection and No edema Coding Level of Care Code Est Pt Level 4 (56217) Complex EM visit Add On G2211 Diagnoses Essential hypertension I10 Hypertension type: essential hypertension Hypercholesterolemia E78.00 Impaired glucose tolerance R73.02 Obesity (BMI 30-39.9) E66.9 Gastroesophageal reflux disease without esophagitis K21.9 Esophagitis presence: without esophagitis Fatty liver K76.0 Obstructive sleep apnea G47.33 RLS (restless legs syndrome) G25.81 Assessment & Plan Assessment & Plan (1) Hypertension: Code(s): I10 - Essential (primary) hypertension Category: Medical Qualifiers: Hypertension type: essential hypertension Qualified Code(s): I10 - Essential (primary) hypertension Plan: Continue with blood pressure medication. Decrease salt intake and exercise on hydrochlorothiazide 25 mg once a day losartan 100 mg once a day metoprolol 100 mg once a day (2) Hypercholesterolemia: Code(s): E78.00 - Pure hypercholesterolemia, unspecified Category: Medical Plan: Avoid fried foods, chicken skin, eggs, butter margarine, pastries and meat. Be it pork or beef they have a lot of cholesterol LDL goal of less than 130 and triglyceride of less than 150 on simvastatin 5 mg once a day (3) Impaired glucose tolerance: Code(s): R73.02 - Impaired glucose tolerance (oral) Category: Medical Plan: Decrease the amount of carbohydrate intake, pasta, bread, rice and potatoes are all sugar and that is aside from all the sweet stuff, remember that fruits are good but they are Sweet also. Noted hemoglobin A1c of 6.0 (4) Obesity (BMI 30-39.9): Code(s): E66.9 - Obesity, unspecified Category: Medical Plan: Diet and exercise (5) GERD (gastroesophageal reflux disease): Code(s): K21.9 - Gastro-esophageal reflux disease without esophagitis Category: Medical Qualifiers: Esophagitis presence: without esophagitis Qualified Code(s): K21.9 - Gastro-esophageal reflux disease without esophagitis Plan: Avoid the foods that causes that usually spicy foods, tomato products, juices, coffee, soda and foods that your sensitive to. After eating do not lie down, allow 3-4 hours before in lie down. And keep the head of bed above 30 degrees to avoid the acid from going up. (6) Fatty liver: Comment: Ultrasound done in 2016 Code(s): K76.0 - Fatty (change of) liver, not elsewhere classified Category: Medical Plan: Low-fat diet and exercise (7) Obstructive sleep apnea: Comment: Sleep study February 2018 on CPAP Code(s): G47.33 - Obstructive sleep apnea (adult) (pediatric) Category: Medical Plan: Patient follows up with Neurology and continue to use the CPAP more than 4 hours a night and benefits from this (8) RLS (restless legs syndrome): Code(s): G25.81 - Restless legs syndrome Category: Medical Plan: Patient has been placed on gabapentin Plan History of Present Illness The patient is a 59-year-old male presenting for a follow-up visit. The patient has a history of obesity, hypertension, hypercholesterolemia, and impaired glucose tolerance. He also has obstructive sleep apnea, which is managed with CPAP therapy, and lumbar degenerative disc disease. The patient reports a history of gastroesophageal reflux disease (GERD), hepatic steatosis, and asthma. He was last seen for influenza in June 2024, and his last colonoscopy was in 2016. In September 2024, the patient followed up with neurology for obstructive sleep apnea and continues to use CPAP with good clinical effects. He has restless leg syndrome, for which he was prescribed gabapentin and magnesium. A knee X-ray in May showed mild narrowing of the compartment, indicating mild arthritis. Blood work in November 2024 revealed mild anemia, which has been present for six months. The patient's electrolytes are stable, and renal function is stable. His blood sugar is elevated, with a hemoglobin A1c of 6.0, indicating impaired glucose tolerance. Liver function tests are mildly elevated, consistent with hepatic steatosis, and LDL cholesterol is 116 mg/dL. The patient is on hydrochlorothiazide, losartan, and metoprolol for hypertension management. He is on simvastatin for cholesterol management, with a target LDL of less than 130 mg/dL and triglycerides less than 150 mg/dL. For impaired glucose tolerance, the patient is advised on diet and exercise. Health Maintenance - Colonoscopy last performed in 2016 - CPAP therapy for obstructive sleep apnea with good compliance - Diet and exercise advised for impaired glucose tolerance Social History - Exercise: Patient reports reduced physical activity due to heat. - Nutritional intake: Patient is advised to reduce carbohydrate intake and increase fiber. Review of Systems - Cardiovascular: Denies chest pain, orthopnea, or syncope. - Respiratory: Reports dyspnea on exertion. Denies cough, hemoptysis, or wheezing. - Neurological: Reports restless leg syndrome. Denies headaches, dizziness, or balance issues. Physical Exam Results - Labs: Mild anemia present for 6 months, hemoglobin A1c 6.0, LDL cholesterol 116 mg/dL, liver function mildly elevated. - Imaging: Knee X-ray in May showed mild narrowing of the compartment indicating mild arthritis. Plan The patient will continue with current antihypertensive medications, including hydrochlorothiazide, losartan, and metoprolol, to manage blood pressure effectively. Simvastatin will be continued for hypercholesterolemia, with a target LDL cholesterol of less than 130 mg/dL and triglycerides less than 150 mg/dL. For impaired glucose tolerance, the patient is advised to adhere to dietary modifications and increase physical activity to manage blood sugar levels. The patient will continue CPAP therapy for obstructive sleep apnea, which has shown good clinical effects. Gabapentin and magnesium will be continued for restless leg syndrome. The patient is advised to follow up with neurology as needed. The patient will be monitored for anemia, with follow-up blood work as necessary. Dietary advice includes reducing carbohydrate intake and increasing fiber to manage hepatic steatosis and impaired glucose tolerance. Patient was informed and verbally consented to the use of an ambient scribe for clinic note documentation during this visit. Discussion Notes During the visit, we discussed the continuation of current antihypertensive and cholesterol medications to manage blood pressure and lipid levels effectively. We also reviewed the importance of dietary modifications and increased physical activity for managing impaired glucose tolerance and hepatic steatosis. The patient was informed about the benefits of CPAP therapy for obstructive sleep apnea and the continuation of gabapentin and magnesium for restless leg syndrome. We discussed the need for regular follow-up with neurology and monitoring of anemia through blood work. Patient Instructions - Continue taking prescribed medications for blood pressure and cholesterol as directed. - Follow a low-carbohydrate, high-fiber diet and increase physical activity to manage blood sugar levels. - Use CPAP machine nightly for sleep apnea. - Continue gabapentin and magnesium for restless leg syndrome. - Schedule follow-up appointments with neurology and for blood work as advised. Medications: New phentermine must administer 30 minutes before or 1-2 hours after breakfast 37.5 mg PO DAILY 30 caps 0RF E66.9 - Obesity, unspecified Discontinued tirzepatide (weight loss) (Zepbound) for 4 weeks Discontinued Reason: Insurance Denied 2.5 mg (0.5 mL) subcut QWEEK 2 mL 2RF E66.9 - Obesity, unspecified
--- OUTSIDE RECORDS SUMMARY | 2024-12-08 11:42 | XMS_ITS | Patient Health Record ---
Author Organization [facility] Address [address] [facility] [place] [address] Care Team Providers Care Service Desk Lead Name Role Phone Lorraine Fields Primary Care Provider Unavaildonato e Tirso Sunshine Unavailable [phone] Allergies Allergen (clinical drug ingredient) Drug/Non Drug [...] 145 MG 1 tablet Orally Once a day; Duration: 30 day(s) Active Vitamin D3 Active Losartan Potassium-HCTZ 100-25 MG 1 tablet Orally Once a day Active Metoprolol Succinate ER 100 MG 1 tablet Orally Once a day; Duration: 30 day(s) Active hydroCHLOROthiazide 12.5 MG 1 tablet in the morning Orally Once a day; Duration: 30 day(s) Not-Taking Social History Tobacco Use: [...] primary osteoarthritis of the ankle and/or foot (277204606) Primary osteoarthritis, left ankle and foot (M19.072) Active confirmed Problem Neuropathy ([id number]) Neuropathy (G62.9) Active confirmed Problem Localized, primary osteoarthritis of the ankle and/or foot (666140149) Primary osteoarthritis of right ankle (M19.071) Active confirmed Plan Of Treatment Pending Test Test Name Order Date X ray : Ankle, left 3V 02/13/2022 X ray : Foot, left 3V 07/17/2023 X ray : Foot, right 3V 07/17/2023 Insurance Providers Payer Name Payer Address Payer Phone Subscriber Number Group Number Insured Name Patient Relationship to Insured Coverage Start Date Coverage End Date [facility] [address] [place] [address] [id number] 5 Lou Walters Spouse - patient is [...]
== END 2024-12-08 11:12 | disposition home or self-care (01) ==
LOC: HO.HMCH 10:39
PROVIDERS: PCP Internal Medicine; Visit Provider Internal Medicine
DX: I10 Essential (primary) hypertension (principal); E66.9 Obesity, unspecified; E78.00 Pure hypercholesterolemia, unspecified; Z68.31 Body mass index [BMI] 31.0-31.9, adult; R73.02 Impaired glucose tolerance (oral); K21.9 Gastro-esophageal reflux disease without esophagitis; K76.0 Fatty (change of) liver, not elsewhere classified; G47.33 Obstructive sleep apnea (adult) (pediatric); G25.81 Restless legs syndrome

== ENCOUNTER → 2024-12-08 10:39 | Outpatient (BNVA) | payer OTHER, SELFPAY | PROVIDERS: PCP Internal Medicine; Visit Provider Internal Medicine | DX: I10 Essential (primary) hypertension (principal); E78.00 Pure hypercholesterolemia, unspecified; R73.02 Impaired glucose tolerance (oral); E66.9 Obesity, unspecified; K21.9 Gastro-esophageal reflux disease without esophagitis; K76.0 Fatty (change of) liver, not elsewhere classified; G47.33 Obstructive sleep apnea (adult) (pediatric); G25.81 Restless legs syndrome; R73.01 Impaired fasting glucose; M51.369 Other intervertebral disc degeneration, lumbar region without mention of lumbar back pain or lower extremity pain; Z99.89 Dependence on other enabling machines and devices; Z68.31 Body mass index [BMI] 31.0-31.9, adult | CPT/HCPCS: 96127; 99212 ==

== ENCOUNTER 2025-01-05 11:08 | Outpatient (AMB) | payer OTHER, SELFPAY ==
[2025-01-05 11:10] VITALS: BP 130/78; PULSE 57; O2SAT 95; BMI 31.6
--- NOTE | 2025-01-05 11:10 | A.OFFPC_ITS ---
Vital Signs 01/05/25 11:10 Height 5 ft 10 in Weight 220 lb BMI 31.6 BP 130/78 Blood Pressure Location Lt brachial Position Sitting Pulse 57 Pulse Source Pulse Oximeter Pulse Oximetry (%) 95 Oxygen Delivery Method Room Air Intake Visit Reasons: 1 month- per Dr. Fields Allergies amlodipine Adverse Reaction (Intermediate, Verified 01/05/25 11:10) leg swelling chlorthalidone Adverse Reaction (Intermediate, Verified 01/05/25 11:10) gout, hypokalemia ezetimibe (Zetia) Adverse Reaction (Intermediate, Verified 01/05/25 11:10) ^ LFTS lisinopril Adverse Reaction (Intermediate, Verified 01/05/25 11:10) cough topiramate (From Topamax) Adverse Reaction (Intermediate, Verified 01/05/25 11:10) agitation Medication List - Last Reconciled 01/05/25 by Lorraine Fields MD albuterol sulfate 90 mcg/actuation (Ventolin HFA) 2 puffs inhalation Q6H PRN cholecalciferol (vitamin D3) 50 mcg PO DAILY [CPAP ] fenofibrate nanocrystallized 145 mg PO DAILY gabapentin 300 mg PO BEDTIME 90 days MDD 300mg PO hydrochlorothiazide 25 mg PO DAILY losartan 100 mg PO DAILY magnesium oxide 400 mg PO DAILY metoprolol succinate ER 100 mg PO DAILY 90 days modafinil 100 mg PO QAM 30 days mometasone 50 mcg/actuation (Nasonex 24hr Allergy) 2 sprays intranasal DAILY simvastatin 5 mg PO BEDTIME tirzepatide (weight loss) (Zepbound) 2.5 mg (0.5 mL) subcut QWEEK Tobacco use date assessed: 06/10/24 Dental Screening Dental Screen Date: 06/10/24 HPI 1 month- per Dr. 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 Maternal Grandfather Lung cancer Paternal Grandmother No problems noted. Paternal Grandfather No problems noted. Daughter Bipolar disorder Maternal Aunt Bipolar disorder Other Mental health disorder Social History Housing: House Alcohol intake: current Comment: 2 a month 4 beers Patient Tobacco Use Status: Former Tobacco user Tobacco use type: Cigarette Years Smoked: 1987 e-Cigarette/Vaping Use: Never Used Second Hand Smoke Exposure: Yes service: Yes Current occupational status: employed Current occupational exposures/hazards: No Cognitive needs: No Hearing needs: No Vision needs: Yes (Glasses) Questionnaire PHQ-9 Over the last 2 weeks, how often have you been bothered by any of the following problems? 1. Little interest or pleasure in doing things: not at all 2. Feeling down, depressed, or hopeless: not at all 3. Trouble falling or staying asleep, or sleeping too much: not at all 4. Feeling tired or having little energy: several days 5. Poor appetite or overeating: not at all 6. Feeling bad about yourself - or that you are a failure or have let yourself or your family down: not at all 7. Trouble concentrating on things, such as reading the newspaper or watching television: not at all 8. Moving or speaking so slowly that other people could have noticed. Or the opposite - being so fidgety or restless that you have been moving around a lot more than usual: not at all 9. Thoughts that you would be better off or of hurting yourself in some way: not at all Total score: 1 Depression Screening Interpretation: Positive Depression Screening Done: Yes Source: Developed by Drs. Tuan Schwarz, Claudia Burdick, Fabricio Salinas and colleagues, with an educational piper from [employer]. Thrive Questionnaire Date Thrive assessed: 06/03/24 I am a: Patient What is your living situation today?: I have a steady place to live Within the past 12 months, did the food you bought not last and you didn't have the money to get more?: Never true Within the past 12 months, did you worry whether your food would run out before you got money to buy more?: Never true Do you have trouble paying for medicines?: No Do you have trouble getting transportation to medical appointments?: No Do you have trouble paying your heating and electricity bill?: No Do you have trouble taking care of your child, family member or friend?: No Do you have trouble with day-to-day activities such as bathing, preparing meals, shopping, managing finances, etc.?: No Are you currently unemployed and looking for a job?: No Are you interested in more education?: No Please select the resources that you would like help with: None Currently or been in a relationship where the following occur: No concerns reported THRIVE Score: 0 AUDIT C Alcohol Use Questionnaire (AUDIT-C) 1. How often do you have a drink containing alcohol?: 2-3 times a week 2. How many drinks containing alcohol do you have on a typical day when you are drinking?: 1 or 2 3. How often do you have six or more drinks on one occasion?: Never Total Score: 3 AVIVA-7 AMB Questionnaire AVIVA-7 Date AVIVA - 7 assessed: 06/10/24 Source: Developed by Drs. Tuan Schwarz, Claudia Burdick, Fabricio Salinas and colleagues, with an educational piper from [employer]. Physical exam (Primary Care) Vital Signs: Last Vital Signs Pulse 57 01/05/25 11:10 BP 130/78 01/05/25 11:10 Pulse Ox 95 01/05/25 11:10 Oxygen Delivery Method Room Air 01/05/25 11:10 BMI result Body Mass Index 31.6 Tobacco/Smoking Status: Tobacco use Status Tobacco use date assessed 06/10/24 01/05/25 11:13 Patient Tobacco Use Status Former Tobacco user 01/05/25 11:13 Tobacco use type Cigarette 01/05/25 11:13 e-Cigarette/Vaping Use Never Used 01/05/25 11:13 PHQ-9: PHQ-9 Score PHQ-9: Total score 1 01/05/25 11:39 Depression Screening Interpretation: Positive Thrive Assessment: Date of Thrive Assessment Date Thrive assessed 06/03/24 01/05/25 11:13 Currently or been in a relationship where the following occur: No concerns reported Const General: alert; No acute distress Eyes Conjunctivae: conjunctivae normal Resp Auscultation: clear to auscultation bilaterally Cardio Rate: regular rate Rhythm: regular rhythm GI Inspection: Yes normal to inspection Extrem General: Yes normal to inspection and No edema Coding Level of Care Code Est Pt Level 4 (43353) Complex EM visit Add On G2211 Diagnoses Essential hypertension I10 Hypertension type: essential hypertension Hypercholesterolemia E78.00 Impaired glucose tolerance R73.02 Obesity (BMI 30-39.9) E66.9 Gastroesophageal reflux disease without esophagitis K21.9 Esophagitis presence: without esophagitis Obstructive sleep apnea G47.33 Assessment & Plan Assessment & Plan (1) Hypertension: Code(s): I10 - Essential (primary) hypertension Category: Medical Qualifiers: Hypertension type: essential hypertension Qualified Code(s): I10 - Essential (primary) hypertension Plan: Continue with blood pressure medication. Decrease salt intake and exercise patient is on hydrochlorothiazide and losartan plus metoprolol 100 mg once a day (2) Hypercholesterolemia: Code(s): E78.00 - Pure hypercholesterolemia, unspecified Category: Medical Plan: Avoid fried foods, chicken skin, eggs, butter margarine, pastries and meat. Be it pork or beef they have a lot of cholesterol LDL goal of less than 130 and tri glyceride of less than 150 on simvastatin 5 mg at bedtime (3) Impaired glucose tolerance: Code(s): R73.02 - Impaired glucose tolerance (oral) Category: Medical Plan: Decrease the amount of carbohydrate intake, pasta, bread, rice and potatoes are all sugar and that is aside from all the sweet stuff, remember that fruits are good but they are Sweet also. (4) Obesity (BMI 30-39.9): Code(s): E66.9 - Obesity, unspecified Category: Medical Plan: Diet and exercise. Patient was started on phentermine, no change in weight. 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 After eating do not lie down, allow 3-4 hours before in lie down. And keep the head of bed above 30 degrees to avoid the acid from going up. (6) Obstructive sleep apnea: Comment: Sleep study February 2018 on CPAP Code(s): G47.33 - Obstructive sleep apnea (adult) (pediatric) Category: Medical Plan: Continue to use the CPAP more than 4 hours a night and benefits from this. Plan History of Present Illness The patient is a 59-year-old male presenting for a follow-up visit. He has a history of hypertension, managed with hydrochlorothiazide, losartan, and metoprolol 100 mg once daily. His blood pressure management plan is ongoing with these medications. The patient also has hypercholesterolemia, with an LDL goal of less than 130 mg/dL, currently at 116 mg/dL. He is on simvastatin 5 mg at bedtime to manage his cholesterol levels. Impaired glucose tolerance is noted, with a recent blood sugar level of 6.0. The patient was started on phentermine for weight management, but there has been no change in weight. He has obstructive sleep apnea and uses CPAP therapy, which he finds beneficial when used for more than 4 hours a night. The patient has lumbar degenerative disc disease, hepatic steatosis, and gastroesophageal reflux disease (GERD). His liver function tests have shown elevated numbers, which is a known issue. Asthma is also part of his medical history. Preventative care measures include a colonoscopy last performed in 2017. 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 For hypercholesterolemia, the patient is on simvastatin with a target LDL of less than 130 mg/dL, currently achieving 116 mg/dL, indicating good control. Regarding impaired glucose tolerance, the patient was started on phentermine for weight management, but there has been no weight change. Dietary modifications are encouraged, particularly reducing high-sugar foods like bagels. The patient continues to use CPAP therapy for obstructive sleep apnea, which is beneficial when used consistently for more than 4 hours nightly. For hepatic steatosis and GERD, liver function tests will be monitored due to known elevated liver enzymes. The patient will follow up in three months to reassess the management plans and make any necessary adjustments. Patient was informed and verbally consented to the use of an ambient scribe for clinic note documentation during this visit. Discussion Notes During the visit, we discussed the management of hypertension with the current medication regimen, which is effective. We reviewed the patient's cholesterol management, noting the LDL goal is being met with simvastatin therapy. For impaired glucose tolerance, we discussed the lack of weight change despite starting phentermine and emphasized dietary changes, particularly reducing high- sugar foods. The patient is advised to continue CPAP therapy for sleep apnea, which is beneficial. We also addressed the elevated liver enzymes and the need for ongoing monitoring. A follow-up appointment is scheduled in three months to evaluate the effectiveness of the current management plans. Patient Instructions - Continue taking your blood pressure medications as prescribed. - Maintain your current cholesterol medication regimen. - Focus on dietary changes, especially reducing high-sugar foods like bagels. - Use your CPAP machine for more than 4 hours each night. - Follow up in three months for reassessment. Medications: New tirzepatide (weight loss) (Zepbound) for 4 weeks 2.5 mg (0.5 mL) subcut QWEEK 2 mL 2RF E66.9 - Obesity, unspecified Discontinued phentermine must administer 30 minutes before or 1-2 hours after breakfast Discontinued Reason: Doctor's Order 37.5 mg PO DAILY 30 caps 0RF E66.9 - Obesity, unspecified
--- OUTSIDE RECORDS SUMMARY | 2025-01-05 12:19 | XMS_ITS | Patient Health Record ---
Author Organization [facility] Address [address] [place] [address] Care Team Providers Care Brushing Operator Name Role Phone Lorraine Fields Primary Care Provider Unavaildonato e Tirso Sunshine Unavailable [phone] Allergies Allergen (clinical drug ingredient) Drug/Non Drug [...] primary osteoarthritis of the ankle and/or foot ([id number]) Primary osteoarthritis, left ankle and foot (M19.072) Active confirmed Problem Neuropathy ([id number]) Neuropathy (G62.9) Active confirmed Problem Localized, primary osteoarthritis of the ankle and/or foot (862507992) Primary osteoarthritis of right ankle (M19.071) Active confirmed Plan Of Treatment Pending Test Test Name Order Date X ray : Ankle, left 3V 02/13/2022 X ray : Foot, left 3V 07/17/2023 X ray : Foot, right 3V 07/17/2023 Insurance Providers Payer Name Payer Address Payer Phone Subscriber Number Group Number Insured Name Patient Relationship to Insured Coverage Start Date Coverage End Date [facility] [address] [place] [address] [id number] Lou Walters Spouse - patient is [...]
== END 2025-01-05 11:48 | disposition home or self-care (01) ==
LOC: HO.HMCH 11:08
PROVIDERS: PCP Internal Medicine; Visit Provider Internal Medicine
DX: I10 Essential (primary) hypertension (principal); E78.00 Pure hypercholesterolemia, unspecified; E66.9 Obesity, unspecified; Z68.31 Body mass index [BMI] 31.0-31.9, adult; R73.02 Impaired glucose tolerance (oral); K21.9 Gastro-esophageal reflux disease without esophagitis; G47.33 Obstructive sleep apnea (adult) (pediatric)

== ENCOUNTER → 2025-01-05 11:08 | Outpatient (BNVA) | payer OTHER, SELFPAY | PROVIDERS: PCP Internal Medicine; Visit Provider Internal Medicine | DX: I10 Essential (primary) hypertension (principal); E78.00 Pure hypercholesterolemia, unspecified; R73.02 Impaired glucose tolerance (oral); E66.9 Obesity, unspecified; K21.9 Gastro-esophageal reflux disease without esophagitis; G47.33 Obstructive sleep apnea (adult) (pediatric); Z99.89 Dependence on other enabling machines and devices; Z68.31 Body mass index [BMI] 31.0-31.9, adult | CPT/HCPCS: 96127; 99212 ==

== ENCOUNTER 2025-04-08 08:47 | Outpatient (AMB) | payer OTHER, SELFPAY ==
[2025-04-08 09:10] VITALS: BP 116/88; PULSE 60; O2SAT 98; BMI 29.9
--- NOTE | 2025-04-08 09:10 | MHC.OFFVIS ---
Vital Signs 04/08/25 09:10 Height 5 ft 10 in Weight 208 lb 2 oz BMI 29.9 BP 116/88 Blood Pressure Location Lt brachial Position Sitting Pulse 60 Pulse Source Pulse Oximeter Pulse Oximetry (%) 98 Oxygen Delivery Method Room Air Intake Visit Reasons: Follow Up 1yr Intake Note: Patient presents follow up WAI/RLS medication. Compliance in chart(90/90days, >=4hrs-100%, Average Usage-7hr 58min, Med Pressure-9.7, Med Leaks-3.9, AHI-1.5). Patient states RLS is better. Accompanied by: Self / Same As Patient Allergies amlodipine Adverse Reaction (Intermediate, Verified 04/08/25 09:21) leg swelling chlorthalidone Adverse Reaction (Intermediate, Verified 04/08/25 09:21) gout, hypokalemia ezetimibe (Zetia) Adverse Reaction (Intermediate, Verified 04/08/25 09:21) ^ LFTS lisinopril Adverse Reaction (Intermediate, Verified 04/08/25 09:21) cough topiramate (From Topamax) Adverse Reaction (Intermediate, Verified 04/08/25 09:21) agitation HPI Comments Details: 59 y/o male presents for follow up of WAI on CPAP therapy and he has hypersomnia. [facility] Compliance Report 12/2024- 03/2025 Total 90/90days, >=4hrs-100%, Average Usage-7hr 58min Med Press-9.7, Med Leaks-3.9, AHI-1.5) He washes his mask, rinses hoses, changes filters, fills reservoir with water. He was in the [employer] for 33 years and always had fragmented sleep. He now sleeps 7 hours has refreshed sleep and likes his nasal pillows, he gets supplies on time, pressures and temperatures are fine. He takes modafinil 50-100 mg qAM for hypersomnia M-F only, as this helps him to be alert and focused at work. He no longer falls asleep at work. He was started on Gabapentin 300mg for RLS, and this has helped decrease the pins needles, spasms, cramps bilaterally in calves and feet. He needs to get orthotics fitted as he has flat feet due to plantar fascitis.He has lost 18lbs sinces stating on tirzepatide for 2 months. His memory and mood are stable. 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 He denies snoring, gasping, bruxism, morning headaches, acid reflux and parasomnias. [facility] Medical History Daytime sleepiness Disc degeneration, lumbosacral Family history of malignant hyperthermia DDD (degenerative disc disease), lumbar Obesity (BMI 30-39.9) Nocturnal hypoxemia Obstructive sleep apnea Vitamin D deficiency Impaired glucose tolerance Fatty liver Hypercholesterolemia Hypertension Surgical History S/P bilateral inguinal hernia repair History of ear surgery H/O colonoscopy History of selective injection of anesthetic agent around lumbar nerve root Family History Father Lung cancer Mother Lung cancer Maternal Grandmother No problems noted. Maternal Grandfather Lung cancer Paternal Grandmother No problems noted. Paternal Grandfather No problems noted. Daughter Bipolar disorder Maternal Aunt Bipolar disorder Other Mental health disorder Social History Housing: House Alcohol intake: current Comment: 2 a month 4 beers Patient Tobacco Use Status: Former Tobacco user Tobacco use type: Cigarette Years Smoked: 1987 e-Cigarette/Vaping Use: Never Used Second Hand Smoke Exposure: Yes service: Yes Current occupational status: employed Current occupational exposures/hazards: No Cognitive needs: No Hearing needs: No Vision needs: Yes (Glasses) Physical Exam Vital Signs: Last Vital Signs Pulse 60 04/08/25 09:10 BP 116/88 04/08/25 09:10 Pulse Ox 98 04/08/25 09:10 Oxygen Delivery Method Room Air 04/08/25 09:10 BMI result Body Mass Index 29.9 Const General: cooperative, comfortable and no acute distress Nutritional Appearance: overweight Orientation/consciousness: patient oriented x3 Eyes Pupils: Equal, round and reactive pupils present Neck Neck: Yes full ROM Resp Effort & Inspection: normal respiratory effort and able to speak in complete sentences Neuro General: patient oriented x3 and moves all extremities Cranial nerves: Yes Facial sensation intact/muscles of mastication intact, Yes Equal, round and reactive pupils present, Yes Normal accommodation reflex present, Yes Normal facial strength present, Yes Midline tongue present, Yes Ability to bilaterally rotate head present and Yes Ability to bilaterally elevate shoulders present Gait exam (Neuro): Normal gait present Motor exam (neuro): 5/5 motor strength present throughout and Normal motor muscle tone present throughout Psych Appearance: grossly normal Mental Status: mental status grossly normal Thought process: Normal thought process present Thought content: Normal thought content present Results Reviewed Results Reviewed: [facility] Compliance Report 12/2024- 03/2025 Total 90/90days, >=4hrs-100%, Average Usage-7hr 58min Med Press-9.7, Med Leaks-3.9, AHI-1.5) He washes his mask, rinses hoses, changes filters, fills reservoir with water. Assessment & Plan Assessment & Plan (1) Hypersomnia with sleep apnea: Code(s): G47.10 - Hypersomnia, unspecified; G47.30 - Sleep apnea, unspecified Category: Medical (2) RLS (restless legs syndrome): Code(s): G25.81 - Restless legs syndrome Category: Medical (3) Obstructive sleep apnea: Comment: Sleep study February 2018 on CPAP Code(s): G47.33 - Obstructive sleep apnea (adult) (pediatric) Category: Medical (4) Leg cramps: Code(s): R25.2 - Cramp and spasm Category: Medical Plan [facility]AI Continue to use APAP [id number] nightly > 4 hrs, as patient is experiencing good clinical effects. Clean and change PAP supplies routinely, wash mask, tubing, change filters and fill reservoir with water as needed. Hypersomnia continue on Modafinil 100mg M-F daily at 7am. Labs reviewed with pt. RLS start gabapentin 300mg po at bedtime, continue Magnesium 400mg at bedtime for BLE foot cramps, may use magnilife topically also. F/U in 6months Medications: Changed From modafinil 100 mg PO QAM 30 days 30 tabs 4RF G47.10 - Hypersomnia, unspecified, G47.30 - Sleep apnea, unspecified To modafinil daily one 100mg po at breakfast 100 mg PO QAM 30 tabs 4RF hypersomnia 30 days MDD 100mg G47.10 - Hypersomnia, unspecified, G47.30 - Sleep apnea, unspecified Refilled magnesium oxide 400 mg PO DAILY 60 tabs 1RF M79.671 - Pain in right foot, M79.672 - Pain in left foot gabapentin take one 300mg PO capsule at bedtime daily for RLS symptoms. 300 mg PO BEDTIME 90 caps 3RF Restless Leg Syndrome 90 days MDD 300mg PO G25.81 - Restless legs syndrome Patient Instructions: Sleep Hygiene provided: set a scheduled bedtime and wake time to help regulate the circadian rhythm and balance the release of pituitary hormones. Sleep in a dark room, temperatures below 68 degrees, and no devices n bed. Limit caffeinated products 6 hours prior to bed, and limit fluids 2-4 hours prior to bed. Gentle night yoga, diffusing essential oils, and playing soft music can be relaxing. Coding Level of Care Code Est Pt Level 4 (84857) Diagnoses Hypersomnia with sleep apnea G47.10; G47.30 RLS (restless legs syndrome) G25.81 Obstructive sleep apnea G47.33 Leg cramps R25.2
--- OUTSIDE RECORDS SUMMARY | 2025-04-08 16:27 | XMS_ITS | Patient Health Record ---
Author Organization [facility] Address [address] [place] [address] Care Team Providers Care Boatswains Mate Name Role Phone Lorraine Fields Primary Care Provider Unavaildonato e Tirso Sunshine Unavailable [phone] Allergies Allergen (clinical drug ingredient) Drug/Non Drug [...] primary osteoarthritis of the ankle and/or foot ([id number]) Primary osteoarthritis, left ankle and foot (M19.072) Active confirmed Problem Neuropathy (779749025) Neuropathy (G62.9) Active confirmed Problem Localized, primary osteoarthritis of the ankle and/or foot (826422853) Primary osteoarthritis of right ankle (M19.071) Active [...] Coverage End Date [facility] [address] [place] [address] [id number] 5 Lou Walters Spouse - patient is [...]
== END 2025-04-08 09:46 | disposition home or self-care (01) ==
LOC: HO.HSMC 08:48
PROVIDERS: PCP Internal Medicine; Visit Provider Physician Assistant Medical
DX: G47.10 Hypersomnia, unspecified (principal); G47.30 Sleep apnea, unspecified; G25.81 Restless legs syndrome; G47.33 Obstructive sleep apnea (adult) (pediatric); R25.2 Cramp and spasm
CPT/HCPCS: 99214

== ENCOUNTER → 2025-04-08 08:47 | Outpatient (BNVA) | payer OTHER, SELFPAY | PROVIDERS: PCP Internal Medicine; Visit Provider Physician Assistant Medical | DX: G25.81 Restless legs syndrome (principal); G47.10 Hypersomnia, unspecified; G47.30 Sleep apnea, unspecified; Z99.89 Dependence on other enabling machines and devices | CPT/HCPCS: 99212 ==

== ENCOUNTER 2025-04-20 13:00 | Outpatient (AMB) | payer OTHER, SELFPAY ==
[2025-04-20 13:02] VITALS: BP 124/78; PULSE 64; O2SAT 98; BMI 28.4
--- NOTE | 2025-04-20 13:02 | A.OFFPC_ITS ---
Vital Signs 04/20/25 13:02 Height 5 ft 10 in Weight 198 lb BMI 28.4 BP 124/78 Blood Pressure Location Lt brachial Position Sitting Pulse 64 Pulse Source Pulse Oximeter Pulse Oximetry (%) 98 Oxygen Delivery Method Room Air Intake Visit Reasons: 3 mo follow up obesity Allergies amlodipine Adverse Reaction (Intermediate, Verified 04/20/25 13:03) leg swelling chlorthalidone Adverse Reaction (Intermediate, Verified 04/20/25 13:03) gout, hypokalemia ezetimibe (Zetia) Adverse Reaction (Intermediate, Verified 04/20/25 13:03) ^ LFTS lisinopril Adverse Reaction (Intermediate, Verified 04/20/25 13:03) cough topiramate (From Topamax) Adverse Reaction (Intermediate, Verified 04/20/25 13:03) agitation Medication List - Last Reconciled 04/20/25 by Lorraine Fields MD albuterol sulfate 90 mcg/actuation (Ventolin HFA) 2 puffs inhalation Q6H PRN cholecalciferol (vitamin D3) 50 mcg PO DAILY [CPAP ] fenofibrate nanocrystallized 145 mg PO DAILY gabapentin 300 mg PO BEDTIME 90 days MDD 300mg PO hydrochlorothiazide 25 mg PO DAILY losartan 100 mg PO DAILY magnesium oxide 400 mg PO DAILY metoprolol succinate ER 100 mg PO DAILY 90 days modafinil 100 mg PO QAM 30 days MDD 100mg mometasone 50 mcg/actuation (Nasonex 24hr Allergy) 2 sprays intranasal DAILY simvastatin 5 mg PO BEDTIME tirzepatide (weight loss) 5 mg (0.5 mL) subcut QWEEK Tobacco use date assessed: 06/10/24 Dental Screening Dental Screen Date: 06/10/24 HPI HPI Comments History of Present Illness Details History of Present Illness The patient is a 59-year-old individual presenting for a follow-up visit for management of chronic conditions and evaluation of right knee pain. The patient has a history of hypertension, hypercholesterolemia, impaired glucose tolerance, obstructive sleep apnea, lumbar degenerative disc disease, hepatic osteoporosis, and asthma. For obstructive sleep apnea, the patient uses CPAP regularly with good results and takes modafinil for associated hypersomnia. The patient also takes gabapentin and magnesium for restless legs syndrome. Regarding the right knee, the patient complains of intermittent swelling and fluid accumulation, which makes it difficult to bend. An x-ray of the right knee in May 2024 revealed some arthritis. Recent blood work from November 2024 showed mild anemia with a hemoglobin of 13.6 and hematocrit of 40.4, a hemoglobin A1c of 6.0%, and an LDL of 116 mg/dL. Electrolytes, renal function, liver function, and thyroid function were all normal at that time. For health maintenance, the patient's last colonoscopy was in 2016. Vaccinations for shingles, tetanus, pneumonia, and influenza are up to date. The patient was last seen by neurology in March 2019. Health Maintenance - The patient's last colonoscopy was in 2016. - Vaccinations are up to date, including shingles, tetanus, pneumonia, and flu shots. - Vision care is up to date. - Hemoglobin A1c was 6.0% in November 2024 a nd improved to 5.3% at this visit. - The patient has experienced a 10-pound weight loss, with BMI decreasing from a prior high of 31.6 to a current 28.4. - A low-fat diet and exercise were discu ssed as part of the management plan. 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 - Diet: The patient reports eating less and was advised to eat healthy and avoid nutritional supplement drinks to prevent weight gain. - Exercise: The patient was advised to i ncrease physical activity. - Weight Management: The patient has los t 10 pounds. Results - Labs (Current): Hemoglobin A1c is 5.3% . - Labs (November 2024): Hemoglobin was 13.6 and hematocrit was 40.4. - Hemoglobin A1c was 6.0%. - LDL was 116 mg/dL. - Electrolytes, renal function, liver fu nction, and thyroid studies were normal. - Imaging (May 2024): X-ray of the r ight knee showed arthritis. [facility] Medical History Daytime sleepiness Disc degeneration, lumbosacral Family history of malignant hyperthermia DDD (degenerative disc disease), lumbar Obesity (BMI 30-39.9) Nocturnal hypoxemia Obstructive sleep apnea Vitamin D deficiency Impaired glucose tolerance Fatty liver Hypercholesterolemia Hypertension Surgical History S/P bilateral inguinal hernia repair History of ear surgery H/O colonoscopy History of selective injection of anesthetic agent around lumbar nerve root Family History Father Lung cancer Mother Lung cancer Maternal Grandmother No problems noted. Maternal Grandfather Lung cancer Paternal Grandmother No problems noted. Paternal Grandfather No problems noted. Daughter Bipolar disorder Maternal Aunt Bipolar disorder Other Mental health disorder Social History Housing: House Alcohol intake: current Comment: 2 a month 4 beers Patient Tobacco Use Status: Former Tobacco user Tobacco use type: Cigarette Years Smoked: 1987 e-Cigarette/Vaping Use: Never Used Second Hand Smoke Exposure: Yes service: Yes Current occupational status: employed Current occupational exposures/hazards: No Cognitive needs: No Hearing needs: No Vision needs: Yes (Glasses) Questionnaire Thrive Questionnaire Date Thrive assessed: 06/03/24 I am a: Patient What is your living situation today?: I have a steady place to live Within the past 12 months, did the food you bought not last and you didn't have the money to get more?: Never true Within the past 12 months, did you worry whether your food would run out before you got money to buy more?: Never true Do you have trouble paying for medicines?: No Do you have trouble getting transportation to medical appointments?: No Do you have trouble paying your heating and electricity bill?: No Do you have trouble taking care of your child, family member or friend?: No Do you have trouble with day-to-day activities such as bathing, preparing meals, shopping, managing finances, etc.?: No Are you currently unemployed and looking for a job?: No Are you interested in more education?: No Please select the resources that you would like help with: None Currently or been in a relationship where the following occur: No concerns reported THRIVE Score: 0 AVIVA-7 AMB Questionnaire AVIVA-7 Date AVIVA - 7 assessed: 06/10/24 Source: Developed by Drs. Tuan Schwarz, Claudia Burdick, Fabricio Salinas and colleagues, with an educational piper from [employer]. Review of Systems Narrative Review of Systems - Constitutional: Reports having less energy. - Denies any unusual sweating, apart from the knee. - Musculoskeletal: Reports intermittent right knee swelling and pain, which makes it difficult to bend the knee. - Gastrointestinal: Reports good bowel movements. - Eyes: Reports being up to date with vision checks. - Neurological: Reports persistent sleepiness. - General: Denies any other new concerns. Physical exam (Primary Care) Vital Signs: Last Vital Signs Pulse 64 04/20/25 13:02 BP 124/78 04/20/25 13:02 Pulse Ox 98 04/20/25 13:02 Oxygen Delivery Method Room Air 04/20/25 13:02 BMI result Body Mass Index 28.4 Tobacco/Smoking Status: Tobacco use Status Tobacco use date assessed 06/10/24 04/20/25 13:04 Patient Tobacco Use Status Former Tobacco user 04/20/25 13:04 Tobacco use type Cigarette 04/20/25 13:04 e-Cigarette/Vaping Use Never Used 04/20/25 13:04 Thrive Assessment: Date of Thrive Assessment Date Thrive assessed 06/03/24 04/20/25 13:04 Currently or been in a relationship where the following occur: No concerns r eported Narrative Physical Exam - Musculoskeletal: Examination of the right knee reveals swelling, making it appear larger than the left. - There is no tenderness to palpation around the joint. - Flexion is limited. - The left knee is without abnormalities. Const General: alert; No acute distress Eyes Conjunctivae: conjunctivae normal Resp Auscultation: clear to auscultation bilaterally Cardio Rate: regular rate Rhythm: regular rhythm GI Inspection: Yes normal to inspection Extrem General: Yes normal to inspection and No edema Results AMB Hemoglobin A1c AMB Hemoglobin A1c 5.3 % Last Edit by Jasmyn Burch CMA on 04/20/25 13 :29 Results Reviewed Results Reviewed: Laboratory Last Values Hgb A1c (Clinic) 5.3 % (4.0-6.0) 04/20/25 13:28 Coding Level of Care Code Complex visit Add On G2211 Diagnoses Essential hypertension I10 Hypertension type: essential hypertension Hypercholesterolemia E78.00 Impaired glucose tolerance R73.02 Overweight (BMI 25.0-29.9) E66.3 Gastroesophageal reflux disease without esophagitis K21.9 Esophagitis presence: without esophagitis Fatty liver K76.0 Obstructive sleep apnea G47.33 Assessment & Plan Assessment & Plan (1) Hypertension: Code(s): I10 - Essential (primary) hypertension Category: Medical Qualifiers: Hypertension type: essential hypertension Qualified Code(s): I10 - Essential (primary) hypertension Plan: Continue with blood pressure medication. Decrease salt intake and exercise patient is on hydrochlorothiazide 25 mg once a day losartan 100 mg once a day metoprolol 100 mg once a day (2) Hypercholesterolemia: Code(s): E78.00 - Pure hypercholesterolemia, unspecified Category: Medical Plan: Avoid fried foods, chicken skin, eggs, butter margarine, pastries and meat. Be it pork or beef they have a lot of cholesterol LDL goal of less than 130 and triglyceride of less than 150 on simvastatin 5 mg at bedtime November 2024 last blood work (3) Impaired glucose tolerance: Code(s): R73.02 - Impaired glucose tolerance (oral) Category: Medical Plan: Decrease the amount of carbohydrate intake, pasta, bread, rice and potatoes are all sugar and that is aside from all the sweet stuff, remember that fruits are good but they are Sweet also. On tirzepatide 5 mg once a day noted 10 lb weight loss (4) Overweight (BMI 25.0-29.9): Code(s): E66.3 - Overweight Category: Medical Plan: Continue with this hepatitis, diet and exercise (5) GERD (gastroesophageal reflux disease): Code(s): K21.9 - Gastro-esophageal reflux disease without esophagitis Category: Medical Qualifiers: Esophagitis presence: without esophagitis Qualified Code(s): K21.9 - Gastro-esophageal reflux disease without esophagitis Plan: Avoid the foods that causes that usually spicy foods, tomato products, juices, coffee, soda and foods that your sensitive to. After eating do not lie down, allow 3-4 hours before in lie down. And keep the head of bed above 30 degrees to avoid the acid from going up. (6) Fatty liver: Comment: Ultrasound done in 2017 Code(s): K76.0 - Fatty (change of) liver, not elsewhere classified Category: Medical Plan: Low-fat diet and exercise (7) Obstructive sleep apnea: Comment: Sleep study February 2018 on CPAP Code(s): G47.33 - Obstructive sleep apnea (adult) (pediatric) Category: Medical Plan: Continue with using the CPAP more than 4 hours a night and benefits from this. Plan Plan Patient was informed and verbally consented to the use of an ambient scribe for clinic note documentation during this visit. 1. Hypertension Continue current medication regimen, which includes hydrochlorothiazide 25 mg once a day, losartan 100 mg once a day, and metoprolol 100 mg once a day. 2. Hypercholesterolemia The patient's LDL goal is less than 130 mg/dL, and triglyceride goal is less than 150 mg/dL. The patient will continue taking simvastatin 5 mg at bedtime. 3. Type 2 Diabetes Mellitus Glycemic control has improved, with HbA1c decreasing from 6.0% in November to 5.3% currently. The patient will continue tirzepatide 5 mg once weekly. The long-term plan is to taper off the medication once a stable weight is achieved. Will follow up in 3 months for monitoring. 4. Overweight The patient has successfully lost 10 pounds and the BMI has improved from 31.6 to 28.4, moving from the obese to overweight category. Will continue diet and exercise. Advised to increase physical activity and avoid nutritional supplement drinks that may cause weight gain. 5. Obstructive Sleep Apnea The patient is benefiting from regular CPAP use of more than 4 hours per night and should continue this. The patient will also continue modafinil for hypersomnia and gabapentin with magnesium for RLS. 6. Right Knee Arthritis The patient's intermittent right knee swelling is attributed to underlying arthritis, exacerbated by overuse from standing frequently at work. Current man agement is conservative with observation. If pain worsens, medication for pain control can be considered. If symptoms become more bothersome, referral to orthopedics for interventions such as fluid aspiration or injections may be warranted, although fluid aspiration is not a preferred first step. Discussion Notes I reviewed the patient's new labs, highlighting the excellent improvement in the HbA1c from 6.0% down to 5.3%, which is now in the normal range. We discussed the 10-pound weight loss and the corresponding drop in BMI from the obese to the overweight category, which is a very good result. I explained the long-term plan for tirzepatide, clarifying that it is not intended for indefinite use. Once the patient reaches a comfortable weight, we will focus on maintaining it with lifestyle changes and then taper off the medication, likely by reducing the dose from 5 mg to 2.5 mg before stopping completely. I encouraged the patient to ramp up physical activity to build on this progress. Regarding the right knee pain, I explained that the swelling is a natural response from the underlying arthritis, often triggered by overuse such as standing for long periods. I outlined management options, including pain medication if needed, and a potential referral to orthopedics for injections or fluid drainage if it becomes more problematic, while noting I don't prefer to drain the fluid. We discussed diet, and I advised against using nutritional supplement drinks like Ensure for energy due to the risk of weight gain, reinforcing the importance of a healthy diet. We will have a follow-up appointment in three months to monitor progress. Patient Instructions - Continue your current medications for blood pressure, cholesterol, and sleep as prescribed. - Continue taking tirzepatide 5 mg once per week for your diabetes and weight management. - Let me know when you need a refill. - Continue using your CPAP machine every night for at least 4 hours. - For your knee pain, this is due to arthritis. - If your pain worsens, we can discuss pain medications or a referral to a bone specialist. - Try to increase your physical activity now that you have lost some weight. - Do not drink nutritional shakes like Ensure for energy, as they can cause weight gain. - Focus on getting energy from healthy foods. - Please schedule a follow-up appointment in 3 months. Orders: Orders Free T4 (Free Thyroxine) 3 Months R73.02 - Impaired glucose tolerance (oral) Thyroid Stimulating Hormone 3 Months R73.02 - Impaired glucose tolerance (oral) Lipid Panel 3 Months E78.00 - Pure hypercholesterolemia, unspecified, R73.02 - Impaired glucose tolerance (oral) Hemoglobin A1c 3 Months R73.02 - Impaired glucose tolerance (oral) AMB Hemoglobin A1c Today Z13.9 - Encounter for screening, unspecified Comprehensive Met. Panel 3 Months R73.02 - Impaired glucose tolerance (oral) Complete Blood Count Auto Diff 3 Months R73.02 - Impaired glucose tolerance (oral) Vitamin B12 and Folate 3 Months R73.02 - Impaired glucose tolerance (oral) Vitamin D 25-OH Total 3 Months R73.02 - Impaired glucose tolerance (oral) Prostate Specific Antigen Scr 3 Months R73.02 - Impaired glucose tolerance (oral) Magnesium 3 Months R73.02 - Impaired glucose tolerance (oral) Erythrocyte Sedimentation Rate 3 Months R73.02 - Impaired glucose tolerance (oral)
== END 2025-04-20 13:34 | disposition home or self-care (01) ==
LOC: HO.HMCH 13:00
PROVIDERS: PCP Internal Medicine; Visit Provider Internal Medicine
DX: I10 Essential (primary) hypertension (principal); E78.00 Pure hypercholesterolemia, unspecified; R73.02 Impaired glucose tolerance (oral); E66.3 Overweight; K21.9 Gastro-esophageal reflux disease without esophagitis; K76.0 Fatty (change of) liver, not elsewhere classified; G47.33 Obstructive sleep apnea (adult) (pediatric); Z13.9 Encounter for screening, unspecified

== ENCOUNTER → 2025-04-20 13:00 | Outpatient (BNVA) | payer OTHER, SELFPAY | PROVIDERS: PCP Internal Medicine; Visit Provider Internal Medicine | DX: I10 Essential (primary) hypertension (principal); E78.00 Pure hypercholesterolemia, unspecified; G47.33 Obstructive sleep apnea (adult) (pediatric); D64.9 Anemia, unspecified; R73.02 Impaired glucose tolerance (oral); E66.3 Overweight; K21.9 Gastro-esophageal reflux disease without esophagitis; K76.0 Fatty (change of) liver, not elsewhere classified; M17.11 Unilateral primary osteoarthritis, right knee; Z13.1 Encounter for screening for diabetes mellitus; Z99.89 Dependence on other enabling machines and devices; Z68.28 Body mass index [BMI] 28.0-28.9, adult | CPT/HCPCS: 83036; 99212 ==